=== PATIENT | female | born 1940 | race Caucasian/White ===

== ENCOUNTER 2019-03-01 17:51 | Emergency (ER) | payer OTHER ==
--- OUTSIDE RECORDS SUMMARY | 2019-03-01 17:53 | XMS REPORT ---
:1940 [facility] Address [address] [place] [address] Dr. Rubin [address] [place] [id number] Care Team Providers Name Role Phone Unavailable Unavailable Unavailable Problems This patient has no known problems. Allergies, Adverse Reactions, Alerts This patient has no known allergies or adverse reactions. Medications This patient has no known medications.
[2019-03-01] MEDS ORDERED: HYDROCODONE/APAP 5/325 MG TAB ONE ×2 (18:44→18:48)
--- NOTE | 2019-03-01 18:51 | RAD REPORT ---
EXAM DESCRIPTION: CT - Head Brain Wo Cont - 03/01/2019 6:32 pm CLINICAL HISTORY: Head injury status post fall COMPARISON: 2018 TECHNIQUE: Computed axial tomography of the head was obtained. IV contrast was not requested. All CT scans are performed using dose optimization technique as appropriate and may include automated exposure control or mA/KV adjustment according to patient size. FINDINGS: An intracranial bleed is not seen . The ventricles are normal in caliber. No extra-axial fluid collection is noted. 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 No surrounding edema Fluid is present within the right maxillary sinus may indicate acute sinusitis IMPRESSION: No acute intracranial abnormality is seen. If patient's symptoms persist MRI of the bra in would be recommended.
--- NOTE | 2019-03-01 18:58 | RAD REPORT ---
EXAM DESCRIPTION: CT - Thorax Wo Con - 03/01/2019 6:30 pm CLINICAL HISTORY: Chest pain status post fall COMPARISON: 2008 TECHNIQUE: Computed axial tomography of the chest was obtained. Contrast was not requested. All CT scans are performed using dose optimization technique as appropriate and may include automated exposure control or mA/KV adjustment according to patient size. FINDINGS: The evaluation of mediastinum, karen and vessels is limited secondary to lack of IV contras t administration. A mediastinal hematoma is not seen. A pulmonary contusion is not noted A pleural effusion is not present. A pericardial effusion is not seen Moderate hiatal hernia IMPRESSION: No acute traumatic injury involving the chest seen
--- NOTE | 2019-03-01 19:00 | RAD REPORT ---
EXAM DESCRIPTION: RAD - Forearm Right - 03/01/2019 6:27 pm CLINICAL HISTORY: Right arm pain status post fall FINDINGS: No fracture is seen.
--- NOTE | 2019-03-01 19:41 | ER ---
Nurse's Notes [facility] Name: Nallely Mendez Age: 79 yrs Sex: Female : 1940 Arrival Date: 03/01/2019 Time: 17:54 Bed 18 Private MD: Vinod Combs Diagnosis: Rib contusion;Right forearm skin tear Presentation: 03/01 18:03 Presenting complaint: Patient states: tripped and fell yesterday onto her right breast sv and since then has been having pain and SOB. Care prior to arrival: None. Mechanism of Injury: Fall from standing position. Trauma event details: Injury occurred in the [facility], Injury occurred: at home. Injury occurred: February 28, 2019. 18:03 Method Of Arrival: Wheelchair sv 18:03 Acuity: GUNNER 2 sv 19:15 Transition of care: patient was not received from another setting of care. Onset of wh symptoms was February 28, 2019. Risk Assessment: Do you want to hurt yourself or someone else? Patient reports no desire to harm self or others. 19:15 Initial Sepsis Screen: Does the patient meet any 2 criteria? No. Patient's initial wh sepsis screen is negative. Does the patient have a suspected source of infection? No. Patient's initial sepsis screen is negative. Historical: - Allergies: 18:05 Phenergan; sv - PMHx: 18:05 Depression; Hypertension; sv - PSHx: 18:05 Appendectomy; Cholecystectomy; Tonsillectomy; Knee surgery; sv - Immunization history:: Adult Immunizations up to date. - Social history:: Smoking status: Patient/guardian denies using tobacco. - Ebola Screening: : Patient negative for fever greater than or equal to 101.5 degrees Fahrenheit, and additional compatible Ebola Virus Disease symptoms Patient denies exposure to infectious person. Screenin:10 Abuse screen: Denies threats or abuse. Denies injuries from another. Nutritional wh screening: No deficits noted. Tuberculosis screening: No symptoms or risk factors identified. Fall Risk Fall in past 12 months (25 points). Assessment: 19:13 General: Appears in no apparent distress. Behavior is calm, cooperative, appropriate wh for age. Pain: Complains of pain in RIght RIb cage Pain radiates to back Pain currently is 7 out of 10 on a pain scale. Neuro: Level of Consciousness is awake, alert, obeys commands, Oriented to person, place, time, situation, Appropriate for age. Cardiovascular: Heart tones S1 S2. Respiratory: Airway is patent Respiratory effort is even, unlabored, Respiratory pattern is regular, symmetrical, Breath sounds are clear bilaterally. GI: Abdomen is flat, non-distended. : No signs and/or symptoms were reported regarding the genitourinary system. EENT: No signs and/or symptoms were reported regarding the EENT system. Derm: Skin is intact, is healthy with good turgor, Skin is pink, warm \T\ dry. normal. Musculoskeletal: Circulation, motion, and sensation intact. Vital Signs: 18:05 BP 140 / 111; Pulse 76; Resp 20; Pulse Ox 100% ; Weight 78.02 kg; Height 5 ft. 0 in. sv (152.40 cm); Pain 10/10; 19:09 BP 100 / 44; Pulse 65; Resp 18; Pulse Ox 96% on R/A; wh 18:05 Body Mass Index 33.59 (78.02 kg, 152.40 cm) sv ED Course: 17:54 Patient arrived in ED. mr 17:54 Vinod Combs MD is Private Physician. mr 17:54 Lewis Quijano MD is Attending Physician. ps1 18:04 Triage completed. sv 18:05 ED physician to see patient. sv 18:05 Arm band placed on. sv 18:09 Fausto Mcclellan, RN is Primary Nurse. tr5 18:27 Forearm Right XRAY In Process Unspecified. EDMS 18:30 CT Chest Wo Con In Process Unspecified. EDMS 18:33 CT Head Brain wo Cont In Process Unspecified. EDMS 19:15 Patient has correct armband on for positive identification. Bed in low position. Call wh light in reach. Side rails up X 1. Pulse ox on. NIBP on. 19:39 Vinod Combs MD is Referral Physician. ps1 20:04 No provider procedures requiring assistance completed. Patient did not have IV access wh during this emergency room visit. Administered Medications: 18:45 Drug: [place] 5 mg-325 mg 2 tabs Route: PO; tr5 20:04 Follow up: Response: No adverse reaction; Pain is decreased; RASS: Alert and Calm (0) wh Outcome: 19:40 Discharge ordered by . ps1 20:04 Discharged to home via wheelchair, with family. wh 20:04 Condition: stable 20:04 Discharge instructions given to patient, family, Instructed on discharge instructions, follow up and referral plans. no drinking with medication, no driving heavy equipment, medication usage, POC Rib COntusion Demonstrated understanding of instructions, follow-up care, medications, POC Prescriptions given X 3. 20:05 Patient left the ED. Signatures: Dispatcher [employer] EDKiara Christie RN RN Kayla Summers, Domonique Lewis Quijano MD MD ps1 Fausto Mcclellan RN RN tr5 Corrections: (The following items were deleted from the chart) 18:05 18:03 Acuity: GUNNER 3 sv sv 19:14 19:09 Reassessment: Patient appears in no apparent distress at this time. Patient wh and/or family updated on plan of care and expected duration. Pain level reassessed. Patient is alert, oriented x 3, equal unlabored respirations, skin warm/dry/pink.
--- NOTE | 2019-03-01 19:41 | EDPHYS ---
Physician Documentation [facility] Name: Nallely Mendez Age: 79 yrs Sex: Female : 1940 Arrival Date: 03/01/2019 Time: 17:54 Bed 18 Private MD: Vinod Combs ED Physician Lewis Quijano HPI: 03/01 18:22 This 79 yrs old Female presents to ER via Wheelchair with complaints of Fall ps1 Injury, Breathing Difficulty. 18:22 patient fell a couple of days ago and has pain localized to right rib at 7-9 and right ps1 forearm pain. Did not hit head. No loss of consciousness. Pain is rated as severe and worse with deep inspiration. 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 . Historical: - Allergies: 18:05 Phenergan; sv - PMHx: 18:05 Depression; Hypertension; sv - PSHx: 18:05 Appendectomy; Cholecystectomy; Tonsillectomy; Knee surgery; sv - Immunization history:: Adult Immunizations up to date. - Social history:: Smoking status: Patient/guardian denies using tobacco. - Ebola Screening: : Patient negative for fever greater than or equal to 101.5 degrees Fahrenheit, and additional compatible Ebola Virus Disease symptoms Patient denies exposure to infectious person. ROS: 18:22 Constitutional: Negative for fever, chills, and weight loss, Eyes: Negative for injury, ps1 pain, redness, and discharge, Cardiovascular: Negative for chest pain, palpitations, and edema, Abdomen/GI: Negative for abdominal pain, nausea, vomiting, diarrhea, and constipation, Neuro: Negative for headache, weakness, numbness, tingling, and seizure. 18:22 Respiratory: Positive for pleurisy, of the right lateral posterior chest. 18:22 MS/extremity: Positive for pain, of the right arm. 18:22 Skin: Positive for abrasion(s), of the palmar aspect of right forearm. Exam: 18:25 Constitutional: This is a well developed, well nourished patient who is awake, alert, ps1 and in no acute distress. Head/Face: Normocephalic, atraumatic. Eyes: Pupils equal round and reactive to light, extra-ocular motions intact. Lids and lashes normal. Conjunctiva and sclera are non-icteric and not injected. Cardiovascular: Regular rate and rhythm. No gallops, murmurs, or rubs. Normal PMI, no JVD. No pulse deficits. Respiratory: Lungs have equal breath sounds bilaterally, clear to auscultation and percussion. No rales, rhonchi or wheezes noted. No increased work of breathing, no retractions or nasal flaring. Abdomen/GI: Soft, non-tender, with normal bowel sounds. No distension or tympany. No guarding or rebound. No evidence of tenderness throughout. 18:25 Chest/axilla: Inspection: normal, Palpation: tenderness, that is moderate, of the right lateral posterior chest, that totally reproduces the patient's complaints. 18:25 Skin: injury, abrasion(s), moderate sized abrasion noted, of the palmar aspect of right forearm. Vital Signs: 18:05 BP 140 / 111; Pulse 76; Resp 20; Pulse Ox 100% ; Weight 78.02 kg; Height 5 ft. 0 in. sv (152.40 cm); Pain 12/30; 19:09 BP 100 / 44; Pulse 65; Resp 18; Pulse Ox 96% on R/A; wh 18:05 Body Mass Index 33.59 (78.02 kg, 152.40 cm) sv MDM: 18:17 Patient medically screened. ps1 03/01 18:09 Order name: CT Chest Wo Con; Complete Time: 19:09 ps1 03/01 18:09 Order name: CT Head Brain wo Cont; Complete Time: 18:59 ps1 03/01 18:09 Order name: Forearm Right XRAY; Complete Time: 19:09 ps1 03/01 18:09 Order name: INCENTIVE SPIROMETRY ps1 Administered Medications: 18:45 Drug: [place] 5 mg-325 mg 2 tabs Route: PO; tr5 20:04 Follow up: Response: No adverse reaction; Pain is decreased; RASS: Alert and Calm (0) wh Disposition: 03/01/19 19:40 Discharged to Home. Impression: Rib contusion, Right forearm skin tear. - Condition is Stable. - Discharge Instructions: Rib Contusion, Skin Tear Care, [id number]. - Prescriptions for Robaxin 500 mg Oral Tablet - take 2 tablet by ORAL route every 6 hours As needed; 40 tablet. Tylenol- Codeine #3 300-30 mg Oral Tablet - take 2 tablet by ORAL route every 6 hours As needed; 30 tablet. Zofran 4 mg Oral Tablet - take 1 tablet by ORAL route every 12 hours As needed; 20 tablet. - Medication Reconciliation Form, Thank You Letter, Antibiotic Education, Prescription Opioid Use form. - Follow up: Vinod Combs MD; When: As needed; Reason: Recheck today's complaints, Continuance of care, Re-evaluation by your physician. Follow up: Emergency Department; When: As needed; Reason: Fever > 102 F, Trouble breathing. - Problem is new. - Symptoms are unchanged. Signatures: Dispatcher [employer] Kiara Navarrete, RN RN sv Domonique Lowry Phillip, MD MD ps1 Fausto Mcclellan RN RN tr5 Corrections: (The following items were deleted from the chart) 20:05 19:40 03/01/2019 19:40 Discharged to Home. Impression: Rib contusion; Right forearm wh skin tear. Condition is Stable. Forms are Medication Reconciliation Form, Thank You Letter, Antibiotic Education, Prescription Opioid Use. Follow up: Vinod Combs; When: As needed; Reason: Recheck today's complaints, Continuance of care, Re-evaluation by your physician. Follow up: Emergency Department; When: As needed; Reason: Fever > 102 F, Trouble breathing. Problem is new. Symptoms are unchanged. ps1
[2019-03-01 20:58] VITALS: BP 100/44; O2SAT 96
== END 2019-03-01 20:05 | disposition home or self-care (01) ==
LOC: ER 17:51
DX: S51.811A Laceration without foreign body of right forearm, initial encounter (principal); W19.XXXA Unspecified fall, initial encounter; Y93.9 Activity, unspecified; Y92.9 Unspecified place or not applicable; I10 Essential (primary) hypertension; Z88.8 Allergy status to other drugs, medicaments and biological substances
CPT/HCPCS: 70450; 71250; 99284

== ENCOUNTER 2019-05-30 04:24 | Inpatient (IN) | payer OTHER ==
--- OUTSIDE RECORDS SUMMARY | 2019-05-30 04:26 | XMS REPORT ---
:1940 [facility] Address [address] [place] [address] Dr. Rubin [address] [place] [id number] Care Team Providers Name Role Phone Unavailable Unavailable Unavailable Problems This patient has no known problems. Allergies, Adverse Reactions, Alerts This patient has no known allergies or adverse reactions. Medications This patient has no known medications.
--- OUTSIDE RECORDS SUMMARY | 2019-05-30 04:27 | XMS REPORT | Summary of Care ---
:1940 Author Organization [facility] Address [address] [place] [address] Care Team Providers Name Role Phone Vinod Combs Unavailable Vinod Combs Primary Care Provider Reason for Referral Radiology Services (STAT) Status Reason Specialty Diagnoses / Referred By Referred To Procedures Contact Contact New Request Diagnostic Diagnoses Fall, initial encounter China, Devin B, Radiology Procedures XR FOOT <3 VW RIGHT [employer] [address] [place] [phone] Radiology Services (STAT) Status Reason Specialty Diagnoses / Referred By Referred To Procedures Contact Contact New Request Diagnostic Diagnoses Fall, initial encounter Udall, Devin B, Radiology Procedures XR ANKLE <3 VW RIGHT [employer] AR[employer] [address] [place] [phone] Radiology Services (STAT) Status Reason Specialty Diagnoses / Referred By Referred To Procedures Contact Contact New Request Diagnostic Diagnoses Fall, initial encounter China, Devin B, Radiology Procedures XR TIBIA FIBULA 2 VW RIGHT [employer] [address] [place] [address] Radiology Services (STAT) Status Reason Specialty Diagnoses / Referred By Referred To Procedures Contact Contact New Request Diagnostic Diagnoses Fall, initial encounter Udall, Devin B, Radiology Procedures XR KNEE 3 VW RIGHT [employer]AL ARCH[employer]ECT [address] [place] [address] Radiology Services (STAT) Status Reason Specialty Diagnoses / Referred By Referred To Procedures Contact Contact New Request Diagnostic Diagnoses Fall, initial encounter Udall, Devin B, Radiology Procedures XR FEMUR 2 VW RIGHT [employer] AR[employer]ECT [address] [place] [address] Radiology Services (STAT) Status Reason Specialty Diagnoses / Referred By Referred To Procedures Contact Contact New Request Diagnostic Diagnoses Fall, initial encounter China, Devin B, Radiology Procedures XR PELVIS <3 VW NAVAL ARCHITECT [address] [place] [address] Reason for Visit Reason Comments Fall Knee Pain right Auth/Cert Status Reason Specialty Diagnoses / Referred By Referred To Procedures Contact Contact Emergency Medicine Diagnoses FALL,RT LEG PAIN [facility] [address] [place] [address] [place] [address] Encounter Details Date Type Department Care Team Description 04/23/2019 Emergency ADC-Emergency Udall, Devin B, NAVAL ARCHITECT Fall, initial encounter (Primary Dx); Department [address] [place] [address] Contusion of multiple sites of right lower extremity, initial encounter [address] [place] [address] [place] [phone] Allergies Active Allergy Reactions Severity Noted Date Comments Promethazine Hcl Hallucinations Medium 04/26/2018 documented as of this encounter (statuses as of 04/23/2019) Medications Medication Sig Dispensed Refills Start Date End Date Status aspirin 81 mg chewable Take 81 mg by 0 Active tablet mouth. gabapentin 300 mg Take 300 mg by 0 Active capsuleIndications: at mouth daily. bedtime lisinopril 10 mg tablet Take 10 mg by 0 Active mouth daily. omeprazole 40 mg Take 40 mg by 0 Active capsule mouth daily. albuterol sulfate 90 Inhale. 0 Active mcg/actuation AePBIndications: albuterol inhaler prn per pt statement lisinopril 10 mg tablet Take 10 mg by 0 Active mouth daily. OMEPRAZOLE MAGNESIUM Take by mouth. 0 Active ORAL FLUoxetine 20 mg Take 20 mg by 0 Active capsule mouth daily. alendronate sodium Take by mouth. 0 Active (ALENDRONATE ORAL) ASPIRIN ORAL Take by mouth. 0 Active baclofen 10 mg tablet Take 10 mg by 0 Active mouth 3 (three) times daily. gabapentin 400 mg Take 400 mg by 0 Active capsule mouth 3 (three) times daily. ALBUTEROL SULFATE ORAL Take by mouth. 0 Active documented as of this encounter (statuses as of 04/23/2019) Active Problems No known active problemsdocumented as of this encounter (statuses as of 2019) Social History Tobacco Use Types Packs/Day Years Used Date Never Smoker Smokeless Tobacco: Never Used Alcohol Use Drinks/Week oz/Week Comments No Sex Assigned at Date Recorded Not on file Job Start Date Occupation Industry Not on file Not on file Not on file Travel History Travel Start Travel End No recent travel history available. documented as of this encounter Last Filed Vital Signs Vital Sign Reading Time Taken Comments Blood Pressure 143/80 04/23/2019 7:30 PM INTERNATIONAL SOURCING MANAGER Pulse 72 04/23/2019 7:30 PM INTERNATIONAL SOURCING MANAGER Temperature 36.8 C (98.2 F) 04/23/2019 4:45 PM INTERNATIONAL SOURCING MANAGER Respiratory Rate 18 04/23/2019 7:30 PM INTERNATIONAL SOURCING MANAGER Oxygen Saturation 98% 04/23/2019 7:30 PM INTERNATIONAL SOURCING MANAGER Inhaled Oxygen Concentration - - Weight 77.1 kg (170 lb) 04/23/2019 4:45 PM INTERNATIONAL SOURCING MANAGER Height - - Body Mass Index 33.2 04/22/2019 8:21 AM INTERNATIONAL SOURCING MANAGER documented in this encounter Discharge Instructions Devin Weinberg FNP - 04/23/2019DIAGNOSIS 1. Fall 2. Leg contusions NO LIFE-THREATENING FINDINGS ON TODAY'S EXAM. RECOMMEND FOLLOW-UP WITH A PRIMARY CARE PROVIDER OR SPECIALIST IN 2-5 DAYS, ESPECIALLY IF NO IMPROVEMENT IN SYMPTOMS. MAY FOLLOW-UP WITH A PROVIDER OF YOUR CHOICE, SUCH : 1. A PHYSICIAN OF YOUR CHOICE 2. [address] [place] [address]; 3. [facility], [address], [place]; [phone] OR, IF YOU WISH TO FOLLOW-UP WITHIN THE [facility], MAY TRY THESE OPTIONS (CLINIC APPOINTMENTS AVAILABLE ON SEJP-LE-MEPO BASIS): 1. SCHEDULE AN APPOINTMENT ONLINE AT WWW.[email or web address] 2. OR CALL THE [facility] AT OR 3. OR CALL YOUR [facility] PHYSICIAN'S OFFICE DIRECTLY IF YOU ARE ALREADY AN ESTABLISHED [facility] PATIENT. RETURN TO ER FOR WORSENING OF SYMPTOMS. AttachmentsThe following attachments cannot be sent through Care Everywhere.Bone Bruise (Bone Contusion), Understanding (Malian)Contusion, Lower Extremity (Malian)Falls, Preventing, Are You At Risk of Falling? (Malian )documented in this encounter Plan of Treatment Date Type Specialty Care Team Description 05/09/2019 Office Visit Cardiology Merrill Monreal MD [address] [place] [address] [place] [address] Name Type Priority Associated Diagnoses Order Schedule XR KNEE 3 VW RIGHT IMAGING STAT Fall, initial encounter ONCE for 1 Occurrences starting 04/23/2019 until 04/23/2019 XR ANKLE <3 VW IMAGING STAT Fall, initial encounter ONCE for 1 Occurrences RIGHT starting 04/23/2019 until 04/23/2019 Health Maintenance Due Date Last Done Comments DTaP,Tdap,and Td Vaccines (1 - Tdap) 02/07/1951 Zoster Recombinant Vaccine (SHINGRIX) (1 of 2) 1991 Medicare Wellness Visit 2006 Osteoporosis Screening 2006 PNEUMOCOCCAL VACCINES 65+ (1 of 2 - PCV13) 2006 INFLUENZA VACCINE (#1) 2018 documented as of this encounter Implants Implanted Type Area Wardrobe Attendant Device Shelf Model / Serial Identifier Expiration / Lot Date Lens, Matti #[id number] - [id number] LENS Right: Matti 11/20/2021 [id number] / Implanted: Qty: 1 on 04/28/2018 by Rei Davis MD at [facility] Eye [id number] / [id number] Lens, Matti #[id number] - [id number] LENS Left: Eye Matti 10/20/2022 [id number] / Implanted: Qty: 1 on 05/12/2018 by Rei Davis MD at [facility] [id number] / [id number] documented as of this encounter Procedures Procedure Name Priority Date/Time Associated Diagnosis Comments XR FOOT <3 VW RIGHT STAT 04/23/2019 5:50 PM Fall, initial Results for this INTERNATIONAL SOURCING MANAGER encounter procedure are in the results section. XR TIBIA FIBULA 2 STAT 04/23/2019 5:44 PM Fall, initial Results for this VW RIGHT INTERNATIONAL SOURCING MANAGER encounter procedure are in the results section. XR FEMUR 2 VW RIGHT STAT 04/23/2019 5:44 PM Fall, initial Results for this INTERNATIONAL SOURCING MANAGER encounter procedure are in the results section. XR PELVIS <3 VW STAT 04/23/2019 5:25 PM Fall, initial Results for this INTERNATIONAL SOURCING MANAGER encounter procedure are in the results section. NOTICE OF PRIVACY Routine 04/23/2019 4:40 PM PRACTICES INTERNATIONAL SOURCING MANAGER documented in this encounter Results XR FOOT <3 VW RIGHT (04/23/2019 5:50 PM INTERNATIONAL SOURCING MANAGER) Specimen Impressions Performed At PACS/VR/DOSE No acute bony abnormality. Soft tissue swelling about the knee and leg. Osteoarthrosis. Preliminary Report Dictated by Resident: Kahlil Zhao I, Eulalio Bryant MD., have reviewed this study and agree with the above report. Narrative Performed At EXAM: XR TIBIA FIBULA 2 VW RIGHT PACS/VR/DOSE EXAM: XR FEMUR 2 VW RIGHT EXAM: XR FOOT <3 VIEW RIGHT HISTORY: fall COMPARISON: None FINDINGS: Radiographs of the right femur, tibia fibula and foot demonstrate no acute fracture or dislocation. Hardware fixation of the second toe PIP joint is noted without complication. Subchondral sclerosis, osteophytosis at the hip joint is seen. Knee tricompartmental subchondral sclerosis, marginal osteophytes and joint space narrowing is also noted. A small size knee joint effusion is present. Degenerative tibial spine hypertrophy is present. An os peroneum is seen. Prominent plantar calcaneal enthesophyte is noted. Diffuse osteopenia is seen. Dystrophic calcification along the soft tissues of the anterior tibia is noted. Vascular calcifications are present. Osteopenia is present. Soft tissue swelling is seen about the medial aspect of the knee and throughout the leg. Procedure Note [facility], Radiant Results Inft User - 04/23/2019 6:37 PM INTERNATIONAL SOURCING MANAGER EXAM: XR TIBIA FIBULA 2 VW RIGHT EXAM: XR FEMUR 2 VW RIGHT EXAM: XR FOOT <3 VIEW RIGHT HISTORY: fall COMPARISON: None FINDINGS: Radiographs of the right femur, tibia fibula and foot demonstrate no acute fracture or dislocation. Hardware fixation of the second toe PIP joint is noted without complication. Subchondral sclerosis, osteophytosis at the hip joint is seen. Knee tricompartmental subchondral sclerosis, marginal osteophytes and joint space narrowing is also noted. A small size knee joint effusion is present. Degenerative tibial spine hypertrophy is present. An os peroneum is seen. Prominent plantar calcaneal enthesophyte is noted. Diffuse osteopenia is seen. Dystrophic calcification along the soft tissues of the anterior tibia is noted. Vascular calcifications are present. Osteopenia is present. Soft tissue swelling is seen about the medial aspect of the knee and throughout the leg. IMPRESSION No acute bony abnormality. Soft tissue swelling about the knee and leg. Osteoarthrosis. Preliminary Report Dictated by Resident: Eulalio Middleton MD., have reviewed this study and agree with the above report. Performing Organization Address City[place]State[place] Phone Number PACS/VR/DOSE XR TIBIA FIBULA 2 VW RIGHT (04/23/2019 5:44 PM INTERNATIONAL SOURCING MANAGER) Specimen Impressions Performed At PACS/VR/DOSE No acute bony abnormality. Soft tissue swelling about the knee and leg. Osteoarthrosis. Preliminary Report Dictated by Resident: Eulalio Middleton MD., have reviewed this study and agree with the above report. Narrative Performed At EXAM: XR TIBIA FIBULA 2 VW RIGHT PACS/VR/DOSE EXAM: XR FEMUR 2 VW RIGHT EXAM: XR FOOT <3 VIEW RIGHT HISTORY: fall COMPARISON: None FINDINGS: Radiographs of the right femur, tibia fibula and foot demonstrate no acute fracture or dislocation. Hardware fixation of the second toe PIP joint is noted without complication. Subchondral sclerosis, osteophytosis at the hip joint is seen. Knee tricompartmental subchondral sclerosis, marginal osteophytes and joint space narrowing is also noted. A small size knee joint effusion is present. Degenerative tibial spine hypertrophy is present. An os peroneum is seen. Prominent plantar calcaneal enthesophyte is noted. Diffuse osteopenia is seen. Dystrophic calcification along the soft tissues of the anterior tibia is noted. Vascular calcifications are present. Osteopenia is present. Soft tissue swelling is seen about the medial aspect of the knee and throughout the leg. Procedure Note [facility], Radiant Results Inft User - 04/23/2019 6:37 PM INTERNATIONAL SOURCING MANAGER EXAM: XR TIBIA FIBULA 2 VW RIGHT EXAM: XR FEMUR 2 VW RIGHT EXAM: XR FOOT <3 VIEW RIGHT HISTORY: fall COMPARISON: None FINDINGS: Radiographs of the right femur, tibia fibula and foot demonstrate no acute fracture or dislocation. Hardware fixation of the second toe PIP joint is noted without complication. Subchondral sclerosis, osteophytosis at the hip joint is seen. Knee tricompartmental subchondral sclerosis, marginal osteophytes and joint space narrowing is also noted. A small size knee joint effusion is present. Degenerative tibial spine hypertrophy is present. An os peroneum is seen. Prominent plantar calcaneal enthesophyte is noted. Diffuse osteopenia is seen. Dystrophic calcification along the soft tissues of the anterior tibia is noted. Vascular calcifications are present. Osteopenia is present. Soft tissue swelling is seen about the medial aspect of the knee and throughout the leg. IMPRESSION No acute bony abnormality. Soft tissue swelling about the knee and leg. Osteoarthrosis. Preliminary Report Dictated by Resident: Eulalio Middleton MD., have reviewed this study and agree with the above report. Performing Organization Address City/State/Zipcode Phone Number PACS/VR/DOSE XR FEMUR 2 VW RIGHT (04/23/2019 5:44 PM INTERNATIONAL SOURCING MANAGER) Specimen Impressions Performed At [facility]/VR/DOSE No acute bony abnormality. Soft tissue swelling about the knee and leg. Osteoarthrosis. Preliminary Report Dictated by Resident: Eulalio Middleton MD., have reviewed this study and agree with the above report. Narrative Performed At EXAM: XR TIBIA FIBULA 2 VW RIGHT PACS/VR/DOSE EXAM: XR FEMUR 2 VW RIGHT EXAM: XR FOOT <3 VIEW RIGHT HISTORY: fall COMPARISON: None FINDINGS: Radiographs of the right femur, tibia fibula and foot demonstrate no acute fracture or dislocation. Hardware fixation of the second toe PIP joint is noted without complication. Subchondral sclerosis, osteophytosis at the hip joint is seen. Knee tricompartmental subchondral sclerosis, marginal osteophytes and joint space narrowing is also noted. A small size knee joint effusion is present. Degenerative tibial spine hypertrophy is present. An os peroneum is seen. Prominent plantar calcaneal enthesophyte is noted. Diffuse osteopenia is seen. Dystrophic calcification along the soft tissues of the anterior tibia is noted. Vascular calcifications are present. Osteopenia is present. Soft tissue swelling is seen about the medial aspect of the knee and throughout the leg. Procedure Note [facility], Radiant Results Inft User - 04/23/2019 6:37 PM INTERNATIONAL SOURCING MANAGER EXAM: XR TIBIA FIBULA 2 VW RIGHT EXAM: XR FEMUR 2 VW RIGHT EXAM: XR FOOT <3 VIEW RIGHT HISTORY: fall COMPARISON: None FINDINGS: Radiographs of the right femur, tibia fibula and foot demonstrate no acute fracture or dislocation. Hardware fixation of the second toe PIP joint is noted without complication. Subchondral sclerosis, osteophytosis at the hip joint is seen. Knee tricompartmental subchondral sclerosis, marginal osteophytes and joint space narrowing is also noted. A small size knee joint effusion is present. Degenerative tibial spine hypertrophy is present. An os peroneum is seen. Prominent plantar calcaneal enthesophyte is noted. Diffuse osteopenia is seen. Dystrophic calcification along the soft tissues of the anterior tibia is noted. Vascular calcifications are present. Osteopenia is present. Soft tissue swelling is seen about the medial aspect of the knee and throughout the leg. IMPRESSION No acute bony abnormality. Soft tissue swelling about the knee and leg. Osteoarthrosis. Preliminary Report Dictated by Resident: Kahlil Zhao I, Eulalio Bryant MD., have reviewed this study and agree with the above report. Performing Organization Address [facility] Phone Number PACS/VR/DOSE XR PELVIS <3 VW (04/23/2019 5:25 PM INTERNATIONAL SOURCING MANAGER) Specimen Impressions Performed At PACS/VR/DOSE No acute bony abnormality. Preliminary Report Dictated by Resident: Jodie Doyle I, Eulalio Bryant MD., have reviewed this study and agree with the above report. Narrative Performed At PACS/VR/DOSE EXAM: XR PELVIS <3 VW HISTORY: fall COMPARISON: None available. FINDINGS: Images of the pelvis demonstrate no fracture or dislocation. Moderate lower lumbar spondylosis is noted. Osteopenia is present. The soft tissues are unremarkable. An dense, oval structure projecting over the right iliac crest is likely intraluminal. Procedure Note [facility], Radiant Results Inft User - 04/23/2019 6:32 PM INTERNATIONAL SOURCING MANAGER EXAM: XR PELVIS <3 VW HISTORY: fall COMPARISON: None available. FINDINGS: Images of the pelvis demonstrate no fracture or dislocation. Moderate lower lumbar spondylosis is noted. Osteopenia is present. The soft tissues are unremarkable. An dense, oval structure projecting over the right iliac crest is likely intraluminal. IMPRESSION No acute bony abnormality. Preliminary Report Dictated by Resident: Jodie Doyle I, Eulalio Bryant MD., have reviewed this study and agree with the above report. Performing Organization Address City/State/Zipcode Phone Number PACS/VR/DOSE documented in this encounter Visit Diagnoses Diagnosis Fall, initial encounter - Primary Contusion of multiple sites of right lower extremity, initial encounter documented in this encounter Administered Medications Medication Order MAR Action Action Date Dose Rate Site HYDROcodone-acetaminophen Given 04/23/2019 7:24 PM INTERNATIONAL SOURCING MANAGER 1 tablet (NORCO 5) 5-325 mg tablet 1 tablet 1 tablet, Oral, ONCE, 1 dose, 04/23/19 at 1815, PAULINE documented in this encounter Insurance Payer Benefit Plan / Subscriber ID Effective Phone Address Type Group Dates [employer] MEDICARE [id number] 2019-Prese Medicare Adv HEALTHCARE COMPLETE nt PPO MEDICARE CHOICE ADVANTAGE (Work) documented as of this encounter
--- OUTSIDE RECORDS SUMMARY | 2019-05-30 04:27 | XMS REPORT | Summary of Care ---
:1940 Author Organization [facility] Address [address] [place] [address] Care Team Providers Name Role Phone Vinod Combs Unavailable Vinod Combs Primary Care Provider Reason for Visit (Routine) Status Reason Specialty Diagnoses / Procedures Referred By Referred To Contact Contact New Request Cardiology Diagnoses Preop cardiovascular exam Merrill Monreal, Procedures ECHO ROUTINE W/DOPPLER COLOR Preferred Location: Stephanie Gray MD [address] [place] [address] [address] [place] [address] Encounter Details Date Type Department Care Team Description 05/10/2019 Laboratory Only [facility] Merrill Monreal MD [address] [place] [address] [address] [place] [address] Preop cardiovascular Cardiology- Pc, Adc Echo Room 1 - exam [address], [address] [place] [address] Allergies Active Allergy Reactions Severity Noted Date Comments Promethazine Hcl Hallucinations Medium 04/26/2018 documented as of this encounter (statuses as of 05/10/2019) Medications Medication Sig Dispensed Refills Start Date [...] as of this encounter (statuses as of 05/10/2019) Active Problems No known active problemsdocumented as of this encounter (statuses as of 2019) Immunizations Name Administration Dates Next Due Influenza High Dose 01/21/2019, 01/11/2018 Pneumococcal 13 Conjugate, PCV13 (Prevnar 13) 11/28/2018 documented as of this encounter Social History Tobacco Use Types Packs/Day Years [...] Sign Reading Time Taken Comments Blood Pressure 131/84 05/10/2019 1:30 PM FUNDRAISING DIRECTOR Pulse 73 05/10/2019 1:30 PM FUNDRAISING DIRECTOR Temperature - - Respiratory Rate - - Oxygen Saturation - - Inhaled Oxygen Concentration - - Weight 81.2 kg (179 lb) 05/10/2019 1:30 PM FUNDRAISING DIRECTOR Height 152.4 cm (5') 05/10/2019 1:30 PM FUNDRAISING DIRECTOR Body Mass Index 34.96 05/10/2019 1:30 PM FUNDRAISING DIRECTOR documented in this encounter Plan of Treatment Health Maintenance Due Date Last Done Comments DTaP,Tdap,and Td Vaccines (1 - Tdap) 02/07/1951 Zoster Recombinant Vaccine (SHINGRIX) (1 1991 of 2) Medicare Wellness Visit 2006 Osteoporosis Screening 2006 PNEUMOCOCCAL VACCINES 65+ (2 of 2 - 11/29/2019 11/28/2018 PPSV23) INFLUENZA VACCINE Completed 01/21/2019, 01/11/2018 documented as of this encounter Implants Implanted Type Area Java Sybase Developer Device Shelf Model / Serial Identifier Expiration / Lot Date Lens, Matti #Sn60wf - [id number] LENS Right: Matti 11/20/2021 SN60WF / Implanted: Qty: 1 on 04/28/2018 by Rei Davis MD at [facility] [id number] / [id number] Lens, Matti #[id number] - [id number] LENS Left: Eye Matti 10/20/2022 SN60WF / Implanted: Qty: 1 on 05/12/2018 by Rei Davis MD at [facility] [id number] / [id number] documented as of this encounter Results Not on filedocumented in this encounter Visit Diagnoses Diagnosis Preop cardiovascular exam Pre-operative cardiovascular examination documented in this encounter Insurance Payer Benefit Plan / Subscriber ID Effective Phone Address Type Group Dates [employer]HC MEDICARE [id number] 2019-Prese Medicare Adv HEALTHCARE COMPLETE nt PPO MEDICARE CHOICE ADVANTAGE [phone] (Home) [place] [phone] [id number] (Work) documented as of this encounter
--- OUTSIDE RECORDS SUMMARY | 2019-05-30 04:27 | XMS REPORT | Summary of Care ---
:1940 Author Organization [facility] - [facility] Address [address] [place] [address] Care Team Providers Name Role Phone Vinod Combs Unavailable Vinod Combs Primary Care Provider Reason for Referral (Routine) Status Reason Specialty Diagnoses / Procedures Referred By Referred To Contact Contact New Request Cardiology Diagnoses Preop cardiovascular exam Merrill Monreal, Rian ECHO ROUTINE W/DOPPLER COLOR Preferred Location: [facility] [address] [address] [address] [place] [address] Reason for Visit Reason Comments New Patient Establish Care/Cardiac Clearance Ekg Done today in Office Encounter Details Date Type Department Care Team Description 05/09/2019 Office Visit [facility] Merrill Monreal MD Chronic pain of right knee (Primary Dx); Cardiology- [address] Preop cardiovascular exam; [address] [place] [address], [address] [place] [phone] Allergies Active Allergy Reactions Severity Noted Date Comments Promethazine Hcl Hallucinations Medium 04/26/2018 documented as of this encounter (statuses as of 05/09/2019) Medications Medication Sig Dispensed Refills Start Date [...] as of this encounter (statuses as of 05/09/2019) Active Problems No known active problemsdocumented as [...] Sign Reading Time Taken Comments Blood Pressure 142/83 05/09/2019 11:19 AM HEATING ENGINEER Pulse 67 05/09/2019 11:19 AM HEATING ENGINEER Temperature - - Respiratory Rate 05/09/2019 11:19 AM HEATING ENGINEER Oxygen Saturation 97% 05/09/2019 11:19 AM HEATING ENGINEER Inhaled Oxygen Concentration - - Weight 81.4 kg (179 lb 8 oz) 05/09/2019 11:19 AM HEATING ENGINEER Height 152.4 cm (5') 05/09/2019 11:19 AM HEATING ENGINEER Body Mass Index 35.06 05/09/2019 11:19 AM HEATING ENGINEER documented in this encounter Progress Notes Merrill Monreal MD - 05/09/2019 11:00 AM CST CARDIOLOGY CLINIC NOTE 05/09/2019 Reason for Referral/Presenting Complaint: preop cardiac evaluation PCP: Vinod Combs History of Present Illness: Nallely Mendez is a 79 years old female with history of HTN. Planning to have right knee surgery.This has been chronic. Able to walk a few blocks with a walker despite the pain. No chest pain or significant SOB. Cardiovascular testing: EKG: Sinus rhythm with PAC. Review of Systems: General: (-) fever, (-) chills, (-) weight change, (-) dizziness, (-) fatigue Skin: (-) rash HEENT: (-) headache, (-) change in vision Neck: (-) difficulty swallowing Heme: negative Resp: (-) cough, (-) dyspnea on exertion Cardio: (-) chest pain, (-) palpitations, (-) syncope GI: (-) vomiting, (-) diarrhea : negative Endo: (-) diabetes, (-) thyroid disease Neuro: (-) numbness, (-) tingling, (-) weakness Back: (-) pain DIONICIO: (-) muscle pain, (-) claudication Psych: (-) anxiety, (-) depression Past Medical History: Past Medical History: Diagnosis Date Arthritis Asthma GERD (gastroesophageal reflux disease) HTN (hypertension) Meningioma BOTH EYES MRSA (methicillin resistant Staphylococcus aureus) Current Medications: Current Outpatient Medications Medication Sig Dispense Refill ALBUTEROL SULFATE ORAL Take by mouth. alendronate sodium (ALENDRONATE ORAL) Take by mouth. ASPIRIN ORAL Take by mouth. baclofen 10 mg tablet Take 10 mg by mouth 3 (three) times daily. FLUoxetine 20 mg capsule Take 20 mg by mouth daily. gabapentin 400 mg capsule Take 400 mg by mouth 3 (three) times daily. lisinopril 10 mg tablet Take 10 mg by mouth daily. OMEPRAZOLE MAGNESIUM ORAL Take by mouth. albuterol sulfate 90 mcg/actuation AePB Inhale. aspirin 81 mg chewable tablet Take 81 mg by mouth. gabapentin 300 mg capsule Take 300 mg by mouth daily. lisinopril 10 mg tablet Take 10 mg by mouth daily. omeprazole 40 mg capsule Take 40 mg by mouth daily. No current facility-administered medications for this visit. Social History: Social History Socioeconomic History Marital status: Spouse name: Not on file Number of children: Not on file Years of education: Not on file Highest education level: Not on file Occupational History Not on file Social Needs Financial resource strain: Not on file Food insecurity: Worry: Not on file Inability: Not on file Transportation needs: Medical: Not on file Non-medical: Not on file Tobacco Use Smoking status: Never Smoker Smokeless tobacco: Never Used Substance and Sexual Activity Alcohol use: No Drug use: No Sexual activity: Not on file Lifestyle Physical activity: Days per week: Not on file Minutes per session: Not on file Stress: Not on file Relationships Social connections: Talks on phone: Not on file Gets together: Not on file Attends restorationist service: Not on file Active member of club or organization: Not on file Attends meetings of clubs or organizations: Not on file Relationship status: Not on file Intimate partner violence: Fear of current or ex partner: Not on file Emotionally abused: Not on file Physically abused: Not on file Forced sexual activity: Not on file Other Topics Concern Not on file Social History Narrative Not on file Family History Family History Problem Relation Age of Onset [place] (myocardial infarction) Mother 50s Physical Examination: BP (!) 142/83 (BP Location: Left arm, Patient Position: Sitting, BP CUFF SIZE: Adult Large) | Pulse67 | Resp 19 | Ht 5' (1.524 m) | Wt 179 lb 8 oz (81.4 kg ) | SpO2 97% | BMI 35.06 kg/m Constitutional: alert and oriented x 3 (person, place and date/time); no apparent distress ENT: normocephalic atraumatic, supple, no lymphadenopathy, no bruits, no JVD Lungs: clear to auscultation bilaterally Cardiovascular: S1, S2 normal, regular; no murmurs, rubs or gallops GI: soft; non-tender; non-distended; normoactive bowel sounds : not examined Musculoskeletal: Extremities: no clubbing, cyanosis, or edema Skin: no rashes Neuro: no focal deficits Assessment/Plan: ICD-10-CM ICD-9-CM 1. Chronic pain of right knee M25.561 719.46 G89.29 338.29 2. Preop cardiovascular exam Z01.810 V72.81 3. Essential hypertension I10 401.9 Functional capacity is near normal despite knee pain. No cardiac symptoms. Will get ECHO to rule outstructural heart disease. Patient was counseled for lifestyle modifications including: diet, exercise and weight loss Thank you for allowing us to participate in the care of your patient. Please feel free to contact usfor any questions or if we can be of further assistance. Merrill Monreal MD, [facility], [place] Home Sales Consultant, Division of Cardiology [facility] documented in this encounter Plan of Treatment Date Type Specialty Care Team Description 05/10/2019 Laboratory Only Cardiology Pc, Adc Echo Room 1 - Name Type Priority Associated Diagnoses Order Schedule EKG-12 LEAD HEART STATION Routine Preop cardiovascular exam Ordered: 05/09/2019 ROUTINE Essential hypertension Health Maintenance Due Date Last Done Comments DTaP,Tdap,and Td Vaccines (1 - Tdap) 02/07/1951 Zoster Recombinant Vaccine (SHINGRIX) (1 1991 of 2) Medicare Wellness Visit 2006 Osteoporosis Screening 2006 PNEUMOCOCCAL VACCINES 65+ (2 of 2 - 11/29/2019 11/28/2018 PPSV23) INFLUENZA VACCINE Completed 01/21/2019, 01/11/2018 documented as of this encounter Implants Implanted Type Area Sterile Tech Device Shelf Model / Serial Identifier Expiration / Lot Date Lens, Matti #Sn60wf - [id number] LENS Right: Matti 11/20/2021 SN60WF / Implanted: Qty: 1 on 04/28/2018 by Rei Davis MD at [facility] Eye [id number] / [id number] Lens, Matti #Sn60wf - [id number] LENS Left: Eye Matti 10/20/2022 SN60WF / Implanted: Qty: 1 on 05/12/2018 by Rei Davis MD at [facility] [id number] / [id number] documented as of this encounter Results Not on filedocumented in this encounter Visit Diagnoses Diagnosis Chronic pain of right knee - Primary Preop cardiovascular exam Pre-operative cardiovascular examination Essential hypertension Unspecified essential hypertension documented in this encounter Insurance Payer Benefit Plan / Subscriber ID Effective Phone Address Type Group Dates [place] UHC MEDICARE [id number] 2019-Prese Medicare Adv HEALTHCARE COMPLETE nt PPO MEDICARE CHOICE ADVANTAGE 3 [phone] (Home) [place] [phone] [id number] (Work) documented as of this encounter
--- OUTSIDE RECORDS SUMMARY | 2019-05-30 04:27 | XMS REPORT | Summary of Care ---
:1940 Author Organization [facility] - [facility] Address [address] [place] [address] Care Team Providers Name Role Phone Vinod Combs Unavailable Vinod Combs Primary Care Provider Reason for Referral (Routine) Status Reason Specialty Diagnoses / Procedures Referred By Referred To Contact Contact New Request Cardiology Diagnoses Preop cardiovascular exam Merrill Monreal, Rian ECHO ROUTINE W/DOPPLER COLOR Preferred Location: [facility] [address] [place] [address] [address] [place] [address] Reason for Visit Reason Comments New Patient Establish Care/Cardiac Clearance Ekg Done today in Office Encounter Details Date Type Department Care Team Description 05/09/2019 Office Visit [facility] Merrill Monreal MD Chronic pain of right knee (Primary Dx); Cardiology- [address] Preop cardiovascular exam; [address] [place] [address], [address] [place] [address] [phone] Allergies Active Allergy Reactions Severity Noted Date [...] Comments Blood Pressure 142/83 05/09/2019 11:19 AM WORKFORCE ANALYST Pulse 67 05/09/2019 11:19 AM WORKFORCE ANALYST Temperature - - Respiratory Rate 05/09/2019 11:19 AM WORKFORCE ANALYST Oxygen Saturation 97% 05/09/2019 11:19 AM WORKFORCE ANALYST Inhaled Oxygen Concentration - - Weight 81.4 kg (179 lb 8 oz) 05/09/2019 11:19 AM WORKFORCE ANALYST Height 152.4 cm (5') 05/09/2019 11:19 AM WORKFORCE ANALYST Body Mass Index 35.06 05/09/2019 11:19 AM WORKFORCE ANALYST documented in this encounter Progress Notes Merrill [...] file Gets together: Not on file Attends rastafarian service: Not on file Active member of [...] Family History Problem Relation Age of Onset [place] (myocardial infarction) Mother 50s Physical Examination: BP [...] be of further assistance. Merrill Monreal MD, [facility], [place] Railroad Repairer, Division of Cardiology [facility] documented in this encounter Plan of Treatment [...] of this encounter Implants Implanted Type Area Acid Conditioner Device Shelf Model / Serial Identifier Expiration / Lot Date Lens, Matti #Sn60wf - [id number] LENS Right: Matti 11/20/2021 SN60WF / Implanted: Qty: 1 on 04/28/2018 by Rei Davis MD at [facility] Eye [id number] / [id number] Lens, Matti #Sn60wf - [id number] LENS Left: Eye Matti 10/20/2022 SN60WF / Implanted: Qty: 1 on 05/12/2018 by Rei Davis MD at [facility] [id number] / [id number] documented as of this encounter Results Not on filedocumented in this encounter Visit Diagnoses Diagnosis Chronic pain of right knee - Primary Preop cardiovascular exam Pre-operative cardiovascular examination Essential hypertension Unspecified essential hypertension documented in this encounter Insurance Payer Benefit Plan / Subscriber ID Effective Phone Address Type Group Dates [place] UHC MEDICARE [id number] 2019-Prese Medicare Adv HEALTHCARE COMPLETE nt PPO MEDICARE CHOICE ADVANTAGE 3 [phone] (Home) [place] [phone] (Work) documented as of this encounter
--- OUTSIDE RECORDS SUMMARY | 2019-05-30 04:27 | XMS REPORT | Summary of Care ---
:1940 Author Organization [facility] Address [address] [place] [address] Care Team Providers Name Role Phone Pcp, Patient Does Not Have A Primary Care Provider Vinod Combs Unavailable Encounter Details Date Type Department Care Team Description 04/23/2019 Orders Only [facility] Doctor Unassigned, No [address] [facility] [place] [address] [address] [place] [address] Allergies Active Allergy Reactions Severity Noted Date [...] of this encounter Last Filed Vital Signs Not on filedocumented in this encounter Plan of Treatment Date Type Specialty Care Team Description 05/09/2019 Office Visit Cardiology Merrill Monreal MD [address] [place] [address] [address] [place], [place] [address] Health Maintenance Due Date Last Done Comments DTaP,Tdap,and Td Vaccines (1 - Tdap) 02/07/1951 Zoster Recombinant Vaccine (SHINGRIX) (1 of 2) 1991 Medicare Wellness Visit 2006 Osteoporosis Screening 2006 PNEUMOCOCCAL VACCINES 65+ (1 of 2 - PCV13) 2006 INFLUENZA VACCINE (#1) 2018 documented as of this encounter Implants Implanted Type Area Pattern And Chain Maker Device Shelf Model / Serial Identifier Expiration / Lot Date Lens, Matti #Sn60wf - [id number] LENS Right: Matti 11/20/2021 SN60WF / Implanted: Qty: 1 on 04/28/2018 by Rei Davis MD at [facility] Eye [id number] / [id number] Lens, Matti #Sn60wf - [id number] LENS Left: Eye Matti 10/20/2022 SN60WF / Implanted: Qty: 1 on 05/12/2018 by Rei Davis MD at [facility] [id number] / [id number] documented as of this encounter Procedures Procedure Name Priority Date/Time Associated Diagnosis Comments CONSENT/REFUSAL FOR Routine 04/23/2019 4:36 PM TORCH SOLDERER DIAGNOSIS AND TREATMENT documented in this encounter Results Not on filedocumented in this encounter Insurance Payer Benefit Plan / Subscriber ID Effective Phone Address Type Group Dates [place] UHC MEDICARE [id number] 2018-Prese Medicare Adv HEALTHCARE COMPLETE nt PPO MEDICARE CHOICE ADVANTAGE documented as of this encounter
--- OUTSIDE RECORDS SUMMARY | 2019-05-30 04:28 | XMS REPORT | Summary of Care ---
:1940 Author Organization [facility] - [facility] Address [address] [place] [address] Care Team Providers Name Role Phone Vinod Combs Unavailable Vinod Combs Primary Care Provider Reason for Referral (Routine) Status Reason Specialty Diagnoses / Procedures Referred By Referred To Contact Contact New Request Cardiology Diagnoses Preop cardiovascular exam Merrill Monreal, Rian ECHO ROUTINE W/DOPPLER COLOR Preferred Location: [facility] [address] [place] [address] [address] [place] [address] Reason for Visit Reason Comments New Patient Establish Care/Cardiac Clearance Ekg Done today in Office Encounter Details Date Type Department Care Team Description 05/09/2019 Office Visit [facility] Merrill Monreal MD Chronic pain of right knee (Primary Dx); Cardiology- [address] Preop cardiovascular exam; [address] [place] [address], [address] [place] [address] [phone] Allergies Active Allergy Reactions Severity Noted Date Comments Promethazine Hcl Hallucinations Medium 04/26/2018 documented as of this encounter (statuses as of 05/11/2019) Medications Medication Sig Dispensed Refills Start Date [...] as of this encounter (statuses as of 05/11/2019) Active Problems No known active problemsdocumented as [...] Comments Blood Pressure 142/83 05/09/2019 11:19 AM SUPERVISOR HOME ENERGY CONSULTANT Pulse 67 05/09/2019 11:19 AM SUPERVISOR HOME ENERGY CONSULTANT Temperature - - Respiratory Rate 05/09/2019 11:19 AM SUPERVISOR HOME ENERGY CONSULTANT Oxygen Saturation 97% 05/09/2019 11:19 AM SUPERVISOR HOME ENERGY CONSULTANT Inhaled Oxygen Concentration - - Weight 81.4 kg (179 lb 8 oz) 05/09/2019 11:19 AM SUPERVISOR HOME ENERGY CONSULTANT Height 152.4 cm (5') 05/09/2019 11:19 AM SUPERVISOR HOME ENERGY CONSULTANT Body Mass Index 35.06 05/09/2019 11:19 AM SUPERVISOR HOME ENERGY CONSULTANT documented in this encounter Progress Notes Merrill [...] file Gets together: Not on file Attends caodaism service: Not on file Active member of [...] Family History Problem Relation Age of Onset [place] (myocardial infarction) Mother 50s Physical Examination: BP [...] if we can be of further assistance. Addendum--05/11/2019--ECHO showed normal LVEF. No major concerns. Low to intermediate cardiac risk. Merrill Monreal MD, [facility], [place] Efficiency Clerk, Division of Cardiology [facility] documented in this encounter Plan of Treatment Name Type Priority Associated Diagnoses Order Schedule [...] of this encounter Implants Implanted Type Area History Department Chair Device Shelf Model / Serial Identifier Expiration / Lot Date Lens, Matti #Sn60wf - [id number] LENS Right: Matti 11/20/2021 SN60WF / Implanted: Qty: 1 on 04/28/2018 by Rei Davis MD at [facility] Eye [id number] / [id number] Lens, Matti #Sn60wf - [id number] LENS Left: Eye Matti 10/20/2022 SN60WF / Implanted: Qty: 1 on 05/12/2018 by Rei Davis MD at [facility] [id number] / [id number] documented as of this encounter Results Not on filedocumented in this encounter Visit Diagnoses Diagnosis Chronic pain of right knee - Primary Preop cardiovascular exam Pre-operative cardiovascular examination Essential hypertension Unspecified essential hypertension documented in this encounter Insurance Payer Benefit Plan / Subscriber ID Effective Phone Address Type Group Dates [place] UHC MEDICARE [id number] 2019-Prese Medicare Adv HEALTHCARE COMPLETE nt PPO MEDICARE CHOICE ADVANTAGE (Work) documented as of this encounter
--- OUTSIDE RECORDS SUMMARY | 2019-05-30 04:28 | XMS REPORT | Summary of Care ---
:1940 Author Organization [facility] Address [address] [place] [address] Care Team Providers Name Role Phone Pcp, Patient Does Not Have A Primary Care Provider Vinod Combs Unavailable Reason for Visit Reason Comments Follow-up Bilateral knee osteoarthritis Encounter Details Date Type Department Care Team Description 04/22/2019 Office Visit [facility] Oc Donohue PAC [address] [place] [address] Primary osteoarthritis Orthopaedic Surgery- Hernan Aguirre MD [address] [place] [address] of right knee (Primary [place] Dx) [address] [place] [address] Allergies Active Allergy Reactions Severity Noted Date [...] Sign Reading Time Taken Comments Blood Pressure 115/77 04/22/2019 8:21 AM RISK AND INSURANCE MANAGER Pulse 92 04/22/2019 8:21 AM RISK AND INSURANCE MANAGER Temperature - - Respiratory Rate - - Oxygen Saturation - - Inhaled Oxygen Concentration - - Weight 78 kg (172 lb) 04/22/2019 8:21 AM RISK AND INSURANCE MANAGER Height 152.4 cm (5') 04/22/2019 8:21 AM RISK AND INSURANCE MANAGER Body Mass Index 33.59 04/22/2019 8:21 AM RISK AND INSURANCE MANAGER documented in this encounter Progress Notes Hernan Aguirre MD - 04/22/2019 8:15 AM CST Cc: Chief Complaint Patient presents with Follow-up Bilateral knee osteoarthritis Patient reports both knees are worse now. Received Orthovisc injections in January to her right knee. She arrived with a walker today. Helen Mike 2019 8:27 DAVID Mendez is a 79 year old female. Knee Pain Incident onset: chronic pain. The incident occurred at home. There was no injury mechanism. The painis present in the right knee. The quality of the pain is described as aching. The pain is at a severity of 6/10. The pain is severe. The pain has been worsening since onset. Associated symptoms includean inability to bear weight and a loss of motion. The symptoms are aggravated by movement and weightbearing. She has tried NSAIDs (cortisone and orthovisc injections) for the symptoms. The treatment provided no relief. Allergies Nallely is allergic to phenergan [promethazine hcl]. Medications Outpatient Medications Prior to Visit Medication Sig Dispense Refill ALBUTEROL SULFATE ORAL [...] Take 40 mg by mouth daily. No facility-administered medications prior to visit. Histories Past Medical History: Diagnosis Date Arthritis Asthma GERD (gastroesophageal reflux disease) HTN (hypertension) Meningioma BOTH EYES MRSA (methicillin resistant Staphylococcus aureus) Past Surgical History: Procedure Laterality Date APPENDECTOMY CHOLECYSTECTOMY CYSTECTOMY PT STATES cysts removed from underarm - MRSA FEMUR ORIF Left 2007 LAP,ABLATION OF RENAL CYSTS PHACOEMULSIFICATION OF CATARACT WITH INTRAOCULAR LENS IMPLANT Right 04/28/2018 Surgeon: Rei Davis MD; Location: [facility] OR [facility] PHACOEMULSIFICATION OF CATARACT WITH INTRAOCULAR LENS IMPLANT Left 05/12/2018 Surgeon: Rei Davis MD; Location: [facility] OR [facility] TUBAL LIGATION Social History Socioeconomic History Marital status: Spouse [...] file Gets together: Not on file Attends gnosticism service: Not on file Active member of [...] file Social History Narrative Not on file History reviewed. No pertinent family history. Review of Systems Constitutional: Negative. HENT: Negative. Eyes: Negative. Respiratory: Negative. Breasts: Negative. Cardiovascular: Negative. Gastrointestinal: Negative. Genitourinary: Negative. Musculoskeletal: Positive for gait problem and joint swelling. Skin: Negative. Psychiatric/Behavioral: Negative. Endocrine: Endocrine negative Vital Signs BP 115/77 | Pulse 92 | Ht 60" (152.4 cm) | Wt 78 kg (172 lb) | BMI 33.59 kg/ m Physical Exam Musculoskeletal: General: Well-developed well-nourished oriented to person place and time HEENT normocephalic atraumatic atraumatic pupils equal round reactive to light extraocular muscles intact Cervical thoracic and lumbar spine without focal deficit normal kyphosis and lordosis Chest clear to auscultation and percussion Cardiovascular regular rate and rhythm without gallop rub or murmur soft without organomegaly Normal bowel sounds Neurologic: Focal myotome or dermatomal deficits Vascular: Intact symmetrical bilateral upper and lower extremities Skin without stasis varicosities or breakdown Extremities without cyanosis clubbing or edema Lymphatics no peripheral lymphedema Psych normal mood and affect. Neurovascular function is intact. To include brisk capillary refill warm pink skin active motor function and sensory function intact. Nursing note and vitals reviewed. Assessment/Plan Right knee osteoarthritis Patient's knee(s) is/are wearing out and will eventually need a total knee replacement but will takepreventative measures prior to discussing surgery. Will take this in a stepwise fashion first beginning with NSAIDs. Next would be a cortisone injection. A cortisone injection will only help with the inflammatory response. Cortisone injections will be given no less than 3 months in a 3 year time frame. Hymalecular weight hylaronic acid injection series would follow cortisone injections. If the response is well to the cortisone this is usually an indication of how one will respond to Hymalecular weight hylaronic injections. These injections are given once weekly to the affected knee for 3 weeks. This can give at least 6 months of relief in 3 out of 4 people. If these steps do not help the last option would be to have a total knee replacement. Will proceed with a total knee replacement after patient has received cardiac clearance. I have discussed the patient's physical exam and reviewed their x- rays/imaging/results with them in detail. Discussed surgery at great lengths regarding risks and benefits. Explained as with any procedure there may be pain, damage to nerve and vascular structures, fat embolism, need for additional surgery, failure of procedure to relieve pain. We spoke of recovery time, expected outcome, possible restrictions and anticipation return to work date as well as possible rehabilitation if needed or required after the surgery. All questions have been answered. Condition and plans were discussed with patient, who expressed understanding and is agreeable to theplan. documented in this encounter Plan of Treatment Health Maintenance Due Date Last Done Comments DTaP,Tdap,and Td Vaccines (1 - Tdap) 02/07/1952 Zoster Recombinant Vaccine (SHINGRIX) (1 1991 of 2) Medicare Wellness Visit 2006 Osteoporosis Screening 2006 PNEUMOCOCCAL VACCINES 65+ (2 of 2 - 11/29/2019 11/28/2018 PPSV23) INFLUENZA VACCINE Completed 01/21/2019, 01/11/2018 documented as of this encounter Implants Implanted Type Area Refrigeration Manager Device Shelf Model / Serial Identifier Expiration / Lot Date Lens, Matti #Sn60wf - [id number] LENS Right: Matti 11/20/2021 SN60WF / Implanted: Qty: 1 on 04/28/2018 by Rei Davis MD at [facility] Eye [id number] / [id number] Lens, Matti #Sn60wf - [id number] LENS Left: Eye Matti 10/20/2022 SN60WF / Implanted: Qty: 1 on 05/12/2018 by Rei Davis MD at [facility] [id number] / [id number] documented as of this encounter Results Not on filedocumented in this encounter Visit Diagnoses Diagnosis Primary osteoarthritis of right knee - Primary Primary localized osteoarthrosis, lower leg documented in this encounter Insurance Payer Benefit Plan / Subscriber ID Effective Phone Address Type Group Dates UNITED UHC MEDICARE [id number] 2019-Prese Medicare Adv HEALTHCARE COMPLETE nt PPO MEDICARE CHOICE ADVANTAGE [phone] (Home) [place] [phone] (Work) documented as of this encounter
--- OUTSIDE RECORDS SUMMARY | 2019-05-30 04:28 | XMS REPORT | Summary of Care ---
:1940 Author Organization [facility] Address [address] [place] [address] Care Team Providers Name Role Phone Pcp, Patient Does Not Have A Primary Care Provider Vinod Combs Unavailable Reason for Visit Reason Comments Follow-up Bilateral knee osteoarthritis Encounter Details Date Type Department Care Team Description 04/22/[address] [facility] Oc Donohue PAC [address] [place] [address] Primary osteoarthritis Orthopaedic Surgery- Hernan Aguirre MD [address] [place] [address] of right knee (Primary [place] Dx) [address] [place] [address] Allergies Active Allergy Reactions Severity Noted Date [...] Comments Blood Pressure 115/77 04/22/2019 8:21 AM SERVICE DELIVERY MANAGEMENT CONSULTANT Pulse 92 04/22/2019 8:21 AM SERVICE DELIVERY MANAGEMENT CONSULTANT Temperature - - Respiratory Rate - - Oxygen Saturation - - Inhaled Oxygen Concentration - - Weight 78 kg (172 lb) 04/22/2019 8:21 AM SERVICE DELIVERY MANAGEMENT CONSULTANT Height 152.4 cm (5') 04/22/2019 8:21 AM SERVICE DELIVERY MANAGEMENT CONSULTANT Body Mass Index 33.59 04/22/2019 8:21 AM SERVICE DELIVERY MANAGEMENT CONSULTANT documented in this encounter Progress Notes Hernan [...] Right 04/28/2018 Surgeon: Rei Davis MD; Location: [facility] OR [facility] PHACOEMULSIFICATION OF CATARACT WITH INTRAOCULAR LENS IMPLANT Left 05/12/2018 Surgeon: Rei Davis MD; Location: [facility] OR [facility] TUBAL LIGATION Social History Socioeconomic History Marital [...] file Gets together: Not on file Attends holiness service: Not on file Active member of [...] of this encounter Implants Implanted Type Area Director Safety Council Device Shelf Model / Serial Identifier Expiration / Lot Date Lens, Matti #Sn60wf - [id number] LENS Right: Matti 11/20/2021 SN60WF / Implanted: Qty: 1 on 04/28/2018 by Rei Davis MD at [facility] Eye [id number] / [id number] Lens, Matti #Sn60wf - [id number] LENS Left: Eye Matti 10/20/2022 SN60WF / Implanted: Qty: 1 on 05/12/2018 by Rei Davis MD at [facility] [id number] / [id number] documented as of this encounter Results Not on filedocumented in this encounter Visit Diagnoses Diagnosis Primary osteoarthritis of right knee - Primary Primary localized osteoarthrosis, lower leg documented in this encounter Insurance Payer Benefit Plan / Subscriber ID Effective Phone Address Type Group Dates UNITED UHC MEDICARE [id number] 2019-Prese Medicare Adv HEALTHCARE COMPLETE nt PPO MEDICARE CHOICE ADVANTAGE [phone] (Home) [place] [phone] (Work) documented as of this encounter
--- OUTSIDE RECORDS SUMMARY | 2019-05-30 04:28 | XMS REPORT | Summary of Care ---
:1940 Author Organization [facility] Address [address] [place] [address] Care Team Providers Name Role Phone Vinod Combs Unavailable Vinod Combs Primary Care Provider Reason for Visit Reason Comments Results Encounter Details Date Type Department Care Team Description 05/12/2019 Telephone [facility] ADC Pulmonary Jennifer Tyson DO Results Clinic [address] , [address] [place] [phone] Allergies Active Allergy Reactions Severity Noted Date Comments Promethazine Hcl Hallucinations Medium 04/26/2018 documented as of this encounter (statuses as of 05/12/2019) Medications Medication Sig Dispensed Refills Start Date [...] SULFATE ORAL Take by mouth. 0 Active Hospital, Clinic, or Other Ordered Dose Route Frequency Start Date End Date Status Facility Administered Medication ceFAZolin in dextrose 2 g IVPB ONCE NOW 05/23/2019 05/23/2019 Active (iso-os) (ANCEF) 2 gram/100 mL Piggyback 2 g celecoxib (CELEBREX) 400 mg Oral ONCE 05/23/2019 05/23/2019 Active capsule 400 mg gabapentin (NEURONTIN) 300 mg Oral ONCE 05/23/2019 05/23/2019 Active capsule 300 mg oxyCODONE-acetaminophen 2 tablet Oral ONCE 05/23/2019 05/23/2019 Active (PERCOCET) 5-325 mg per tablet 2 tablet tranexamic acid 1000 mg IVPB ONCE 05/23/2019 05/23/2019 Active (CYKLOKAPRON) 1,000 mg in NaCl 0.9% (NS) 250 mL piggyback documented as of this encounter (statuses as of 05/12/2019) Active Problems Problem Noted Date Primary osteoarthritis of right knee 05/12/2019 Overview: Added automatically from request for surgery [id number] documented as of this encounter (statuses as of 05/12/2019) Immunizations Name Administration Dates Next Due Influenza [...] Treatment Date Type Specialty Care Team Description 05/17/2019 Office Visit Orthopedic Surgery Oc Donohue, PAC [address] [place] [phone] 05/23/2019 Hospital Encounter Surgery Carla, Primary osteoarthritis Hernan Hahn MD of right knee [address] [place] [phone] 05/23/2019 Surgery Surgery Carla, TOTAL KNEE ARTHROPLASTY Hernan Hahn MD [address] [place] [phone] Health Maintenance Due Date Last Done Comments DTaP,Tdap,and Td Vaccines (1 - Tdap) 02/07/1952 Zoster Recombinant Vaccine (SHINGRIX) (1 1991 of 2) Medicare Wellness Visit 2006 Osteoporosis Screening 2006 PNEUMOCOCCAL VACCINES 65+ (2 of 2 - 11/29/2019 11/28/2018 PPSV23) INFLUENZA VACCINE Completed 01/21/2019, 01/11/2018 documented as of this encounter Implants Implanted Type Area Validation Consultant Device Shelf Model / Serial Identifier Expiration / Lot Date Lens, Matti #Sn60wf - [id number] LENS Right: Matti 11/20/2021 SN60WF / Implanted: Qty: 1 on 04/28/2018 by Rei Davis MD at [facility] Eye [id number] / [id number] Lens, Matti #Sn60wf - [id number] LENS Left: Eye Matti 10/20/2022 SN60WF / Implanted: Qty: 1 on 05/12/2018 by Rei Davis MD at [facility] [id number] / [id number] documented as of this encounter Results Not on filedocumented in this encounter Insurance Payer Benefit Plan / Subscriber ID Effective Phone Address Type Group Dates [facility] MEDICARE [id number] 2019-Prese Medicare Adv HEALTHCARE COMPLETE nt PPO MEDICARE CHOICE ADVANTAGE documented as of this encounter
--- OUTSIDE RECORDS SUMMARY | 2019-05-30 04:28 | XMS REPORT | Summary of Care ---
:1940 Author Organization [facility] Address [address] [place] [address] Care Team Providers Name Role Phone Vinod Combs Unavailable Vinod Combs Primary Care Provider Encounter Details Date Type Department Care Team Description 05/12/2019 Prep For Surgery [facility] Carla, Primary osteoarthritis Orthopaedic Surgery- Hernan Hahn MD of right knee (Primary [place] [address]) [address] [facility] [address] [place] [phone] [phone] Allergies Active Allergy Reactions Severity Noted Date [...] encounter (statuses as of 05/12/2019) Active Problems No known active problemsdocumented as [...] Oc Donohue, PAC [address] [place] [address] Name Type Priority Associated Diagnoses Order Schedule Type and Screen - LAB Routine Primary osteoarthritis of 1 Occurrences starting right knee 05/12/2019 until 07/11/2019 PT / INR LAB Routine Primary osteoarthritis of 1 Occurrences starting right knee 05/12/2019 until 06/10/2019 COMP. METABOLIC PANEL LAB Routine Primary osteoarthritis of 1 Occurrences starting (08231) right knee 05/12/2019 until 06/10/2019 BASIC METABOLIC PANEL LAB Routine Primary osteoarthritis of 1 Occurrences starting (NA, K, CL, CO2, right knee 05/12/2019 until GLUCOSE, BUN, 06/10/2019 CREATININE, CA) URINALYSIS LAB Routine Primary osteoarthritis of 1 Occurrences starting right knee 05/12/2019 until 06/10/2019 Health Maintenance Due Date Last Done Comments DTaP,Tdap,and Td Vaccines (1 - Tdap) 02/07/1952 Zoster Recombinant Vaccine (SHINGRIX) (1 1991 of 2) Medicare Wellness Visit 2006 Osteoporosis Screening 2006 PNEUMOCOCCAL VACCINES 65+ (2 of 2 - 11/29/2019 11/28/2018 PPSV23) INFLUENZA VACCINE Completed 01/21/2019, 01/11/2018 documented as of this encounter Implants Implanted Type Area Product Development Coordinator Device Shelf Model / Serial Identifier Expiration / Lot Date Lens, Matti #Sn60wf - [id number] LENS Right: Matti 11/20/2021 SN60WF / Implanted: Qty: 1 on 04/28/2018 by Rei Davis MD at [facility] Eye [id number] / [id number] Lens, Matti #Sn60wf - [id number] LENS Left: Eye Matti 10/20/2022 SN60WF / Implanted: Qty: 1 on 05/12/2018 by Rei Davis MD at [facility] [id number] / [id number] documented as of this encounter Results Not on filedocumented in this encounter Visit Diagnoses Diagnosis Primary osteoarthritis of right knee - Primary Primary localized osteoarthrosis, lower leg documented in this encounter Insurance Payer Benefit Plan / Subscriber ID Effective Phone Address Type Group Dates UNITED UHC MEDICARE [id number] 2019-Prese Medicare Adv HEALTHCARE COMPLETE nt PPO MEDICARE CHOICE ADVANTAGE documented as of this encounter
--- OUTSIDE RECORDS SUMMARY | 2019-05-30 04:29 | XMS REPORT | Summary of Care ---
:1940 Author Organization [facility] Address [address] [place] [address] Care Team Providers Name Role Phone Vinod Combs Unavailable Vinod Combs Primary Care Provider Reason for Visit Reason Comments Follow-up pre surgery Encounter Details Date Type Department Care Team Description 05/17/2019 Office Visit [facility] Oc Donohue, Primary osteoarthritis Orthopaedic Surgery- PAC of right knee (Primary [place] [address]) [address] [place] [address] [place] [address] [phone] Allergies Active Allergy Reactions Severity Noted Date Comments Promethazine Hcl Hallucinations Medium 04/26/2018 documented as of this encounter (statuses as of 05/17/2019) Medications Medication Sig Dispensed Refills Start Date [...] as of this encounter (statuses as of 05/17/2019) Active Problems Problem Noted Date Primary osteoarthritis of right knee 05/12/2019 Overview: Added automatically from request for surgery [id number] documented as of this encounter (statuses as of 05/17/2019) Immunizations Name Administration Dates Next Due Influenza [...] Sign Reading Time Taken Comments Blood Pressure - - Pulse - - Temperature - - Respiratory Rate - - Oxygen Saturation - - Inhaled Oxygen Concentration - - Weight 81.2 kg (179 lb) 05/17/2019 2:17 PM SIMULATION EDUCATOR Height 152.4 cm (5') 05/17/2019 2:17 PM SIMULATION EDUCATOR Body Mass Index 34.96 05/17/2019 2:17 PM SIMULATION EDUCATOR documented in this encounter Progress Notes Oc Donohue, PAC - 05/17/2019 2:30 PM CST Cc: Chief Complaint Patient presents with Follow-up pre surgery Pre Op TKR Nallely Mendez is a 79 year old female. She has primary osteoarthritis in her right knee and would like to have a total knee replacement shedid have a fall that bruised her knee recently. She has tried Orthovisc injections, last injection was February 15 that we'll be more than 3 months at the time of surgery oral medications and enduringfor years without relief of pain in her knee, she is using a walker as an assistive device. Knee Pain Incident onset: chronic pain. The [...] capsule Take 40 mg by mouth daily. Facility-Administered Medications Prior to Visit Medication Dose Route Frequency Provider Last Rate Last Dose [START ON 05/23/2019] ceFAZolin in dextrose (iso-os) (ANCEF) 2 gram/100 mL Piggyback 2 g 2,000 mgIV Piggyback ONCE NOW Hernan Aguirre MD [START ON 05/23/2019] celecoxib (CELEBREX) capsule 400 mg 400 mg Oral ONCE Hernan Aguirre MD [START ON 05/23/2019] gabapentin (NEURONTIN) capsule 300 mg 300 mg Oral ONCE Hernan Aguirre MD [START ON 05/23/2019] oxyCODONE-acetaminophen (PERCOCET) 5-325 mg per tablet 2 tablet 2 tablet Oral ONCE Hernan Aguirre MD [START ON 05/23/2019] tranexamic acid (CYKLOKAPRON) 1,000 mg in NaCl 0.9% (NS ) 250 mL piggyback 1,000 mg IV Piggyback ONCE Hernan Aguirre MD Histories Past Medical History: Diagnosis Date Arthritis Asthma GERD (gastroesophageal reflux disease) HTN (hypertension) Meningioma BOTH EYES MRSA (methicillin resistant Staphylococcus aureus) Past Surgical History: Procedure Laterality Date APPENDECTOMY CHOLECYSTECTOMY CYSTECTOMY PT STATES cysts removed from underarm - MRSA FEMUR ORIF Left 2007 LAP,ABLATION OF RENAL CYSTS PHACOEMULSIFICATION OF CATARACT WITH INTRAOCULAR LENS IMPLANT Right 04/28/2018 Surgeon: Rei Davis MD; Location: [facility] PHACOEMULSIFICATION OF CATARACT WITH INTRAOCULAR LENS IMPLANT Left 05/12/2018 Surgeon: Rei Davis MD; Location: [facility] TUBAL LIGATION Social History Socioeconomic History [...] file Gets together: Not on file Attends buddhist service: Not on file Active member of [...] History Narrative Not on file Family History Problem Relation Age of Onset [place] (myocardial infarction) Mother 50s Review of Systems Constitutional: Negative. HENT: Negative. Eyes: Negative. Respiratory: Negative. Cardiovascular: Negative. Gastrointestinal: Negative. Genitourinary: Negative. Musculoskeletal: Positive for joint swelling. Skin: Negative. Neurological: Negative. Psychiatric/Behavioral: Negative. Endocrine: Endocrine negative Vital Signs Ht 60" (152.4 cm) | Wt 81.2 kg (179 lb) | BMI 34.96 kg/m Physical Exam Musculoskeletal: General: Well-developed well-nourished oriented [...] function intact. Nursing note and vitals reviewed. There are current x-rays in epic [id number] osteoarthritis in the lateral compartment 13 valgus in the left knee right knee has degenerative changes with narrowing in the lateral compartment but still has 2 mm of joint space remaining on the PA view there is [id number] on the lateral view of the joint line at 30 flexion with patellofemoral arthritic changes Assessment/Plan 1. Primary osteoarthritis of right knee We will schedule her for a right total knee replacement at [facility] for 05/23/2019. I have discussed the patient's physical exam and reviewed their x-rays/imaging/ results with them in detail. Discussed surgery at [...] Treatment Date Type Specialty Care Team Description 05/23/2019 Hospital Encounter Surgery Hernan Aguirre, Primary osteoarthritis of right knee [address] [place] [phone] 05/23/2019 Surgery Surgery Hernan Aguirre, TOTAL KNEE ARTHROPLASTY [address] [place] [phone] Health Maintenance Due Date Last Done Comments DTaP,Tdap,and Td Vaccines (1 - Tdap) 02/07/1952 Zoster Recombinant Vaccine (SHINGRIX) (1 1991 of 2) Medicare Wellness Visit 2006 Osteoporosis Screening 2006 PNEUMOCOCCAL VACCINES 65+ (2 of 2 - 11/29/2019 11/28/2018 PPSV23) INFLUENZA VACCINE Completed 01/21/2019, 01/11/2018 documented as of this encounter Implants Implanted Type Area Auto Roller Device Shelf Model / Serial Identifier Expiration / Lot Date Lens, Matti #Sn60wf - [id number] LENS Right: Matti 11/20/2021 SN60WF / Implanted: Qty: 1 on 04/28/2018 by Rei Davis MD at [facility] Eye [id number] / [id number] Lens, Matti #Sn60wf - [id number] LENS Left: Eye Matti 10/20/2022 SN60WF / Implanted: Qty: 1 on 05/12/2018 by Rei Davis MD at [facility] [id number] / [id number] documented as of this encounter Results Not on filedocumented in this encounter Visit Diagnoses Diagnosis Primary osteoarthritis of right knee - Primary Primary localized osteoarthrosis, lower leg documented in this encounter Insurance Payer Benefit Plan / Subscriber ID Effective Phone Address Type Group Dates UNITED UHC MEDICARE [id number] 2019-Prese Medicare Adv HEALTHCARE COMPLETE nt PPO MEDICARE CHOICE ADVANTAGE (Work) [id number] documented as of this encounter
--- OUTSIDE RECORDS SUMMARY | 2019-05-30 04:29 | XMS REPORT | Summary of Care ---
:1940 Author Organization [facility] Address [address] [place] [address] Care Team Providers Name Role Phone Vinod Combs Unavailable Vinod Combs Primary Care Provider Reason for Visit Reason Comments Follow-up pre surgery Encounter Details Date Type Department Care Team Description 05/17/2019 Office Visit [facility] Oc Donohue, Primary osteoarthritis Orthopaedic Surgery- PAC of right knee (Primary [place] [address]) [address] [place] [address] [place] [phone] Allergies Active Allergy Reactions Severity Noted Date [...] Overview: Added automatically from request for surgery [id number] documented as of this encounter (statuses as [...] 81.2 kg (179 lb) 05/17/2019 2:17 PM DOT COMPLIANCE COORDINATOR Height 152.4 cm (5') 05/17/2019 2:17 PM DOT COMPLIANCE COORDINATOR Body Mass Index 34.96 05/17/2019 2:17 PM DOT COMPLIANCE COORDINATOR documented in this encounter Progress Notes Oc [...] Right 04/28/2018 Surgeon: Rei Davis MD; Location: [facility] PHACOEMULSIFICATION OF CATARACT WITH INTRAOCULAR LENS IMPLANT Left 05/12/2018 Surgeon: Rei Davis MD; Location: [facility] TUBAL LIGATION Social History Socioeconomic History Marital [...] file Gets together: Not on file Attends episcopalian service: Not on file Active member of [...] Family History Problem Relation Age of Onset [place] (myocardial infarction) Mother 50s Review of Systems [...] reviewed. There are current x-rays in epic Ixaa-qo-mxao osteoarthritis in the lateral compartment 13 valgus in the left knee right knee has degenerative changes with narrowing in the lateral compartment but still has 2 mm of joint space remaining on the PA view there is opvb-zh-awez on the lateral view of the joint line at 30 flexion with patellofemoral arthritic changes Assessment/Plan 1. Primary osteoarthritis of right knee We will schedule her for a right total knee replacement at [facility] for 05/23/2019. I have discussed the patient's [...] Primary osteoarthritis of right knee [address] [place] [phone] 05/23/2019 Surgery Surgery Hernan Aguirre, TOTAL KNEE ARTHROPLASTY [address] [place] [phone] Health Maintenance Due Date Last Done Comments DTaP,Tdap,and Td Vaccines (1 - Tdap) 02/07/1951 Zoster Recombinant Vaccine (SHINGRIX) (1 1991 of 2) Medicare Wellness Visit 2006 Osteoporosis Screening 2006 PNEUMOCOCCAL VACCINES 65+ (2 of 2 - 11/29/2019 11/28/2018 PPSV23) INFLUENZA VACCINE Completed 01/21/2019, 01/11/2018 documented as of this encounter Implants Implanted Type Area Direct Marketing Coordinator Device Shelf Model / Serial Identifier Expiration / Lot Date Lens, Matti #Sn60wf - [id number] LENS Right: Matti 11/20/2021 SN60WF / Implanted: Qty: 1 on 04/28/2018 by Rei Davis MD at [facility] Eye [id number] / [id number] Lens, Matti #Sn60wf - [id number] LENS Left: Eye Matti 10/20/2022 [id number] / Implanted: Qty: 1 on 05/12/2018 by Rei Davis MD at [facility] [id number] / [id number] documented as of this encounter Results Not on filedocumented in this encounter Visit Diagnoses Diagnosis Primary osteoarthritis of right knee - Primary Primary localized osteoarthrosis, lower leg documented in this encounter Insurance Payer Benefit Plan / Subscriber ID Effective Phone Address Type Group Dates UNITED UHC MEDICARE [id number] 2019-Prese Medicare Adv HEALTHCARE COMPLETE nt PPO MEDICARE CHOICE ADVANTAGE (Work) [id number] documented as of this encounter
--- OUTSIDE RECORDS SUMMARY | 2019-05-30 04:29 | XMS REPORT | Summary of Care ---
:1940 Author Organization [facility] Address [address] [place] [address] Care Team Providers Name Role Phone Vinod Combs Unavailable Vinod Combs Primary Care Provider Reason for Visit Reason Comments LAB WORK Auth/Cert Status Reason Specialty Diagnoses / Procedures Referred By Contact Referred To Contact Phlebotomy Diagnoses Unilateral primary osteoarthritis, right knee Adc Pob Lab Draw Procedures URINALYSIS BASIC METABOLIC PANEL (NA, K, CL, CO2, GLUCOSE, BUN, CREATININE, CA) COMP. METABOLIC PANEL (88828) PROTHROMBIN TIME / INR TYPE AND SCREEN UA BMP CMP PT/INR TYPE AND SCREEN Professional [facility] Building [address] , [address] [place] [address] Encounter Details Date Type Department Care Team Description 05/19/2019 Title Clerk Automobile Visit [facility] Hernan Aguirre MD [address] [place] [address] Primary osteoarthritis [facility] Pob, Adc Lab Main of right knee Building Phlebotomy Lab [facility] Building [address] , [address] [place] [address] Allergies Active Allergy Reactions Severity Noted Date Comments Promethazine Hcl Hallucinations Medium 04/26/2018 documented as of this encounter (statuses as of 05/19/2019) Medications Medication Sig Dispensed Refills Start Date [...] as of this encounter (statuses as of 05/19/2019) Active Problems Problem Noted Date Primary osteoarthritis of right knee 05/12/2019 Overview: Added automatically from request for surgery [id number] documented as of this encounter (statuses as of 05/19/2019) Immunizations Name Administration Dates Next Due Influenza [...] Team Description 05/23/2019 Hospital Encounter Surgery Hernan Aguirre MD Primary osteoarthritis [address] [place] [address] [phone] 05/23/2019 Anesthesia Event Surgery Robson Davis, [address] [phone] 05/23/2019 Surgery Surgery Hernan Aguirre MD TOTAL KNEE ARTHROPLASTY [address] [place] [address] [phone] Name Type Priority Associated Diagnoses Date/Time URINALYSIS LAB Routine Primary osteoarthritis of 05/19/2019 3:12 PM right knee [facility] COMP. METABOLIC PANEL LAB Routine Primary osteoarthritis of 05/19/2019 3: 12 PM (46628) right knee [facility] PT / INR LAB Routine Primary osteoarthritis of 05/19/2019 3:12 PM right knee [facility] Health Maintenance Due Date Last Done Comments DTaP,Tdap,and Td Vaccines (1 - Tdap) 02/07/1951 Zoster Recombinant Vaccine (SHINGRIX) (1 1991 of 2) Medicare Wellness Visit 2006 Osteoporosis Screening 2006 PNEUMOCOCCAL VACCINES 65+ (2 of 2 - 11/29/2019 11/28/2018 PPSV23) INFLUENZA VACCINE Completed 01/21/2019, 01/11/2018 documented as of this encounter Implants Implanted Type Area Early Childhood Special Educator Device Shelf Model / Serial Identifier Expiration / Lot Date Lens, Matti #Sn60wf - [id number] LENS Right: Matti 11/20/2021 SN60WF / Implanted: Qty: 1 on 04/28/2018 by Rei Davis MD at [facility] Eye [id number] / [id number] Lens, Matti #Sn60wf - [id number] LENS Left: Eye Matti 10/20/2022 SN60WF / Implanted: Qty: 1 on 05/12/2018 by Rei Davis MD at [facility] [id number] / [id number] documented as of this encounter Results Not on filedocumented in this encounter Visit Diagnoses Diagnosis Primary osteoarthritis of right knee Primary localized osteoarthrosis, lower leg documented in this encounter Insurance Payer Benefit Plan / Subscriber ID Effective Phone Address Type Group Dates [facility] MEDICARE [id number] 2019-Prese Medicare Adv HEALTHCARE COMPLETE nt PPO MEDICARE CHOICE ADVANTAGE (Work) documented as of this encounter
--- OUTSIDE RECORDS SUMMARY | 2019-05-30 04:30 | XMS REPORT | Summary of Care ---
:1940 Author Organization [facility] Address [address] [place] [address] Care Team Providers Name Role Phone Vinod Combs Unavailable Vinod Combs Primary Care Provider Reason for Visit Auth/Cert Status Reason Specialty Diagnoses / Procedures Referred By Referred To Contact Contact Surgery Diagnoses Unilateral primary osteoarthritis, right knee Primary osteoarthritis of right knee [M17.11] Adc Pre/Pacu/Post Procedures OK TOTAL KNEE ARTHROPLASTY TOTAL KNEE ARTHROPLASTY 48567 - [place] TOTAL KNEE ARTHROPLASTY [address] [place] [address] Encounter Details Date Type Department Care Team Description 05/23/2019 Anesthesia [facility] Ilya Casillas MD [address] [facility] [address] [place], [place] [phone] [facility] Robson Davis CRNA [address] [place] [phone] [address] [place] [address] [place], [place] [address] Allergies Active Allergy Reactions Severity Noted Date Comments Promethazine Hcl Hallucinations Medium 04/26/2018 documented as of this encounter (statuses as of 05/24/2019) Medications Medication Sig Dispensed Refills Start Date End Date Status aspirin 81 mg chewable Take 81 mg by 0 Suspended tablet mouth. gabapentin 300 mg Take 300 mg by 0 Suspended capsuleIndications: at mouth daily. bedtime lisinopril 10 mg Take 10 mg by 0 Suspended tablet mouth daily. omeprazole 40 mg Take 40 mg by 0 Suspended capsule mouth daily. albuterol sulfate 90 Inhale. 0 Suspended mcg/actuation AePBIndications: albuterol inhaler prn per pt statement lisinopril 10 mg Take 10 mg by 0 Suspended tablet mouth daily. OMEPRAZOLE MAGNESIUM Take by mouth. 0 Suspended ORAL FLUoxetine 20 mg Take 20 mg by 0 Suspended capsule mouth daily. alendronate sodium Take by mouth. 0 Suspended (ALENDRONATE ORAL) ASPIRIN ORAL Take by mouth. 0 Suspended baclofen 10 mg tablet Take 10 mg by 0 Suspended mouth 3 (three) times daily. gabapentin 400 mg Take 400 mg by 0 Suspended capsule mouth 3 (three) times daily. ALBUTEROL SULFATE ORAL Take by mouth. 0 Suspended documented as of this encounter (statuses as of 05/24/2019) Active Problems Problem Noted Date Total knee replacement status 05/23/2019 Primary osteoarthritis of right knee 05/12/2019 Overview: Added automatically from request for surgery [id number] documented as of this encounter (statuses as of 05/24/2019) Immunizations Name Administration Dates Next Due Influenza [...] - - Temperature - - Respiratory Rate 16 05/23/2019 9:20 AM SENIOR DIRECTOR CREATIVE SERVICES Oxygen Saturation - - Inhaled Oxygen Concentration - - Weight - - Height - - Body Mass Index - - documented in this encounter Plan of Treatment Health Maintenance Due Date Last Done Comments DTaP,Tdap,and Td Vaccines (1 - Tdap) 02/07/1951 Zoster Recombinant Vaccine (SHINGRIX) (1 1991 of 2) Medicare Wellness Visit 2006 Osteoporosis Screening 2006 PNEUMOCOCCAL VACCINES 65+ (2 of 2 - 11/29/2019 11/28/2018 PPSV23) INFLUENZA VACCINE Completed 01/21/2019, 01/11/2018 documented as of this encounter Implants Implanted Type Area Mechanical Product Design Engineer Device Shelf Model / Serial Identifier Expiration / Lot Date Cement Simplex Hv #6194-1-001 - [id number] CEMENT Right: Meta 2020 6194-1-001 / Implanted: Qty: 2 on 05/23/2019 by Hernan Aguirre MD at [facility] Knee 6194-1-001 / [id number] Femoral Component Van Ps Open Box Right 65mm Biomet Ref#[id number] - [id number] Femoral Right: Jerry 04/07/2029 [id number] / Implanted: Qty: 1 on 05/23/2019 by Hernan Aguirre MD at [facility] Component Knee [id number] / [id number] Insert Tibial 12mm X 75mm Insert Right: Biomet 02/03/2024 [id number] / Implanted: Qty: 1 on 05/23/2019 by Hernan Aguirre MD at [facility] Knee [id number] / [id number] Lens, Matti #Sn60wf - [id number] LENS Right: Matti 11/20/2021 SN60WF / Implanted: Qty: 1 on 04/28/2018 by Rei Davis MD at [facility] Eye [id number] / [id number] Lens, Matti #Sn60wf - [id number] LENS Left: Matti 10/20/2022 SN60WF / Implanted: Qty: 1 on 05/12/2018 by Rei Davis MD at [facility] Eye [id number] / [id number] Component Patella 32mm Danita 8mm Biomet #[id number] - [id number] Other Right: Biomet 03/09/2024 [id number] / Implanted: Qty: 1 on 05/23/2019 by Hernan Aguirre MD at [facility] Implant Knee [id number] / [id number] Tibial Tray Cemented 71mm Biomet #[id number] - [id number] PLATE Right: Biomet [id number] / Implanted: Qty: 1 on 05/23/2019 by Hernan Aguirre MD at [facility] Knee [id number] / [id number] documented as of this encounter Procedures Procedure Name Priority Date/Time Associated Diagnosis Comments NERVE BLOCK Routine 05/23/2019 9:34 AM Results for this SENIOR DIRECTOR CREATIVE SERVICES procedure are in the results section. INTUBATION Routine 05/23/2019 8:00 AM Results for this SENIOR DIRECTOR CREATIVE SERVICES procedure are in the results section. documented in this encounter Results Nerve Block (05/23/2019 9:34 AM SENIOR DIRECTOR CREATIVE SERVICES) Narrative Performed At Ilya Austin MD 05/23/2019 9:40 AM Nerve Block Procedure: Femoral Nerve Block and Other Peripheral Nerve Laterality: Right Surgical Anesthesia: no Start Time: 05/23/2019 7:00 AM End Time: 05/23/2019 7:20 AM Post Op Pain Management requested by surgeon per surgical: Other Anesthesiologist: Ilya Austin MD Performed by: anesthesiologist Preanesthetic timeout completed prior to procedure: patient identified,IV checked, risks and benefits discussed, surgical consent, monitors and equipment checked, pre-op evaluation, timeout performed Informed consent obtained patient wishes to proceed: yes Patient position: supine, right leg abducted. Sterile Prep/Drape: Yes Monitoring: continuous pulse ox Injection Technique: single-shot Needle Gauge: 22 G Needle Length: 4.0 Number of Attempts: 1 Technique: Ultrasound guided, Negative aspiration and Intermittent aspiration during injection Sensory Effect: Adequate Events: Patient tolerated procedure well, Negative Aspiration and No paresthesia on incremental injection Additional Notes:SP&D to right thigh, anterior and posterior surfaces. Lido to adductor and IPACK injection skin sites. Saphenous nerve identified in canal, injected with 10 ml 0.25% bupiv. IPACK injection site identified under U/S guidance. 15 ml 0.25% bupiv injected above periosteal surface from lateral across to medial condyles. ___ __ Intubation (05/23/2019 8:00 AM SENIOR DIRECTOR CREATIVE SERVICES) Narrative Performed At Robson Davis CRNA 05/23/2019 8:01 AM Intubation Urgency: elective Airway not difficult General Information and Staff Patient location during procedure: OR Resident/ELECTRICAL TESTS SUPERVISOR: Robson Davis CRNA Performed: resident/ELECTRICAL TESTS SUPERVISOR Indications and Patient Condition Indications for airway management: anesthesia Spontaneous Ventilation: absent Sedation level: deep Preoxygenated: yes Patient position: sniffing MILS maintained throughout Mask difficulty assessment: 1 - vent by mask Final Airway Details Final airway type: supraglottic airway Successful airway: classic Size 4 Number of attempts at approach: 1 Additional Comments Airway dry intact. Dentures left in place documented in this encounter Administered Medications Medication Order MAR Action Action Date Dose Rate Site ceFAZolin (ANCEF) injection Given 05/23/2019 7:51 AM SENIOR DIRECTOR CREATIVE SERVICES 2 g ONCE INTRA PROCEDURE, Starting Thu05/23/19 at 0751, Until Thu05/23/19 at 0926, PAULINE, Intra-op dexamethasone (DECADRON PHOSPHATE) injection Given 05/23/2019 7:50 AM SENIOR DIRECTOR CREATIVE SERVICES 4 mg Intravenous, ONCE INTRA PROCEDURE, Starting Thu05/23/19 at 0750, Until Thu05/23/19 at 09, Routine, Intra-op ePHEDrine 25 mg/5 mL (5 mg/mL) syringe Given 05/23/2019 7:53 AM SENIOR DIRECTOR CREATIVE SERVICES 5 mg ONCE INTRA PROCEDURE, Starting Thu05/23/19 at 0753, Until Thu05/23/19 at 09, Routine, Intra-op FENTanyl PF (SUBLIMAZE (PF)) injection Given 05/23/2019 9:05 AM SENIOR DIRECTOR CREATIVE SERVICES 25 mcg Intravenous, ONCE INTRA PROCEDURE, Starting 05/23/19 at 0745, Until Thu05/23/19 at 09, Routine, Intra-op Given 05/23/2019 8:19 AM SENIOR DIRECTOR CREATIVE SERVICES 25 mcg Given 05/23/2019 7:45 AM SENIOR DIRECTOR CREATIVE SERVICES 50 mcg lactated ringers IV infusion New Bag 05/23/2019 7:36 AM SENIOR DIRECTOR CREATIVE SERVICES IV Infusion, CONTINUOUS PRN, Starting 05/23/19 at 0736, Until Thu05/23/19 at 09, Routine, Intra-op lidocaine 1% (XYLOCAINE) 100 mg/10 mL (1 %) Given 05/23/2019 7:45 AM SENIOR DIRECTOR CREATIVE SERVICES 100 mL injection ONCE INTRA PROCEDURE, Starting 05/23/19 at 0745, Until Thu05/23/19 at 0926, Routine, Intra-op midazolam (VERSED) injection Given 05/23/2019 7:37 AM SENIOR DIRECTOR CREATIVE SERVICES 0.5 mg IV Push, ONCE INTRA PROCEDURE, Starting 05/23/19 at 0737, Until Thu05/23/19 at 0926, Routine, Intra-op ondansetron (ZOFRAN (PF)) injection Given 05/23/2019 9:00 AM SENIOR DIRECTOR CREATIVE SERVICES 4 mg Slow IV Push, ONCE INTRA PROCEDURE, Starting Thu05/23/19 at 0900, Until Thu05/23/19 at 09, Routine, Intra-op propofol IV infusion Given 05/23/2019 7:45 AM SENIOR DIRECTOR CREATIVE SERVICES 150 mg Intravenous, ONCE INTRA PROCEDURE, Starting Thu05/23/19 at 0745, Until Thu05/23/19 at 09, Routine, Intra-op tranexamic acid (CYKLOKAPRON) 810 mg in New Bag 05/23/2019 9:16 AM SENIOR DIRECTOR CREATIVE SERVICES 810 mg NaCl 0.9% (NS) 250 mL piggyback 810 mg (10 mg/kg 81 kg), IV Piggyback, ONCE, 1 dose, Thu05/23/19 at 0730, 250 mL, Intra-op documented in this encounter Insurance Payer Benefit Plan / Subscriber ID Effective Phone Address Type Group Dates UNITED UHC MEDICARE [id number] 2019-Prese Medicare Adv HEALTHCARE COMPLETE nt PPO MEDICARE CHOICE ADVANTAGE [facility] [address] (Home) [place] [phone] [id number] (Work) documented as of this encounter
[2019-05-30] MEDS ORDERED: NA CHLORIDE 0.9% 1,000 ML ONE ×2 (04:31→06:12)
--- OUTSIDE RECORDS SUMMARY | 2019-05-30 04:31 | XMS REPORT | Summary of Care ---
:1940 Author Organization [facility] Address [address] [place] [address] Care Team Providers Name Role Phone Colton Combs Unavailable Colton Combs Primary Care Provider Reason for Referral (Routine) Status Reason Specialty Diagnoses / Referred By Referred To Procedures Contact Contact New Request IM-HEMATOLOGY Diagnoses Pulmonary embolism with acute cor pulmonale, unspecified chronicity, unspecified pulmonary embolism type Jaylen Harrington MD Procedures Discharge Follow-Up: Specialty Service IM-HEMATOLOGY; 2 Weeks [address] [place] [address] (Routine) Status Reason Specialty Diagnoses / Referred By Referred To Procedures Contact Contact New Request IM-GASTROENTEROLO Diagnoses C. difficile colitis Jaylen Harrington MD GY Procedures Discharge Follow-Up: Specialty Service IM-GASTROENTEROLOGY; 1 Week [address] [place] [address] Other (Routine) Status Reason Specialty Diagnoses / Procedures Referred By Referred To Contact Contact New Request Diagnoses Hypervolemia, unspecified hypervolemia type Jaylen Harrington MD Prasad, Sendil Procedures Discharge Follow-up: Specialty Provider TOYA MAKI; 4-6 Weeks 301 [facility] MD Yoselin [place], [place] [address] [address] [address] Phone: [place], [place] [phone] [address] Other (Routine) Status Reason Specialty Diagnoses / Referred By Referred To Procedures Contact Contact New Request Diagnoses Status post total right knee replacement Jaylen Harrington MD McDonald, Craig Procedures Discharge Follow-up: Specialty Provider ALEJANDRO PITTS; 1 Week 301 [facility] MD [place], [place] [address] [address] [address] Phone: [place], [place] [phone] (Routine) Status Reason Specialty Diagnoses / Referred By Referred To Procedures Contact Contact New Request Diagnoses Status post total right knee replacement Jaylen Harrington MD Resnick, Harvey Procedures Discharge Follow-up: PCP COLTON COMBS; [address] [place] [address] [address] [place], [place] [address] [address] [place], [place] Phone: [phone] Phone: MRI/CAT Scan (STAT) Status Reason Specialty Diagnoses / Referred By Referred To Procedures Contact Contact New Request Diagnostic Diagnoses Status post total right knee replacement Sruthi Elizabeth, Radiology Procedures CT CHEST PULMONARY ANGIOGRAM CT ANGIOGRAM CHEST [address] [place] [address]. RT [address] [place] [address] (PAULINE) Status Reason Specialty Diagnoses / Referred By Referred To Procedures Contact Contact New Request Vascular Surgery Procedures Sruthi Elizabeth, BILATERAL VENOUS DUPLEX LOWER [address] [place] [address] EXTREMITY [facility]. VASCULAR LAB [place] [address] [place] [address] Radiology Services (PAULINE) Status Reason Specialty Diagnoses / Referred By Referred To Procedures Contact Contact New Request Diagnostic Diagnoses Elevated LFTs Sruthi Elizabeth, Radiology Procedures US ABDOMEN LIMITED US LIVER 301 [facility]. [address] [place] [address] Radiology Services (Routine) Status Reason Specialty Diagnoses / Referred By Referred To Procedures Contact Contact New Request Diagnostic Diagnoses Status post total right knee replacement Sruthi Elizabeth, Radiology Procedures XR CHEST 1 VW MD Mascorro [facility]. [address] [place] [address] (Routine) Status Reason Specialty Diagnoses / Referred By Referred To Procedures Contact Contact New Request ORT-ORTHOPAEDIC Diagnoses Status post total right knee replacement Oc Donohue, SURGERY Procedures Discharge Follow-Up: Specialty Service ORT-ORTHOPAEDIC SURGERY (aka SOR); 2 Weeks PAC [address] [place] [address] Radiology Services (PAULINE) Status Reason Specialty Diagnoses / Referred By Referred To Procedures Contact Contact New Request Diagnostic Diagnoses Status post total right knee replacement Alejandro Pitts Radiology Procedures XR KNEE <3 VW RIGHT [place] MD [address] [place] [address] Reason for Visit Reason Comments LEG SWELLING Auth/Cert Status Reason Specialty Diagnoses / Procedures Referred By Referred To Contact Contact Surgery Diagnoses Unilateral primary osteoarthritis, right knee Primary osteoarthritis of right knee [M17.11] Adc Pre/Pacu/Post Procedures DE TOTAL KNEE ARTHROPLASTY TOTAL KNEE ARTHROPLASTY [id number] - DE TOTAL KNEE ARTHROPLASTY [address] [place] [address] [place] [address] Encounter Details Date Type Department Care Team Description 05/23/2019 - Hospital Encounter ADC Medicine Carla, Primary osteoarthritis 05/27/2019 Surgery Unit Alejandro Hahn MD of right knee [address] [facility] [address] [place] [address] [address] [phone] [place] [address] Allergies Active Allergy Reactions Severity Noted Date Comments Promethazine Hcl Hallucinations Medium 04/26/2018 documented as of this encounter (statuses as of 05/27/2019) Medications Medication Sig Dispensed Refills Start End Date Status Date aspirin 81 mg Take 81 mg by 0 Active chewable tablet mouth. omeprazole 40 mg Take 40 mg by 0 Active capsule mouth daily. albuterol sulfate Inhale. 0 Active 90 mcg/actuation AePBIndications: albuterol inhaler prn per pt statement OMEPRAZOLE Take by mouth. 0 Active MAGNESIUM ORAL FLUoxetine 20 mg Take 20 mg by 0 Active capsule mouth daily. alendronate sodium Take by mouth. 0 Active (ALENDRONATE ORAL) baclofen 10 mg Take 10 mg by 0 Active tablet mouth 3 (three) times daily. ALBUTEROL SULFATE Take by mouth. 0 Active ORAL vancomycin 50 mg/mL Take 2.5 mL by 100 mL 0 06/06/19 Active oral mouth 4 (four) 0 20 solutionIndications times daily for : C. difficile 10 days. colitis apixaban 5 mg Take 2 tablets 28 tablet 0 06/03/19 Active tabletIndications: by mouth 2 0 20 pulmonary (two) times thromboembolism daily for 7 days. Indications: a clot in the lung apixaban 5 mg Take 1 tablet 60 tablet 0 07/03/19 Active tabletIndications: by mouth 2 0 20 pulmonary (two) times thromboembolism daily for 30 days. Indications: a clot in the lung gabapentin 400 mg Take 1 capsule 30 capsule 0 06/26/19 Active capsuleIndications: by mouth every 0 20 Status post total evening for 30 right knee days. replacement acetaminophen-codei Take 1 tablet 40 tablet 0 Active ne (TYLENOL-CODEINE by mouth every 0 #3) 300-30 mg 4 (four) hours tabletIndications: as needed for Status post total Pain (scale right knee 4-6) or Pain replacement (scale 7-10). gabapentin 300 mg Take 300 mg by 0 05/27/19 Discontinued capsuleIndications: mouth daily. 20 at bedtime lisinopril 10 mg Take 10 mg by 0 05/27/19 Discontinued tablet mouth daily. 20 lisinopril 10 mg Take 10 mg by 0 05/27/19 Discontinued tablet mouth daily. 20 ASPIRIN ORAL Take by mouth. 0 05/27/19 Discontinued 20 gabapentin 400 mg Take 400 mg by 0 05/27/19 Discontinued capsule mouth 3 (three) 20 times daily. rivaroxaban Take 1 tablet 10 tablet 0 05/27/19 Discontinued (XARELTO) by mouth daily 0 20 tabletIndications: for 10 days. knee replacement Indications: deep vein deep vein thrombosis thrombosis prevention prevention in knee replacement acetaminophen-codei Take 1 tablet 40 tablet 0 05/27/19 Discontinued ne (TYLENOL-CODEINE by mouth every 0 20 (Reorder) #3) 300-30 mg 4 (four) hours tabletIndications: as needed for Status post total Pain (scale right knee 4-6) or Pain replacement (scale 7-10). documented as of this encounter (statuses as of 05/27/2019) Active Problems Problem Noted Date Elevated LFTs 05/26/2019 Hypoxia 05/25/2019 Volume overload 05/25/2019 Abnormal liver enzymes 05/25/2019 Anemia 05/25/2019 Essential hypertension 05/25/2019 Total knee replacement status 05/23/2019 Primary osteoarthritis of right knee 05/12/2019 Overview: Added automatically from request for surgery [id number] documented as of this encounter (statuses as of 05/27/2019) Immunizations Name Administration Dates Next Due Influenza [...] Sign Reading Time Taken Comments Blood Pressure 102/55 05/27/2019 11:00 AM GAS SHOVEL OPERATOR Pulse 87 05/27/2019 11:00 AM GAS SHOVEL OPERATOR Temperature 36.7 C (98 F) 05/27/2019 11:00 AM GAS SHOVEL OPERATOR Respiratory Rate 18 05/27/2019 11:00 AM GAS SHOVEL OPERATOR Oxygen Saturation 93% 05/27/2019 11:00 AM GAS SHOVEL OPERATOR Inhaled Oxygen Concentration - - Weight 81 kg (178 lb 9.2 oz) 05/18/2019 1:55 PM GAS SHOVEL OPERATOR Height 152.4 cm (5') 05/18/2019 1:55 PM GAS SHOVEL OPERATOR Body Mass Index 34.88 05/18/2019 1:55 PM GAS SHOVEL OPERATOR documented in this encounter Discharge Instructions AppointmentsGuWendy finn - 05/25/2019 9:01 AM CSTYour follow up appointment with Dr Cobms ThursdayJune 06 @ 10:[address] [place] [address] [address] [facility] [address] [phone] If you need to make changes to this appointment please call the office. SHOVEL OPERATOR Additional InstructionsCorl, Melissa Bloom RN - 05/27/2019 Patient Discharge Instructions Discharge date: 05/27/2019 Procedure(s): Procedure(s): TOTAL KNEE ARTHROPLASTY Discharge Orders Nursing Other - Order Comments: Dressing changed to aqua cell dressing prior to discharge leave intact until follow-up appointment 2 weeks postop And discontinue Hemovac drain Discharge Follow-up: PCP COLTON COMBS; 2 Weeks To PCP: COLTON COMBS [[id number]] Patient's Preferred Location: Other - Specify Comments Discharge Disposition: Rehab, (ATX) When (Patients with risk for unplanned readmission score over 16 or those noted as Hospital Dependent should follow up within 7 days with PCP or primary DX specialist): 2 Weeks Risk of Unplanned Readmission:( Score greater than 16 indicates high risk) 17 Regular Diet; Texture: Regular. Texture Regular. Diabetic: No Regular Diet; Texture: Regular. Texture Regular. Diabetic: No Discharge Condition - Discharge Condition: FAIR Discharge Activity Discharge Activity: Amb with Walker/Crutches-Wt Bearing as Tolerated Discharge Follow-Up: Specialty Service ORT-ORTHOPAEDIC SURGERY (aka SOR); 2 Weeks Specialty: ORT-ORTHOPAEDIC SURGERY [26] Patient's Preferred Location: [facility] Discharge Disposition: HOME, (AHR) When (Patients with risk for unplanned readmission score over 16 or those noted as Hospital Dependent should follow up within 7 days with PCP or primary DX specialist): 2 Weeks Risk of Unplanned Readmission:( Score greater than 16 indicates high risk) 13 VTE Propylaxis- Was ordered during hospitalization Discharge Condition - Discharge Condition: GOOD Discharge Activity Discharge Activity: As Tolerated Discharge Follow-up: Specialty Provider ALEJANDRO PITTS; 1 Week To Provider: ALEJANDRO PITTS [[id number]] Patient's Preferred Location: Other - Specify Comments Discharge Disposition: Rehab, (ATX) When (Patients with risk for unplanned readmission score over 16 or those noted as Hospital Dependent should follow up within 7 days with PCP or primary DX specialist): 1 Week Risk of Unplanned Readmission:( Score greater than 16 indicates high risk) 17 Discharge Follow-up: Specialty Provider TOYA MAKI; 4-6 Weeks To Provider: TOYA MAKI [[id number]] Patient's Preferred Location: [facility] Discharge Disposition: Rehab, (ATX) When (Patients with risk for unplanned readmission score over 16 or those noted as Hospital Dependent should follow up within 7 days with PCP or primary DX specialist): 4-6 Weeks Risk of Unplanned Readmission:( Score greater than 16 indicates high risk) 17 VTE Propylaxis- Was ordered during hospitalization Discharge Instructions Order Comments: Patient's stool occult blood was positive, possibly related to c -diff in setting of anticoagulation. CBC in 3 days. GI evaluation. Discharge Follow-Up: Specialty Service IM-GASTROENTEROLOGY; 1 Week Specialty: IM-GASTROENTEROLOGY [10] Patient's Preferred Location: Other - Specify Comments Discharge Disposition: Rehab, (ATX) When (Patients with risk for unplanned readmission score over 16 or those noted as Hospital Dependent should follow up within 7 days with PCP or primary DX specialist): 1 Week Risk of Unplanned Readmission:( Score greater than 16 indicates high risk) 17 Discharge Follow-Up: Specialty Service IM-HEMATOLOGY; 2 Weeks Specialty: IM-HEMATOLOGY [14] Patient's Preferred Location: Other - Specify Comments Discharge Disposition: Rehab, (ATX) When (Patients with risk for unplanned readmission score over 16 or those noted as Hospital Dependent should follow up within 7 days with PCP or primary DX specialist): 2 Weeks Risk of Unplanned Readmission:( Score greater than 16 indicates high risk) 17 DMEPOS Order Order Comments: Nallely Mendez [id number] Estimated ELODIA: 99 Date of Vfqw-ob-Jziu Needs Assessment: 05/23/19 I certify that this patient is under my care and that I, or a nurse practitioner , a certified nurse specialist, or a physician's personnel assistant working with me, had a lxiy-xr-sozf encounter that meets the physician qghh-ne-xwox encounter requirement with this patient on the above given date. Diagnosis and Medical Necessity of Requested Service: Right total knee arthoplasty Ambulatory Aids: Walker (Folder w/Wheels) Please Attach the Following (as applicable): Patient Demographics Sheet I understand and acknowledge that this is not a valid order until it is authenticated by a medical provider who has authority within their Scope of Practice to do so. I am inputting this information in my capacity as a scribe. Leodan Rodríguez RN Follow instructions as indicated below: 1. The medication that was used will be acting in your system for the next 24 hours, so you might feel a little drowsy, with impaired judgment and or motor function. This feeling should go wear off. Because the medication is still in your system for the next 24 hours you SHOULD NOT: Drive a car, operate machinery or power tool. Drink any alcohol beverages (including beer or wine). Make any important decisions or sign any legal documents. 2. You should rest the remainder of the day and not engage in any physical activity. Move slowly today. After lying down, sit on the edge of the bed for a moment before standing. YOU ARE RESPONSIBLEFOR HAVING SOMEONE AT HOME WITH YOU DURING THE AFTERNOON AND NIGHT IMMEDIATELY FOLLOWING YOUR SURGERY. Patient should cough and deep breathe every 2-4 hours while awake to avoid respiratory complications. 4. Lifting: {IP DISCHARGE INSTRUCTIONS LIFTIN::"No medical restrictions"} 5. Weight: In general, sudden weight gains or losses should be reported to your provider. Cardiac patients should weigh daily and notify their provider for a weight gain of 3 pounds per day or 5 pounds per week. 6. Tobacco Avoidance: Follow recommendations below 7. Because the medications used could procedure some residual nausea and vomiting after you go home,you should eat lightly today, starting with clear liquids (broth, soft drinks, apple juice, jello) and toast or crackers, progressing to bland solid foods and then to your normal diet as tolerated, unless otherwise stated by your surgeon. If you get sick, wait a couple of hours and then begin to eat. After 24 hours the nausea should be gone. 8. You may experience some pain and your physician will advise you on what to take for discomfort. This should be taken as directed. If the pain is not relieved, contact your physician. You may alsohave a sore throat from the airway that was in place. You may uses lozenges, throat spray (such as Chloraseptic), or warm salt water gargles for symptomatic relief. 9. If you feel warm, take your temperature. If it is 101 degrees or above call your physician. 10. If you are unable to urinate within five hours after your procedure, call your physician. 11. The type of surgery performed will determine how much bleeding (if any) to expect. Normally, some spotting might occur. If your dressing pad becomes saturated, notify your physician. Elevate surgical site, if applicable, to reduced swelling and pain. 12. Wound/dressing care: Tips on preventing a surgical site infection.. Dont smoke. It is best to quit at least 30 days before surgery, but quitting after surgery is also helpful. If you are diabetic, keep your blood sugar well controlled. WASH YOUR HANDS. Keep your wound clean and remember to wash your hands before and after contact with the area. All health care workers should also wash their hands or use an alcohol based hand rub prior to examining you. If antibiotics are prescribed, take them as directed. Finish the entire course of antibiotics. Call your doctor if you have signs of infection: ? Increased tenderness at the surgical site ? Red streaks or increased redness of the area ? Bad-smelling discharge from the incision ? Fever of 101F or higher ? General tired feeling that doesnt improve 13. Other discharge instructions: {DC IP DISCHARGE INSTRUCTIONS OTHER:43981} 14. Special Instructions: Take Home Medications These are medications ordered for you by your healthcare provider. Do not take any other medications or supplements unless advised by your healthcare provider. Current Discharge Medication List START taking these medications Details acetaminophen-codeine (TYLENOL-CODEINE #3) 300-30 mg tablet Take 1 tablet by mouth every 4 (four) hours as needed for Pain (scale 4-6) or Pain (scale 7-10). Qty: 40 tablet, Refills: 0 Associated Diagnoses: Status post total right knee replacement !! apixaban 5 mg tablet Take 2 tablets by mouth 2 (two) times daily for 7 days. Indications: a clot in the lung Qty: 28 tablet, Refills: 0 Associated Diagnoses: Pulmonary embolism with acute cor pulmonale, unspecified chronicity, unspecified pulmonary embolism type !! apixaban 5 mg tablet Take 1 tablet by mouth 2 (two) times daily for 30 days. Indications: a clot in the lung Qty: 60 tablet, Refills: 0 Associated Diagnoses: Pulmonary embolism with acute cor pulmonale, unspecified chronicity, unspecified pulmonary embolism type vancomycin 50 mg/mL oral solution Take 2.5 mL by mouth 4 (four) times daily for 10 days. Qty: 100 mL, Refills: 0 Associated Diagnoses: C. difficile colitis !! - Potential duplicate medications found. Please discuss with provider. CONTINUE these medications which have CHANGED Details gabapentin 400 mg capsule Take 1 capsule by mouth every evening for 30 days. Qty: 30 capsule, Refills: 0 Associated Diagnoses: Status post total right knee replacement CONTINUE these medications which have NOT CHANGED Details ALBUTEROL SULFATE ORAL Take by mouth. FLUoxetine 20 mg capsule Take 20 mg by mouth daily. albuterol sulfate 90 mcg/actuation AePB Inhale. aspirin 81 mg chewable tablet Take 81 mg by mouth. omeprazole 40 mg capsule Take 40 mg by mouth daily. alendronate sodium (ALENDRONATE ORAL) Take by mouth. baclofen 10 mg tablet Take 10 mg by mouth 3 (three) times daily. OMEPRAZOLE MAGNESIUM ORAL Take by mouth. STOP taking these medications lisinopril 10 mg tablet Comments: Reason for Stopping: lisinopril 10 mg tablet Comments: Reason for Stopping: Follow-up appointments: Your follow up appointment with your surgeon has been made. Appointment Date: , Appointment Time . For questions regarding follow-up instructions call the [facility] Hotline at or If you experience any of the following symptoms , please follow up with . For worsening symptoms/changing condition/problems or questions: Non-emergency/urgent: Call the [facility] Hotline at or or Emergency: Go to the closest emergency room or call 449 Translated by Date Time If you receive the patient satisfaction survey by mail please complete and return and let us know how we are doing. TOBACCO AVOIDANCE Exposure to tobacco either from smoking or from second hand (environmental) smoke or smokeless tobacco (snuff) is damaging to your health. This information is to encourage everyone to avoid tobacco exposure. It is recommended that you: ? If you smoke or use smokeless tobacco, we encourage you to quit. ? If you have already quit smoking, continue your good work! ? If you do not smoke or use smokeless tobacco, do not start. ? Avoid secondhand smoke. Additional Resources You may want to contact these organizations for further information on smoking and how to quit. [place] [employer], http://www.lungusa.org/stop-smoking/ [place] [employer], http://www.cancer.org/Healthy/StayAwayfromTobacco/index [place] [employer], http://www.heart.org/HEARTORG/GettingHealthy/ QuitSmoking/Quit-Smoking_[facility]_001085_SubHomePage.jsp AttachmentsThe following attachments cannot be sent through Care Everywhere.Anemia (Mauritian)C. Diff, What Is (Mauritian)Knee Replacement, After: Right After Surgery (Mauritian)Knee Replacement, After: The First Month (Mauritian) Knee Replacement, Total (Mauritian)Stroke and Heart Disease (Mauritian)Embolism, Pulmonary (Mauritian)Fecal Occult Blood Test (Mauritian)Lower GI Bleeding (Stable) ( Mauritian)Rectal Bleeding, Understanding (Mauritian)Blood Transfusion (Adult), When You Need a (Mauritian)Apixaban oral tablets (Mauritian)Vancomycin oral solution ( Mauritian)documented in this encounter Progress Notes Leodan Rodríguez RN - 05/27/2019 2:46 PM GAS SHOVEL OPERATOR Care Management Discharge Disposition Note (DCDN) 5-2-1 Interventions: Clear discharge plan 5-2-1 Providers: Yarn Dumper/Director Of Content Marketing 5-2-1 Patient Capacity Improvements: Transportation arrangements Discharge Plan for ongoing care and services: Long-Term Facility (SNF) Is this a new referral: Yes Patient Choice completed for referred services: Yes DME location: Other DME location: Durable Medical Equipment: Home Health location: Discharge location(s): SNF location: [address] [address] () [phone] ([phone] Patient choice completed for referred services: Yes Discussed with patient/patients family involved in decision making: Yes Patient or family caregiver understands, and agrees with discharge plan. Community resources/referrals made or provided to patient: No Resources/Referrals: Transportation: Wheelchair Van Mental Status: Alert & Oriented to Person,Place & Time Living Arrangement: Home Other living arrangement: Address of living arrangement: [address] [place] [address] Funding Resources: Medicare Replacement Nursing informed of discharge plan: Yes Name of RN informed: Melissa Tay discharge date: 05/27/19 Time: 1441 Additional Information: no CM/SW Name & Contact number: Leodan Rodríguez RN Ph. Leodan Rodríguez RN, BSN [facility] Yarn Dumper O [phone] The following information has been provided to the facility noted above: reason for the patient discharge or transfer; patients physical and psychosocial status; summary of care, treatment, servicesprovided to patient; and the patient progress toward goals. eodan Rodríguez RN - 05/27/2019 2:42 PM GAS SHOVEL OPERATOR Care Management Social Functional Assessment Patient Name: Nallely Mendez Age: [age] year old Sex: female Previous admit date: N/A Current diagnosis and co-morbidities: Primary osteoarthritis of right knee [M17.11] Readmission Questions: Was patient discharged from any acute care hospital within the last 30 days: No Social Functional Assessment: Primary language spoken/preferred: Mauritian Mental Status: Alert & Oriented to Person,Place & Time Information given by: Self Patient's support system: Child Name and number of support system: Luzmaria Butts Primary Boarding House Manager: Self MPOA: Same as support system Living Arrangement: Home Address of living arrangement : [address] [place] [address] Persons living in home: Self Barriers to returning home: Declining function Baseline functional status- ambulation: Independent Functional status-baseline personal care: Independent Baseline functional status- driving: Independent Baseline functional status- grocery shopping: Independent Functional status-baseline housekeeping: Independent Functional status-baseline meal prep: Independent Current functional status same as prior: No Current functional status- ambulation: Requires minimal to moderate assistance Current functional status- personal care: Requires minimal to moderate assistance Current functional status- driving: Dependent Current functional status- grocery shopping: Dependent Current functional status-house keeping: Dependent Current functional status- meal preparation: Dependent Do you have a PCP?: Yes Name of PCP: [facility] Agency: No Provider Services: No DME Company: No Equipment: Rollator;Walker Hemodialysis: No Community resources utilized: None Funding Resources: Medicare Replacement Medicare Replacement name and information: [facility] Prescription coverage plan: Medicare Part D Pharmacy where meds are filled: Other Other pharmacy: [facility] Anticipated services prior to disharge: Continue Medical Eval Expected mode of discharge transportation: Same as support system Additional Recommendations for DC: no Additional info required for discharge planning: Pending medical evaluation Recommended discharge plan: New placement SFA Complete: Social Functional Assessment complete: Yes Alcohol Use Screening (AUDIT-C) How often do you have a drink containing alcohol?: Never SCORE: 0 Role of Care Management explained. Yes Any issues or concerns with obtaining/affording your medications at home: no. Are you or your support system able to meat pickler medications at discharge: yes. Describe: Leodan Rodríguez RN, BSN [facility] Yarn Dumper O [phone] Jeri Landon PT - 05/27/2019 2:41 PM CSTPT went in to adjust CPM this afternoon however, patient was sitting comfortably up in chair with in the room. Jeri Aponte PT, DPT [place] License Number: [id number] [email or web address] signed by Jeri Aponte PT at 05/27/2019 2: 43 PM Kristel Figueroa PT - 05/27/2019 10:47 AM CST05/27/2019 Physical Therapy Progress Note: Recommendations: Primary discharge plan: Pt requires CGA/SBA with mobility. Pt scheduled to be transferred to SNF Equipment recommendations: Rolling Walker PAIN: -Pain Description: aching and sharp -Pain Location: right leg -Pain rating before treatment: 3, After treatment: 2 -Pain Management: Nursing Notified and Pain Meds given PRECAUTIONS: Weight Bearing Precaution: WBAT, Right, LE General Precautions: Fall Bracing/Cast present or required:N/A S: Patient agreeable to working with PT. Patient ready to get up with therapy. O: Patient met Semi reclined in bed. Patient seen for the following: Bed mobility: - Rolling: Modified independent - Scooting in supine: CGA, Minimal assist - supine-sit: CGA - cued patient to perform transfers appropriately Transfers: Sit to stand: CGA using Rolling Walker Stand to sit: CGA using Rolling Walker Static/dynamic standing balance: Good Verbal cueing provided for correct hand placement and correct use of AD Gait: Assisted patient with ambulation as follows: 35 feet using Rolling Walker and SBA/Setup Patient presenting with 3 point gait pattern. No antalgic pattern present Therapeutic exercise: instructed patient in the following: ankle pumps, quad sets, heel slides, hip abduction/adduction, straight leg raises, long arc quads, seated marching - PT issued program for patient to have at home After session, patient Up in chair and call woods provided. RN made aware of status. A: Patient tolerated session well. Patient's BP maintained fairly well, 102/49= Supine, 105/62- sitting in chair. P: PT will - advance as able to tolerate. Total Timed Tx Codes in Minutes: 25 Min Total Treatment Time in Minutes: 25 Min Kristel Deras, PT [place] PT License [id number] [facility] Rehabilitation Services Department (phone) (fax) Sruthi Luna MD - 05/27/2019 5:00 AM CSTC diff diarrhea Start oral vanc high dose. Can taper down to 125 QID. Total duration at least 10 days Sruthi Luna MD - 05/26/2019 6:24 PM CST Hospitalist Progress Note SUBJECTIVE: Still on O2 but decreasing requirements No sob, chest pain Some diarrhea CURRENT MEDICATIONS - reviewed. Current Facility-Administered Medications Medication Dose Route Frequency Last Rate Last Dose enoxaparin (LOVENOX) injection 80 mg 1 mg/kg Subcutaneous Q12HA3 80 mg at 05/26/19 1718 HYDROcodone-acetaminophen (NORCO) 10-325 mg tablet 1 tablet 1 tablet Oral Q6HPRN 1 tablet at 05/26/19 0948 aspirin chewable tablet 81 mg 81 mg Oral DAILY 81 mg at 05/26/19 0830 docusate (COLACE) capsule 100 mg 100 mg Oral DAILY 100 mg at 05/26/19 0831 FLUoxetine (PROZAC) capsule 20 mg 20 mg Oral DAILY 20 mg at 05/26/19 0828 gabapentin (NEURONTIN) capsule 400 mg 400 mg Oral QPM 400 mg at 05/26/19 1717 naloxone (NARCAN) injection 0.1 mg 0.1 mg Slow IV Push SEE-INSTRUCTIONS omeprazole (PRILOSEC) capsule 40 mg 40 mg Oral DAILY 40 mg at 05/26/19 0829 ondansetron (ZOFRAN (PF)) injection 4 mg 4 mg Slow IV Push Q6HPRN 4 mg at 05/26/19 1050 sennosides (SENOKOT) tablet 8.6 mg 8.6 mg Oral DAILY 8.6 mg at 05/26/19 0830 sodium chloride 0.9 % irrigation solution PRN 3,000 mL at 05/23/19 0736 PHYSICAL EXAM: BP 102/57 | Pulse 80 | Temp 36.8 C (98.2 F) (Tympanic) | Resp 18 | Ht 1.524 m (5') | Wt 81 kg (178 lb 9.2 oz) | SpO2 95% | BMI 34.88 kg/m Temp: [36.5 C (97.7 F)-37.4 C (99.3 F)] Heart Rate (monitor): [89] Pulse: [73-89] Resp: [18-20] BP: (99-136)/(50-79) Intake/Output Summary (Last 24 hours) at 05/26/2019 1824 Last data filed at 05/26/2019 1000 Gross per 24 hour Intake Output 1950 ml Net -1950 ml NAD Anicteric sclera, oral mucosa clear Good air entry b/l RRR, nl s1s2 Abd soft NT S/p ortho surgery, dressing c/d/i AAO, no gross deficits Skin warm and dry LABS/IMAGING - reviewed, pertinent results as below: CBC BMP PT/INR WBC x10^3 (/CMM) Date Value 06/14/2004 3.3 (L) WBC (10*3/L) Date Value 05/26/2019 9.30 NA Date Value 05/26/2019 138 mmol/L 06/14/2004 140 MMOL/L No results found for: PT RBC x10^6 (/CMM) Date Value 06/14/2004 4.50 RBC (10*6/L) Date Value 05/26/2019 3.78 (L) K Date Value 05/26/2019 4.0 mmol/L 06/14/2004 3.9 MMOL/L PT INR (no units) Date Value 06/14/2004 1.0 INR (no units) Date Value 05/19/2019 1.0 PLT x10^3 (/CMM) Date Value 06/14/2004 288 PLT (10*3/L) Date Value 05/26/2019 365 (H) CALCIUM Date Value 05/26/2019 8.6 mg/dL 06/14/2004 8.6 MG/DL HGB Date Value 05/26/2019 9.0 g/dL (L) 06/14/2004 14.2 G/DL CL Date Value 05/26/2019 99 mmol/L 06/14/2004 102 MMOL/L aPTT HCT (%) Date Value 05/26/2019 30.1 (L) 06/14/2004 41.1 BUN Date Value 05/26/2019 13 mg/dL 06/14/2004 8 MG/DL APTT (SEC) Date Value 06/14/2004 28 CREATININE Date Value 05/26/2019 0.71 mg/dL 06/14/2004 0.63 MG/DL (L) IMAGING- Hospital Encounter on 05/23/19 XR KNEE <3 VW RIGHT Narrative Exam:XR KNEE <3 VW RIGHT HISTORY: surgery COMPARISON: Radiograph 01/07/2019 FINDINGS: Radiographs of the right knee demonstrate postsurgical changes of total knee arthroplasty with hardware without complications. Postsurgical drains, soft tissue swelling, gas and superficial skin rigoberto are noted. No acute osseous fracture is detected. Impression Postsurgical changes of total knee arthroplasty without complications. Preliminary Report Dictated by Resident: Jayshree Guerrier I, Pastor Sosa MD., have reviewed this study and agree with the above report. CT CHEST PULMONARY ANGIOGRAM Narrative HISTORY: High pretest probability for P.E. recent orthopedic surgery. TECHNIQUE: Contrast-enhanced 64-mutidetector CT scan of the chest was completed with intravenous injection of Omnipaque-350 non ionic contrast medium. Subsequently numerous sagittal, coronal and MIP reformations were generated. FINDINGS: Low-density lesions are seen in the lower portion of the thyroid gland, largest is 10 mm size in the right side. Trachea and central bronchial airways appear normal. No pneumothorax or pleural effusion or pericardial effusion. Cardiomegaly, large hiatal hernia, congestion and/or fibrosis in the lower lungs noted. Main pulmonary artery is 28 mm in diameter. Minimal LAD coronary atherosclerosis noted. Note made of accessory right upper lobe azygous fissure. Subcentimeter lymph nodes are seen in the right and left karen, in the AP window region, anterior to the trachea and subcarinal space. Left upper lobe pulmonary artery branches showed intraluminal partially occluding thrombi. No additional pulmonary thromboemboli visualized. Visualized upper abdominal organs showed evidence of cholecystectomy, atrophy in the lateral upper left kidney and 6 mm calcification in the left kidney adjacent to the atrophied cortex. Pectus recovery time deformity of the sternum noted. Thoracic dextroscoliosis and degenerative spondylosis is noted. No aggressive bone lesions are seen. CONCLUSIONS: Acute pulmonary thromboemboli in the left upper lobe pulmonary artery branches. US ABDOMEN LIMITED Narrative HISTORY: Abnormal LFTs. COMPARISON: None TECHNIQUE: Liver was evaluated in multiple planes without and with color imaging. FINDINGS: Liver is approximately 14 cm and showed moderate increase in heterogeneous echotexture. Hepatic/portal venous systems appear patent with hepatopedal portal venous flow confirmed. No fluid is seen in the right upper abdomen. No dilatation of the intrahepatic biliary ducts. Common hepatic duct is 6.1 mm. Gallbladder is probably absent. Moderate atherosclerosis of the abdominal aorta noted. CONCLUSIONS: Normal sized liver with moderately coarse increased echotexture of the parenchyma, consistent with chronic primary liver disease, including hepatic steatosis. XR CHEST 1 VW Narrative XR CHEST 1 VW HISTORY: hypoxia COMPARISON: None Impression FINDINGS/IMPRESSION: Mild pulmonary vascular congestion. Retrocardiac atelectasis is noted. An azygous fissure is seen on the right. The costophrenic angles are clear. The heart is mildly enlarged. No pneumothorax is found. Preliminary Report Dictated by Resident: Maribeth Dubose I, Richardson Townsend MD., have reviewed this study and agree with the above report. ASSESSMENT/PLAN Nallely Mendez is a 79 year old female with: S/p total right knee arthroplasty done by Dr. Pitts Discharge planning, activity and pain management will be done by Dr. Pitts ortho surgeon Acute hypoxic respiratory failure Requiring nasal cannula Wean off O2 Recommended outpatient sleep study Acute left PE Full dose lovenox Will discharge on eliquis, will need at least 6 months AC and f/u with PCP and/ or hematology to determine duration of AC F/u dvt scan Acute pulmonary edema Echo - normal EF, diastolic dysfunction Acute diastolic CHF exacerbation Consult cardiology Dr. Monreal IV lasix given as tolerated, hold IV lasix now and reassess tomorrow Elevated LFTs, concern for post anesthesia effect or hepatic congestion Hepatitis panel negative Consult GI Dr. Calderon U/S abd - no acute findings, chronic primary liver disease, including hepatic steatosis Diarrhea F/u stool studies, rule out c diff Hypertension stable Lisinopril 10 mg daily hold due to concern for low normal bp Depression Prozac 20 mg daily GERD Continue omeprazole daily Prophylaxis: DVT- enoxaparin Full Code Abhijit Pugh PTA - 05/26/2019 2:23 PM GAS SHOVEL OPERATOR Physical Therapy Note Attempted to see patient for Physical Therapy treatment. Patient about to go for Chest CT and BLE Doppler. Will hold treatment for now. Will continue to follow and review with supv PT. Abhijit Osorio PTA [place]ito Lic [id number] [facility] Rehab Services [facility] [phone] CHARLES Rubiov c Donohue PAC - 05/26/2019 10:43 AM CST Orthopedic Surgery Post Operative Note Date of Service: 05/26/2019 Procedure: Patient Active Problem List Diagnosis Primary osteoarthritis of right knee Total knee replacement status Hypoxia Volume overload Abnormal liver enzymes Anemia Essential hypertension Elevated LFTs Post-operative Day: 3 Patient is pain is well controlled. Patient ambulates with Rolling Walker . Range of motion is improving. Vitals: BP 136/79 | Pulse 82 | Temp 36.7 C (98.1 F) (Tympanic) | Resp 18 | Ht 1.524 m (5') | Wt 81 kg (178 lb 9.2 oz) | SpO2 90% | BMI 34.88 kg/m Wound status: clean, dry and intact Neovascular status: neurovascularly intact Labs: CBC BMP PT/INR WBC x10^3 (/CMM) Date Value 06/14/2004 3.3 (L) WBC (10*3/L) Date Value 05/26/2019 9.30 NA Date Value 05/26/2019 138 mmol/L 06/14/2004 140 MMOL/L No results found for: PT RBC x10^6 (/CMM) Date Value 06/14/2004 4.50 RBC (10*6/L) Date Value 05/26/2019 3.78 (L) K Date Value 05/26/2019 4.0 mmol/L 06/14/2004 3.9 MMOL/L PT INR (no units) Date Value 06/14/2004 1.0 INR (no units) Date Value 05/19/2019 1.0 PLT x10^3 (/CMM) Date Value 06/14/2004 288 PLT (10*3/L) Date Value 05/26/2019 365 (H) CALCIUM Date Value 05/26/2019 8.6 mg/dL 06/14/2004 8.6 MG/DL HGB Date Value 05/26/2019 9.0 g/dL (L) 06/14/2004 14.2 G/DL CL Date Value 05/26/2019 99 mmol/L 06/14/2004 102 MMOL/L aPTT HCT (%) Date Value 05/26/2019 30.1 (L) 06/14/2004 41.1 BUN Date Value 05/26/2019 13 mg/dL 06/14/2004 8 MG/DL APTT (SEC) Date Value 06/14/2004 28 CREATININE Date Value 05/26/2019 0.71 mg/dL 06/14/2004 0.63 MG/DL (L) Assessment and Plan: Nallely Mendez is a 79 year old female with PMH as listed above, admitted to the hospital on 05/23/2019 with: Principal Problem: Primary osteoarthritis of right knee (05/12/2019) POA: Unknown Total knee replacement status (05/23/2019) POA: Yes Assessment: Having difficulty with mobility she has had health problems that have Her in with fluid retention and oxygenation that were managed by the hospitalist Plan: When she is safe and stable she can transferto a rehabilitation facility Hypoxia (05/25/2019) POA: Unknown Plan: Managed by hospitalist Volume overload (05/25/2019) POA: Unknown Plan: Managed by hospitalist Abnormal liver enzymes (05/25/2019) POA: Abhijit Pugh PTA - 05/26/2019 10:25 AM GAS SHOVEL OPERATOR Physical Therapy Progress Note: Recommendations: Primary discharge plan: rehabilitation hospital Secondary discharge plan: home with 13/10 family supervision and home health PT Equipment recommendations: Rolling Walker PAIN: Reports right knee pain about 2/10 at rest. Increased pain with movement PRECAUTIONS: Weight Bearing Precaution: WBAT General Precautions: Fall Bracing/Cast present or required:N/A S: Patient agreeable to working with PT. Patient met in bed with family present. Patient eating. O: Patient seen for the following: Bed Mobility: Supine to sit: Min a with extra time. Sit to supine: Max a Transfers: Sit to stand: Min a Stand to sit: Min a Gait: Ambulated 6ft with RW, Min a Therapeutic exercise: Performed B ankle pumps and LAQ x 15 ea After session, patient semi reclined in bed with RN present and call woods provided. A: Patient tolerated session fair. Patient awake, alert and oriented on arrival. Per RN premedicated for pain a short time ago. After standing and walking a short distance, patient became dizzy and lethargic. Once sitting on bed patient became more lethargic but still responsive to voice. Notified RN and in room. Returned to supine. BP 109/57, HR 89, SP02 90% on 2 lpm 02. Patient left with RN. P: PT will continue POC with emphasis on gait, transfers and functional mobiility. Total Timed Tx Codes in Minutes: 43 Min Total Treatment Time in Minutes: 43 Min Abhijit Osorio PTA [place]ito Lic [id number] [facility] Rehab Services [facility] [phone] Kristel Deras PT supv rasaToya ro MD - 05/26/2019 7:58 AM CST [facility] Cardiology progress note Date of Service: 05/26/2019 Nallely Mendez is a 79 year old female hospitalized for right knee surgery. No new cardiac complaints noted. PHYSICAL EXAM Vitals: 05/25/19 2023 05/26/19 0017 05/26/19 0357 05/26/19 0751 BP: 127/70 126/70 105/59 Pulse: 86 77 73 73 Resp: Temp: 37.4 C (99.3 F) 36.5 C (97.7 F) 37.1 C (98.7 F) TempSrc: Temporal Artery Temporal Artery Temporal Artery SpO2: 93% 92% 91% 93% Weight: Height: General: no apparent distress HEENT: normocephalic atraumatic Neck: supple, no lymphadenopathy, no bruits, no JVD Lungs: clear to auscultation bilaterally Cardio: S1, S2, regular; no murmurs, rubs or gallops Abdomen: non-distended : not examined Rectal: not examined Extremities: no clubbing, cyanosis, or edema Skin: no rashes Neuro: no focal deficits Medications: I have reviewed the patient's medications; see Medication Reconciliation. Labs: I have reviewed the patient's labs. CBC BMP PT/INR WBC x10^3 (/CMM) Date Value 06/14/2004 3.3 (L) WBC (10*3/L) Date Value 05/26/2019 9.30 NA Date Value 05/26/2019 138 mmol/L 06/14/2004 140 MMOL/L No results found for: PT PLT x10^3 (/CMM) Date Value 06/14/2004 288 PLT (10*3/L) Date Value 05/26/2019 365 (H) K Date Value 05/26/2019 4.0 mmol/L 06/14/2004 3.9 MMOL/L PT INR (no units) Date Value 06/14/2004 1.0 INR (no units) Date Value 05/19/2019 1.0 HGB Date Value 05/26/2019 9.0 g/dL (L) 06/14/2004 14.2 G/DL BUN Date Value 05/26/2019 13 mg/dL 06/14/2004 8 MG/DL HCT (%) Date Value 05/26/2019 30.1 (L) 06/14/2004 41.1 CREATININE Date Value 05/26/2019 0.71 mg/dL 06/14/2004 0.63 MG/DL (L) LIPID PROFILE GLUCOSE Date Value 05/26/2019 97 mg/dL 06/14/2004 89 MG/DL No results found for: CHOL TSH No results found for: LDL TSH Date Value 05/25/2019 3.86 mIU/L 06/14/2004 1.54 uIU/mL CARDIAC ENZYMES No results found for: HDL CK (U/L) Date Value 06/14/2004 38 No results found for: TRIG LFTs CK-MB (ng/mL) Date Value 06/14/2004 .8 AST(SGOT) (U/L) Date Value 05/26/2019 167 (H) 06/14/2004 31 TROPONIN I (ng/mL) Date Value 06/14/2004 0.00 ALT(SGPT) (U/L) Date Value 04/21/2018 14 06/14/2004 26 ALTv (U/L) Date Value 05/26/2019 174 (H) No results found for: BNP No results found for: LDL There are no current results on file for these tests and/or test for 1 year. There are no current results on file for these tests and/or test for 1 year. No results found for: LDL NT-proBNP (pg/mL) Date Value 05/26/2019 532 (H) ASSESSMENT AND PLAN Principal Problem: Primary osteoarthritis of right knee Active Problems: Total knee replacement status Hypoxia Volume overload Abnormal liver enzymes Anemia Essential hypertension Mild volume Overload: Improving. Continue IV lasix. Still hypoxia: Recommend Echo, ECG and serial trop HTN well controlled with lisinopril. Elevated liver enzymes: Not likely secondary to cardiac etiology. Toan Maki MD 05/26/2019 7:58 AM Laser Cutter, Division of Cardiology [facility] rutih Elizabeth MD - 05/25/2019 6:14 PM CST Hospitalist Progress Note SUBJECTIVE: Still on O2 No sob, chest pain CURRENT MEDICATIONS - reviewed. Current Facility-Administered Medications Medication Dose Route Frequency Last Rate Last Dose furosemide (LASIX) injection 20 mg 20 mg Slow IV Push QAM+PM 20 mg at 07/10 1654 HYDROcodone-acetaminophen (NORCO) 10-325 mg tablet 1 tablet 1 tablet Oral Q6HPRN 1 tablet at 05/25/19 0741 aspirin chewable tablet 81 mg 81 mg Oral DAILY 81 mg at 05/25/19 0812 docusate (COLACE) capsule 100 mg 100 mg Oral DAILY 100 mg at 05/25/19 0812 enoxaparin (LOVENOX) injection 30 mg 30 mg Subcutaneous Q12H 30 mg at 07/10 0813 FLUoxetine (PROZAC) capsule 20 mg 20 mg Oral DAILY 20 mg at 05/25/19 0812 gabapentin (NEURONTIN) capsule 400 mg 400 mg Oral QPM 400 mg at 05/25/19 1654 lisinopril (PRINIVIL,ZESTRIL) tablet 10 mg 10 mg Oral DAILY 10 mg at 07/10 0812 naloxone (NARCAN) injection 0.1 mg 0.1 mg Slow IV Push SEE-INSTRUCTIONS omeprazole (PRILOSEC) capsule 40 mg 40 mg Oral DAILY 40 mg at 05/25/19 0813 ondansetron (ZOFRAN (PF)) injection 4 mg 4 mg Slow IV Push Q6HPRN sennosides (SENOKOT) tablet 8.6 mg 8.6 mg Oral DAILY 8.6 mg at 05/25/19 0812 sodium chloride 0.9 % irrigation solution PRN 3,000 mL at 05/23/19 0736 PHYSICAL EXAM: BP (!) 156/77 | Pulse 93 | Temp 36 C (96.8 F) (Tympanic) | Resp 18 | Ht 1.524 m (5') | Wt 81 kg (178 lb 9.2 oz) | SpO2 95% | BMI 34.88 kg/m Temp: [36 C (96.8 F)-36.7 C (98 F)] Pulse: [73-93] Resp: [18] BP: (116-156)/(54-97) Intake/Output Summary (Last 24 hours) at 05/25/20191818 Last data filed at 05/25/2019 1000 Gross per 24 hour Intake 23 ml Output 0 ml Net 23 ml NAD Anicteric sclera, oral mucosa clear Good air entry b/l RRR, nl s1s2 Abd soft NT S/p ortho surgery, dressing c/d/i AAO, no gross deficits Skin warm and dry LABS/IMAGING - reviewed, pertinent results as below: CBC BMP PT/INR WBC x10^3 (/CMM) Date Value 06/14/2004 3.3 (L) WBC (10*3/L) Date Value 05/25/2019 7.42 NA Date Value 05/25/2019 140 mmol/L 06/14/2004 140 MMOL/L No results found for: PT RBC x10^6 (/CMM) Date Value 06/14/2004 4.50 RBC (10*6/L) Date Value 05/25/2019 3.92 (L) K Date Value 05/25/2019 4.7 mmol/L 06/14/2004 3.9 MMOL/L PT INR (no units) Date Value 06/14/2004 1.0 INR (no units) Date Value 05/19/2019 1.0 PLT x10^3 (/CMM) Date Value 06/14/2004 288 PLT (10*3/L) Date Value 05/25/2019 353 CALCIUM Date Value 05/25/2019 8.6 mg/dL 06/14/2004 8.6 MG/DL HGB Date Value 05/25/2019 9.2 g/dL (L) 06/14/2004 14.2 G/DL CL Date Value 05/25/2019 102 mmol/L 06/14/2004 102 MMOL/L aPTT HCT (%) Date Value 05/25/2019 33.0 (L) 06/14/2004 41.1 BUN Date Value 05/25/2019 16 mg/dL 06/14/2004 8 MG/DL APTT (SEC) Date Value 06/14/2004 28 CREATININE Date Value 05/25/2019 0.80 mg/dL 06/14/2004 0.63 MG/DL (L) IMAGING- Hospital Encounter on 05/23/19 XR KNEE <3 VW RIGHT Narrative Exam:XR KNEE <3 VW RIGHT HISTORY: surgery COMPARISON: Radiograph 01/07/2019 FINDINGS: Radiographs of the right knee demonstrate postsurgical changes of total knee arthroplasty with hardware without complications. Postsurgical drains, soft tissue swelling, gas and superficial skin rigoberto are noted. No acute osseous fracture is detected. Impression Postsurgical changes of total knee arthroplasty without complications. Preliminary Report Dictated by Resident: Jayshree A Kohlnhofer I, Pastor [place], MD., have reviewed this study and agree with the above report. XR CHEST 1 VW Narrative XR CHEST 1 VW HISTORY: hypoxia COMPARISON: None Impression FINDINGS/IMPRESSION: Mild pulmonary vascular congestion. Retrocardiac atelectasis is noted. An azygous fissure is seen on the right. The costophrenic angles are clear. The heart is mildly enlarged. No pneumothorax is found. Preliminary Report Dictated by Resident: Maribeth Dubose I, Richardson Townsend MD., have reviewed this study and agree with the above report. ASSESSMENT/PLAN Nallely Mendez is a 79 year old female with: S/p total right knee arthroplasty done by Dr. Pitts Discharge planning, prophylaxis and pain management will be done by Dr. Pitts and his team Acute hypoxic respiratory failure Requiring nasal cannula Wean off O2 Acute pulmonary edema Elevated LFTs, hepatic congestion Echo - normal EF, diastolic dysfunction Acute diastolic CHF exacerbation IV lasix 20 mg BID Hepatitis panel negative Consult cardiology Dr. Monreal Consult GI Dr. Calderon Recommended outpatient sleep study Hypertension stable Lisinopril 10 mg daily Depression Prozac 20 mg daily GERD Continue omeprazole daily Prophylaxis: DVT- enoxaparin Full Code Discussed with daughter at bedside whose of Dr. Butts c Donohue, PAC - 06/2019 4:49 PM CST Orthopedic Surgery Post Operative Note Date of Service: 05/25/2019 Procedure: Patient Active Problem List Diagnosis Primary osteoarthritis of right knee Total knee replacement status Post-operative Day: 1 Patient is resting comfortably. Patient is up and in chair. Range of motion is improving. Vitals: BP (!) 156/97 | Pulse 85 | Temp 36.5 C (97.7 F) (Temporal Artery) | Resp 18 | Ht 1.524 m (5') | Wt 81 kg (178 lb 9.2 oz) | SpO2 92% | BMI 34.88 kg/m Wound status: clean, dry and intact Neovascular status: neurovascularly intact Labs: CBC BMP PT/INR WBC x10^3 (/CMM) Date Value 06/14/2004 3.3 (L) WBC (10*3/L) Date Value 05/25/2019 7.42 NA Date Value 05/25/2019 140 mmol/L 06/14/2004 140 MMOL/L No results found for: PT RBC x10^6 (/CMM) Date Value 06/14/2004 4.50 RBC (10*6/L) Date Value 05/25/2019 3.92 (L) K Date Value 05/25/2019 4.7 mmol/L 06/14/2004 3.9 MMOL/L PT INR (no units) Date Value 06/14/2004 1.0 INR (no units) Date Value 05/19/2019 1.0 PLT x10^3 (/CMM) Date Value 06/14/2004 288 PLT (10*3/L) Date Value 05/25/2019 353 CALCIUM Date Value 05/25/2019 8.6 mg/dL 06/14/2004 8.6 MG/DL HGB Date Value 05/25/2019 9.2 g/dL (L) 06/14/2004 14.2 G/DL CL Date Value 05/25/2019 102 mmol/L 06/14/2004 102 MMOL/L aPTT HCT (%) Date Value 05/25/2019 33.0 (L) 06/14/2004 41.1 BUN Date Value 05/25/2019 16 mg/dL 06/14/2004 8 MG/DL APTT (SEC) Date Value 06/14/2004 28 CREATININE Date Value 05/25/2019 0.80 mg/dL 06/14/2004 0.63 MG/DL (L) Assessment and Plan: Nallely Mendez is a 79 year old female with PMH as listed above, admitted to the hospital on 05/23/2019 with: Principal Problem: Active Problems: Total knee replacement status (05/23/2019) POA: Yes Assessment: difficulty with mobility Plan: discharge when safe and stable Abhjiit Pugh NEON INSTALLER - 05/25/2019 4:16 PM GAS SHOVEL OPERATOR Physical Therapy Progress Note: Recommendations: Primary discharge plan: rehabilitation hospital Secondary discharge plan: home with 24/7 family supervision and home health PT Equipment recommendations: Rolling Walker PAIN: Reports right knee pain about 3/10 at rest. Increased pain with movement PRECAUTIONS: Weight Bearing Precaution: WBAT General Precautions: Fall Bracing/Cast present or required:N/A S: Patient agreeable to working with PT. Patient met in bed and reports she is sleepy. O: Patient seen for the following: Therapeutic exercise: instructed patient in the following: TKA protocol x 10 reps After session, patient semi reclined in bed with CPM on 0-50 and call woods provided. A: Patient tolerated session fair. Patient very somnolent this session and falls asleep unless spoken to. Able to scoot in bed with Mod I. Increased CPM to 0-50 with good tolerance. P: PT will continue POC with emphasis on gait, transfers and functional mobiility. Total Timed Tx Codes in Minutes: 25 Min Total Treatment Time in Minutes: 25 Min Abhijit Osorio PTA Carlito Lic [id number] [facility] Re[facility] [phone] Kristel Deras PT supv Abhijit Pugh PTA - 05/25/2019 11:11 AM GAS SHOVEL OPERATOR Physical Therapy Progress Note: Recommendations: Primary discharge plan: rehabilitation hospital Secondary discharge plan: home with 13/10 family supervision and home health PT Equipment recommendations: Rolling Walker PAIN: Reports right knee pain about 3/10 at rest. Increased pain with movement PRECAUTIONS: Weight Bearing Precaution: WBAT General Precautions: Fall Bracing/Cast present or required:N/A S: Patient agreeable to working with PT. Patient met in bed and eager to get up to BR. O: Patient seen for the following: Transfers: Sit to stand: Min a Stand to sit: Min a Toilet transfer: Min a Gait: Ambulated 20ft x 2 with RW, Min a Therapeutic exercise: instructed patient in the following: TKA protocol x 10 reps After session, patient Up in chair and call woods provided. A: Patient tolerated session fair. Gait is fairly steady with slow wilder and short stride length. Decreased LLE clearance initially but improved as she walked more. Patient reports fatigue and B shoulder pain near end of ambulation. Continues to require verbal cues for RW sequence, RW managementand safety P: PT will continue POC with emphasis on gait, transfers and functional mobiility. Total Timed Tx Codes in Minutes: 40 Min Total Treatment Time in Minutes: 40 Min Abhijit Osorio PTA [place]ito Lic [id number] [facility] Re[facility] [phone] Kristel Deras, PT supv Nash Garcia RT - 05/25/2019 7:43 AM CSTO2 Saturation at REST on Room Air=88% O2 Saturation at REST on 2 LPM of Iamfqb=471% Leodan Valiente RN - 05/24/2019 3:18 PM CSTCare Management Social Functional Assessment Patient Name: Nallely Mendez Age: [age] year old Sex: female Previous admit date: N/A Current diagnosis and co-morbidities: Primary osteoarthritis of right knee [M17.11] Readmission Questions: Was patient discharged from any acute care hospital within the last 30 days: No Social Functional Assessment: Primary language spoken/preferred: Mauritian Mental Status: Alert & Oriented to Person,Place & Time Information given by: Self Patient's support system: Child Name and number of support system: Luzmaria Butts Primary Boarding House Manager: Self MPOA: Same as support system Living Arrangement: Home Address of living arrangement : [address] [place] [address] Persons living in home: Self Barriers to returning home: Declining function Baseline functional status- ambulation: Independent Functional status-baseline personal care: Independent Baseline functional status- driving: Independent Baseline functional status- grocery shopping: Independent Functional status-baseline housekeeping: Independent Functional status-baseline meal prep: Independent Current functional status same as prior: No Current functional status- ambulation: Requires minimal to moderate assistance Current functional status- personal care: Requires minimal to moderate assistance Current functional status- driving: Dependent Current functional status- grocery shopping: Dependent Current functional status-house keeping: Dependent Current functional status- meal preparation: Dependent Do you have a PCP?: Yes Name of PCP: [facility] Agency: No Provider Services: No DME Company: No Equipment: Rollator;Walker Hemodialysis: No Community resources utilized: None Funding Resources: Medicare Replacement Medicare Replacement name and information: [facility] Prescription coverage plan: Medicare Part D Pharmacy where meds are filled: Other Other pharmacy: [facility] Anticipated services prior to disharge: Continue Medical Eval Expected mode of discharge transportation: Same as support system Additional Recommendations for DC: no Additional info required for discharge planning: Pending medical evaluation Recommended discharge plan: New placement SFA Complete: Social Functional Assessment complete: Yes Alcohol Use Screening (AUDIT-C) How often do you have a drink containing alcohol?: Never SCORE: 0 Role of Care Management explained. Yes Any issues or concerns with obtaining/affording your medications at home: no. Are you or your support system able to meat pickler medications at discharge: yes. Describe: Leodan Rodríguez RN, BSN [facility] Yarn Dumper O [phone] F [phone] bhijit Osorio PTA - 05/24/2019 2:50 PM GAS SHOVEL OPERATOR Physical Therapy Progress Note: Recommendations: Primary discharge plan: rehabilitation hospital Secondary discharge plan: home with 24/7 family supervision and home health PT Equipment recommendations: Rolling Walker PAIN: Reports right knee pain about 2/10 at rest. Increased pain with movement PRECAUTIONS: Weight Bearing Precaution: WBAT General Precautions: Fall Bracing/Cast present or required:N/A S: Patient agreeable to working with PT. Reports doing better but eager to get out of chair O: Patient met up in chair. Patient seen for the following: Transfers: Sit to stand: Moderate assist using Rolling Walker Stand to sit: Minimal assist using Rolling Walker Static/dynamic standing balance: Fair+ Gait: Ambulated 20ft with RW, Min a Therapeutic exercise: instructed patient in the following: TKA protocol x 10 reps After session, patient Up in chair and call woods provided. Answered questions for patient and familyconcerning progress and options for rehab after DC from Hospital. A: Patient tolerated session fair. .Continues to ambulate with slow wilder and short stride length. Improved LLE clearance during swing phase. Improved distance but still fatigues quickly. Able to increase weight bearing on RLE. SP02 90% on RA after gait. P: PT will continue POC with emphasis on gait, transfers and functional mobiility. Total Timed Tx Codes in Minutes: 36 Min Total Treatment Time in Minutes: 36 Min Abhijit Osorio PTA [place]ito Lic [id number] [facility] [phone] Kristel Deras PT supv Leodan Valiente RN - 05/24/2019 11:29 AM CSTSNF referral faxed [facility] to [facility]. Awaiting auth and acceptance. Leodan Rodríguez RN, BSN [facility] [employer] O [phone] F [phone] Abhijit Pugh PTA - 05/24/2019 11:13 AM GAS SHOVEL OPERATOR Physical Therapy Progress Note: Recommendations: Primary discharge plan: rehabilitation hospital Secondary discharge plan: home with 13/10 family supervision and home health PT Equipment recommendations: Rolling Walker PAIN: reports 11/01 pain to right knee at rest. PRECAUTIONS: Weight Bearing Precaution: WBAT General Precautions: Fall Bracing/Cast present or required:N/A S: Patient agreeable to working with PT. Patient c/o feeling "drunk" due to taking morphine for pain earlier. Eager to work with therapy and walk. O: Patient met Semi reclined in bed. Patient seen for the following: Transfers: Sit to stand: Moderate assist using Rolling Walker Stand to sit: Minimal assist using Rolling Walker Static/dynamic standing balance: Fair+ Gait: Assisted patient with ambulation as follows: 10 feet using Rolling Walker and Minimal assist Patient presenting with Step-to gait pattern. . Therapeutic exercise: instructed patient in the following: TKA protocol x 10 reps After session, patient Up in chair and call woods provided. Answered questions for patient and familyconcerning progress and options for rehab after DC from Hospital. A: Patient tolerated session fair. . Gait is mildly unsteady with slowed wilder and short stride length. Patient has difficulty advancing LLE and has decreased heel strike. Pattern is step to and antalgic. Patient fatigues quickly with gait. SP02 90% on RA after gait. P: PT will continue POC with emphasis on gait, transfers and functional mobiility. Total Timed Tx Codes in Minutes: 41 Min Total Treatment Time in Minutes: 41 Min Abhijit Osorio PTA [place]ito Lic [id number] [facility] [phone] Kristel Deras PT supv Kortney Mayfieldita, AUTOMATIC FOLDER SEAMER - 05/24/2019 10:35 AM CST [facility] Hospitalist Progress Note SUBJECTIVE: Patient seen sitting up to chair tolerating well denies pain at this time. CURRENT MEDICATIONS - reviewed. Current Facility-Administered Medications Medication Dose Route Frequency Last Rate Last Dose HYDROcodone-acetaminophen (NORCO) 10-325 mg tablet 1 tablet 1 tablet Oral Q6HPRN morpHINE 30 mg/30 mL (fixed dose) DOG BARBER injection Intravenous CONTINUOUS naloxone (NARCAN) injection 0.4 mg 0.4 mg Slow IV Push ONCE aspirin chewable tablet 81 mg 81 mg Oral DAILY 81 mg at 05/24/19 0948 docusate (COLACE) capsule 100 mg 100 mg Oral DAILY 100 mg at 05/24/19 0948 enoxaparin (LOVENOX) injection 30 mg 30 mg Subcutaneous Q12H 30 mg at 06/09 0948 FLUoxetine (PROZAC) capsule 20 mg 20 mg Oral DAILY 20 mg at 05/24/1948 gabapentin (NEURONTIN) capsule 400 mg 400 mg Oral QPM 400 mg at 05/23/192027 lactated ringers IV infusion 1,000 mL 1,000 mL IV Infusion CONTINUOUS 75 mL /hr at 05/24/19 57607,000 mL at 05/24/19 0324 lisinopril (PRINIVIL,ZESTRIL) tablet 10 mg 10 mg Oral DAILY 10 mg at 06/09 0948 naloxone (NARCAN) injection 0.1 mg 0.1 mg Slow IV Push SEE-INSTRUCTIONS omeprazole (PRILOSEC) capsule 40 mg 40 mg Oral DAILY 40 mg at 05/24/19 0948 ondansetron (ZOFRAN (PF)) injection 4 mg 4 mg Slow IV Push Q6HPRN sennosides (SENOKOT) tablet 8.6 mg 8.6 mg Oral DAILY 8.6 mg at 05/24/19 0948 sodium chloride 0.9 % irrigation solution PRN 3,000 mL at 05/23/19 0736 PHYSICAL EXAM: BP 135/68 | Pulse 70 | Temp 36.3 C (97.4 F) (Temporal Artery) | Resp 16 | Ht 1.524 m (5') |Wt 81 kg (178 lb 9.2 oz) | SpO2 95% | BMI 34.88 kg/m General: NAD HEENT: Anicteric sclerae, NCAT Lungs: CTAB, O2 2 Liter nc Cardio: RRR, strong symmetric pulses Abdomen: Soft, NTND Genitourinary: No lesions Musculoskeletal: Normal muscle mass, except right knee dressing clean dry and intact and Hemovac in place Skin: No rash or lesions, normal turgot Neuro: AAOx3, no focal deficits Psych: Normal affect LABS/IMAGING - reviewed, pertinent results as below: CBC BMP PT/INR WBC x10^3 (/CMM) Date Value 06/14/2004 3.3 (L) WBC (10*3/L) Date Value 05/24/2019 10.51 NA Date Value 05/23/2019 139 mmol/L 06/14/2004 140 MMOL/L No results found for: PT RBC x10^6 (/CMM) Date Value 06/14/2004 4.50 RBC (10*6/L) Date Value 05/24/2019 3.72 (L) K Date Value 05/23/2019 5.1 mmol/L (H) 06/14/2004 3.9 MMOL/L PT INR (no units) Date Value 06/14/2004 1.0 INR (no units) Date Value 05/19/2019 1.0 PLT x10^3 (/CMM) Date Value 06/14/2004 288 PLT (10*3/L) Date Value 05/24/2019 354 CALCIUM Date Value 05/23/2019 8.6 mg/dL 06/14/2004 8.6 MG/DL HGB Date Value 05/24/2019 8.7 g/dL (L) 06/14/2004 14.2 G/DL CL Date Value 05/23/2019 106 mmol/L 06/14/2004 102 MMOL/L aPTT HCT (%) Date Value 05/24/2019 30.7 (L) 06/14/2004 41.1 BUN Date Value 05/23/2019 21 mg/dL 06/14/2004 8 MG/DL APTT (SEC) Date Value 06/14/2004 28 CREATININE Date Value 05/23/2019 1.12 mg/dL (H) 06/14/2004 0.63 MG/DL (L) IMAGING- Hospital Encounter on 05/23/19 XR KNEE <3 VW RIGHT Narrative Exam:XR KNEE <3 VW RIGHT HISTORY: surgery COMPARISON: Radiograph 01/07/2019 FINDINGS: Radiographs of the right knee demonstrate postsurgical changes of total knee arthroplasty with hardware without complications. Postsurgical drains, soft tissue swelling, gas and superficial skin rigoberto are noted. No acute osseous fracture is detected. Impression Postsurgical changes of total knee arthroplasty without complications. Preliminary Report Dictated by Resident: Jayshree Guerrier I, Pastor Sosa MD., have reviewed this study and agree with the above report. ASSESSMENT/PLAN Nallely Mendez is a 79 year old female with PMH as listed above, admitted to the hospital with: S/p total right knee arthroplasty done by Dr. Pitts on POD 1 Discharge planning, prophylaxis and pain management will be done by Dr. Pitts and his team Acute respiratory failure due to hypoxia likely sleep apnea O2 sats 81% Patient on O2 at 2 L Encourage incentive spirometry Respiratory to eval for home O2 Hypertension stable Lisinopril 10 mg daily Depression Prozac 20 mg daily GERD Continue omeprazole daily Prophylaxis: DVT- enoxaparin Stress Ulcer: no indication for prophylaxis Code Status: addressed: full code Disposition: awaiting authorization and acceptance from [facility] TAKE OUT WAITER/WAITRESS was viewed during this stay JASMEET Harris SHOVEL OPERATOR Associated attestation - Sruthi Elizabeth MD - 05/24/2019 6:58 PM CSTPatient seen and examined with QUARRY MANAGER. See QUARRY MANAGER note for HPI, PMHx, home medications, social history, physical exam, labs/testing. S/p total knee, doing well, check labs in AM, dvt proph per ortho, hypoxia, get CXR in AM, home O2 eval, likely due to sleep apnea Awaiting placement to [facility] No medical reason to hold discharge Defer discharge planning to ortho Full code Advance care planning disucssed on admisison, surrogate decision maker in [facility] TAKE OUT WAITER/WAITRESS was viewed during the day MD Devon Bello Robert F, PTA - 05/23/2019 2:54 PM CST05/23/2019 2:54 PM Physical Therapy Note: Assisted supervising Physical Therapist with initial Evaluation. Supervising Therapist was present for entire Evaluation. Abhijit Osorio PTA Carlito Lic [id number] [facility] Rehab Services [facility] [phone] Jazzmine Fisher ,CHARLES supv Jazzmine Drew PT - 05/23/2019 10:35 AM CST05/23/2019 10:35 AM CPM Initial Set-up S: Orders received. 05/23/2019 O: CPM adjusted for proper fit and padded for comfort. Set-up for R knee with ROM at 0-30 degrees. A: Patient tolerated ROM well P: Therapy will monitor CPM and will increase ROM of CPM while patient is in the hospital per MD orders as patient tolerates. PT will return for functional evaluation tomorrow. Thank you. Jazzmine Fisher,CHARLES [place] License: [id number] documented in this encounter Plan of Treatment Date Type Specialty Care Team Description 06/06/2019 Office Visit Orthopedic Surgery Oc Donohue S, PAC [address] [place] [phone] Name Type Priority Associated Diagnoses Date/Time FECAL LEUKOCYTES LAB Routine 05/26/2019 6:42 PM GAS SHOVEL OPERATOR FECES CULTURE LAB Routine 05/26/2019 6:42 PM GAS SHOVEL OPERATOR FECAL PATHOGENS BY PCR LAB Routine 05/26/2019 6:42 PM GAS SHOVEL OPERATOR Name Type Priority Associated Diagnoses Order Schedule EKG-12 LEAD ROUTINE HEART STATION Routine ONCE for 1 Occurrences starting 05/26/2019 until 05/26/2019 CBC WITH DIFF LAB Routine EVERY MORNING AT 0500 for 3 Days starting 05/27/2019 until 05/29/2019, 1 completed COMP. METABOLIC PANEL LAB Routine EVERY MORNING AT 0500 (20910) for 3 Days starting 05/27/2019 until 05/29/2019, 1 completed FECAL LEUKOCYTES LAB Routine ONCE for 1 Occurrences starting 05/26/2019 until 05/26/2019 FECES CULTURE LAB Routine ONCE for 1 Occurrences starting 05/26/2019 until 05/26/2019 FECAL PATHOGENS BY LAB Routine ONCE for 1 PCR Occurrences starting 05/26/2019 until 05/26/2019 Health Maintenance Due Date Last Done Comments DTaP,Tdap,and Td Vaccines (1 - Tdap) 02/07/1951 Zoster Recombinant Vaccine (SHINGRIX) (1 1991 of 2) Medicare Wellness Visit 2006 Osteoporosis Screening 2006 PNEUMOCOCCAL VACCINES 65+ (2 of 2 - 11/29/2019 11/28/2018 PPSV23) INFLUENZA VACCINE Completed 01/21/2019, 01/11/2018 documented as of this encounter Implants Implanted Type Area Stitching Department Supervisor Device Shelf Model / Serial Identifier Expiration / Lot Date Cement Simplex Hv #6194-1-001 - [id number] CEMENT Right: Uyen 2020 6194-1-001 / Implanted: Qty: 2 on 05/23/2019 by Alejandro Pitts MD at [facility] Knee 6194-1-001 / [id number] Femoral Component Van Ps Open Box Right 65mm Biomet Ref#[id number] - [id number] Femoral Right: Jerry 04/07/2029 [id number] / Implanted: Qty: 1 on 05/23/2019 by Alejandro Pitts MD at [facility] Component Knee [id number] / [id number] Insert Tibial 12mm X 75mm Insert Right: Biomet 02/03/2024 [id number] / Implanted: Qty: 1 on 05/23/2019 by Alejandro Pitts MD at [facility] Knee [id number] / [id number] Lens, Matti #[id number] - [id number] LENS Right: Matti 11/20/2021 [id number] / Implanted: Qty: 1 on 04/28/2018 by Rei Davis MD at [facility] Eye [id number] / [id number] Lens, Matti #[id number] - [id number] LENS Left: Matti 10/20/2022 [id number] / Implanted: Qty: 1 on 05/12/2018 by Rei Davis MD at [facility] Eye [id number] / [id number] Component Patella 32mm Danita 8mm Biomet #[id number] - [id number] Other Right: Biomet 03/09/2024 [id number] / Implanted: Qty: 1 on 05/23/2019 by Alejandro Pitts MD at [facility] Implant Knee [id number] / [id number] Tibial Tray Cemented 71mm Biomet #[id number] - [id number] PLATE Right: Biomet [id number] / Implanted: Qty: 1 on 05/23/2019 by Alejandro Pitts MD at [facility] Knee [id number] / [id number] documented as of this encounter Procedures Procedure Name Priority Date/Time Associated Diagnosis Comments CBC WITH Routine 05/27/2019 5:05 Results for DIFFERENTIAL AM GAS SHOVEL OPERATOR this procedure are in the results section. CBC WITH Routine 05/27/2019 5:05 Results for DIFFERENTIAL AM GAS SHOVEL OPERATOR this procedure are in the results section. COMP. METABOLIC Routine 05/27/2019 5:05 Results for PANEL (64052) AM GAS SHOVEL OPERATOR this procedure are in the results section. CLOSTRIDIUM Routine 05/26/2019 6:42 Results for DIFFICILE TOXIN PM GAS SHOVEL OPERATOR this procedure are in the results section. OCCULT (GUAIAC) Routine 05/26/2019 6:42 Results for BLOOD PM GAS SHOVEL OPERATOR this procedure are in the results section. ECHO ROUTINE Routine 05/26/2019 3:55 Hypoxia W/DOPPLER COLOR PM GAS SHOVEL OPERATOR Essential hypertension CT CHEST PULMONARY STAT 05/26/2019 2:47 Status post total Results for ANGIOGRAM PM GAS SHOVEL OPERATOR right knee this procedure replacement are in the results section. BILATERAL VENOUS PAULINE 05/26/2019 11:34 DUPLEX LOWER AM GAS SHOVEL OPERATOR EXTREMITY BY VASCULAR LAB US ABDOMEN LIMITED PAULINE 05/26/2019 10:27 Elevated LFTs Results for AM GAS SHOVEL OPERATOR this procedure are in the results section. CBC WITH Routine 05/26/2019 4:35 Results for DIFFERENTIAL AM GAS SHOVEL OPERATOR this procedure are in the results section. N-TERMINAL PRO-BNP Routine 05/26/2019 4:35 Results for AM GAS SHOVEL OPERATOR this procedure are in the results section. CBC WITH Routine 05/26/2019 4:35 Results for DIFFERENTIAL AM GAS SHOVEL OPERATOR this procedure are in the results section. COMP. METABOLIC Routine 05/26/2019 4:35 Results for PANEL (30341) AM GAS SHOVEL OPERATOR this procedure are in the results section. TROPONIN I Add-on 05/26/2019 4:35 Results for AM GAS SHOVEL OPERATOR this procedure are in the results section. HAV ANTIBODY (IGG Routine 05/25/2019 10:01 Results for AND IGM) AM GAS SHOVEL OPERATOR this procedure are in the results section. HEPATITIS B CORE Routine 05/25/2019 10:01 Results for ANTIBODY IGM AM GAS SHOVEL OPERATOR this procedure are in the results section. HCV ANTIBODY Routine 05/25/2019 10:01 Results for AM GAS SHOVEL OPERATOR this procedure are in the results section. HEPATITIS B SURFACE Routine 05/25/2019 10:01 Results for ANTIGEN AM GAS SHOVEL OPERATOR this procedure are in the results section. HEPATITIS B SURFACE Routine 05/25/2019 10:01 Results for ANTIBODY AM GAS SHOVEL OPERATOR this procedure are in the results section. XR CHEST 1 VW Routine 05/25/2019 5:09 Status post total Results for AM GAS SHOVEL OPERATOR right knee this procedure replacement are in the results section. CBC WITH Routine 05/25/2019 4:20 Results for DIFFERENTIAL AM GAS SHOVEL OPERATOR this procedure are in the results section. N-TERMINAL PRO-BNP Routine 05/25/2019 4:20 Results for AM GAS SHOVEL OPERATOR this procedure are in the results section. GLYCOSYLATED Add-on 05/25/2019 4:20 Results for HEMOGLOBIN (A1C) AM GAS SHOVEL OPERATOR this procedure are in the results section. CBC WITH Routine 05/25/2019 4:20 Results for DIFFERENTIAL AM GAS SHOVEL OPERATOR this procedure are in the results section. COMP. METABOLIC Routine 05/25/2019 4:20 Results for PANEL (25011) AM GAS SHOVEL OPERATOR this procedure are in the results section. THYROID STIMULATING Add-on 05/25/2019 4:20 Results for HORMONE AM GAS SHOVEL OPERATOR this procedure are in the results section. MAGNESIUM Routine 05/25/2019 4:20 Results for AM GAS SHOVEL OPERATOR this procedure are in the results section. PHOSPHORUS Routine 05/25/2019 4:20 Results for AM GAS SHOVEL OPERATOR this procedure are in the results section. BASIC METABOLIC Routine 05/24/2019 10:56 Results for PANEL (NA, K, CL, AM GAS SHOVEL OPERATOR this procedure CO2, GLUCOSE, BUN, are in the CREATININE, CA) results section. CBC WITH Routine 05/24/2019 4:59 Results for DIFFERENTIAL AM GAS SHOVEL OPERATOR this procedure are in the results section. CBC WITH Routine 05/24/2019 4:59 Results for DIFFERENTIAL AM GAS SHOVEL OPERATOR this procedure are in the results section. MAGNESIUM Routine 05/24/2019 4:59 Results for AM GAS SHOVEL OPERATOR this procedure are in the results section. PHOSPHORUS Routine 05/24/2019 4:59 Results for AM GAS SHOVEL OPERATOR this procedure are in the results section. CBC WITH Routine 05/23/2019 8:36 Results for DIFFERENTIAL PM GAS SHOVEL OPERATOR this procedure are in the results section. CBC WITH Routine 05/23/2019 8:36 Results for DIFFERENTIAL PM GAS SHOVEL OPERATOR this procedure are in the results section. BASIC METABOLIC Routine 05/23/2019 8:36 Results for PANEL (NA, K, CL, PM GAS SHOVEL OPERATOR this procedure CO2, GLUCOSE, BUN, are in the CREATININE, CA) results section. XR KNEE <3 VW RIGHT PAULINE 05/23/2019 10:09 Status post total Results for AM GAS SHOVEL OPERATOR right knee this procedure replacement are in the results section. TOTAL KNEE Level 5 05/23/2019 7:21 Primary ARTHROPLASTY (greater than 5 AM GAS SHOVEL OPERATOR osteoarthritis of days) right knee Special Needs Biomet notified 05/13/2019 (sm) ABORH CONFIRMATION PAULINE 05/23/2019 6:39 AM GAS SHOVEL OPERATOR HB ABO GROUPING STAT 05/23/2019 6:25 AM GAS SHOVEL OPERATOR HOSPITAL ADM - MISC Routine 05/23/2019 12:01 AM GAS SHOVEL OPERATOR CONSENT/REFUSAL FOR Routine 05/19/2019 3:06 PM GAS SHOVEL OPERATOR DIAGNOSIS AND TREATMENT ASSIGNMENT OF BENEFITS Routine 05/19/2019 2:59 PM GAS SHOVEL OPERATOR DISCLOSURE AND CONSENT, Routine 05/17/2019 12:01 AM GAS SHOVEL OPERATOR MEDICAL AND SURGICAL PROCEDURES documented in this encounter Results CBC WITH DIFFERENTIAL (05/27/2019 5:05 AM GAS SHOVEL OPERATOR) WBC 12.15 (H) 4.30 - 11.10 [facility] 10*3/L [facility] RBC 3.95 3.93 - 5.25 [facility] 10*6/L [facility] HGB 9.1 (L) 11.6 - 15.0 [facility] g/dL [facility] HCT 32.1 (L) 35.7 - 45.2 % [facility] MCV 81.3 80.6 - 95.5 fL [facility] MCH 23.0 (L) 25.9 - 32.8 pg [facility] MCHC 28.3 (L) 31.6 - 35.1 [facility] g/dL [facility] RDW-SD 49.3 39.0 - 49.9 fL [facility] RDW-CV 16.6 (H) 12.0 - 15.5 % [facility] PLT 478 (H) 166 - 358 [facility] 10*3/L H[facility] MPV 11.3 9.5 - 12.9 fL [facility] NRBC/100 WBC 0.0 0.0 - 10.0 /100 [facility] WBCs [facility] NRBC x10^3 <0.01 10*3/L [facility] GRAN MAT (NEUT) % 76.9 % [facility] IMM GRAN % 0.50 % [facility] LYMPH % 11.9 % [facility] MONO % 8.9 % [facility] EOS % 1.3 % [facility] BASO % 0.5 % [facility] GRAN MAT x10^3(ANC) 9.35 (H) 1.88 - 7.09 [facility] 10*3/uL HOSPITAL [facility] IMM GRAN x10^3 0.06 0.00 - 0.06 [facility] 10*3/uL [facility] LYMPH x10^3 1.44 1.32 - 3.29 [facility] 10*3/uL [facility] MONO x10^3 1.08 (H) 0.33 - 0.92 [facility] 10*3/uL [facility]ITAL [facility] EOS x10^3 0.16 0.03 - 0.39 [facility] 10*3/uL [facility] BASO x10^3 0.06 0.01 - 0.07 [facility] 10*3/uL [facility] Specimen Blood - ARM, RIGHT Performing Organization Address City/State/Zipcode Phone Number [facility] CLIA: [id number], [address] [place] [address] [phone] COMP. METABOLIC PANEL (40287) (05/27/2019 5:05 AM GAS SHOVEL OPERATOR) NA 139 135 - 145 [facility] mmol/L [facility] K 4.1 3.5 - 5.0 [facility] mmol/L [facility] CL 99 98 - 108 mmol/L [facility] CO2 TOTAL 35 (H) 23 - 31 mmol/L [facility] AGAP 5 2 - 16 [facility] BUN 25 (H) 7 - 23 mg/dL [facility] GLUCOSE 140 (H) 70 - 110 mg/dL [facility] CREATININE 1.13 (H) 0.50 - 1.04 [facility] mg/dL [facility] TOTAL BILI 0.5 0.1 - 1.1 mg/dL [facility] CALCIUM 8.6 8.6 - 10.6 [facility] mg/dL [facility] T PROTEIN 5.8 (L) 6.3 - 8.2 g/dL [facility] ALBUMIN 3.2 (L) 3.5 - 5.0 g/dL [facility] ALK PHOS 206 (H) 34 - 122 U/L [facility] ALTv 109 (H) 5 - 35 U/L [facility] AST(SGOT) 51 (H) 13 - 40 U/L [facility] eGFR Calculation 46.6 mL/min/1.73m2 [facility] [place] eGFR Calculation 56.4 mL/min/1.73m2 [facility] () [facility] Specimen Blood - ARM, RIGHT Narrative Performed At Association of Glomerular Filtration Rate (GFR) [facility] and Staging of Kidney Disease* + + +- + | GFR (mL/min/1.73 m2) | With Kidney Damage | Without Kidney Damage + + +- + | >90 | Stage one | Normal + + +- + | 60-89 | Stage two | Decreased GFR + + +- + | 30-59 | Stage three | Stage three + + +- + | 15-29 | Stage four | Stage four + + +- + | <15 (or dialysis) | Stage five | Stage five + + +- + *Each stage assumes the associated GFR level has been in effect for at least three months. Stages 1 to 5, with or without kidney disease, indicate chronic kidney disease. Notes: Determination of stages one and two (with eGFR >59mL/min/1.73 m2) requires estimation of kidney damage for at least three months as defined by structural or functional abnormalities of the kidney, manifested by either: Pathological abnormalities or Markers of kidney damage (including abnormalities in the composition of the blood or urine or abnormalities in imaging tests). Performing Organization Address City/State/Zipcode Phone Number [facility] CLIA: [id number], [address] [place], [place] [address] [phone] CLOSTRIDIUM DIFFICILE TOXIN (05/26/2019 6:42 PM GAS SHOVEL OPERATOR) Clostridioides Positive (A) Negative [facility] (Clostridium) [facility] LAB[facility]ORY Specimen Stool - ANAL Performing Organization Address City/State/Zipcode Phone Number [facility] CLIA: [id number], [address] [place], [place] [address] LABORAT[address] OCCULT (GUAIAC) BLOOD (05/26/2019 6:42 PM GAS SHOVEL OPERATOR) Occult (guaiac) Positive (A) Negative [facility] Blood SERVICES Specimen Stool - ANAL Performing Organization Address City/State/Zipcode Phone Number [facility] CLIA: [id number], [address] [place], [place] [address] [facility] CT CHEST PULMONARY ANGIOGRAM (05/26/2019 2:47 PM GAS SHOVEL OPERATOR) Specimen Narrative Performed At HISTORY: High pretest probability for P.E. recent orthopedic surgery. PACS/VR/DOSE TECHNIQUE: Contrast-enhanced 64-mutidetector CT scan of the chest was completed with intravenous injection of Omnipaque-350 non ionic contrast medium. Subsequently numerous sagittal, coronal and MIP reformations were generated. FINDINGS: Low-density lesions are seen in the lower portion of the thyroid gland, largest is 10 mm size in the right side. Trachea and central bronchial airways appear normal. No pneumothorax or pleural effusion or pericardial effusion. Cardiomegaly, large hiatal hernia, congestion and/or fibrosis in the lower lungs noted. Main pulmonary artery is 28 mm in diameter. Minimal LAD coronary atherosclerosis noted. Note made of accessory right upper lobe azygous fissure. Subcentimeter lymph nodes are seen in the right and left karen, in the AP window region, anterior to the trachea and subcarinal space. Left upper lobe pulmonary artery branches showed intraluminal partially occluding thrombi. No additional pulmonary thromboemboli visualized. Visualized upper abdominal organs showed evidence of cholecystectomy, atrophy in the lateral upper left kidney and 6 mm calcification in the left kidney adjacent to the atrophied cortex. Pectus recovery time deformity of the sternum noted. Thoracic dextroscoliosis and degenerative spondylosis is noted. No aggressive bone lesions are seen. CONCLUSIONS: Acute pulmonary thromboemboli in the left upper lobe pulmonary artery branches. Procedure Note [place], Radiant Results Inft User - 05/26/2019 2:58 PM GAS SHOVEL OPERATOR HISTORY: High pretest probability for P.E. recent orthopedic surgery. TECHNIQUE: Contrast-enhanced 64-mutidetector CT scan of the chest was completed with intravenous injection of Omnipaque-350 non ionic contrast medium. Subsequently numerous sagittal, coronal and MIP reformations were generated. FINDINGS: Low-density lesions are seen in the lower portion of the thyroid gland, largest is 10 mm size in the right side. Trachea and central bronchial airways appear normal. No pneumothorax or pleural effusion or pericardial effusion. Cardiomegaly, large hiatal hernia, congestion and/or fibrosis in the lower lungs noted. Main pulmonary artery is 28 mm in diameter. Minimal LAD coronary atherosclerosis noted. Note made of accessory right upper lobe azygous fissure. Subcentimeter lymph nodes are seen in the right and left karen, in the AP window region, anterior to the trachea and subcarinal space. Left upper lobe pulmonary artery branches showed intraluminal partially occluding thrombi. No additional pulmonary thromboemboli visualized. Visualized upper abdominal organs showed evidence of cholecystectomy, atrophy in the lateral upper left kidney and 6 mm calcification in the left kidney adjacent to the atrophied cortex. Pectus recovery time deformity of the sternum noted. Thoracic dextroscoliosis and degenerative spondylosis is noted. No aggressive bone lesions are seen. CONCLUSIONS: Acute pulmonary thromboemboli in the left upper lobe pulmonary artery branches. Performing Organization Address City/State/[facility] Phone Number PACS/VR/DOSE US ABDOMEN LIMITED (05/26/2019 10:27 AM GAS SHOVEL OPERATOR) Specimen Narrative Performed At HISTORY: Abnormal LFTs. PACS/VR/DOSE COMPARISON: None TECHNIQUE: Liver was evaluated in multiple planes without and with color imaging. FINDINGS: Liver is approximately 14 cm and showed moderate increase in heterogeneous echotexture. Hepatic/portal venous systems appear patent with hepatopedal portal venous flow confirmed. No fluid is seen in the right upper abdomen. No dilatation of the intrahepatic biliary ducts. Common hepatic duct is 6.1 mm. Gallbladder is probably absent. Moderate atherosclerosis of the abdominal aorta noted. CONCLUSIONS: Normal sized liver with moderately coarse increased echotexture of the parenchyma, consistent with chronic primary liver disease, including hepatic steatosis. Procedure Note [place], Radiant Results Inft User - 05/26/2019 10:34 AM GAS SHOVEL OPERATOR HISTORY: Abnormal LFTs. COMPARISON: None TECHNIQUE: Liver was evaluated in multiple planes without and with color imaging. FINDINGS: Liver is approximately 14 cm and showed moderate increase in heterogeneous echotexture. Hepatic/portal venous systems appear patent with hepatopedal portal venous flow confirmed. No fluid is seen in the right upper abdomen. No dilatation of the intrahepatic biliary ducts. Common hepatic duct is 6.1 mm. Gallbladder is probably absent. Moderate atherosclerosis of the abdominal aorta noted. CONCLUSIONS: Normal sized liver with moderately coarse increased echotexture of the parenchyma, consistent with chronic primary liver disease, including hepatic steatosis. Performing Organization Address [facility]/Zipcode Phone Number PACS/VR/DOSE TROPONIN I (05/26/2019 4:35 AM GAS SHOVEL OPERATOR) TROPONIN I 0.004 <=0.034 ng/mL [facility] Specimen Blood - ARM, RIGHT Narrative Performed At Equal or Less than 0.034 ng/ml---Normal [facility] Note: Cardiac troponin begins to rise 3-4 hours after the onset of ischemia. Repeat in 4-6 hours if the sample was drawn within 3-4 hours of the onset of the symptom and found normal. Between 0.035 and 0.120 ng/mL--- Borderline. Questionable myocardial injury or necrosis Note: Serial measurement may be necessary to confirm or exclude the diagnosis of myocardial injury or necrosis; Clinical correlation (symptoms, EKGs, imaging studies, and others) required; Repeat in 4-6 hours if clinically indicated. Equal or Higher than 0.121 ng/mL---Abnormal. Myocardial Injury or Necrosis Likely Biotin has been reported to cause a negative bias, interpret results relative to patient's use of biotin. Performing Organization Address [facility]/Zipcode Phone Number [facility] CLIA: [id number], [address] [place], [place] [address] [phone] CBC WITH DIFFERENTIAL (05/26/2019 4:35 AM GAS SHOVEL OPERATOR) WBC 9.30 4.30 - 11.10 [facility] 10*3/L HOSPITAL [facility]ORY RBC 3.78 (L) 3.93 - 5.25 [facility] 10*6/L [facility] HGB 9.0 (L) 11.6 - 15.0 [facility] g/dL [facility] HCT 30.1 (L) 35.7 - 45.2 % [facility] MCV 79.6 (L) 80.6 - 95.5 fL [facility] MCH 23.8 (L) 25.9 - 32.8 pg [facility] MCHC 29.9 (L) 31.6 - 35.1 [facility] g/dL [facility] RDW-SD 47.2 39.0 - 49.9 fL [facility] RDW-CV 16.4 (H) 12.0 - 15.5 % [facility] PLT 365 (H) 166 - 358 [facility] 10*3/L [facility] MPV 10.9 9.5 - 12.9 fL [facility] NRBC/100 WBC 0.0 0.0 - 10.0 /100 [facility] WBCs [facility] NRBC x10^3 <0.01 10*3/L [facility] GRAN MAT (NEUT) % 67.4 % [facility] IMM GRAN % 0.50 % [facility] LYMPH % 17.6 % [facility] MONO % 10.5 % [facility] EOS % 3.4 % [facility] BASO % 0.6 % [facility] GRAN MAT x10^3(ANC) 6.25 1.88 - 7.09 [facility] 10*3/uL [facility] IMM GRAN x10^3 0.05 0.00 - 0.06 [facility] 10*3/uL [facility] LYMPH x10^3 1.64 1.32 - 3.29 [facility] 10*3/uL [facility] MONO x10^3 0.98 (H) 0.33 - 0.92 [facility] 10*3/uL [facility] EOS x10^3 0.32 0.03 - 0.39 [facility] 10*3/uL [facility] BASO x10^3 0.06 0.01 - 0.07 [facility] 10*3/uL [facility] Specimen Blood - ARM, RIGHT Performing Organization Address City/State/Zipcode Phone Number [facility] CLIA: [id number], [address] [place] [address] [phone] N-TERMINAL PRO-BNP (05/26/2019 4:35 AM GAS SHOVEL OPERATOR) NT-proBNP 532 (H) <=450 pg/mL [facility] Specimen Blood - ARM, RIGHT Narrative Performed At Biotin has been reported to cause a negative [facility] bias, interpret results relative to patient's use of biotin. Performing Organization Address City/State/Zipcode Phone Number [facility] CLIA: [id number], [address] [place] [address] COMP. METABOLIC PANEL ([id number]) (05/26/2019 4:35 AM GAS SHOVEL OPERATOR) NA 138 135 - 145 [facility] mmol/L [facility] K 4.0 3.5 - 5.0 [facility] mmol/L [facility] CL 99 98 - 108 mmol/L [facility] CO2 TOTAL 38 (H) 23 - 31 mmol/L [facility] AGAP 1 (L) 2 - 16 [facility] BUN 13 7 - 23 mg/dL [facility] GLUCOSE 97 70 - 110 mg/dL [facility] CREATININE 0.71 0.50 - 1.04 [facility] mg/dL [facility] TOTAL BILI 0.8 0.1 - 1.1 mg/dL [facility] CALCIUM 8.6 8.6 - 10.6 [facility] mg/dL [facility] T PROTEIN 6.1 (L) 6.3 - 8.2 g/dL [facility] ALBUMIN 3.2 (L) 3.5 - 5.0 g/dL [facility] ALK PHOS 239 (H) 34 - 122 U/L [facility] ALTv 174 (H) 5 - 35 U/L [facility] AST(SGOT) 167 (H) 13 - 40 U/L [facility] eGFR Calculation 79.6 mL/min/1.73m2 [facility] ([facility] [place]) eGFR Calculation 96.5 mL/min/1.73m2 [facility] () [facility] Specimen Blood - ARM, RIGHT Narrative Performed At [facility] of Glomerular Filtration Rate (GFR) [facility] and Staging of Kidney Disease* + + +- + | GFR (mL/min/1.73 m2) | With Kidney Damage | Without Kidney Damage + + +- + | >90 | Stage one | Normal + + +- + | 60-89 | Stage two | Decreased GFR + + +- + | 30-59 | Stage three | Stage three + + +- + | 15-29 | Stage four | Stage four + + +- + | <15 (or dialysis) | Stage five | Stage five + + +- + *Each stage assumes the associated GFR level has been in effect for at least three months. Stages 1 to 5, with or without kidney disease, indicate chronic kidney disease. Notes: Determination of stages one and two (with eGFR >59mL/min/1.73 m2) requires estimation of kidney damage for at least three months as defined by structural or functional abnormalities of the kidney, manifested by either: Pathological abnormalities or Markers of kidney damage (including abnormalities in the composition of the blood or urine or abnormalities in imaging tests). Performing Organization Address City/[facility]/Zipcode Phone Number [facility] CLIA: [id number], [address] [place] [phone] [facility] [address] HEPATITIS B SURFACE ANTIGEN (05/25/2019 10:01 AM GAS SHOVEL OPERATOR) HBsAg Negative Negative [facility] SERVICES HBsAg 0.04 [facility] Semi-Quantitative SERVICES Specimen Blood - WRIST, LEFT Performing Organization Address City/[facility] Phone Number [facility] CLIA: [id number], [address] [place] [address] [phone] [facility] HEPATITIS B SURFACE ANTIBODY (05/25/2019 10:01 AM GAS SHOVEL OPERATOR) HBsAB Negative [facility] HBsAb 0.00 mIU/mL [facility] Semi-Quantitative SERVICES Specimen Blood - WRIST, LEFT Narrative Performed At Interpretation: Hepatitis B Surface Antibody [facility] Negative - Patient is considered to be not immune to infection with HBV. Positive - Anti-HBs detected at greater than or equal to 12 mIU/mL. Patient is considered to be immune to infection with HBV. Performing Organization Address [facility] Phone Number [facility] CLIA: [id number], [address] [place] [address] [phone] [facility] HEPATITIS B CORE ANTIBODY IGM (05/25/2019 10:01 AM GAS SHOVEL OPERATOR) HBCM Negative [facility] HBCM Semi-Quantitative 0.03 [facility] Specimen Blood - WRIST, LEFT Narrative Performed At Biotin has been reported to cause a negative bias, interpret [facility] results relative to patient's use of biotin. Performing Organization Address City/State/Zipcode Phone Number [facility] CLIA: [id number], [address] [place] [phone] [facility] HCV ANTIBODY (05/25/2019 10:01 AM GAS SHOVEL OPERATOR) HCV Ab Negative [facility] HCV Semi-Quantitative 0.01 [facility] Specimen Blood - WRIST, LEFT Performing Organization Address [facility] Phone Number [facility] CLIA: [id number], [address] [place] [phone] [facility] HAV ANTIBODY (IGG AND IGM) (05/25/2019 10:01 AM GAS SHOVEL OPERATOR) HAV Total Negative [facility] HAVT Semi-Quantitative 1.83 [facility] Specimen Blood - WRIST, LEFT Performing Organization Address [facility] Phone Number [facility] CLIA: [id number], [address] [place] [address] [phone] [facility] XR CHEST 1 VW (05/25/2019 5:09 AM GAS SHOVEL OPERATOR) Specimen Impressions Performed At FINDINGS/IMPRESSION: PACS/VR/DOSE Mild pulmonary vascular congestion. Retrocardiac atelectasis is noted. An azygous fissure is seen on the right. The costophrenic angles are clear. The heart is mildly enlarged. No pneumothorax is found. Preliminary Report Dictated by Resident: Richardson Stout MD., have reviewed this study and agree with the above report. Narrative Performed At XR CHEST 1 VW PACS/VR/DOSE HISTORY: hypoxia COMPARISON: None Procedure Note [facility], Radiant Results Inft User - 05/25/2019 7:56 AM GAS SHOVEL OPERATOR XR CHEST 1 VW HISTORY: hypoxia COMPARISON: None IMPRESSION FINDINGS/IMPRESSION: Mild pulmonary vascular congestion. Retrocardiac atelectasis is noted. An azygous fissure is seen on the right. The costophrenic angles are clear. The heart is mildly enlarged. No pneumothorax is found. Preliminary Report Dictated by Resident: Richardson Stout MD., have reviewed this study and agree with the above report. Performing Organization Address City/State/Zipcode Phone Number PACS/VR/DOSE THYROID STIMULATING HORMONE (05/25/2019 4:20 AM GAS SHOVEL OPERATOR) TSH 3.86Comment: Biotin 0.45 - 4.70 [facility] has been reported [facility] to cause a negative bias, interpret results relative to patient's use of biotin. Specimen Blood - ARM, LEFT Performing Organization Address [facility]/Zipcode Phone Number [facility] CLIA: [id number], [address] [place], [place] [address] LABORATORY [address] GLYCOSYLATED HEMOGLOBIN (A1C) (05/25/2019 4:20 AM GAS SHOVEL OPERATOR) HGB A1C 5.5 4.0 - 6.0 % NGSP [facility]ORY Specimen Blood - ARM, LEFT Narrative Performed At %A1C (NGSP) Interpretation (ADA) [facility] 4.8-5.6 Normal or (Non-Diabetic Range) 5.7-6.4 Increased Risk (Pre-Diabetic) >6.5 Diabetes Indicated Performing Organization Address [facility] Phone Number [facility] CLIA: [id number], [address], [place] [phone] CBC WITH DIFFERENTIAL (05/25/2019 4:20 AM GAS SHOVEL OPERATOR) WBC 7.42 4.30 - 11.10 [facility] 10*3/L [facility] RBC 3.92 (L) 3.93 - 5.25 [facility] 10*6/L [facility] HGB 9.2 (L) 11.6 - 15.0 [facility] g/dL [facility] HCT 33.0 (L) 35.7 - 45.2 % [facility] MCV 84.2 80.6 - 95.5 fL [facility] MCH 23.5 (L) 25.9 - 32.8 pg [facility] MCHC 27.9 (L) 31.6 - 35.1 [facility] g/dL [facility] RDW-SD 50.5 (H) 39.0 - 49.9 fL [facility] RDW-CV 16.4 (H) 12.0 - 15.5 % [facility] PLT 353 166 - 358 [facility] 10*3/L HOSPITAL LABORATORY MPV 11.1 9.5 - 12.9 fL [facility] NRBC/100 WBC 0.0 0.0 - 10.0 /100 [facility] WBCs [facility] NRBC x10^3 <0.01 10*3/L [facility] GRAN MAT (NEUT) % 64.8 % [facility] IMM GRAN % 0.50 % [facility] LYMPH % 20.2 % [facility] MONO % 10.8 % [facility] EOS % 3.0 % [facility] BASO % 0.7 % [facility] GRAN MAT x10^3(ANC) 4.81 1.88 - 7.09 [facility] 10*3/uL HOSPITAL LABORATORY IMM GRAN x10^3 0.04 0.00 - 0.06 [facility] 10*3/uL HOSPITAL LABORATORY LYMPH x10^3 1.50 1.32 - 3.29 [facility] 10*3/uL HOSPITAL LABORATORY MONO x10^3 0.80 0.33 - 0.92 [facility] 10*3/uL HOSPITAL LABORATORY EOS x10^3 0.22 0.03 - 0.39 [facility] [facility] 10*3/uL HOSPITAL LABORATORY BASO x10^3 0.05 0.01 - 0.07 [facility] 10*3/uL HOSPITAL LABORATORY ELLIPTO/OVAL 2+ (A) (none) [facility] LABORATORY GIANT PLATELETS Present (A) (none) [facility] LABORATORY Specimen Blood - ARM, LEFT Performing Organization Address City/State/Zipcode Phone Number [facility] CLIA: [id number], [address] [place] [address] N-TERMINAL PRO-BNP (05/25/2019 4:20 AM GAS SHOVEL OPERATOR) NT-proBNP 611 (H) <=450 pg/mL [facility] LABORATORY Specimen Blood - ARM, LEFT Narrative Performed At Biotin has been reported to cause a negative [facility] LABORATORY bias, interpret results relative to patient's use of biotin. Performing Organization Address City/[facility] Hospital/Zipcode Phone Number [facility] CLIA: [id number], [address] [place] [address] MAGNESIUM (05/25/2019 4:20 AM GAS SHOVEL OPERATOR) MAGNESIUM 1.9 1.7 - 2.4 mg/dL [facility] LABORATORY Specimen Blood - ARM, LEFT Performing Organization Address City/[facility] Hospital/Zipcode Phone Number [facility] CLIA: [id number], [address] [place] [address] COMP. METABOLIC PANEL (59230) (05/25/2019 4:20 AM GAS SHOVEL OPERATOR) NA 140 135 - 145 [facility] mmol/L [facility] LABORATORY K 4.7 3.5 - 5.0 [facility] mmol/L [facility] LABORATORY CL 102 98 - 108 mmol/L [facility] LABORATORY CO2 TOTAL 34 (H) 23 - 31 mmol/L [facility] LABORATORY AGAP 4 2 - 16 [facility] LABORATORY BUN 16 7 - 23 mg/dL [facility] LABORATORY GLUCOSE 101 70 - 110 mg/dL [facility] LABORATORY CREATININE 0.80 0.50 - 1.04 [facility] mg/dL [facility] LABORATORY TOTAL BILI 0.7 0.1 - 1.1 mg/dL [facility] LABORATORY CALCIUM 8.6 8.6 - 10.6 [facility] mg/dL [facility] LABORATORY T PROTEIN 6.0 (L) 6.3 - 8.2 g/dL [facility] LABORATORY ALBUMIN 3.6 3.5 - 5.0 g/dL [facility] LABORATORY ALK PHOS 226 (H) 34 - 122 U/L [facility] LABORATORY ALTv 227 (H) 5 - 35 U/L [facility] LABORATORY AST(SGOT) 616 (H) 13 - 40 U/L [facility] LABORATORY eGFR Calculation 69.4 mL/min/1.73m2 [facility] ([facility] LABORATORY [place]) eGFR Calculation 84.1 mL/min/1.73m2 [facility] () [facility] LABORATORY Specimen Blood - ARM, LEFT Narrative Performed At Association of Glomerular Filtration Rate (GFR) [facility] LABORATORY and Staging of Kidney Disease* + + +- + | GFR (mL/min/1.73 m2) | With Kidney Damage | Without Kidney Damage + + +- + | >90 | Stage one | Normal + + +- + | 60-89 | Stage two | Decreased GFR + + +- + | 30-59 | Stage three | Stage three + + +- + | 15-29 | Stage four | Stage four + + +- + | <15 (or dialysis) | Stage five | Stage five + + +- + *Each stage assumes the associated GFR level has been in effect for at least three months. Stages 1 to 5, with or without kidney disease, indicate chronic kidney disease. Notes: Determination of stages one and two (with eGFR >59mL/min/1.73 m2) requires estimation of kidney damage for at least three months as defined by structural or functional abnormalities of the kidney, manifested by either: Pathological abnormalities or Markers of kidney damage (including abnormalities in the composition of the blood or urine or abnormalities in imaging tests). Performing Organization Address City/[facility] Hospital/[facility] Phone Number [facility] CLIA: [id number], [address] [place], [place] [id number] [phone] Phosphorus Serum (05/25/2019 4:20 AM GAS SHOVEL OPERATOR) PHOSPHORUS 2.7 2.5 - 5.0 mg/dL [facility] LABORATORY Specimen Blood - ARM, LEFT Performing Organization Address [facility] Phone Number [facility] CLIA: [id number], [address] [place], [place] [id number] [phone] BASIC METABOLIC PANEL (NA, K, CL, CO2, GLUCOSE, BUN, CREATININE, CA) (2019 10:56 AM GAS SHOVEL OPERATOR) NA 141 135 - 145 [facility] mmol/L [facility] LABORATORY K 4.4 3.5 - 5.0 [facility] mmol/L [facility] LABORATORY CL 105 98 - 108 mmol/L [facility] LABORATORY CO2 TOTAL 32 (H) 23 - 31 mmol/L [facility] LABORATORY AGAP 4 2 - 16 [facility] LABORATORY BUN 18 7 - 23 mg/dL [facility] LABORATORY GLUCOSE 67 (L) 70 - 110 mg/dL [facility] LABORATORY CREATININE 0.90 0.50 - 1.04 [facility] mg/dL [facility] LABORATORY CALCIUM 8.5 (L) 8.6 - 10.6 [facility] mg/dL [facility] LABORATORY eGFR Calculation 60.6 mL/min/1.73m2 [facility] LABORATORY [place]) eGFR Calculation 73.4 mL/min/1.73m2 [facility] () [facility] LABORATORY Specimen Blood - ARM, LEFT Narrative Performed At [facility] Glomerular Filtration Rate (GFR) [facility] LABORATORY and Staging of Kidney Disease* + + +- + | GFR (mL/min/1.73 m2) | With Kidney Damage | Without Kidney Damage + + +- + | >90 | Stage one | Normal + + +- + | 60-89 | Stage two | Decreased GFR + + +- + | 30-59 | Stage three | Stage three + + +- + | 15-29 | Stage four | Stage four + + +- + | <15 (or dialysis) | Stage five | Stage five + + +- + *Each stage assumes the associated GFR level has been in effect for at least three months. Stages 1 to 5, with or without kidney disease, indicate chronic kidney disease. Notes: Determination of stages one and two (with eGFR >59mL/min/1.73 m2) requires estimation of kidney damage for at least three months as defined by structural or functional abnormalities of the kidney, manifested by either: Pathological abnormalities or Markers of kidney damage (including abnormalities in the composition of the blood or urine or abnormalities in imaging tests). Performing Organization Address City/State/Zipcode Phone Number [facility] CLIA: [id number], [address] [place] [address] CBC WITH DIFFERENTIAL (05/24/2019 4:59 AM GAS SHOVEL OPERATOR) WBC 10.51 4.30 - 11.10 [facility] 10*3/L [facility] LABORATORY RBC 3.72 (L) 3.93 - 5.25 [facility] 10*6/L [facility] LABORATORY HGB 8.7 (L) 11.6 - 15.0 [facility] g/dL [facility] LABORATORY HCT 30.7 (L) 35.7 - 45.2 % [facility] LABORATORY MCV 82.5 80.6 - 95.5 fL [facility] LABORATORY MCH 23.4 (L) 25.9 - 32.8 pg [facility] LABORATORY MCHC 28.3 (L) 31.6 - 35.1 [facility] g/dL [facility] LABORATORY RDW-SD 48.9 39.0 - 49.9 fL [facility] LABORATORY RDW-CV 16.4 (H) 12.0 - 15.5 % [facility] LABORATORY PLT 354 166 - 358 [facility] 10*3/L [facility] LABORATORY MPV 10.8 9.5 - 12.9 fL [facility] LABORATORY NRBC/100 WBC 0.0 0.0 - 10.0 /100 [facility] WBCs [facility] LABORATORY NRBC x10^3 <0.01 10*3/L [facility] LABORATORY GRAN MAT (NEUT) % 75.9 % [facility] LABORATORY IMM GRAN % 0.20 % [facility] LABORATORY LYMPH % 13.6 % [facility] LABORATORY MONO % 9.5 % [facility] LABORATORY EOS % 0.5 % [facility] LABORATORY BASO % 0.3 % [facility] LABORATORY GRAN MAT x10^3(ANC) 7.98 (H) 1.88 - 7.09 [facility] 10*3/uL [facility] LABORATORY IMM GRAN x10^3 <0.03 0.00 - 0.06 [facility] 10*3/uL [facility] LABORATORY LYMPH x10^3 1.43 1.32 - 3.29 [facility] 10*3/uL [facility] LABORATORY MONO x10^3 1.00 (H) 0.33 - 0.92 [facility] 10*3/uL [facility] LABORATORY EOS x10^3 0.05 0.03 - 0.39 [facility] 10*3/uL [facility] LABORATORY BASO x10^3 0.03 0.01 - 0.07 [facility] 10*3/uL [facility] LABORATORY Specimen Blood - ARM, RIGHT Performing Organization Address [facility] Hospital/Zipcode Phone Number [facility] CLIA: [id number], [address] [place] [address] Phosphorus Serum (05/24/2019 4:59 AM GAS SHOVEL OPERATOR) PHOSPHORUS 3.1 2.5 - 5.0 mg/dL [facility] LABORATORY Specimen Blood - ARM, RIGHT Performing Organization Address City/[facility] Hospital/Zipcode Phone Number [facility] CLIA: [id number], [address] [place] [address] [phone] Magnesium Serum (05/24/2019 4:59 AM GAS SHOVEL OPERATOR) MAGNESIUM 1.9 1.7 - 2.4 mg/dL [facility] LABORATORY Specimen Blood - ARM, RIGHT Performing Organization Address City/State/Zipcode Phone Number [facility] CLIA: [id number], [address] [place] [address] CBC WITH DIFFERENTIAL (05/23/2019 8:36 PM GAS SHOVEL OPERATOR) WBC 10.10 4.30 - 11.10 [facility] 10*3/L [facility] LABORATORY RBC 3.91 (L) 3.93 - 5.25 [facility] 10*6/L [facility] LABORATORY HGB 9.0 (L) 11.6 - 15.0 [facility] g/dL [facility] LABORATORY HCT 32.0 (L) 35.7 - 45.2 % [facility] LABORATORY MCV 81.8 80.6 - 95.5 fL [facility] LABORATORY MCH 23.0 (L) 25.9 - 32.8 pg [facility] LABORATORY MCHC 28.1 (L) 31.6 - 35.1 [facility] g/dL [facility] LABORATORY RDW-SD 49.1 39.0 - 49.9 fL [facility] LABORATORY RDW-CV 16.4 (H) 12.0 - 15.5 % [facility] LABORATORY PLT 342 166 - 358 [facility] 10*3/L [facility] LABORATORY MPV 11.2 9.5 - 12.9 fL [facility] LABORATORY NRBC/100 WBC 0.0 0.0 - 10.0 /100 [facility] WBCs [facility] LABORATORY NRBC x10^3 <0.01 10*3/L [facility] LABORATORY GRAN MAT (NEUT) % 85.8 % [facility] LABORATORY IMM GRAN % 0.30 % [facility] LABORATORY LYMPH % 7.9 % [facility] LABORATORY MONO % 5.7 % [facility] LABORATORY EOS % 0.1 % [facility] LABORATORY BASO % 0.2 % [facility] LABORATORY GRAN MAT x10^3(ANC) 8.66 (H) 1.88 - 7.09 [facility] 10*3/uL [facility] LABORATORY IMM GRAN x10^3 0.03 0.00 - 0.06 [facility] 10*3/uL HOSPITAL LABORATORY LYMPH x10^3 0.80 (L) 1.32 - 3.29 [facility] 10*3/uL [facility] LABORATORY MONO x10^3 0.58 0.33 - 0.92 [facility] 10*3/uL [facility] LABORATORY EOS x10^3 <0.03 (L) 0.03 - 0.39 [facility] 10*3/uL [facility] LABORATORY BASO x10^3 <0.03 0.01 - 0.07 [place] [address]/[facility] LABORATORY Specimen Blood - ARM, RIGHT Performing Organization Address City/State/Zipcode Phone Number [facility] CLIA: [id number], [address] [place] [address] Basic Metabolic Panel (NA, K, CL, CO2, GLUCOSE, BUN, CREATININE, CA) (2019 8:36 PM GAS SHOVEL OPERATOR) NA 139 135 - 145 [facility] mmol/L [facility] LABORATORY K 5.1 (H) 3.5 - 5.0 [facility] mmol/L [facility] LABORATORY CL 106 98 - 108 mmol/L [facility] LABORATORY CO2 TOTAL 29 23 - 31 mmol/L [facility] LABORATORY AGAP 4 2 - 16 [facility] LABORATORY BUN 21 7 - 23 mg/dL [facility] LABORATORY GLUCOSE 192 (H) 70 - 110 mg/dL [facility] LABORATORY CREATININE 1.12 (H) 0.50 - 1.04 [facility] mg/dL [facility] LABORATORY CALCIUM 8.6 8.6 - 10.6 [facility] mg/dL [facility] LABORATORY eGFR Calculation 47.0 mL/min/1.73m2 [facility] ([facility] LABORATORY [place]) eGFR Calculation 57.0 mL/min/1.73m2 [facility] () [facility] LABORATORY Specimen Blood - ARM, RIGHT Narrative Performed At [facility] Glomerular Filtration Rate (GFR) [facility] LABORATORY and Staging of Kidney Disease* + + +- + | GFR (mL/min/1.73 m2) | With Kidney Damage | Without Kidney Damage + + +- + | >90 | Stage one | Normal + + +- + | 60-89 | Stage two | Decreased GFR + + +- + | 30-59 | Stage three | Stage three + + +- + | 15-29 | Stage four | Stage four + + +- + | <15 (or dialysis) | Stage five | Stage five + + +- + *Each stage assumes the associated GFR level has been in effect for at least three months. Stages 1 to 5, with or without kidney disease, indicate chronic kidney disease. Notes: Determination of stages one and two (with eGFR >59mL/min/1.73 m2) requires estimation of kidney damage for at least three months as defined by structural or functional abnormalities of the kidney, manifested by either: Pathological abnormalities or Markers of kidney damage (including abnormalities in the composition of the blood or urine or abnormalities in imaging tests). Performing Organization Address City/State/Zipcode Phone Number [facility] CLIA: [id number], [address] [place], [place] [id number] [phone] [facility] [address] XR KNEE <3 VW RIGHT (05/23/2019 10:09 AM GAS SHOVEL OPERATOR) Specimen Impressions Performed At PACS/VR/DOSE Postsurgical changes of total knee arthroplasty without complications. Preliminary Report Dictated by Resident: Pastor Ramsay MD., have reviewed this study and agree with the above report. Narrative Performed At Exam:XR KNEE <3 VW RIGHT PACS/VR/DOSE HISTORY: surgery COMPARISON: Radiograph 01/07/2019 FINDINGS: Radiographs of the right knee demonstrate postsurgical changes of total knee arthroplasty with hardware without complications. Postsurgical drains, soft tissue swelling, gas and superficial skin rigoberto are noted. No acute osseous fracture is detected. Procedure Note [facility], Radiant Results Inft User - 05/23/2019 4:24 PM GAS SHOVEL OPERATOR Exam:XR KNEE <3 VW RIGHT HISTORY: surgery COMPARISON: Radiograph 01/07/2019 FINDINGS: Radiographs of the right knee demonstrate postsurgical changes of total knee arthroplasty with hardware without complications. Postsurgical drains, soft tissue swelling, gas and superficial skin rigoberto are noted. No acute osseous fracture is detected. IMPRESSION Postsurgical changes of total knee arthroplasty without complications. Preliminary Report Dictated by Resident: Pastor Ramsay MD., have reviewed this study and agree with the above report. Performing Organization Address City/State/Zipcode Phone Number PACS/VR/DOSE ABORH CONFIRMATION (05/23/2019 6:39 AM GAS SHOVEL OPERATOR) ABO & RH AB Negative LAB Comment: Performed at [facility] Laboratory Services - [facility] Blood Bank [address] [place] [address] Toll Free: [phone] CLIA No. [id number] Specimen Performing Organization Address City/State/[facility] Phone Number [facility] LAB Type and Screen - ONCE STAT (05/23/2019 6:25 AM GAS SHOVEL OPERATOR) ABO & RH AB Negative LAB Comment: Performed at [facility] Laboratory [facility] Blood Bank [address] [place] [address] Toll Free: [phone] CLIA No. [id number] IAT Negative LAB Comment: Performed at [facility] Laboratory [facility] Blood Bank [address] [place], [place] [address] Toll Free: [phone] CLIA No. [id number] Specimen Blood - VENOUS Performing Organization Address [facility] Phone Number [facility] LAB documented in this encounter Visit Diagnoses Diagnosis Primary osteoarthritis of right knee - Primary Primary localized osteoarthrosis, lower leg Status post total right knee replacement Hypoxia Hypoxemia Essential hypertension Unspecified essential hypertension Elevated LFTs Other abnormal blood chemistry Status post total bilateral knee replacement C. difficile colitis Intestinal infection due to clostridium difficile Pulmonary embolism with acute cor pulmonale, unspecified chronicity, unspecified pulmonary embolism type Hypervolemia, unspecified hypervolemia type Abnormal liver enzymes Nonspecific elevation of levels of transaminase or lactic acid dehydrogenase ( LDH) Anemia Anemia, unspecified documented in this encounter Administered Medications Medication Order MAR Action Action Date Dose Rate Site aspirin chewable tablet 81 mg Given 05/27/2019 8:47 AM GAS SHOVEL OPERATOR 81 mg 81 mg, Oral, DAILY, First dose on Thu05/24/19 at 0900, Until Discontinued, Routine Given 05/26/2019 8:30 AM GAS SHOVEL OPERATOR 81 mg Given 05/25/2019 8:12 AM GAS SHOVEL OPERATOR 81 mg docusate (COLACE) capsule 100 mg Given 05/27/2019 8:47 AM GAS SHOVEL OPERATOR 100 mg 100 mg, Oral, DAILY, First dose on Thu05/24/19 at 0900, Until Discontinued, Routine Given 05/26/2019 8:31 AM GAS SHOVEL OPERATOR 100 mg Given 05/25/2019 8:12 AM GAS SHOVEL OPERATOR 100 mg enoxaparin (LOVENOX) injection 80 mg Given 05/27/2019 4:57 AM GAS SHOVEL OPERATOR 80 mg Abdomen-SC 80 mg (rounded from 81 mg=1 mg/kg 81 kg), Subcutaneous, Q12HA3, First dose on Thu05/26/19 at 1600, Until Discontinued, PAULINE Given 05/26/2019 5:18 PM GAS SHOVEL OPERATOR 80 mg Abdomen-SC FLUoxetine (PROZAC) capsule 20 mg Given 05/27/2019 8:47 AM GAS SHOVEL OPERATOR 20 mg 20 mg, Oral, DAILY, First dose on Thu05/24/19 at 0900, Until Discontinued, Routine Given 05/26/2019 8:28 AM GAS SHOVEL OPERATOR 20 mg Given 05/25/2019 8:12 AM GAS SHOVEL OPERATOR 20 mg gabapentin (NEURONTIN) capsule 400 mg Given 05/26/2019 5:17 PM GAS SHOVEL OPERATOR 400 mg 400 mg, Oral, QPM, First dose on Thu05/23/19 at 1700, Until Discontinued, Routine Given 05/25/2019 4:54 PM GAS SHOVEL OPERATOR 400 mg Given 05/24/2019 7:13 PM GAS SHOVEL OPERATOR 400 mg HYDROcodone-acetaminophen (NORCO) 10-325 Given 05/27/2019 10:55 AM GAS SHOVEL OPERATOR 1 tablet mg tablet 1 tablet 1 tablet, Oral, Q6HPRN, Starting Thu05/24/19 at 0958, Until Discontinued, Routine, Pain (scale 4-6) Given 05/27/2019 2:31 AM GAS SHOVEL OPERATOR 1 tablet Given 05/26/2019 9:48 AM GAS SHOVEL OPERATOR 1 tablet naloxone (NARCAN) injection 0.1 mg 0.1 mg, Slow IV Push, SEE-INSTRUCTIONS, Starting Thu05/23/19 at 1533, Until Discontinued, Routine omeprazole (PRILOSEC) capsule 40 mg Given 05/27/2019 8:46 AM GAS SHOVEL OPERATOR 40 mg 40 mg, Oral, DAILY, First dose on Thu05/24/19 at 0900, Until Discontinued Given 05/26/2019 8:29 AM GAS SHOVEL OPERATOR 40 mg Given 05/25/2019 8:13 AM GAS SHOVEL OPERATOR 40 mg ondansetron (ZOFRAN (PF)) injection 4 mg Given 05/26/2019 10:50 AM GAS SHOVEL OPERATOR 4 mg 4 mg, Slow IV Push, Q6HPRN, Starting Thu05/23/19 at 0926, Until Discontinued, Routine, Nausea and Vomiting (N/V) sennosides (SENOKOT) tablet 8.6 mg Given 05/27/2019 8:47 AM GAS SHOVEL OPERATOR 8.6 mg 8.6 mg, Oral, DAILY, First dose on Thu05/24/19 at 0900, Until Discontinued, Routine Given 05/26/2019 8:30 AM GAS SHOVEL OPERATOR 8.6 mg Given 05/25/2019 8:12 AM GAS SHOVEL OPERATOR 8.6 mg sodium chloride 0.9 % irrigation Given 05/23/2019 7:36 AM GAS SHOVEL OPERATOR 3,000 mL Right Knee solution PRN, Starting Thu05/23/19 at 0736, Until Discontinued, Intra-op vancomycin (FIRVANQ) 50 mg/mL oral solution Given 05/27/2019 1:57 PM GAS SHOVEL OPERATOR 500 mg 500 mg 500 mg, Oral, QID, First dose on Thu05/27/19 at 0330, Until Discontinued, Routine, Reason for Anti-Infective: Documented Infection, Documented Infection Site: Abdominal, Duration of Therapy: 14 days Given 05/27/2019 8:46 AM GAS SHOVEL OPERATOR 500 mg Given 05/27/2019 4:56 AM GAS SHOVEL OPERATOR 500 mg Medication Order MAR Action Action Date Dose Rate Site ceFAZolin (ANCEF) 1 g in NaCl 0.9% Given 05/24/2019 12:26 AM GAS SHOVEL OPERATOR 1 g (NS) 50 mL MINI-BAG 1 g, IV Piggyback, Q8H ABX, 2 doses, First dose on Thu05/23/19 at 1600, Last dose on Thu05/24/19 at 0000, 50 mL, Reason for Anti-Infective: Surgical Prophylaxis, Surgical Prophylaxis: Orthopaedic, Duration of therapy: within 24 hours of surgery Given 05/23/2019 4:33 PM GAS SHOVEL OPERATOR 1 g celecoxib (CELEBREX) capsule 400 mg Given 05/23/2019 6:37 AM GAS SHOVEL OPERATOR 400 mg 400 mg, Oral, ONCE, 1 dose, Thu05/23/19 at 0630, Routine, DSU Pre-op enoxaparin (LOVENOX) injection 30 mg Given 05/26/2019 8:33 AM GAS SHOVEL OPERATOR 30 mg Abdomen-SC 30 mg, Subcutaneous, Q12H, First dose on Thu05/24/19 at 0600, Until Discontinued, Routine Given 05/25/2019 9:11 PM GAS SHOVEL OPERATOR 30 mg Abdomen-SC Given 05/25/2019 8:13 AM GAS SHOVEL OPERATOR 30 mg Abdomen-SC FENTanyl PF (SUBLIMAZE (PF)) injection 25 Given 05/23/2019 9:55 AM GAS SHOVEL OPERATOR 25 mcg mcg 25 mcg, Slow IV Push, Q5MIN PRN, 4 doses, Starting Thu05/23/19 at 0936, Until Thu05/23/19 at 1731, Routine, Pain (scale 4-6), PACU Given 05/23/2019 9:50 AM GAS SHOVEL OPERATOR 25 mcg furosemide (LASIX) injection 20 mg Given 05/26/2019 8:31 AM GAS SHOVEL OPERATOR 20 mg 20 mg, Slow IV Push, QAM+PM, First dose on Thu05/25/19 at 0930, Until Discontinued, Routine Given 05/25/2019 4:54 PM GAS SHOVEL OPERATOR 20 mg Given 05/25/2019 9:41 AM GAS SHOVEL OPERATOR 20 mg gabapentin (NEURONTIN) capsule 300 mg Given 05/23/2019 6:37 AM GAS SHOVEL OPERATOR 300 mg 300 mg, Oral, ONCE, 1 dose, Thu05/23/19 at 0630, Routine, DSU Pre-op iohexol (OMNIPAQUE 350 BULK-150 mL) Given 05/26/2019 2:40 PM GAS SHOVEL OPERATOR 120 mL injection 120 mL 120 mL, Intravenous, ONCE, 1 dose, Effie 05/26/19 at 1500, Routine lactated ringers IV infusion New Bag 05/23/2019 6:18 AM GAS SHOVEL OPERATOR 1,000 mL 20 mL /hr 1,000 mL at 20 mL/hr, 1,000 mL, IV Infusion, ONCE, 1 dose, Thu05/23/19 at 0600, Routine, DSU Pre-op lactated ringers IV infusion New Bag 05/24/2019 3:24 AM GAS SHOVEL OPERATOR 1,000 mL 75 mL /hr 1,000 mL at 75 mL/hr, 1,000 mL, IV Infusion, CONTINUOUS, Starting Thu05/23/19 at 0945, Until Thu05/24/19 at 1854, Routine, PACU New Bag 05/23/2019 10:41 AM GAS SHOVEL OPERATOR 1,000 mL 75 mL/hr lisinopril (PRINIVIL,ZESTRIL) tablet 10 mg Given 05/26/2019 8:31 AM GAS SHOVEL OPERATOR 10 mg 10 mg, Oral, DAILY, First dose on Thu05/24/19 at 0900, Until Discontinued, Routine Given 05/25/2019 8:12 AM GAS SHOVEL OPERATOR 10 mg Given 05/24/2019 9:48 AM GAS SHOVEL OPERATOR 10 mg morpHINE 30 mg/30 mL (fixed dose) DOG BARBER Dose/Rate Verify 05/23/2019 8:00 PM GAS SHOVEL OPERATOR injection New Bag 05/23/2019 3:56 PM [employer]EL OPERATOR 30 mg morpHINE 30 mg/30 mL (fixed dose) DOG BARBER Rate Change 05/24/2019 10:14 AM G[employer] SHOVEL OPERATOR injection oxyCODONE-acetaminophen (PERCOCET) 5-325 Given 05/23/2019 6:37 AM GAS SHOVEL OPERATOR 2 tablets mg per tablet 2 tablet 2 tablet, Oral, ONCE, 1 dose, 05/23/19 at 0630, Routine, DSU Pre-op documented in this encounter Insurance Payer Benefit Plan / Subscriber ID Effective Phone Address Type Group Dates [employer] MEDICARE [id number] 2019-Prese Medicare Adv HEALTHCARE COMPLETE nt PPO MEDICARE CHOICE ADVANTAGE [facility] [id number] ([address]) [place] [phone] [id number] (Work) documented as of this encounter
[2019-05-30] MEDS ORDERED: ALTEPLASE 0 ML IV ONE (04:32)
[2019-05-30] MEDS ORDERED: NALOXONE HCL 2 MG/2 ML VIAL ONE (04:48)
[2019-05-30] MEDS ORDERED: NALOXONE 0.4 MG/ML VIAL ONE (04:49)
[2019-05-30 04:53] LABS: Absolute Lymphocytes (CBC) 1.3 K/uL (0.7-4.9); Basophils % 0.8 % (0-1.3); Hematocrit 29.4 % (36.0-45.0); Lymphocytes % 13.1 % (15.3-44.8); MPV 8.4 fL (7.6-11.3); RBC Red Blood Cell Count 3.88 M/uL (3.86-4.86)
[2019-05-30 04:57] LABS: Protime INR 1.25
[2019-05-30 05:04] LABS: Potassium 4.3 mmol/L (3.5-5.1)
[2019-05-30 05:05] LABS: Arterial Blood Carboxyhemoglob 1.8 % (0-1.5); Blood Gas Oxyhemoglobin 93.1 % (94-97); Blood O2 Saturation 95.6 % (92-98.5)
[2019-05-30 05:58] LABS: Barbiturates NEGATIVE (NEGATIVE); Benzodiazepines NEGATIVE (NEGATIVE); Cocaine NEGATIVE (NEGATIVE); METHAMPHETAM NEGATIVE (NEGATIVE); Methadone NEGATIVE (NEGATIVE); Opiates POSITIVE (NEGATIVE); Phencyclidine NEGATIVE (NEGATIVE); THC Cannibis NEGATIVE (NEGATIVE)
--- NOTE | 2019-05-30 06:06 | EDPHYS ---
Physician Documentation [facility] Name: Nallely Mendez Age: 79 yrs Sex: Female : 1940 Arrival Date: 05/30/2019 Time: 04:25 Bed 2 Private MD: ED Physician Kareen Zelaya HPI: 05/29 05:28 This 79 yrs old Female presents to ER via EMS with complaints of Altered ma2 Mental Status. 05:28 The patient presents with decreased mental status. Onset: The symptoms/episode ma2 began/occurred gradually, 2 hour(s) ago. Possible causes: drug use, head injury, seizure, sepsis. Associated signs and symptoms: Pertinent negatives: agitation, blurred vision, confusion. Patient's baseline: Neuro: alert and fully oriented. The patient has not experienced similar symptoms in the past. Historical: - Allergies: 04:20 Phenergan; rr5 - Home Meds: 04:20 apaxiban [Active]; sennosides oral oral [Active]; Ondansetron Oral [Active]; firvanq rr5 solution [Active]; Fluoxetine Oral [Active]; baclofen Oral [Active]; Aspirin Oral [Active]; omeprazole 40 mg Oral cpDR 1 cap once daily [Active]; gabapentin oral oral [Active]; Acetaminophen-Codeine Oral [Active]; - PMHx: 04:20 Depression; Hypertension; pulmonary embolism; CHF; acute respiratory failure; Asthma; rr5 pulmonary edema; GERD; osteoarthritis; Anemia; - PSHx: 04:20 Knee surgery; rr5 - Immunization history:: Adult Immunizations unknown. - Social history:: Smoking status: unknown Patient/guardian denies using alcohol, street drugs, The patient lives with family. - Family history:: not pertinent. ROS: 05:28 Constitutional: Negative for fever, chills, and weight loss. ma2 05:28 All other systems are negative. 05:28 All other systems are negative. 05:28 Unable to obtain ROS due to ams. Exam: 05:28 Head/Face: Normocephalic, atraumatic. Eyes: Pupils 2 mm equal round and reactive to ma2 light, extra-ocular motions intact. Lids and lashes normal. Conjunctiva and sclera are non-icteric and not injected. Cornea within normal limits. Periorbital areas with no swelling, redness, or edema. ENT: Nares patent. No nasal discharge, no septal abnormalities noted. Tympanic membranes are normal and external auditory canals are clear. Oropharynx with no redness, swelling, or masses, exudates, or evidence of obstruction, uvula midline. Mucous membranes moist. Neck: Trachea midline, no thyromegaly or masses palpated, and no cervical lymphadenopathy. Supple, full range of motion without nuchal rigidity, or vertebral point tenderness. No Meningismus. Chest/axilla: Normal chest wall appearance and motion. Nontender with no deformity. No lesions are appreciated. Cardiovascular: Regular rate and rhythm with a normal S1 and S2. No gallops, murmurs, or rubs. Normal PMI, no JVD. No pulse deficits. Respiratory: Lungs have equal breath sounds bilaterally, clear to auscultation and percussion. No rales, rhonchi or wheezes noted. No increased work of breathing, no retractions or nasal flaring. Abdomen/GI: Soft, non-tender, with normal bowel sounds. No distension or tympany. No guarding or rebound. No evidence of tenderness throughout. Back: No spinal tenderness. No costovertebral tenderness. Full range of motion. Skin: Warm, dry with normal turgor. Normal color with no rashes, no lesions, and no evidence of cellulitis. MS/ Extremity: Pulses equal, no cyanosis. Neurovascular intact. Full, normal range of motion. Neuro: samnolent yet arousable to verbal stimulus,moving all extremities Vital Signs: 04:20 BP 143 / 61; Pulse 79; Resp 15; Temp 97.8; Pulse Ox 98% on 3 lpm NC; rr5 05:30 BP 147 / 72; Pulse 82; Resp 16; Pulse Ox 100% on 2 lpm NC; rr5 06:30 BP 144 / 70; Pulse 80; Resp 17; Temp 98.9; Pulse Ox 99% on 2 lpm NC; rr5 07:00 BP 103 / 54; Pulse 76; Resp 14; Pulse Ox 97% ; sv 07:37 Temp 98.2(TE); sv 08:11 BP 102 / 54; Pulse 77; Resp 16; Pulse Ox 99% ; sv NIH Stroke Scale Scores: 04:20 NIHSS Score: 25 rr5 [place] Coma Score: 04:20 Eye Response: to voice(3). Verbal Response: incomprehensible(2). Motor Response: obeys rr5 commands(6). Total: 11. 05:30 Eye Response: spontaneous(4). Verbal Response: oriented(5). Motor Response: obeys rr5 commands(6). Total: 15. 06:30 Eye Response: spontaneous(4). Verbal Response: oriented(5). Motor Response: obeys rr5 commands(6). Total: 15. MDM: 04:33 Patient medically screened. [facility] 05:28 Differential Diagnosis: electrolyte abnormality, alcohol intoxication, hypoglycemia, ma2 intracranial bleed, pneumonia, sepsis, TIA, UTI, volume depletion. 06:04 Data reviewed: vital signs, nurses notes. Counseling: I had a detailed discussion with [facility] the patient and/or guardian regarding: the historical points, exam findings, and any diagnostic results supporting the discharge/admit diagnosis, the presence of at least one elevated blood pressure reading (>120/80) during this emergency department visit, the need for further work-up and treatment in the hospital. Response to treatment: the patient's symptoms have markedly improved after treatment. 06:47 ED course: discussed with cody . [facility] 06:53 ED course: ams improved now she is talking and awake alert, yet not back to normal, sc2 rapidly improving symptoms . 05/29 04:34 Order name: Basic Metabolic Panel; Complete Time: 05:21 sc2 05/29 04:34 Order name: CBC with Diff; Complete Time: 05:21 [facility] 05/29 04:34 Order name: Protime (+inr); Complete Time: 05:21 sc2 05/29 04:34 Order name: Ptt, Activated; Complete Time: 05:21 sc2 05/29 04:52 Order name: ABG; Complete Time: 05:21 sc2 05/29 04:52 Order name: UDS; Complete Time: 06:03 sc2 05/29 04:54 Order name: Glucose, Ancillary Testing; Complete Time: 05:21 EDMI 05/29 05:45 Order name: Urine Dipstick--Ancillary (enter results) ar5 05/29 06:53 Order name: CKMB Creatine Kinase MB EDMI 05/29 06:53 Order name: CKMB Creatine Kinase MB [facility] 05/29 06:53 Order name: Creatine Phosphokinase [facility] 05/29 06:53 Order name: Creatine Phosphokinase [facility] 05/29 06:53 Order name: Lipid Profile [facility] 05/29 06:53 Order name: Lipid Profile [facility] 05/29 04:28 Order name: CT Stroke Brain w/o Contrast aa1 05/29 04:34 Order name: Stroke CXR 1 View [facility] 05/29 04:34 Order name: EKG; Complete Time: 04:35 05/29 04:34 Order name: Accucheck; Complete Time: 05:10 05/29 04:34 Order name: Cardiac monitoring; Complete Time: 05:10 05/29 04:34 Order name: EKG - Nurse/Tech; Complete Time: 05:10 05/29 04:34 Order name: IV Saline Lock; Complete Time: 05:10 05/29 04:34 Order name: Labs collected and sent; Complete Time: 05:10 05/29 06:53 Order name: NPO [facility] 05/29 06:53 Order name: NPO [facility] 05/29 06:53 Order name: NPO [facility] 05/29 06:53 Order name: Troponin I [facility] 05/29 06:53 Order name: Troponin I [facility] 05/29 04:34 Order name: NPO; Complete Time: 05:11 05/29 04:34 Order name: O2 Per Protocol; Complete Time: 05:11 05/29 04:34 Order name: O2 Sat Monitoring; Complete Time: 05:11 05/29 04:34 Order name: Stroke Swallow Screen; Complete Time: 06:21 05/29 04:52 Order name: Urine Dipstick-Ancillary (obtain specimen); Complete Time: 06:10 Administered Medications: 04:35 Drug: NS 0.9% 1000 ml Route: IV; Rate: 1 bolus; Site: right forearm; rr5 05:20 Follow up: Response: No adverse reaction; IV Status: Completed infusion; IV Intake: rr5 1000ml 04:45 Drug: NARcan 0.4 mg Route: IVP; Site: right forearm; rv 05:33 Follow up: Response: No adverse reaction rr5 06:30 Drug: NS 0.9% 1000 ml Route: IV; Rate: 125 ml/hr; Site: right forearm; rr5 08:25 Follow up: Response: No adverse reaction; IV Status: Infusion continued upon admission sv Disposition: 05/30/19 06:05 Hospitalization ordered by Vinod Combs for Observation. Preliminary diagnosis is Altered mental status, unspecified. - Bed requested for Telemetry/MedSurg (observation). - Status is Observation. sv - Condition is Stable. - Problem is new. - Symptoms are unchanged. NIH Stroke Scale - NIH Stroke Score Date: 05/30/2019 Time: 04:20 Total Score = 25 1a. Level of Consciousness (LOC) - 0(Alert) 1b. Level of Consciousness (LOC) (Year \T\ Age) - 2(Neither) 1c. LOC Commands (Open \T\ Closes Eyes/Candy Spreader) - 1(One) 2. Best Gaze (Lateral Gaze Paresis) - 2(Forced deviation) 3. Visual Field Loss - 1(Partial hemianopia) 4. Facial Palsy - 2(Partial paralysis) 5a. Left Arm: Motor (10-second hold) - 3(No effort against gravity) 5b. Right Arm: Motor (10-second hold) - 3(No effort against gravity) 6a. Left Leg: Motor (5-second hold - always test supine) - 3(No effort against gravity) 6b. Right Leg: Motor (5-second hold - always test supine) - 9(Amputation, joint fusion) - Notes: right knee surgery 7. Limb Ataxia (finger/nose \T\ heel/[place] - test with eyes open) - 9(Amputation, joint fusion) - Notes: right knee surgery 8. Sensory Loss (pinprick arms/legs/face) - 1(Mild to moderate loss) 9. Best Language: Aphasia (description/naming/reading) - 3(Mute, global aphasia) 10. Dysarthria (speech clarity - read or repeat words) - 2(Severe) 11. Extinction and Inattention (visual/tactile/auditory/spatial/personal) - 2(Profound) Initials: rr5 Signatures: Dispatcher [employer] Ruma Mccormick Stephanie, RN RN sv Alzahri, Mohammad, MD MD ma2 Vincent Cleveland RN RN rv Roque, Raymond, RN RN rr5 Corrections: (The following items were deleted from the chart) 07:53 06:05 Hospitalization Ordered by Vinod Combs MD for Observation. Preliminary bd diagnosis is Altered mental status, unspecified. Bed requested for Telemetry/MedSurg (observation). Status is Observation. Condition is Stable. Problem is new. Symptoms are unchanged. ma2 08:36 07:53 05/30/2019 06:05 Hospitalization Ordered by Vinod Combs MD for sv Observation. Preliminary diagnosis is Altered mental status, unspecified. Bed requested for Telemetry/MedSurg (observation). Status is Observation. Condition is Stable. Problem is new. Symptoms are unchanged. bd
--- NOTE | 2019-05-30 06:06 | ER ---
Nurse's Notes [facility] Name: Nallely Mendez Age: 79 yrs Sex: Female : 1940 Arrival Date: 05/30/2019 Time: 04:25 Bed 2 Private MD: Diagnosis: Altered mental status, unspecified Presentation: 05/29 04:20 Chief complaint: EMS states: patient slow to respond last seen normal an hour ago rr5 (0330H). she has a recent right knee surgery less than a week ago and was diagnosed recently with pulmonary embolism. 04:20 Coronavirus screen: The patient has NOT traveled to a country currently being monitored rr5 by the [facility] within the last 14 days. Proceed with normal triage procedures. Ebola Screen: Patient negative for fever greater than or equal to 101.5 degrees Fahrenheit, and additional compatible Ebola Virus Disease symptoms Patient denies exposure to infectious person. Patient denies travel to an Ebola-affected area in the 21 days before illness onset. 04:20 Method Of Arrival: EMS: [facility] rr5 04:20 Initial Sepsis Screen: Does the patient meet any 2 criteria? Altered Mental Status. rr5 Does the patient have a suspected source of infection? Yes: Skin breakdown/wound. Risk Assessment: Do you want to hurt yourself or someone else? Unable to obtain. Onset of symptoms was May 30, 2019 at 03:30. Transition of care: patient was received from another setting of care (long-term care facility), [facility]. 04:20 Acuity: GUNNER 2 rr5 Historical: - Allergies: 04:20 Phenergan; rr5 - Home Meds: 04:20 apaxiban [Active]; sennosides oral oral [Active]; Ondansetron Oral [Active]; firvanq rr5 solution [Active]; Fluoxetine Oral [Active]; baclofen Oral [Active]; Aspirin Oral [Active]; omeprazole 40 mg Oral cpDR 1 cap once daily [Active]; gabapentin oral oral [Active]; Acetaminophen-Codeine Oral [Active]; - PMHx: 04:20 Depression; Hypertension; pulmonary embolism; CHF; acute respiratory failure; Asthma; rr5 pulmonary edema; GERD; osteoarthritis; Anemia; - PSHx: 04:20 Knee surgery; rr5 - Immunization history:: Adult Immunizations unknown. - Social history:: Smoking status: unknown Patient/guardian denies using alcohol, street drugs, The patient lives with family. - Family history:: not pertinent. Screenin:20 Abuse screen: Denies threats or abuse. Denies injuries from another. Nutritional rr5 screening: No deficits noted. Tuberculosis screening: No symptoms or risk factors identified. Fall Risk Secondary diagnosis (15 points) altered mental status. IV access (20 points). Mental Status- Overestimates/Forgets Limitations (15 pts.). Total Mercer Fall Scale indicates High Risk Score (45 or more points). Fall prevention measures have been instituted. Side Rails Up X 2 Placed Close to Nursing Station Frequent Obs/Assessments Occuring. 04:20 VAN Screening: Arm Drift: Flaccid or no effort against gravity. Aphasia: Expressive rr5 aphasia noted. Provider notified of +VAN scoring. 06:20 Patient has been NPO before screening. The patient is alert, able to follow commands. rr5 The patient does not exhibit slurred or garbled speech The patient is not exhibiting difficulty speaking. The patient does not exhibit difficulty understanding words. The patient is able to swallow own secretions with no drooling or need for suction. Patient tolerated one teaspoon of water. No drooling, immediate coughing, gurgling, or clearing of the throat was noted. The patient tolerated 90mL of water. No drooling, immediate coughing, gurgling, or clearing of the throat was noted. The patient passed the bedside swallow screening. Oral medications may be given as ordered. Contact Physician for further diet orders. Provider notified of bedside swallow screening results: Kareen Zelaya MD. Assessment: 04:20 General: Appears in no apparent distress. Behavior is drowsy, came via EMS altered rr5 mental status, ED provider at bedside assessing the patient. code stroke announced, send directly to CT scan.. 04:20 Pain: Unable to use pain scale. Patient appears quiet. Neuro: Level of Consciousness is rr5 lethargic, Oriented to none Sap Manager are weak bilaterally Weakness Speech none. Facial symmetry appears normal, Pupils are sluggish. Cardiovascular: Capillary refill < 3 seconds Patient's skin is warm and dry. Respiratory: Airway is patent Respiratory effort is even, unlabored, Respiratory pattern is regular, symmetrical. GI: Abdomen is round. : No deficits noted. EENT: No signs and/or symptoms were reported regarding the EENT system. Derm: Skin is fragile, is thin, Skin temperature is warm Wound noted right leg Wound is post op dressing right knee. Musculoskeletal: Capillary refill < 3 seconds, Swelling present in right leg. 04:30 Reassessment: Patient appears in no apparent distress at this time. back from CT scan. rr5 05:30 Reassessment: Patient appears in no apparent distress at this time. awake, mild rr5 drowsiness noted, talks coherently, respond to her wrapper counter at bedside. follows command. 05:30 General: Appears in no apparent distress. comfortable, Behavior is calm, cooperative. rr5 Neuro: Level of Consciousness is awake, alert, obeys commands, Oriented to person, situation, Sap Manager are equal bilaterally Facial symmetry appears normal. Musculoskeletal: Capillary refill < 3 seconds. 06:38 Reassessment: Patient appears in no apparent distress at this time. Patient is alert, rr5 oriented x 3, equal unlabored respirations, skin warm/dry/pink. no complaints made, awaiting for admission orders. Patient states symptoms have improved. 07:32 General: Appears in no apparent distress. comfortable, well developed, Behavior is sv drowsy, Pt asleep and snoring at this time. Family remains at the bedside.. Family reports that pt has had decreased appetite and oral fluid intake since having her surgery last Thursday to her right knee. Reports that they have noticed that she has been "going down the last few days." Pt was dx with a PE on and has been on blood thinners. Family also reports that the first time they got her up for PT since surgery, pt had passed out. Family still notices that her speech is slurred and slow.. Pain: Unable to use pain scale. Patient appears asleep FLACC scale score is 0 out of 10. Cardiovascular: Heart tones S1 S2 present Capillary refill < 3 seconds in bilateral fingers Patient's skin is warm and dry. Pulses are palpable in right radial artery, right dorsalis pedis artery, left radial artery and left dorsalis pedis artery Rhythm is sinus rhythm. Respiratory: Airway is patent Respiratory effort is even, unlabored, Respiratory pattern is regular, symmetrical, Breath sounds are clear bilaterally. Derm: Skin is intact, is fragile, is thin, Skin is normal, Pt has a vertical dressing to the right knee, dressing appears dry and intact at this time. Surgery was done by Dr Aguirre. Vital Signs: 04:20 BP 143 / 61; Pulse 79; Resp 15; Temp 97.8; Pulse Ox 98% on 3 lpm NC; rr5 05:30 BP 147 / 72; Pulse 82; Resp 16; Pulse Ox 100% on 2 lpm NC; rr5 06:30 BP 144 / 70; Pulse 80; Resp 17; Temp 98.9; Pulse Ox 99% on 2 lpm NC; rr5 07:00 BP 103 / 54; Pulse 76; Resp 14; Pulse Ox 97% ; sv 07:37 Temp 98.2(TE); sv 08:11 BP 102 / 54; Pulse 77; Resp 16; Pulse Ox 99% ; sv [place]ha[place] Coma Score: 04:20 Eye Response: to voice(3). Verbal Response: incomprehensible(2). Motor Response: obeys rr5 commands(6). Total: 11. 05:30 Eye Response: spontaneous(4). Verbal Response: oriented(5). Motor Response: obeys rr5 commands(6). Total: 15. 06:30 Eye Response: spontaneous(4). Verbal Response: oriented(5). Motor Response: obeys rr5 commands(6). Total: 15. NIH Stroke Scale Scores: 04:20 NIHSS Score: 25 rr5 ED Course: 04:20 Oxygen administration via nasal cannula \\T\\ 2L/min Response to oxygen therapy: symptoms rr5 improved. 04:25 Patient arrived in ED. ds1 04:33 Kareen Zelaya MD is Attending Physician. ma2 04:35 Patient has correct armband on for positive identification. Placed in gown. Bed in low rr5 position. Side rails up X2. Adult w/ patient. monitor car operator on. Pulse ox on. NIBP on. 04:35 Warm blanket given. rr5 04:40 EKG done, by ED staff, reviewed by Kareen Zelaya MD. rr5 04:41 CT Stroke Brain w/o Contrast In Process Unspecified. EDMS 04:45 Initial lab(s) drawn, by airport maintenance laborer, sent to lab. rr5 04:47 Justin Bailey, RN is Primary Nurse. rr5 05:02 Triage completed. rr5 05:02 Stroke CXR 1 View In Process Unspecified. EDMS 05:11 Maintain EMS IV. Dressing intact. Good blood return noted. Site clean \\T\\ dry. Gauge \\T\\ rv site: 18 G RIGHT FORE ARM. 05:22 Arm band placed on left wrist. rr5 05:40 Urine collected: clean catch specimen, clear, Amount Voided: 250mL. rr5 06:05 Vinod Combs MD is Hospitalizing Provider. ma2 07:37 Primary Nurse role handed off by Justin Bailey RN sv 07:37 Kiara Sanchez RN is Primary Nurse. sv 08:25 No provider procedures requiring assistance completed. Patient admitted, IV remains in sv place. intact. Administered Medications: 04:35 Drug: NS 0.9% 1000 ml Route: IV; Rate: 1 bolus; Site: right forearm; rr5 05:20 Follow up: Response: No adverse reaction; IV Status: Completed infusion; IV Intake: rr5 1000ml 04:45 Drug: NARcan 0.4 mg Route: IVP; Site: right forearm; rv 05:33 Follow up: Response: No adverse reaction rr5 06:30 Drug: NS 0.9% 1000 ml Route: IV; Rate: 125 ml/hr; Site: right forearm; rr5 08:25 Follow up: Response: No adverse reaction; IV Status: Infusion continued upon admission sv Intake: 05:20 IV: 1000ml; Total: 1000ml. rr5 Output: 05:40 Urine: 250ml (Straight Cath); Total: 250ml. rr5 Outcome: 06:05 Decision to Hospitalize by Provider. ma2 08:25 Admitted to Tele accompanied by tech, family with patient, via stretcher, room 423, with chart, Report called to Juliet HARDIN 08:25 Condition: stable 08:25 Instructed on the need for admit. 08:36 Patient left the ED. NIH Stroke Scale - NIH Stroke Score Date: 05/30/2019 Time: 04:20 Total Score = 25 1a. Level of Consciousness (LOC) - 0(Alert) 1b. Level of Consciousness (LOC) (Year \\T\\ Age) - 2(Neither) 1c. LOC Commands (Open \\T\\ Closes Eyes/Rec Therapist) - 1(One) 2. Best Gaze (Lateral Gaze Paresis) - 2(Forced deviation) 3. Visual Field Loss - 1(Partial hemianopia) 4. Facial Palsy - 2(Partial paralysis) 5a. Left Arm: Motor (10-second hold) - 3(No effort against gravity) 5b. Right Arm: Motor (10-second hold) - 3(No effort against gravity) 6a. Left Leg: Motor (5-second hold - always test supine) - 3(No effort against gravity) 6b. Right Leg: Motor (5-second hold - always test supine) - 9(Amputation, joint fusion) - Notes: right knee surgery 7. Limb Ataxia (finger/nose \\T\\ heel/[place] - test with eyes open) - 9(Amputation, joint fusion) - Notes: right knee surgery 8. Sensory Loss (pinprick arms/legs/face) - 1(Mild to moderate loss) 9. Best Language: Aphasia (description/naming/reading) - 3(Mute, global aphasia) 10. Dysarthria (speech clarity - read or repeat words) - 2(Severe) 11. Extinction and Inattention (visual/tactile/auditory/spatial/personal) - 2(Profound) Initials: rr5 Signatures: Dispatcher [employer] Kiara Navarrete RN RN Kailee Draper ds1 Kareen Zelaya MD MD ma2 Vincent Cleveland RN RN rv Roque, Raymond, RN RN rr5 Corrections: (The following items were deleted from the chart) 07:01 06:30 BP 144 / 70; Pulse 80bpm; Resp 17bpm; Pulse Ox 99% RA; Temp 97.6F; rr5 rr5 07:04 06:30 BP 144 / 70; Pulse 80bpm; Resp 17bpm; Pulse Ox 99% RA; Temp 98.9F; rr5 rr5 07:05 04:20 Oxygen administration via nasal cannula \\T\\ 3L/min Response to oxygen rr5 therapy: symptoms improved. rr5 07:15 06:40 NIHSS Score: 0 rr5 rr5
[2019-05-30 07:22] LABS: Urine Blood NEGATIVE (NEG); Urine Glucose NEGATIVE (NEG); Urine Protein NEGATIVE (NEG); Urine pH 7.5 (5.0-7.0)
[2019-05-30] MEDS: INSULIN -REGULAR HUMAN 50 UNIT/0.5 ML ML SQ SCH ×2 (07:30→11:28)
--- NOTE | 2019-05-30 08:34 | RAD REPORT ---
EXAM DESCRIPTION: RAD - Chest Single View - 05/30/2019 5:02 am CLINICAL HISTORY: CONGESTION Chest pain. COMPARISON: Chest Single View dated 05/18/2017; CHEST PA AND LAT 2 VIEW dated 07/23/2010; CHEST SINGLE VIEW dated 07/18/2010; CHEST PA AND LAT 2 VIEW dated 03/27/2009 FINDINGS: Portable technique limits examination quality. Mild interstitial pulmonary edema. The heart is moderately enlarged in size. Aortic atherosclerosis. IMPRESSION: Mild CHF.
[2019-05-30] MEDS ORDERED: ASPIRIN EC 81 MG TAB PO SCH (09:00)
[2019-05-30] MEDS: NA CHLORIDE 0.9% 1,000 ML IV SCH ×2 (09:38→17:40)
--- NOTE | 2019-05-30 10:32 | RAD REPORT ---
EXAM DESCRIPTION: CT of the head without contrast CLINICAL HISTORY: Aphasia; mental status change COMPARISON: 03/01/2019 TECHNIQUE: Axial CT of the head obtained from the skull apex to the skull base without contrast. FINDINGS: No acute intracranial hemorrhage identified. No shift of the midline, abnormal extra-axial fluid collection or CT evidence of acute ischemic change identified. The ventricular system and sulc al spaces are mildly enlarged compatible with mild cerebral atrophy. Scattered areas of hypodensity throughout the supratentorial white matter are nonspecific and may be related to chronic small vesse l ischemic change. Stable 1.6 cm calcified structure at the left cerebellopontine angle compatible wi th a meningioma. Mild local mass effect. The visualized paranasal sinuses and the mastoids are clear. No skull fracture identified. Visua lized orbits and globes are unremarkable. Atherosclerotic calcification of the intracranial internal carotid arteries. IMPRESSION: 1. No acute intracranial abnormality by CT criteria. 2. Stable 1.6 cm left cerebellopontine angle calcified meningioma. Urgent finding reported to Dr. Kareen Zelaya at 05/30/2019 4:54 AM CDT This exam was performed according to our departmental dose-optimization program, which includes autom ated exposure control, adjustment of the mA and/or kV according to patient size and/or use of iterati ve reconstruction technique. Electronically signed by: Tyrese Cavazos 05/30/2019 4:56 AM CDT Due to temporary technical issues with the PACS/Fluency reporting system, reports are being signed by the in house radiologist as a courtesy to ensure prompt reporting. The interpreting radiologist is f ully responsible for the content of the report.
[2019-05-30] MEDS: CODEINE 30MG/APAP 300MG TAB PO PRN ×2 (13:35→21:39)
[2019-05-30] MEDS: BACLOFEN 10 MG TAB PO SCH ×2 (13:35→21:39)
[2019-05-30] MEDS: VANCOMYCIN ORAL SOLN 250 MG/5 ML OSYR PO SCH ×2 (17:47→23:32)
[2019-05-30] MEDS ORDERED: APIXABAN 5 MG TABLET PO SCH (21:00)
[2019-05-30] MEDS: APIXABAN 5 MG TABLET PO SCH (21:38)
[2019-05-30] MEDS: SENOSIDES 8.6 MG TAB PO SCH (21:39)
[2019-05-30] MEDS: GABAPENTIN 400 MG CAP PO SCH (21:39)
[2019-05-31] MEDS: NA CHLORIDE 0.9% 1,000 ML IV SCH ×3 (04:12→23:00)
[2019-05-31 04:20] LABS: Absolute Lymphocytes (CBC) 1.3 K/uL (0.7-4.9); Hematocrit 26.9 % (36.0-45.0); Lymphocytes % 14.8 % (15.3-44.8); RBC Red Blood Cell Count 3.49 M/uL (3.86-4.86)
[2019-05-31 04:36] LABS: BUN Blood Urea Nitrogen 10 mg/dL (7-18); Bicarbonate 29 mmol/L (21-32); CKMB Creatine Kinase MB < 1.0 ng/mL (0.3-3.6); Creatine Phosphokinase 25 U/L (26-192); Glucose Level 97 mg/dL (74-106); HDL Cholesterol 41 mg/dL (40-60); LDL Cholesterol, Calculated 78 (<130); Potassium 4.2 mmol/L (3.5-5.1); Sodium Level 144 mmol/L (136-145); Troponin I < 0.02 ng/mL (0.0-0.045)
[2019-05-31] MEDS: VANCOMYCIN ORAL SOLN 250 MG/5 ML OSYR PO SCH ×4 (05:05→23:41)
[2019-05-31] MEDS: BACLOFEN 10 MG TAB PO SCH ×3 (08:30→20:53)
[2019-05-31] MEDS: FLUOXETINE 20 MG CAP PO SCH (08:30)
[2019-05-31] MEDS: ASPIRIN 81 MG CHEWABLE TABLET PO SCH (08:30)
[2019-05-31] MEDS: APIXABAN 5 MG TABLET PO SCH ×2 (08:30→20:53)
[2019-05-31] MEDS: PANTOPRAZOLE 40MG TABLET PO SCH (08:30)
[2019-05-31] MEDS: CODEINE 30MG/APAP 300MG TAB PO PRN ×2 (08:35→13:30)
--- NOTE | 2019-05-31 08:55 | EKG ---
Test Date: 2019-05-30 Test Time: 03:42:11 Freight Elevator Operator: RR MEASUREMENT RESULTS: Intervals: Rate: 79 ID: [id number] QRSD: 74 QT: 384 QTc: 440 [place]: P: 47 ID: [id number] QRS: -6 T: 20 INTERPRETIVE STATEMENTS: Normal sinus rhythm Nonspecific ST abnormality Abnormal ECG Compared to ECG 05/18/2017 12:50:30 ST (T wave) deviation now present Electronically Signed On 05-31-19 08:53:09 CDT by Saji Hubbard
[2019-05-31] MEDS ORDERED: cloNIDine HCL 0.1 MG TAB PO PRN (09:35)
--- NOTE | 2019-05-31 12:02 | RAD REPORT ---
EXAM DESCRIPTION: Jovani Pa And Lat (2 Views)05/31/2019 11:54 am CLINICAL HISTORY: Cough COMPARISON: May 30, 2019 FINDINGS: A moderate hiatal hernia Mild bilateral pulmonary opacities have resolved. . The heart is mildly enlarged IMPRESSION: No acute abnormalities displayed
[2019-05-31] MEDS ORDERED: ALBUTEROL INHALER 60 PUFF/8 GM IH SCH (13:00)
[2019-05-31] MEDS ORDERED: IPRATROPIUM 200 PUFF/12.9 GM INH IH SCH (13:00)
[2019-05-31] MEDS: IPRATROPIUM BROM 0.5MG/2.5ML IH SCH ×3 (13:09→20:45)
[2019-05-31] MEDS: ALBUTEROL 2.5 MG/3 ML NEB SOL NEB SCH ×3 (13:09→20:45)
[2019-05-31] MEDS: SENOSIDES 8.6 MG TAB PO SCH (20:53)
[2019-05-31] MEDS: GABAPENTIN 400 MG CAP PO SCH (20:53)
[2019-05-31] MEDS: CEFTRIAXONE/SWI 1gm 1 GM/10 ML SYR IVP SCH (20:54)
--- NOTE | 2019-05-31 21:10 | HP ---
Date of Admission: 05/30/2019 Chief Complaint: Altered mental status. History Of Present Illness: Patient's problem began approximately 8 days prior to being seen in the emergency room, when she underwent a knee replacement. Postoperatively, apparently she developed karen e respiratory problems. Workup revealed a PE and she was placed on appropriate anticoagulation. Thi s was 4 days postop. However, her postop period was also slightly complicated by problems with her r ehab status, has felt she would be better off in a SNF unit and this was accomplished after the diagn osis of PE was made. She was transferred to the SNF unit. Her pulmonary status was more stable. Wh en I have seen her in the emergency room, she apparently during rounds, was found to be incoherent, a nd she was transferred to the ER with possible TIA and CVA. Also, during her workup, she was found t o have positive stool for C diff and was started on oral vancomycin. She also had a positive stool g uaiac. However, at that time, she had been on her anticoagulation. Past Medical History: The patient has had numerous problems in the past with pulmonary issues, cardi ac, hypertension, and multiple joint problems. She also underwent epidurals for back pain a couple m onths ago. Social History: Present nonsmoker, no alcohol intake. Family History: Noncontributory. Physical Examination: General: At the time that I was seeing her, she was orientated. Vital Signs: Stable. Head and Neck: Normocephalic. Pupils equally reactive to light and accommodation. Fundi negative. Trachea midline. Thyroid not palpable. ENT: Negative. Chest: Clear to P and A. Cardiovascular: PMI midclavicular line. Heart: Sounds normal. Peripheral pulses present and equal bilaterally. Abdomen: No organomegaly. Bowel sounds present. Extremities: Immobilized right knee, otherwise extremities have normal tone, movement. Reflexes phy siologic. Rectal/Pelvic: Deferred. Impression: Altered mental status, probable transient ischemic attack, cerebrovascular accident post op, right knee replacement, C diff. Plan: Patient will be admitted. She will be treated accordingly for TIA, CVA, though she had a nega tive CT scan in the ER and appropriate attention will be placed to her knee problem as well. The pat ient was diagnosed with meningioma on CT a number of months ago and was seen by her neurologist, Dr. Olguin. He too will be consulted during her hospital stay. HR/MODL Voice ID: [id number]
--- NOTE | 2019-06-01 00:07 | CON ---
Reason For Consultation: Altered mental status. History: A 79-year-old lady with a history of meningioma and facial pain and that is why I know her. The facial pain is actually fairly stable on gabapentin. She is on some baclofen as well. She cam e in with altered mental status on the . She has a history of pulmonary embolism and she is on El iquis, had a recent knee replacement. She had been on some pain medication. She did get some Narcan and mental status improved fairly dramatically. She was apparently quite confused initially, but as noted it did improve. CT scan of the brain was remarkable only for the meningioma that is known. Danial KG is sinus rhythm with ST-T wave changes. She has remained stable since being here in the hospital. Her Eliquis has been continued. She cannot have an MRI because of the recent knee surgery, so she is scheduled for a repeat CT scan of the brain tomorrow. Consultation was requested. Past Medical History: Hypertension, recent pulmonary embolism, osteoarthritis, meningioma. Allergies: PROMETHAZINE. Social History: Does not drink. Does require assistance with activities of daily living. Family History: Noncontributory. Review of Systems: General: Good health. Eyes: Negative. Ears, Nose, Throat: Negative. Cardiovascular: Hypertension. Pulmonary: Pulmonary embolism. GI: Negative. : Negative. Musculoskeletal: Arthralgias, arthritis. Neurologic: As noted. Psychiatric: Negative. Endocrine: Negative. Hematologic: Negative. Physical Examination: Vital Signs: Temperature is 100.2, 84, 18, 101/63. General: She is a pleasant lady, lying in bed, in no distress on contact precautions for possible C diff. HEENT: Pupils reactive. Ocular motion full. Visual [place] full. Facial strength and sensation are normal. Tongue protrudes evenly. Soft palate elevates symmetrically bilaterally. Extremities: Strength is full with caveat that she has had knee replacement. Sensation intact. Ref lexes symmetric with again the same caveat regarding the right knee jerk. Toes are downgoing. Cereb ellar exam demonstrates no ataxia. Pertinent Laboratory Data: White count 8.5, hemoglobin 8.3, down from 9.1. Creatinine is normal at 0.6. Drug screen was positive for opiates. She has a repeat CT scan of the brain ordered tomorrow. Impression: Altered mental status, improved at present. Plan: Currently patient is on 10 mg Eliquis twice daily looking at her home medications it was suppo sed to be decreased to 5 b.i.d. on the . Aspirin has been added to her regimen as well. The hem oglobin continues to fall. The Eliquis will need to be decreased quite a bit. I think it is prudent to go ahead and decrease that to 5 mg b.i.d. today and we will decrease the baclofen to twice daily as well. Continue the gabapentin and check a carotid Doppler in addition to the CT scan as well as a n EEG as meningiomas can occasionally cause seizures. Patient stated that it felt as if she was in a long hallway where people were talking, but she could not speak back to them. Thank you for the consult. We will continue to follow with you. AMARJIT Voice ID: [id number] Report ID: [id number]
--- NOTE | 2019-06-01 00:16 | PN ---
Subjective: Patient has had a low-grade temperature today, however, this afternoon, she states she f eels considerably better this morning when she felt cold and patient was started on Rocephin empirica lly. Awaiting neurology consult and there does not appear to be any deficit at this time. A repeat CT scan will be done in the morning. The MRI is not indicated until 4 weeks post knee replacement. White count has improved. Chest x-ray is improved. general worker discussed options for discharge. She can be processed to return to where she was originally transferred after her knee surg nora. Depending on her progress and the CT scan, she may benefit discharge in the next 24 to 48 hours . HR/MODL Voice ID: [id number] Report ID: [id number]
[2019-06-01 04:10] LABS: Absolute Lymphocytes (CBC) 0.8 K/uL (0.7-4.9); Basophils % 0.8 % (0-1.3); Hematocrit 25.9 % (36.0-45.0); Lymphocytes % 6.1 % (15.3-44.8); MPV 8.1 fL (7.6-11.3); RBC Red Blood Cell Count 3.39 M/uL (3.86-4.86)
[2019-06-01 04:37] LABS: Blood Morphology Comment NOTED (NOT SEEN); Hypochromasia 1+; Platelet Estimate ADEQ
[2019-06-01] MEDS: NA CHLORIDE 0.9% 1,000 ML IV SCH ×2 (04:51→21:08)
[2019-06-01] MEDS: VANCOMYCIN ORAL SOLN 250 MG/5 ML OSYR PO SCH ×4 (04:51→23:35)
[2019-06-01] MEDS: PANTOPRAZOLE 40MG TABLET PO SCH (07:53)
[2019-06-01] MEDS: BACLOFEN 10 MG TAB PO SCH ×2 (07:53→21:09)
[2019-06-01] MEDS: ASPIRIN 81 MG CHEWABLE TABLET PO SCH (07:53)
[2019-06-01] MEDS: CODEINE 30MG/APAP 300MG TAB PO PRN ×3 (07:53→23:33)
[2019-06-01] MEDS: APIXABAN 5 MG TABLET PO SCH ×2 (07:53→21:09)
[2019-06-01] MEDS: CEFTRIAXONE/SWI 1gm 1 GM/10 ML SYR IVP SCH ×2 (07:54→21:09)
[2019-06-01] MEDS: FLUOXETINE 20 MG CAP PO SCH (07:54)
[2019-06-01] MEDS: ALBUTEROL 2.5 MG/3 ML NEB SOL NEB SCH ×4 (07:55→21:14)
[2019-06-01] MEDS: IPRATROPIUM BROM 0.5MG/2.5ML IH SCH ×4 (07:55→21:14)
--- NOTE | 2019-06-01 09:31 | RAD REPORT ---
EXAM DESCRIPTION: CT - Head Brain Wo Cont - 06/01/2019 8:59 am CLINICAL HISTORY: AMS, elevated BP Headache, drowsiness, hypertension, CVA symptomology COMPARISON: Ct Stroke Brain Wo Cont dated 05/30/2019; Head Brain Wo Cont dated 03/01/2019 TECHNIQUE: All CT scans are performed using dose optimization technique as appropriate and may inclu de automated exposure control or mA/KV adjustment according to patient size. FINDINGS: No intracranial hemorrhage, hydrocephalus or extra-axial fluid collection.Mild generalized brain atrophy is present with moderate periventricular and deep white matter chronic microvascular i schemic changes.No areas of brain edema or evidence of midline shift. 16 mm calcified left CP angle m ass is identified, stable. Trace fluid is seen left maxillary antrum. The paranasal sinuses and mastoids are otherwise clear. Th e calvarium is intact. IMPRESSION: No acute intracranial abnormality.
--- NOTE | 2019-06-01 10:26 | RAD REPORT ---
EXAM DESCRIPTION: US - CP - 06/01/2019 9:28 am CLINICAL HISTORY: TIA Headache, drowsiness, CVA symptomology. COMPARISON: MRA Neck W/Wo Cont dated 05/27/2017 TECHNIQUE: Real-time sonographic evaluation of both carotid systems was performed. Doppler interroga tion was performed with waveform tracing bilaterally. FINDINGS: Normal high resistance waveforms are noted in both external carotid arteries. The common c arotid arteries and internal carotid arteries show normal low resistance waveforms. Mild hard plaque is seen proximal left internal carotid artery. Peak systolic and end diastolic veloc ity values and the ICA/CCA ratios are in the non-hemodynamically significant range. Antegrade flow seen in both vertebral arteries. IMPRESSION: Mild hard plaque is present proximal left internal carotid artery. No evidence of a hemodynamically significant stenosis.
[2019-06-01 17:44] LABS: Urine Appearance CLEAR; Urine Bilirubin NEGATIVE (NEG); Urine Blood NEGATIVE (NEG); Urine Color YELLOW; Urine Glucose NEGATIVE (NEG); Urine Protein NEGATIVE (NEG); Urine Specific Gravity 1.015 (1.005-1.030); Urine Urobilinogen 0.2 mg/dL (0.2-1.0); Urine pH 5.5 (5.0-7.0)
[2019-06-01 17:58] LABS: Urine Microscopic Reflex ORDER UMIC
[2019-06-01 18:40] LABS: Urine Bacteria 20-50 /HPF (<20); Urine Culture Reflex Order REFLEXED; Urine RBC <5 /HPF (NONE SEEN); Urine Yeast FEW (NONE SEEN)
--- NOTE | 2019-06-01 20:32 | PN ---
Date of Progress Note: 06/01/2019 Patient states she does feel somewhat better today and there has been no spiking of a temperature, al though with still low-grade temp with an elevated white count. With drop in hemoglobin, her Eliquis has been decreased. We will repeat this to walk and may need to be decreased further depending on th e results of that and H and H. Her repeat CAT scan showed no acute injury, some question as opposed above whether there was a medication reaction, although she states she was taking pain pills. She di d not think it is more than what was prescribed for her. The TIA CVA still has to be considered in t he differential. She is being followed by Dr. Macdonald as well. Her pulmonary status is stable. Her r ehab is improved somewhat. Depending on the stability of her status within next day or so, she domo [place] will be able to be transferred back to [facility] status by the weekend. HR/MODL Voice ID: [id number] Report ID: [id number]
--- NOTE | 2019-06-01 21:05 | PN ---
Addendum: The evaluation of increased white count and low-grade temperature include removal of the b andage of the knee replacement area and there was no evidence of any infection. HR/MODL Voice ID: [id number] Report ID: [id number]
[2019-06-01] MEDS: GABAPENTIN 400 MG CAP PO SCH (21:09)
[2019-06-01] MEDS: SENOSIDES 8.6 MG TAB PO SCH (21:09)
--- NOTE | 2019-06-01 23:50 | PN ---
Date of Progress Note: 06/01/2019 Reason: Confusion. Interval History: The patient is stable. Repeat CT scan demonstrated no new abnormality meningioma. EEG was normal. No epileptiform discharges. Hemoglobin is a little more stable at 8. White count is up, but the patient looks well. She does have C difficile. On p.o. vancomycin. Objective: General: She is awake, alert, oriented. HEENT: Pupils reactive. Ocular motion full. Levy full. Strength full. Neurologic: Some decreased motion in right knee, where she had the knee replacement surgery. Sensat ion intact. Reflexes symmetric. Cerebellar exam demonstrates no ataxia. Impression: Altered mental status, resolved. Carotid Doppler demonstrated no hemodynamically signif icant stenosis. It is a little unclear exactly what happened but may be related to some of her medic ation she is taking postoperatively or alternatively, possibly transient ischemic attack. Plan: I would continue aspirin and Eliquis at 5 mg b.i.d. and we will downgrade the aspirin to just Eliquis in about 4 weeks. She should stay in the hospital to work confident that her hemoglobin is s table at 8 today and was 9.1 on admission. She can follow up with me in the office in 3-4 weeks post discharge. Thank you for the consult. TIFFANIE/CHARLENE Voice ID: [id number] Report ID: [id number]
[2019-06-02] MEDS: NA CHLORIDE 0.9% 1,000 ML IV SCH ×3 (01:40→13:29)
[2019-06-02] MEDS: ONDANSETRON 4 MG (ODT) TAB PO PRN ×2 (05:54→22:21)
[2019-06-02 06:26] LABS: Absolute Lymphocytes (CBC) 0.9 K/uL (0.7-4.9); Basophils % 0.9 % (0-1.3); Hematocrit 28.7 % (36.0-45.0); Lymphocytes % 9.3 % (15.3-44.8); MPV 8.2 fL (7.6-11.3); RBC Red Blood Cell Count 3.74 M/uL (3.86-4.86)
[2019-06-02 06:31] LABS: Potassium 3.9 mmol/L (3.5-5.1)
[2019-06-02] MEDS: VANCOMYCIN ORAL SOLN 250 MG/5 ML OSYR PO SCH ×4 (06:50→23:52)
[2019-06-02] MEDS: BACLOFEN 10 MG TAB PO SCH ×2 (07:57→21:33)
[2019-06-02] MEDS: FLUOXETINE 20 MG CAP PO SCH (07:57)
[2019-06-02] MEDS: ASPIRIN 81 MG CHEWABLE TABLET PO SCH (07:57)
[2019-06-02] MEDS: APIXABAN 5 MG TABLET PO SCH ×2 (07:58→21:33)
[2019-06-02] MEDS: PANTOPRAZOLE 40MG TABLET PO SCH (07:58)
[2019-06-02] MEDS: CEFTRIAXONE/SWI 1gm 1 GM/10 ML SYR IVP SCH ×2 (07:58→21:33)
[2019-06-02] MEDS: CODEINE 30MG/APAP 300MG TAB PO PRN ×2 (08:20→22:17)
[2019-06-02] MEDS: ALBUTEROL 2.5 MG/3 ML NEB SOL NEB SCH ×4 (08:55→20:00)
[2019-06-02] MEDS: IPRATROPIUM BROM 0.5MG/2.5ML IH SCH ×4 (08:55→20:00)
--- NOTE | 2019-06-02 11:16 | EEG ---
CHART: [id number] TEST ID#: [id number] DATE OF STUDY: 06/01/2019 THE EEG WAS RECORDED PORTABLE IN THE PATIENTS ROOM ON A 17 CHANNEL MACHINE. ELECTRODES WERE APPLIED IN THE USUAL MANNER USING THE INTERNATIONAL 10-20 SYSTEM. THE WAKING BACKGROUND RHYTHM IN THIS RECORD CONSISTS OF FAIRLY WELL DEVELOPED AND FAIRLY WELL ORGANIZED WAVES OF UP TO 10 HZ., MAXIMAL IN THE POSTERIOR HEAD REGIONS WHICH ATTENUATE NORMALLY WITH EYE OPENING. IN DROWSINESS THE BACKGROUND DROPS TO 9 HZ. THERE ARE NO FOCAL OR LATERALIZING FEATURES. NO EPILEPTIFORM ACTIVITY APPEARS. SLEEP DID NOT OCCUR. HYPERVENTILATION WAS NOT PERFORMED. PHOTIC STIMULATION PRODUCED FAIR DRIVING BILATERALLY. IMPRESSION: NORMAL EEG FOR THE AGE OF THE PATIENT IN WAKE AND DROWSINESS.
--- NOTE | 2019-06-02 15:14 | P.PN ---
Subjective Date of Service: 06/02/19 Patient denies any shortness of breath. Confusion has resolved. She states the diarrhea has stopped. Patient developed AFib with RVR this afternoon. She denies any limb weakness. Physical Examination - Vital Signs Temperature: 98.5 F Blood Pressure: 94/60 Pulse: 86 Respirations: 18 Pulse Ox (%): 94 - Physical Exam General: Alert, In no apparent distress, Oriented x3 HEENT: Mucous membr. moist/pink, Sclerae nonicteric Neck: Supple, JVD not distended Respiratory: Clear to auscultation bilaterally, Normal air movement Cardiovascular: No edema, Normal S1 S2, Irregular heart rate/rhythm Gastrointestinal: Normal bowel sounds, Soft and benign, Non-distended, No tenderness Musculoskeletal: No erythema Integumentary: No erythema Neurological: Normal speech, Normal strength at 5/5 x4 extr Assessment And Plan - Current Problems (Diagnosis) (1) TIA (transient ischemic attack) Current Visit: Yes Status: Acute (2) Atrial fibrillation with RVR Current Visit: Yes Status: Acute (3) C. difficile colitis Current Visit: Yes Status: Acute (4) History of pulmonary embolism Current Visit: Yes Status: Chronic (5) Anemia Current Visit: Yes Status: Acute - Plan Continue Eliquis at the current dose. Start low dose oral metoprolol. Obtain echocardiogram Cardiology consult Monitor for active bleeding Continue oral vancomycin for C. diff. PT and OT.
[2019-06-02] MEDS: METOPROLOL TAR 25 MG TAB PO SCH (17:09)
[2019-06-02] MEDS: GUAIFENESIN/CODEINE 5ML UCUP PO PRN (17:45)
[2019-06-02] MEDS: GABAPENTIN 400 MG CAP PO SCH (21:33)
[2019-06-02] MEDS: SENOSIDES 8.6 MG TAB PO SCH (21:33)
[2019-06-03] MEDS: GUAIFENESIN/CODEINE 5ML UCUP PO PRN ×2 (04:24→12:47)
[2019-06-03] MEDS: NA CHLORIDE 0.9% 1,000 ML IV SCH ×2 (04:25→16:38)
--- NOTE | 2019-06-03 05:40 | CON ---
Date of Consultation: 06/02/2019 Reason For Consultation: Atrial fibrillation. The patient was admitted to Dr. Combs's service. History Of Present Illness: Ms. Mendez is a 79-year-old woman, who has had a history of hypertension , depression, pulmonary embolus that she had after a recent knee surgery and has had a history of gas troesophageal reflux disease, asthma, anemia, and arthritis. Her medical records list history of con gestive heart failure, but she denies it. She had come into the hospital with altered mental status. Has been followed by Dr. Olguin from a neurological standpoint. Has had a negative carotid Doppler and negative CT of her head. She was basically here recuperating and had a new onset atrial fibrilla tion, rate of about 140 and she went back to sinus rhythm spontaneously. Ms. Mendez is on Eliquis be cause of her history of pulmonary embolism recently. She denied any symptoms of atrial fibrillation. No shortness of breath. No chest pain. No PND, orthopnea, pedal edema, or palpitation or syncope. Allergies: SHE IS ALLERGIC TO COMPAZINE. Review of Systems: Negative. Social History: Negative. Family History: Noncontributory. Past Medical History: As listed above. Medications: Albuterol, aspirin, Neurontin, Eliquis, and she is also on Rocephin and vancomycin. Physical Examination: General: She is pleasant, alert, oriented x3, blood pressure was 94/60. She was in sinus rhythm whe n I saw her. HEENT: Negative. Neck: Supple with no bruit. Chest: Clear. Cardiac: Revealed a regular rhythm and rate without any murmurs, gallops, or rubs. Abdomen: Benign. Extremities: Revealed no clubbing or cyanosis. She had trace edema. Neurological: She was nonfocal. Skin: Dry and intact. Impression And Plan: 1.Atrial fibrillation, new onset. It has resolved already. She is on Eliquis for recent pulmonary embolism. I think that she has a very high CHADS score and hopefully this is just a onetime event, b ut nevertheless, I will continue the Eliquis. I would like to start a very low-dose beta-jose r bec ause of her blood pressure being labile. I would like to get a 2D echocardiogram. I think we should continue the Eliquis for now for at least 3 to 6 months because of her atrial fibrillation. Certain ly, this could have been secondary to the inhalers, but we will see how she does in the future. 2.Hypertension, well controlled. 3.Status post recent pulmonary embolus after the knee surgery on Eliquis. 4.Gastroesophageal reflux disease. 5.Asthma. 6.Depression. 7.Anemia. Hemoglobin of 8.9. 8.Degenerative joint disease. 9.Neuropathy. Again, as stated earlier, we will start low-dose beta-jose r. Continue Eliquis for 3 to 6 months [place] and we will see what her rhythm is down the road and see what her echocardiogram shows. We christofer l continue to follow. ANA/CHARLENE Voice ID: [id number] Report ID: [id number]
[2019-06-03 06:24] LABS: Absolute Lymphocytes (CBC) 0.7 K/uL (0.7-4.9); Basophils % 0.8 % (0-1.3); Hematocrit 28.8 % (36.0-45.0); MPV 7.9 fL (7.6-11.3); RBC Red Blood Cell Count 3.75 M/uL (3.86-4.86)
[2019-06-03] MEDS: METOPROLOL TAR 25 MG TAB PO SCH (06:42)
[2019-06-03] MEDS: VANCOMYCIN ORAL SOLN 250 MG/5 ML OSYR PO SCH ×3 (06:43→17:04)
[2019-06-03] MEDS: IPRATROPIUM BROM 0.5MG/2.5ML IH SCH ×4 (08:00→20:10)
[2019-06-03] MEDS: ALBUTEROL 2.5 MG/3 ML NEB SOL NEB SCH ×4 (08:00→20:10)
[2019-06-03] MEDS: SOTALOL HCL 80 MG TAB PO SCH ×2 (08:16→17:04)
[2019-06-03] MEDS: CODEINE 30MG/APAP 300MG TAB PO PRN ×2 (08:16→20:52)
[2019-06-03] MEDS: CEFTRIAXONE/SWI 1gm 1 GM/10 ML SYR IVP SCH ×2 (08:17→20:49)
[2019-06-03] MEDS: APIXABAN 5 MG TABLET PO SCH ×2 (08:17→20:49)
[2019-06-03] MEDS: PANTOPRAZOLE 40MG TABLET PO SCH (08:17)
[2019-06-03] MEDS: FLUOXETINE 20 MG CAP PO SCH (08:17)
[2019-06-03] MEDS: BACLOFEN 10 MG TAB PO SCH ×2 (08:17→20:49)
[2019-06-03] MEDS: ASPIRIN 81 MG CHEWABLE TABLET PO SCH (08:17)
[2019-06-03] MEDS: VANCOMYCIN 1.5 GM in NA CHLORIDE 0.9% 500 ML IVPB SCH (09:00)
[2019-06-03] MEDS: ONDANSETRON 4 MG (ODT) TAB PO PRN ×2 (09:05→16:38)
--- NOTE | 2019-06-03 12:16 | PN ---
Date of Progress Note: 06/03/2019 The patient was seen yesterday for atrial fibrillation that is new onset. She has had a pulmonary em bolus recently after knee surgery. She is on Eliquis. We tried her on low-dose metoprolol yesterday , but her heart rate is still in the 110 to 120s. Remains asymptomatic. I will discontinue her meto prolol today. Continue her Eliquis, switch her to sotalol 80 mg 1 p.o. b.i.d. and see how she does. She will preferably need at least 3 dosages of sotalol before she can be discharged. I will discuss the case further with Dr. Fair. ANA/CHARLENE Voice ID: [id number] Report ID: [id number]
--- NOTE | 2019-06-03 12:33 | EKG ---
Test Date: 2019-06-02 Test Time: 13:15:42 Appraiser Art: Roland MEASUREMENT RESULTS: Intervals: Rate: 113 [place]: QRSD: 76 QT: 350 QTc: 480 [place]: P: [place]: QRS: -2 T: 48 INTERPRETIVE STATEMENTS: Atrial fibrillation with rapid ventricular response Nonspecific ST and T wave abnormality, probably digitalis effect Abnormal ECG Compared to ECG 05/30/2019 03:42:11 Sinus rhythm no longer present ST (T wave) deviation still present Electronically Signed On 06-03-19 12:30:56 CDT by Saji Hubbard
--- NOTE | 2019-06-03 13:15 | P.PN ---
Subjective Date of Service: 06/03/19 Patient had a fever last night. She reports intermittent drowsiness. She states the diarrhea has stopped. Patient developed AFib with RVR yesterday. Her heart rate was in the 120s this morning. She denies any increased pain in the right knee. Physical Examination - Vital Signs Temperature: 98.5 F Blood Pressure: 100/51 Pulse: 70 Respirations: 20 Pulse Ox (%): 95 - Physical Exam General: Alert, In no apparent distress, Oriented x3 HEENT: Mucous membr. moist/pink, Sclerae nonicteric Neck: Supple, JVD not distended Respiratory: Clear to auscultation bilaterally, Normal air movement Cardiovascular: No edema, Regular rate/rhythm, Normal S1 S2 Gastrointestinal: Normal bowel sounds, Soft and benign, Non-distended, No tenderness Musculoskeletal: Other (Right knee surgical wound dressed, no surrounding erythema.) Integumentary: No rashes, No erythema Neurological: Normal speech, Other (Nonfocal.) - Studies Laboratory Data (last 24 hrs) 06/03/19 06:05: WBC 9.6, Hgb 8.8 L, Hct 28.8 L, Plt Count 514 H 06/02/19 15:32: Magnesium 2.1 Assessment And Plan - Current Problems (Diagnosis) (1) TIA (transient ischemic attack) Current Visit: Yes Status: Acute (2) Atrial fibrillation with RVR Current Visit: Yes Status: Acute (3) C. difficile colitis Current Visit: Yes Status: Acute (4) History of pulmonary embolism Current Visit: Yes Status: Chronic (5) Anemia Current Visit: Yes Status: Acute (6) Sepsis Current Visit: Yes Status: Acute - Plan Obtain blood culture, urine culture, chest x-ray. Added IV vancomycin to IV Rocephin. Continue oral vancomycin for C. diff Continue Eliquis at the current dose. Cardiology input appreciated. Patient started on sotalol, metoprolol discontinued. Echocardiogram is pending. Monitor for active bleeding PT and OT.
[2019-06-03 14:07] LABS: Albumin 2.4 g/dL (3.4-5.0); Bilirubin Direct 0.1 mg/dL (0-0.2); Bilirubin Total 0.4 mg/dL (0.2-1.0); Potassium 4.2 mmol/L (3.5-5.1)
--- NOTE | 2019-06-03 14:18 | RAD REPORT ---
EXAM DESCRIPTION: RAD - Chest Single View - 06/03/2019 2:01 pm CLINICAL HISTORY: Sepsis COMPARISON: Two view chest May 2019 TECHNIQUE: AP portable chest image was obtained 06/03/2019 2:01 pm . FINDINGS: Lung volumes are low. No peripheral consolidation or mass of the right lung field or upper left lung field. Retrocardiac left base is partially obscured. Left hemidiaphragm is partially obscu red. Significant failure or volume overload not suspected. Heart and vasculature are normal. No measu rable pleural effusion and no pneumothorax. No acute bony abnormality seen. No acute aortic findings suspected. IMPRESSION: Limited shallow inspiration portable chest examination suspicious for left lung base pne umonia.
--- NOTE | 2019-06-03 14:39 | ECHO ---
HEIGHT: 5 ft 0 in WEIGHT: 182 lb 9.6 oz DATE OF STUDY: 06/03/[address]: morris restrepo 2-DIMENSIONAL: YES M.MODE: YES DOPPLER: YES COLOR FLOW: YES TDS: NO PORTABLE: NO DEFINITY: NO BUBBLE STUDY: NO DIAGNOSIS: ATRIAL FIBRILLATION CARDIAC HISTORY: CATHERIZATION: NO SURGERY: NO PROSTHETIC VALVE: NO PACEMAKER: NO MEASUREMENTS (cm) DIASTOLIC (NORMALS) SYSTOLIC (NORMALS) IVSd 0.9 (0.6-1.2) LA Diam 4.0 (1.9-4.0) LVEF 57% LVIDd 5.2 (3.5-5.7) LVIDs 3.6 (2.0-3.5) %FS 30% LVPWd 0.9 (0.6-1.2) Ao Diam 2.4 (2.0-3.7) 2 DIMENSIONAL ASSESSMENT: RIGHT ATRIUM: NORMAL LEFT ATRIUM: NORMAL RIGHT VENTRICLE: NORMAL LEFT VENTRICLE: NORMAL TRICUSPID VALVE: NORMAL MITRAL VALVE: NORMAL PULMONIC VALVE: NORMAL AORTIC VALVE: SCLEROSIS PERICARDIAL EFFUSION: NONE AORTIC ROOT: NORMAL LEFT VENTRICULAR WALL MOTION: NORMAL DOPPLER/COLOR FLOW: NORMAL COMMENTS: AORTIC SCLEROSIS WITH NO STENOSIS. NORMAL LEFT VENTRICULAR SIZE AND FUNCTION. NO MITRAL VALVE PROLAPSE. NO WALL MOTION ABONORMALITY. TECHNOLOGIST: Bertha EARL
[2019-06-03 17:25] LABS: Urine Appearance CLOUDY; Urine Bilirubin NEGATIVE (NEG); Urine Blood NEGATIVE (NEG); Urine Color YELLOW; Urine Glucose NEGATIVE (NEG); Urine Protein TRACE (NEG); Urine Specific Gravity 1.025 (1.005-1.030); Urine Urobilinogen 0.2 mg/dL (0.2-1.0); Urine pH 5.5 (5.0-7.0)
[2019-06-03 17:31] LABS: Urine Microscopic Reflex ORDER UMIC
[2019-06-03 18:15] LABS: Urine Amorphous Sediment 2+ /HPF (NONE SEEN); Urine Bacteria <20 /HPF (<20); Urine Culture Reflex Order NOT NEEDED; Urine RBC <5 /HPF (NONE SEEN)
[2019-06-03] MEDS: SENOSIDES 8.6 MG TAB PO SCH (20:49)
[2019-06-03] MEDS: GABAPENTIN 400 MG CAP PO SCH (20:49)
[2019-06-04] MEDS: CEFEPIME/SWI 1gm 10 ML IVP SCH ×4 (01:00→21:00)
[2019-06-04] MEDS: VANCOMYCIN ORAL SOLN 250 MG/5 ML OSYR PO SCH ×4 (01:30→17:34)
[2019-06-04] MEDS ORDERED: METHYLPREDNISOLONE 125 MG INJ IV ONE (04:20)
[2019-06-04] MEDS: IPRATROPIUM BROM 0.5MG/2.5ML IH SCH ×3 (04:20→12:00)
[2019-06-04] MEDS: ALBUTEROL 2.5 MG/3 ML NEB SOL NEB SCH ×3 (04:20→12:00)
[2019-06-04] MEDS ORDERED: FUROSEMIDE 20 MG/ 2ML VIAL IV ONE (04:21)
[2019-06-04] MEDS ORDERED: ALBUMIN HUMAN 25% 50 ML IV ONE (04:21)
[2019-06-04] MEDS: SOTALOL HCL 80 MG TAB PO SCH ×2 (06:22→17:34)
[2019-06-04 07:28] LABS: Protime INR 1.53
[2019-06-04 07:37] LABS: Troponin I 0.02 ng/mL (0.0-0.045)
[2019-06-04 07:39] LABS: Albumin 2.8 g/dL (3.4-5.0); Bilirubin Direct 0.1 mg/dL (0-0.2); Bilirubin Total 0.4 mg/dL (0.2-1.0); Protein, Total 6.7 g/dL (6.4-8.2)
--- NOTE | 2019-06-04 08:04 | RAD REPORT ---
EXAM DESCRIPTION: RAD - Chest Single View - 06/04/2019 6:47 am CLINICAL HISTORY: pneumonia COMPARISON: Portable June 02 TECHNIQUE: AP portable chest image was obtained 06/04/2019 6:47 am . FINDINGS: Lung volumes remain low. Increased opacification obscuring the left hemidiaphragm remains. Perihilar markings are prominent. Right infrahilar markings are also prominent. Minimal left costoph renic angle blunting is seen. Heart and vasculature are normal. No pneumothorax. No acute bony abnorm ality seen. No acute aortic findings suspected. IMPRESSION: Findings of left lung base pneumonia remain. All lung markings are accentuated by shallow inspiration potentially masking additional edema or infi ltrate.
[2019-06-04] MEDS: BACLOFEN 10 MG TAB PO SCH ×2 (08:48→20:33)
[2019-06-04] MEDS: CEFTRIAXONE/SWI 1gm 1 GM/10 ML SYR IVP SCH (08:48)
[2019-06-04] MEDS: VANCOMYCIN 1.5 GM in NA CHLORIDE 0.9% 500 ML IVPB SCH (08:48)
[2019-06-04] MEDS: ASPIRIN 81 MG CHEWABLE TABLET PO SCH (08:48)
[2019-06-04] MEDS: APIXABAN 5 MG TABLET PO SCH ×2 (08:48→20:33)
[2019-06-04] MEDS: FLUOXETINE 20 MG CAP PO SCH (08:48)
[2019-06-04] MEDS: PANTOPRAZOLE 40MG TABLET PO SCH (08:48)
[2019-06-04 09:52] LABS: Arterial Blood Carboxyhemoglob 1.6 % (0-1.5); Blood Gas Oxyhemoglobin 93.5 % (94-97); Blood O2 Saturation 95.9 % (92-98.5)
--- NOTE | 2019-06-04 10:47 | RAD REPORT ---
EXAM DESCRIPTION: CT - Chest For Pe Angio - 06/04/2019 10:16 am CLINICAL HISTORY: rule out pulmonary embolism COMPARISON: Thorax Wo Con dated 03/01/2019; Chest Single View dated 06/04/2019 TECHNIQUE: Dynamically enhanced 3 mm thick images of the chest were obtained during administration o f approximately 150mL Isovue 370 IV contrast. Coronal and oblique MIP reconstruction images were gene rated and reviewed. Exam utilizes a protocol to evaluate the pulmonary arterial tree. All CT scans are performed using dose optimization technique as appropriate and may include automated exposure control or mA/KV adjustment according to patient size. FINDINGS: No pulmonary emboli are identified. The aorta as imaged shows no acute or suspicious finding. Cardiomegaly is present without pericardial thickening or effusion. Patchy airspace opacification is present in the left upper lobe at the aortic arch level. Incidental note made of right azygos vein. Motion degradation limits upper lobe assessment. Patchy airspace opac ification is present in the posterior lung base on the left and to a lesser degree on the right. Mini mal left pleural effusion is present. No mediastinal or hilar suspicious masses. No chest wall masses or abnormal axillary lymphadenopathy. Large hiatal hernia is present matching comparison. IMPRESSION: No pulmonary emboli identified. Patchy pneumonia changes are present in the left lung base matching the prior examination. Minimal le ft pleural effusion is present. Additional pneumonia changes are present in the posterior right lung base and minimally in theleft up per lobe at the aortic arch level. Mild cardiomegaly.
[2019-06-04 11:15] LABS: Absolute Lymphocytes (CBC) 0.8 K/uL (0.7-4.9); Basophils % 0.5 % (0-1.3); Hematocrit 28.5 % (36.0-45.0); Lymphocytes % 11.2 % (15.3-44.8); MPV 8.1 fL (7.6-11.3); RBC Red Blood Cell Count 3.69 M/uL (3.86-4.86)
[2019-06-04 11:51] LABS: ALT/SGPT 19 U/L (12-78); AST/SGOT 22 U/L (15-37); Albumin 2.5 g/dL (3.4-5.0); Alkaline Phosphatase 112 U/L (45-117); BUN Blood Urea Nitrogen 13 mg/dL (7-18); Bicarbonate 28 mmol/L (21-32); Bilirubin Direct < 0.1 mg/dL (0-0.2); Bilirubin Total 0.3 mg/dL (0.2-1.0); Glucose Level 136 mg/dL (74-106); Potassium 4.2 mmol/L (3.5-5.1); Protein, Total 6.3 g/dL (6.4-8.2); Sodium Level 138 mmol/L (136-145)
--- NOTE | 2019-06-04 12:08 | PN ---
Date of Progress Note: 06/04/2019 Ms. Mendez was started yesterday on Betapace 80 mg b.i.d. because of rapid atrial fibrillation. Afte r her second dose, she converted to sinus rhythm. She had some difficulty breathing yesterday requir ing a Ventimask, but that has resolved this morning. Today, she is in sinus rhythm. No specific com plaints. Her lungs sound clear. Ms. Mendez needs to continue the sotalol. She is on anticoagulants , I believe Eliquis, which she needs to continue. She needs to start physical therapy and hopefully get her discharged soon. ANA/CHARLENE Voice ID: [id number] Report ID: [id number]
[2019-06-04] MEDS ORDERED: CEFEPIME 1 GM/VIAL IV SCH (12:30)
[2019-06-04] MEDS ORDERED: ALBUTEROL 2.5 MG/3 ML NEB SOL NEB PRN (12:33)
[2019-06-04] MEDS: ARFORMOTEROL TARTRATE 15 MCG/2 ML VIAL.NEB NEB SCH (20:02)
[2019-06-04] MEDS: SENOSIDES 8.6 MG TAB PO SCH (20:33)
[2019-06-04] MEDS: GABAPENTIN 400 MG CAP PO SCH (20:33)
--- NOTE | 2019-06-04 21:44 | PN ---
Date of Progress Note: 06/04/2019 Patient's condition deteriorated somewhat overnight. She required a Ventimask to raise her O2 to a r easonable level. Chest x-ray repeated showed continuation of the basilar pneumonia. Therefore, a CT angio was done and showed resolution of the PE, however, did show the pneumonia bilaterally and a sm all amount of pneumonitis in the left upper middle lobe. She has low-grade fever, although yesterday she spiked to 103.4. In view of the fact that she was also had a [facility] prior to being admitt ed and the development of pneumonitis I feel it is prudent to do a Coronavirus test and this was orde red and approved by the [facility]. She was therefore placed on no visitors until this is r eturned and clinically her in knees continues to improve. She has been sitting in the chair with no evidence of cellulitis or infection and the knee cap supposed to be removed. She was therefore evalu ated by her orthopedic surgeon. Depending on the results and clinical situation, she may be transfer red back to the [facility] and follow up with her orthopod if the tests are negative and she contin ues to improve clinically depending somewhat as well on her O2 requirements. Case was discussed at [facility] with Pulmonology. HR/MODL Voice ID: [id number] Report ID: [id number]
[2019-06-05] MEDS: VANCOMYCIN ORAL SOLN 250 MG/5 ML OSYR PO SCH ×4 (00:01→17:18)
[2019-06-05] MEDS: CEFEPIME/SWI 1gm 10 ML IVP SCH ×2 (00:03→12:40)
[2019-06-05] MEDS: CODEINE 30MG/APAP 300MG TAB PO PRN (00:10)
[2019-06-05] MEDS: SOTALOL HCL 80 MG TAB PO SCH ×2 (05:28→17:16)
--- NOTE | 2019-06-05 08:17 | RAD REPORT ---
EXAM DESCRIPTION: RAD - Chest Single View - 06/05/2019 7:09 am CLINICAL HISTORY: pneumonia COMPARISON: Portable June 03 chest, June 03 CT chest TECHNIQUE: AP portable chest image was obtained 06/05/2019 7:09 am . FINDINGS: Lung volumes are low. Medial left lung base remains hazy. There is slight improvement in v isualization of the left hemidiaphragm. Right heart border is partially obscured. Slight increase in opacification in the medial right upper lung field is present. This is possibly artifact of motion an d presence of an azygos vein. This can be monitored on subsequent imaging. Cardiomegaly is present. No pericardial effusion was seen on the prior day CT chest. No pneumothorax or enlarging pleural effusion. No acute bony abnormality seen. No acute aortic findings suspected. IMPRESSION: Pneumonia changes are not substantially different from the prior day study. There may be some slight clearing at the left base. Medial right apex can be monitored. Current increase in opacification is probably artifact of azygos vein and slight rotation of the patient. Cardiomegaly.
[2019-06-05] MEDS: APIXABAN 5 MG TABLET PO SCH ×2 (09:03→20:40)
[2019-06-05] MEDS: PANTOPRAZOLE 40MG TABLET PO SCH (09:03)
[2019-06-05] MEDS: FLUOXETINE 20 MG CAP PO SCH (09:03)
[2019-06-05] MEDS: BACLOFEN 10 MG TAB PO SCH ×2 (09:03→20:40)
[2019-06-05] MEDS: ASPIRIN 81 MG CHEWABLE TABLET PO SCH (09:03)
--- NOTE | 2019-06-05 09:26 | P.PN ---
Subjective Date of Service: 06/05/19 Chief Complaint: Pneumoniae Subjective: Improving Patient is doing much better breathing on oxygen a [place] has improved Review of Systems General: Weakness Respiratory: Shortness of Breath Physical Examination - Vital Signs Temperature: 97 F Blood Pressure: 106/57 Pulse: 58 Respirations: 18 Pulse Ox (%): 93 - Physical Exam General: Alert, Oriented x3 Neck: Supple Respiratory: Clear to auscultation bilaterally, Crackles/rales - Studies Microbiology Data (last 24 hrs): 06/01/19 17:23 Clean Catch Urine [place] Count - Final <10,000 CFU/ML. 06/01/19 17:23 Clean Catch Urine - Final MIXED NESTOR. Assessment & Plan - Problems (Diagnosis) (1) Pneumonia Current Visit: Yes Status: Acute Plan: Patient is 79 years of age admitted with bilateral pneumonia sputum cultures positive for enterobacter continue with cefepime white count is now normal pro calcitonin level negative once the coal with 19 test is negative patient can ambulate possible discharge continue the check room air pulse ox incentive spirometry patient is afebrile white count is now normal change to p.o. levofloxacin ambulate tomorrow incentive spirometry Qualifiers: Pneumonia type: due to unspecified organism
--- NOTE | 2019-06-05 09:30 | P.CNS ---
Date of Consult: 06/04/19 Chief Complaint: Pneumoniae History of Present Illness: Patient is 77 years of age came to the hospital with respiratory distress apparently she did have right knee surgeryin [place] was discharged became worse more shortness of breath cough congestion patient was undergoing rehab in a long-term as found to have bilateral pneumonia/developed some respiratory distress time of my evaluation she was doing better was not in any distress gram -negative rods in the sputum patient is anti coagulated Allergies promethazine [From Phenergan] Allergy (Verified 05/30/19 09:23) Unknown Home Medications: Acetaminophen with Codeine [Tylenol with Codeine #3 Tablet] 1 tab PO Q4H PRN 12/10 Apixaban [Eliquis] 1 tab PO BID 05/30/19 Aspirin Chewable [Aspirin Chewable*] 1 tab PO DAILY 05/30/19 Baclofen [Lioresal*] 1 tab PO TID 05/30/19 Fluoxetine HCl [Prozac] 1 tab PO DAILY 05/30/19 Gabapentin [Neurontin*] 1 tab PO BEDTIME 05/30/19 Omeprazole [Prilosec] 1 tab PO DAILY 05/30/19 Ondansetron [Zofran (Odt)*] 1 tab PO Q6H PRN 05/30/19 Sennosides [Senna] 1 tab PO BEDTIME 05/30/19 Apixaban [Eliquis] 5 mg PO BID #60 tablet 06/04/19 Sotalol HCl [Betapace*] 80 mg PO BID #60 tab 06/04/19 - Past Medical/Surgical History Diabetic: No -: pulmonary embolism -: c. diff -: HTN -: CHF exacerbation -: right knee surgery -: mengioma -: appendectomy -: cholecystectomy -: tonsilectomy -: tubal ligation - Family History Father Medical History: Cancer Notes: colon cancer Mother Medical History: Heart disease - Social History Alcohol use: No CD- Drugs: No Caffeine use: Yes Place of Residence: [facility] Review of Systems 10-point ROS is otherwise unremarkable General: Weakness Respiratory: Cough, Shortness of Breath Physical Examination Temp Pulse Resp BP Pulse Ox 97 F 58 18 106/57 L 93 06/05/19 09:25 06/05/19 09:25 06/05/19 09:25 06/05/19 09:25 06/05/19 09:25 General: Alert, In no apparent distress, Oriented x3 Respiratory: Clear to auscultation bilaterally, Friction rub Cardiovascular: Regular rate/rhythm, Normal S1 S2 Gastrointestinal: Normal bowel sounds, Soft and benign Musculoskeletal: No clubbing, No swelling - Problems (1) Pneumonia Current Visit: Yes Status: Acute Plan: Patient is 79 years of age admitted with bilateral lower lobe pneumonia sputum has gram-negative rods chemistries reviewed normal white count pro calcitonin level is negative no recent contact with COVID 19 patient's no history of travel a change her over to cefepime patient also has C difficile labs unremarkable apart from mild microcytic anemia Qualifiers: Pneumonia type: due to unspecified organism
[2019-06-05] MEDS: ARFORMOTEROL TARTRATE 15 MCG/2 ML VIAL.NEB NEB SCH ×2 (12:38→20:52)
[2019-06-05] MEDS ORDERED: CODEINE 30MG/APAP 300MG TAB PO PRN (17:19)
--- NOTE | 2019-06-05 19:36 | PN ---
Date of Progress Note: 06/05/2019 Patient is feeling somewhat better today. She still has a rather wet cough with some minimal exertio n. However, her vital signs are stable and she remains afebrile. Appetite is good. No further diar jessica. Bacteria in the form of enterococcus was growing from the sputum, started on cefepime, which i s appropriate on her culture. Awaiting the coronavirus study either later this evening or in the [facility]. Suspect to be negative and in this case, she may be transferred back to the assisted withi n 24 to 48 hours. HR/MODL Voice ID: [id number] Report ID: [id number]
[2019-06-05] MEDS: GABAPENTIN 400 MG CAP PO SCH (20:40)
[2019-06-05] MEDS: SENOSIDES 8.6 MG TAB PO SCH (20:40)
[2019-06-05] MEDS: IPRATROPIUM BROM 0.5MG/2.5ML IH PRN (20:52)
[2019-06-06] MEDS: VANCOMYCIN ORAL SOLN 250 MG/5 ML OSYR PO SCH ×4 (00:27→17:13)
[2019-06-06] MEDS: CEFEPIME/SWI 1gm 10 ML IVP SCH ×2 (00:38→12:41)
[2019-06-06] MEDS: SOTALOL HCL 80 MG TAB PO SCH ×2 (05:35→17:13)
[2019-06-06] MEDS: IPRATROPIUM BROM 0.5MG/2.5ML IH PRN ×2 (07:26→20:20)
[2019-06-06] MEDS: ARFORMOTEROL TARTRATE 15 MCG/2 ML VIAL.NEB NEB SCH ×2 (08:00→20:20)
[2019-06-06] MEDS: ASPIRIN 81 MG CHEWABLE TABLET PO SCH (09:46)
[2019-06-06] MEDS: PANTOPRAZOLE 40MG TABLET PO SCH (09:46)
[2019-06-06] MEDS: FLUOXETINE 20 MG CAP PO SCH (09:46)
[2019-06-06] MEDS: APIXABAN 5 MG TABLET PO SCH ×2 (09:46→20:22)
[2019-06-06] MEDS: BACLOFEN 10 MG TAB PO SCH ×2 (09:46→20:22)
--- NOTE | 2019-06-06 19:52 | PN ---
Date of Progress Note: 06/06/2019 The patient states she feels somewhat better today. She remains afebrile. Vital signs are stable. Shin virus came back negative. I discussed the case further with Dr. Hernandez, who felt that marli elliott was a self reading of the PE, wanted to continue on her anticoagulation anyway since she was post k nee surgery and felt she could evaluate her at the time she was either transfer to the residential o r discharged. HR/MODL Voice ID: [id number] Report ID: [id number]
[2019-06-06] MEDS: GABAPENTIN 400 MG CAP PO SCH (20:22)
[2019-06-06] MEDS: SENOSIDES 8.6 MG TAB PO SCH (20:22)
[2019-06-07] MEDS: CEFEPIME/SWI 1gm 10 ML IVP SCH (01:32)
[2019-06-07 04:05] VITALS: BMI 35.5
[2019-06-07 04:47] LABS: Absolute Lymphocytes (CBC) 1.7 K/uL (0.7-4.9); Basophils % 1.2 % (0-1.3); Hematocrit 28.4 % (36.0-45.0); Lymphocytes % 28.3 % (15.3-44.8); MPV 8.1 fL (7.6-11.3); RBC Red Blood Cell Count 3.67 M/uL (3.86-4.86)
[2019-06-07 05:05] LABS: Potassium 4.4 mmol/L (3.5-5.1)
[2019-06-07] MEDS: VANCOMYCIN ORAL SOLN 250 MG/5 ML OSYR PO SCH ×4 (06:16→17:36)
[2019-06-07] MEDS: SOTALOL HCL 80 MG TAB PO SCH (06:17)
[2019-06-07] MEDS: ARFORMOTEROL TARTRATE 15 MCG/2 ML VIAL.NEB NEB SCH (08:00)
[2019-06-07] MEDS: ASPIRIN 81 MG CHEWABLE TABLET PO SCH (08:07)
[2019-06-07] MEDS: FLUOXETINE 20 MG CAP PO SCH (08:07)
[2019-06-07] MEDS: PANTOPRAZOLE 40MG TABLET PO SCH (08:07)
[2019-06-07] MEDS: BACLOFEN 10 MG TAB PO SCH (08:07)
[2019-06-07] MEDS: APIXABAN 5 MG TABLET PO SCH (08:07)
[2019-06-07 08:28] VITALS: O2SAT 97
--- NOTE | 2019-06-07 08:46 | RAD REPORT ---
EXAM DESCRIPTION: RAD - Chest Pa And Lat (2 Views) - 06/07/2019 8:26 am CLINICAL HISTORY: pn, pneumonia, shortness of breath portable chest June 05, 2019 COMPARISON: Portable June 05, 2019, portable June 04, 2019, two-view chest view May 31, 2019 ; C T chest June 03 TECHNIQUE: Frontal and lateral views of the chest were obtained. FINDINGS: The lungs are normal volume. Patient has a mild prominent baseline interstitial pattern. I nterstitial opacification is increased in the posterior left base. There is interstitial and delete s elect alveolar opacification. Right perihilar region is not substantially different. Patient does hav e bronchial wall thickening as a baseline. Posterior gutter on the right is limited in assessment. Heart size is normal and central vasculature is within normal limits. No pleural effusion or pneu mothorax seen. No acute bony finding noted. No aortic abnormality. IMPRESSION: Posterior left lung base pneumonia not substantially different from the June 03 CT ches t study. .
--- NOTE | 2019-06-07 08:52 | P.PN ---
Subjective Date of Service: 06/07/19 Chief Complaint: Pneumoniae Patient is improving Review of Systems Unremarkable General: Weakness Physical Examination - Vital Signs Temperature: 97.1 F Blood Pressure: 125/56 Pulse: 65 Respirations: 16 Pulse Ox (%): 94 - Physical Exam General: Alert, Oriented x3 Neck: Supple Respiratory: Clear to auscultation bilaterally Assessment & Plan - Problems (Diagnosis) (1) Pneumonia Current Visit: Yes Status: Acute Plan: Patient admitted with pneumonia clinically improving change to p.o. levofloxacin. Discuss with cardiology Dc sotalol change to metoprolol continue with anticoagulation Levaquin for 7 days patient to follow-up with in 7 days to re-evaluate labs shows hypernatremia high pro hyperchloremia will repeat white count is declining vital signs stable stable to be discharged back to the long term Qualifiers: Pneumonia type: due to unspecified organism Laterality: left
[2019-06-07] MEDS ORDERED: METOPROLOL XL 25 MG TAB PO SCH (09:00)
[2019-06-07] MEDS ORDERED: levoFLOXacin 500 MG TAB PO SCH (09:00)
[2019-06-07 17:24] VITALS: BP 114/76; TEMP 98.2
--- NOTE | 2019-06-07 20:26 | CON ---
History Of Present Illness: Patient is a 79-year-old female with recent right knee replacement. Als o having challenge with C difficile colitis and pneumonia. Patient is currently being treated with I V antibiotics. Denies any headache, nausea, vomiting, chest pain, abdominal pain, constipation, or d iarrhea. Currently being given Levaquin and vancomycin. Allergies: PROMETHAZINE. Review of Systems: A 10-point review was performed. Physical Examination: General: This is a 79-year-old female, lying in bed, not in any acute cardiopulmonary distress. Vital Signs: Temperature 97.9, pulse 68, respirations 16, blood pressure 136/69. HEENT: Unremarkable. Neck: Supple. Lungs: Clear to auscultation. Heart: S1, S2. Regular. Abdomen: Soft, nontender. Bowel sounds present. Extremities: No edema. Right knee with surgical dressing in place. Assessment And Plan: Left lower lobe pneumonia and C difficile colitis, right knee replacement, curr ently being treated with Levaquin and vancomycin oral, total course of 2 weeks. We will follow the p atient closely. Thank you Dr. Combs for consult. NF/CHARLENE Voice ID: [id number] Report ID: [id number]
[2019-06-07] MEDS ORDERED: ATORVASTATIN 80 MG TAB PO SCH (21:00)
--- NOTE | 2019-07-16 00:41 | DS ---
Date of Discharge: 06/07/2019 Hospital Course: The patient was admitted to the hospital on 06/02. She has recently undergone a kn ee replacement and was placed in the longterm and had been there for 24 hours. She had altered m ental status episode, possibly TIA, CVA was considered. The patient also had a PE diagnosed postoper atively and was on anticoagulation for this. In the event, she was transferred to our emergency room and at that time there was still some confusion and a tentative diagnosis of pneumonitis was made. She was admitted for further treatment. The latter was treated with antibiotics. After the first 48 hours, the patient's AMS improved somewhat; however, she became febrile and it was felt since she ruelas s been in the longterm and had pneumonia, it would be hbatia to do a coronavirus test. While await ing the results, she was in isolation. The results were negative. The remainder of her hospital sta y, she had some difficulty with maintaining her hemoglobin and there was some modification made in he r Eliquis doses after being seen by her neurologist. Pulmonology showed gradual improvement. She ruelas d 1 significant setback and BiPAP was used to control this. However, once it was felt that she had a hospital-acquired pneumonia and antibiotics were changed, she improved considerably both clinically and symptomatically. The other issue is she had diarrhea and C diff was diagnosed and she was placed on oral vancomycin. The patient also had an episode of atrial fibrillation, which was an acute onse t with RVR, she was placed on beta blockers and seen by Cardiology; however, this 1 episode was brief and improved and she did not have any further episodes. The other issue was her low hemoglobin, whi ch she felt was a combination of chronic disease and postoperatively she also developed a rather larg e hematoma over the area between her knee and her left upper leg, the right upper leg with knee repla cement, did not feel that this contributed significantly to the low blood count. She was seen by Sukhi izquierdo, who felt it was bhatia not to do an aspiration or I and D and just can treat it conservativel y. She had no further episodes of TIA, CVA while she was in the hospital. She underwent some rehab, which show gradual improvement. She was sitting and functioning both mentally and physically by , and she was transferred back to the longterm, continue on her usual medications with the exce ption of a decrease in the Eliquis. She is no longer on the beta blockers. Continued her on the van comycin for the C diff and was discharged in fair condition on 06/06. Final Diagnoses: Pneumonia, bilateral, basilar; acute colitis; C diff; acute pulmonary embolism; pos top hematoma, left mid leg; atrial fibrillation with rapid ventricular rate new onset; hypertension, controlled; altered mental status possibly secondary to transient ischemic attack; anemia postop and secondary to the hematoma; right knee replacement; recent meningioma, stable by history. HR/MODL Voice ID: [id number] Report ID: [id number]
== END 2019-06-07 18:33 | DRG 371 ==
LOC: ER 04:24 → ERHOLD 07:02 → 4TH 08:15 → OBSVTOIN 06-03 07:43 → 4TH 06-04 09:36
PROVIDERS: ADMIT Family Medicine; ATTEND Family Medicine
DX: A04.72 Enterocolitis due to Clostridium difficile, not specified as recurrent (principal); J18.9 Pneumonia, unspecified organism; J96.20 Acute and chronic respiratory failure, unspecified whether with hypoxia or hypercapnia; G93.41 Metabolic encephalopathy; G45.9 Transient cerebral ischemic attack, unspecified; N39.0 Urinary tract infection, site not specified; I50.42 Chronic combined systolic (congestive) and diastolic (congestive) heart failure; E87.0 Hyperosmolality and hypernatremia; Z86.711 Personal history of pulmonary embolism; I48.91 Unspecified atrial fibrillation; I11.0 Hypertensive heart disease with heart failure; Z96.651 Presence of right artificial knee joint; D32.0 Benign neoplasm of cerebral meninges; J45.909 Unspecified asthma, uncomplicated; F32.89 Other specified depressive episodes; K21.9 Gastro-esophageal reflux disease without esophagitis; Z20.828 Contact with and (suspected) exposure to other viral communicable diseases
CPT/HCPCS: 36415; 70450; 71045; 71046; 71275; 80048; 80061; 80076; 80202; 80307; 81003; 81015; 82274; 82550; 82553; 82565; 82805; 82947; 83605; 83735; 83880; 84145; 84484; 85025; 85610; 85730; 87040; 87070; 87077; 87086; 87088; 87186; 87205; 87804; 93005; 93306; 93880; 94640; 94760; 95819; 96361; 96374; 97110; 97116; 97161; 97530; 99291; G0378; J0692; J0696; J1940; J2310; J2930; J2997; J7030; J7040; J7605; P9047; Q9967; U0001

== ENCOUNTER 2020-01-04 06:35 | Emergency (ER) | payer OTHER ==
--- OUTSIDE RECORDS SUMMARY | 2020-01-04 06:37 | XMS REPORT | Continuity of Care Document ---
:[address] [facility] t Address [address] [place] [address] Care Team Providers Name Role Phone Asked, Pcp Primary Care Physician Unavailable Doctor Unassigned, Name Attending Clinician Unavailable Carla HEATH, L Attending Clinician Susan BAZZI Attending Clinician Norman HEATH S Attending Clinician Pob, Lab Main Attending Clinician Unavailable Charanjit EDWARDS, S Attending Clinician Carla HEATH L Admitting Clinician Problems Condition Condition Condition Status Onset Resolution Last Treating Co mments Source Name Details Category Date Date Treatment Clinician Date Heartburn Heartburn Disease Active [place] st[place] 10-03 Methodi 00:00: st 00 Family Family Disease Active [place] history of history of 10-03 Me thodi colon colon 00:00: st cancer cancer 00 Allergies, Adverse Reactions, Alerts Allergy Allergy Status Severity Reaction(s) Onset Inactive Treating Comm ents Source Name Type Date Date Clinician Vijay Dave Active Anxiety, Made her [place] zine ty to Other (See 09-21 feel Method i adverse Comments) 00:00: crazy st reaction 00 s to drug Family History Family Member Diagnosis Comments Start Date Stop Date Source Natural father Colon cancer [place] [facility] Natural son Crohn's disease [facility] Social History Social Habit Start Date Stop Date Quantity Comments Source Sex Assigned At [facility] ethodist Tobacco use and 2017-09-21 2017-09-21 Never used [facility] ethodist exposure 00:00:00 00:00:00 Alcohol intake 2017-09-21 2017-09-21 Current drinker [place] on [facility] 00:00:00 00:00:00 of alcohol (finding) Alcohol Comment 2017-08-11 2017-08-11 rarely [facility] ethodist 00:00:00 00:00:00 History of 1992-08-11 Current smoker [facility] thodist tobacco use 00:00:00 Smoking Status Start Date Stop Date Source Former smoker 2017-09-21 00:00:00 2017-09-21 00:00:00 [place] [facility] Medications Ordered Filled Start Stop Current Ordering Indication Dosage Frequency Signature Comments Components Source Medication Medication Date Date Medication? Clinician (SIG) Name Name FLUoxetine Yes 20mg QD Take 20 mg [place] (PROzac) 20 5-22 by mouth Meth lorenzo MG capsule 13:42: daily. st 59 lisinopril Yes 10mg QD Take 10 mg [place] (PRINIVIL,Z 5-22 by mouth Meth lorenzo ESTRIL) 10 13:42: daily. st mg tablet 59 pregabalin Yes 50mg [id number] Take 50 mg [place] (LYRICA) 50 5-22 [id number] by mouth 3 Methodi MG capsule 13:42: 3D (three) st 59 times a day. aspirin 2018 Yes 81mg QD Take 81 mg [place] (ECOTRIN) 5-22 by mouth Method i 81 MG 13:42: daily. st enteric 59 coated tablet alendronate Yes 70mg Q1W Take 70 mg [place] (FOSAMAX) 5-22 by mouth Method i 70 MG 13:42: every 7 st tablet 59 days. Take in the morning with a full glass of water on an empty stomach, do NOT take anything else by mouth or lie down for the next 30 min. albuterol Yes 2{puff} Q6H Inhale 2 [place] (PROAIR 5-22 puffs Methodi HFA) 90 13:42: every 6 st mcg/actuati 59 (six) on inhaler hours as needed for wheezing. IPRATROPIUM 2018-0 Yes into each [place] BROMIDE 5-22 nostril. Methodi NASL 13:42: st 59 albuterol 2018-0 Yes 2.5mg Q.[id number] Take 2.5 [place] sulfate 5-22 [id number] mg by Metho di (PROVENTIL) 13:42: 3D nebulizati st 2.5 mg/0.5 59 on 3 mL solution (three) for times a nebulizatio day. n omeprazole 2018-0 Yes Heartburn 40mg Q.5D Take 1 [place] (PriLOSEC) 5-22 capsule Method i 40 MG 00:00: ([address] capsule 00 total) by mouth 2 (two) times a day. Procedures This patient has no known procedures. Plan of Care Planned Activity Planned Date Details Comments Source Future Scheduled 2019-10-22 INFLUENZA VACCINE [place] [facility] 00:00:00 [code = INFLUENZA VACCINE] Future Scheduled 2006 65+ PNEUMOCOCCAL [place] [facility] Test 00:00:00 VACCINE (1 of 1 - PPSV23) [code = 65+ PNEUMOCOCCAL VACCINE (1 of 1 - PPSV23)] Future Scheduled 1991 [facility] 00:00:00 [code = SHINGLES VACCINES (#1)] Encounters Start End Encounter Admission Attending Care Care Encounter Source Date/Time Date/Time Type Type Clinicians Facility Department ID 2019-06-15 2019-06-15 Orders Doctor LEO [id number] 00:00:00 00:00:00 Only Unassigned, JUSTIN [id number] [place] [facility] [id number] 2019-05-23 2019-05-27 [facility] Carla [facility] [id number] 05:51:00 15:01:00 Encounter Hernan Brown [id number] [place] [id number] [place] [id number] 2019-05-23 2019-05-23 Anesthesia Robson Davis [facility] [id number] 07:36:00 09:26:00 Ilya [place] [id number]. 10 [place] [id number] Surgical [id number] [place] 020 2019-05-19 2019-05-19 [place] Supervisor Raza Romero [facility] [id number] 14:54:47 15:09:47 Visit Lab Main Stephanie [id number] [place] [id number] Professio [id number] [address] 2019-05-17 2019-05-17 Office Charanjit [facility] [id number] 14:10:00 14:25:00 Visit [facility] [id number] Surgical [id number] Specialti [id number] maria teresa Brown Results This patient has no known results.
--- OUTSIDE RECORDS SUMMARY | 2020-01-04 06:37 | XMS REPORT | Clinical Summary ---
:1940 Author Organization [facility] Address [address] [place] [address] Care Team Providers Name Role Phone Asked, Pcp Primary Care Provider Unavailable Allergies Active Allergy Reactions Severity Noted Date Comments Promethazine Anxiety, Other (See Comments) Low 09/21/2017 Made her feel crazy Medications Medication Sig Dispensed Refills Start Date End Date Status FLUoxetine (PROzac) Take 20 mg by mouth 0 Active 20 MG capsule daily. lisinopril Take 10 mg by mouth 0 Active (PRINIVIL,ZESTRIL) daily. 10 mg tablet pregabalin (LYRICA) Take 50 mg by mouth 0 Active 50 MG capsule 3 (three) times a day. aspirin (ECOTRIN) 81 Take 81 mg by mouth 0 Active MG enteric coated daily. tablet alendronate Take 70 mg by mouth 0 Active (FOSAMAX) 70 MG every 7 days. Take tablet in the morning with a full glass of water on an empty stomach, do NOT take anything else by mouth or lie down for the next 30 min. albuterol (PROAIR Inhale 2 puffs every 0 Active HFA) 90 6 (six) hours as mcg/actuation needed for wheezing. inhaler IPRATROPIUM BROMIDE into each nostril. 0 Active NASL albuterol sulfate Take 2.5 mg by 0 Active (PROVENTIL) 2.5 nebulization 3 mg/0.5 mL solution (three) times a day. for nebulization omeprazole Take 1 capsule (40 0 08/11/2017 Active (PriLOSEC) 40 MG mg total) by mouth 2 capsuleIndications: (two) times a day. Heartburn Active Problems Problem Noted Date Heartburn 10/03/2017 Family history of colon cancer 10/03/2017 Surgical History Surgery Date Site/Laterality Comments COLONOSCOPY 03/23/2012 - 03/22/2013 no polyps APPENDECTOMY 03/23/1947 - 03/22/1948 CHOLECYSTECTOMY 03/23/1990 - 03/22/1991 UPPER GASTROINTESTINAL ENDOSCOPY Medical History Medical History Date Comments Hypertension Family History Medical History Relation Name Comments Colon cancer Father Crohn's disease Son Relation Name Status Comments Father Son Social History Tobacco Use Types Packs/Day Years Used Date Former Smoker Cigarettes 20 Quit: 08/11/18 93 Smokeless Tobacco: Never Used Tobacco Cessation: Counseling Given: No Alcohol Use Drinks/Week oz/Week Comments Yes rarely Sex Assigned at Date Recorded Not on file Last Filed Vital Signs Not on file Plan of Treatment Health Maintenance Due Date Last Done Comments SHINGLES VACCINES (#1) 1991 65+ PNEUMOCOCCAL VACCINE (1 of 1 - PPSV23) 2006 INFLUENZA VACCINE 10/22/2019 Results Not on fileafter 01/03/2019 Advance Directives For more information, please contact: [phone] Type Date Recorded Patient Childcare Teacher Explanati on Advance Directives, Living Will and Medical Power of Title One Reading Teacher
[2020-01-04 07:21] LABS: Absolute Lymphocytes (CBC) 0.8 K/uL (0.7-4.9); Basophils % 0.4 % (0-1.3); Hematocrit 33.3 % (36.0-45.0); Lymphocytes % 7.6 % (15.3-44.8); MPV 8.5 fL (7.6-11.3); RBC Red Blood Cell Count 4.28 M/uL (3.86-4.86)
[2020-01-04 07:25] LABS: Protime INR 1.03
[2020-01-04] MEDS ORDERED: ACETAMINOPHEN 500 MG TAB ONE (07:36)
[2020-01-04 07:39] LABS: ALT/SGPT 28 U/L (12-78); AST/SGOT 30 U/L (15-37); Alkaline Phosphatase 117 U/L (45-117); Amylase 42 U/L (25-115); BUN Blood Urea Nitrogen 12 mg/dL (7-18); Bicarbonate 26 mmol/L (21-32); Bilirubin Direct 0.2 mg/dL (0-0.2); Bilirubin Total 0.6 mg/dL (0.2-1.0); CKMB Creatine Kinase MB < 1.0 ng/mL (0.3-3.6); Creatine Phosphokinase 55 U/L (26-192); Glucose Level 89 mg/dL (74-106); Lipase 347 U/L (73-393); Potassium 4.2 mmol/L (3.5-5.1); Protein, Total 6.8 g/dL (6.4-8.2); Sodium Level 141 mmol/L (136-145); Troponin (Emerg Dept Use Only) < 0.02 ng/mL (0.0-0.045)
--- NOTE | 2020-01-04 08:02 | RAD REPORT ---
EXAM DESCRIPTION: CT - Head Brain Wo Cont - 01/04/2020 7:56 am CLINICAL HISTORY: HEADACHE COMPARISON: Head Brain Wo Cont dated 06/01/2019 TECHNIQUE: Axial 5 mm thick images of the head were obtained without IV contrast. All CT scans are performed using dose optimization technique as appropriate and may include automated exposure control or mA/KV adjustment according to patient size. FINDINGS: No intracranial hemorrhage, mass, edema or shift of mid-line structures. No acute infarcti on changes seen. Atrophy changes are minimal for age. Ventricles are in proportion to any volume loss . Mild chronic ischemic change seen in the cerebral white matter. The calcified 15 millimeter left CP angle mass has not changed. Mastoid air cells are clear. Air-fluid level seen in the right maxillary sinus. Patchy mucosal thicke emelyn in the ethmoid air cells. No acute bony findings. IMPRESSION: No acute intracranial finding. Intracranial findings are stable from May 2019. Small air-fluid level in the right maxillary sinus as well as ethmoid mucosal thickening. Correlatio n can be made with any acute sinusitis clinical presentation.
[2020-01-04 08:20] LABS: Urine Blood NEGATIVE (NEG); Urine Glucose NEGATIVE (NEG); Urine Protein NEGATIVE (NEG); Urine pH 8.5 (5.0-7.0)
--- NOTE | 2020-01-04 08:37 | RAD REPORT ---
EXAM DESCRIPTION: RAD - Chest Single View - 01/04/2020 8:09 am CLINICAL HISTORY: FEVER, confusion COMPARISON: May 2019 TECHNIQUE: AP portable chest image was obtained 01/04/2020 8:09 am . FINDINGS: No focal pneumonia identifiable. Interstitial pattern is similar or less prominent than se en on comparison. No recurrence of the left base pneumonia seen in May. Heart and vasculature are normal. No measurable pleural effusion and no pneumothorax. No acute bony abnormality seen. No acute aortic findings suspected. IMPRESSION: No acute cardiopulmonary process.
--- NOTE | 2020-01-04 09:07 | ER ---
Nurse's Notes [facility] Name: Nallely Mendez Age: 79 yrs Sex: Female : 1940 Arrival Date: 01/04/2020 Time: 06:37 Bed 6 Private MD: Diagnosis: Confusion;Fever, unspecified;Viral infection, unspecified Presentation: 01/03 06:49 Chief complaint: family member states pt confused c/o headache, chills, diarrhea since bb yesterday pt received flu and pneumonia vaccine yesterday as well. Coronavirus screen: chills, diarrhea, fever, headache, Client presents with at least one sign or symptom that may indicate coronavirus-19. Standard/surgical mask placed on the client. Ebola Screen: No symptoms or risks identified at this time. Initial Sepsis Screen: Does the patient meet any 2 criteria? Temp <36.0*C (96.8*F)) or > 38.3*C (100.9*F). Altered Mental Status. Yes Does the patient have a suspected source of infection? Yes: Other: unknown Risk Assessment: Do you want to hurt yourself or someone else? Patient reports no desire to harm self or others. Onset of symptoms was January 03, 2020. 06:49 Method Of Arrival: Wheelchair bb 06:49 Acuity: GUNNER 2 bb Historical: - Allergies: 06:54 Phenergan; bb - Home Meds: 06:54 gabapentin Oral [Active]; Metoprolol Tartrate Oral [Active]; Protonix Oral [Active]; bb vitamins [Active]; - PMHx: 06:54 acute respiratory failure; Anemia; Asthma; CHF; Depression; GERD; Hypertension; bb osteoarthritis; Pulmonary Embolism; pulmonary edema; - PSHx: 06:54 Knee surgery; Appendectomy; Cholecystectomy; staph infection under arm; bb - Immunization history:: Adult Immunizations up to date. - Social history:: Smoking status: unknown. Screenin:48 Abuse screen: Denies threats or abuse. Nutritional screening: No deficits noted. ea Tuberculosis screening: No symptoms or risk factors identified. Fall Risk None identified. Assessment: 07:07 Reassessment: Dr Almaraz at the bedside. sv 07:30 General: Appears in no apparent distress. comfortable, Behavior is calm, cooperative. vg1 Pain: Denies pain. Neuro: Level of Consciousness is awake, alert, obeys commands, Oriented to person, place, time, situation. Cardiovascular: Patient's skin is warm and dry. Respiratory: Airway is patent Respiratory effort is even, unlabored, Respiratory pattern is regular, symmetrical. : Urine is clear, and yellow. Derm: Skin is pink, warm \\T\\ dry. Musculoskeletal: Range of motion: intact in all extremities. 08:35 Reassessment: Patient appears in no apparent distress at this time. Patient states head vg1 still hurts but denies any pain medication at this time. In bed resting, family at bedside. Bed low and call light at side. 09:20 Reassessment: Patient appears in no apparent distress at this time. Patient is alert, vg1 oriented x 3, equal unlabored respirations, skin warm/dry/pink. Patient states "feeling a little better". Vital Signs: 06:49 BP 155 / 63; Pulse 84; Resp 18 S; Temp 101.3(O); Pulse Ox 95% on R/A; Weight 77.11 kg bb (R); Height 5 ft. 0 in. (152.40 cm) (R); Pain 8/10; 07:30 BP 141 / 107; Pulse 73; Resp 14; Pulse Ox 100% on R/A; Pain 0/10; vg1 08:33 BP 124 / 84; Pulse 74; Resp 18; Temp 99.9; Pulse Ox 95% on R/A; vg1 08:59 Temp 99.9; vg1 09:00 BP 122 / 84; Pulse 70; Resp 18; Temp 99.8; Pulse Ox 96% on R/A; vg1 06:49 Body Mass Index 33.20 (77.11 kg, 152.40 cm) bb Vitals: 08:33 Cardiac Rhythm Assessment Regular. vg1 ED Course: 06:37 Patient arrived in ED. ag3 06:48 Patient has correct armband on for positive identification. Placed in gown. Bed in low ea position. Call light in reach. lead shop operator on. Pulse ox on. NIBP on. 06:49 Arm band placed on right wrist. Patient placed in an exam room, on a stretcher, on ea information scientist, on pulse oximetry. 06:52 Triage completed. bb 07:05 Inserted saline lock: 20 gauge in right wrist, using aseptic technique. Blood collected.ds4 07:17 Freedom Almaraz MD is Attending Physician. kdr 07:23 EKG done, by ED staff, reviewed by Freedom Almaraz MD. mt 07:24 Shama Bryant, RN is Primary Nurse. vg1 07:35 Straight cath inserted, using sterile technique, 16 Fr. Specimen obtained. vg1 08:10 Chest Single View XRAY In Process Unspecified. EDMS 08:42 CT Head Brain wo Cont Sent. sv 09:40 No provider procedures requiring assistance completed. IV discontinued, intact, vg1 bleeding controlled, No redness/swelling at site. Pressure dressing applied. Administered Medications: 07:06 CANCELLED (Physician Discretion): NS 0.9% (30 ml/kg) 30 ml/kg IV at bolus once; Sepsis sv Protocol 07:30 Drug: Tylenol 1000 mg Route: PO; vg1 08:59 Follow up: Temp 99.9; Response: No adverse reaction; Temperature is decreased vg1 Output: 07:30 Urine: 300ml (Straight Cath); Total: 300ml. vg1 Outcome: 09:07 Discharge ordered by . kdr 09:20 Discharged to home via ambulance, with family. vg1 09:20 Discharged to home via ambulance, with family. 09:20 Condition: good 09:20 Discharge instructions given to patient, family, Instructed on discharge instructions, follow up and referral plans. Demonstrated understanding of instructions, follow-up care. 09:23 Patient left the ED. vg1 Addendum: 01/08/2020 19:09 Addendum: COVID-19 Result: Negative result given to RN to notify pt. Attempted to d m5 contact pt regarding negative COVID-19 swab results. Left voice mail. Signatures: Dispatcher [employer] EDNY Lu Starkey, RN RN dmKiara Ramsey RN Freedom Cannon MD MD kdr Ballard, Brenda RN Garcia Small ds4 Megan Joseph mt, Elena RN Lisa López ea ag3 Shama Bryant, RN RN vg1
--- NOTE | 2020-01-04 09:07 | EDPHYS ---
Physician Documentation [facility] Name: Nallely Mendez Age: 79 yrs Sex: Female : 1940 Arrival Date: 01/04/2020 Time: 06:37 Bed 6 Private MD: ED Physician Freedom Almaraz HPI: 01/03 07:25 This 79 yrs old Female presents to ER via Wheelchair with complaints of kdr confused, Fever and diarreah. 07:25 The patient presents with confusion. Onset: The symptoms/episode began/occurred this kdr morning. Possible causes: CVA or TIA, sepsis, the patient has had a history of a fever. Associated signs and symptoms: Pertinent positives: back pain, confusion, diarrhea, headache, cough - nonproductive. Current symptoms: In the emergency department the patient's symptoms have improved, markedly, is less confused. Patient's baseline: Neuro: alert and fully oriented, Motor: no deficits, Ambulation: walks without assistance, Speech: normal, The patient has a previous history of CVA, The patient states that she has increasing difficulty walking recently - there has not been an acute change but gradually over time it has become more difficult. She relates it to her low back pain which is chronic and worsening over time. The patient has not experienced similar symptoms in the past. The patient has not recently seen a physician. Family states that the patient was very confused this morning when she awoke and thought that she was in a prison and that her son was an patient ambassador there. Historical: - Allergies: 06:54 Phenergan; bb - Home Meds: 06:54 gabapentin Oral [Active]; Metoprolol Tartrate Oral [Active]; Protonix Oral [Active]; bb vitamins [Active]; - PMHx: 06:54 acute respiratory failure; Anemia; Asthma; CHF; Depression; GERD; Hypertension; bb osteoarthritis; Pulmonary Embolism; pulmonary edema; - PSHx: 06:54 Knee surgery; Appendectomy; Cholecystectomy; staph infection under arm; bb - Immunization history:: Adult Immunizations up to date. - Social history:: Smoking status: unknown. ROS: 07:31 Constitutional: Negative for fever, chills, and weight loss, Eyes: Negative for injury, kdr pain, redness, and discharge, ENT: Negative for injury, pain, and discharge, Neck: Negative for injury, pain, and swelling, Cardiovascular: Negative for chest pain, palpitations, and edema, Abdomen/GI: Negative for abdominal pain, nausea, vomiting, diarrhea, and constipation, : Negative for injury, bleeding, discharge, and swelling, MS/Extremity: Negative for injury and deformity, Skin: Negative for injury, rash, and discoloration, Psych: Negative for depression, anxiety, suicide ideation, homicidal ideation, and hallucinations, Allergy/Immunology: Negative for hives, rash, and allergies, Endocrine: Negative for neck swelling, polydipsia, polyuria, polyphagia, and marked weight changes, Hematologic/Lymphatic: Negative for swollen nodes, abnormal bleeding, and unusual bruising. 07:31 Respiratory: Positive for cough, Negative for dyspnea on exertion, hemoptysis, orthopnea, pleurisy, shortness of breath, sputum production, wheezing. 07:31 Abdomen/GI: Positive for diarrhea. 07:31 Back: Positive for pain at rest, pain with movement, of the lumbar area, Negative for injury or acute deformity, decreased range of motion, radiated pain. 07:31 Neuro: Positive for altered mental status, headache. Exam: 07:21 ECG was reviewed by the Attending Physician. kdr 07:31 Constitutional: This is a well developed, well nourished patient who is awake, alert, kdr and in no acute distress. Head/Face: Normocephalic, atraumatic. Eyes: Pupils equal round and reactive to light, extra-ocular motions intact. Lids and lashes normal. Conjunctiva and sclera are non-icteric and not injected. Cornea within normal limits. Periorbital areas with no swelling, redness, or edema. Neck: Trachea midline, no thyromegaly or masses palpated, and no cervical lymphadenopathy. Supple, full range of motion without nuchal rigidity, or vertebral point tenderness. No Meningismus. Chest/axilla: Normal chest wall appearance and motion. Nontender with no deformity. No lesions are appreciated. Cardiovascular: Regular rate and rhythm with a normal S1 and S2. No gallops, murmurs, or rubs. Normal PMI, no JVD. No pulse deficits. Respiratory: Lungs have equal breath sounds bilaterally, clear to auscultation and percussion. No rales, rhonchi or wheezes noted. No increased work of breathing, no retractions or nasal flaring. Abdomen/GI: Soft, non-tender, with normal bowel sounds. No distension or tympany. No guarding or rebound. No evidence of tenderness throughout. Back: No spinal tenderness. No costovertebral tenderness. Full range of motion. Skin: Warm, dry with normal turgor. Normal color with no rashes, no lesions, and no evidence of cellulitis. MS/ Extremity: Pulses equal, no cyanosis. Neurovascular intact. Full, normal range of motion. Neuro: Awake and alert, GCS 15, oriented to person, place, time, and situation. Cranial nerves II-XII grossly intact. Motor strength 5/5 in all extremities. Sensory grossly intact. Cerebellar exam normal. Normal gait. Psych: Awake, alert, with orientation to person, place and time. Behavior, mood, and affect are within normal limits. Vital Signs: 06:49 BP 155 / 63; Pulse 84; Resp 18 S; Temp 101.3(O); Pulse Ox 95% on R/A; Weight 77.11 kg bb (R); Height 5 ft. 0 in. (152.40 cm) (R); Pain 8/10; 07:30 BP 141 / 107; Pulse 73; Resp 14; Pulse Ox 100% on R/A; Pain 0/10; vg1 08:33 BP 124 / 84; Pulse 74; Resp 18; Temp 99.9; Pulse Ox 95% on R/A; vg1 08:59 Temp 99.9; vg1 09:00 BP 122 / 84; Pulse 70; Resp 18; Temp 99.8; Pulse Ox 96% on R/A; vg1 06:49 Body Mass Index 33.20 (77.11 kg, 152.40 cm) bb MDM: 07:17 Data reviewed: vital signs, nurses notes, lab test result(s), EKG, radiologic studies. [facility] ED course: The patient was seen by me at 07:00 AM on my arrival to the ED. 07:31 Counseling: I had a detailed discussion with the patient and/or guardian regarding: the kdr historical points, exam findings, and any diagnostic results supporting the discharge/admit diagnosis, lab results, radiology results. 09:07 Patient medically screened. kdr 01/03 06:57 Order name: Amylase, Serum; Complete Time: 08:21 bb 01/03 06:57 Order name: Basic Metabolic Panel; Complete Time: 08:21 01/03 06:57 Order name: Blood Culture Adult (2) 01/03 06:57 Order name: CBC with Diff; Complete Time: 07:23 01/03 06:57 Order name: Ckmb; Complete Time: 08:21 01/03 06:57 Order name: CPK; Complete Time: 08:21 01/03 06:57 Order name: Lactate; Complete Time: 08:21 01/03 06:57 Order name: LFT's; Complete Time: 08:21 01/03 06:57 Order name: Lipase; Complete Time: 08:21 01/03 06:57 Order name: Procalcitonin; Complete Time: 08:21 01/03 06:57 Order name: Protime (+inr); Complete Time: 08:21 01/03 06:57 Order name: Ptt, Activated; Complete Time: 08:21 01/03 06:57 Order name: Troponin (emerg Dept Use Only); Complete Time: 08:21 01/03 06:57 Order name: Chest Single View XRAY; Complete Time: 08:57 01/03 06:57 Order name: Cardiac monitoring; Complete Time: 07:03 01/03 06:57 Order name: EKG - Nurse/Tech; Complete Time: 07:15 01/03 06:57 Order name: IV Saline Lock - Large Bore; Complete Time: 07:15 01/03 06:57 Order name: Labs collected and sent; Complete Time: 07:15 01/03 06:57 Order name: O2 Per Protocol; Complete Time: 07:03 01/03 06:57 Order name: O2 Sat Monitoring; Complete Time: 07:03 01/03 06:57 Order name: Urine Dipstick-Ancillary (obtain specimen); Complete Time: 08:04 01/03 07:21 Order name: COVID-19 kdr 01/03 07:21 Order name: Flu kdr 01/03 07:23 Order name: CT Head Brain wo Cont kdr 01/03 08:03 Order name: CT; Complete Time: 08:21 EDMS 01/03 08:09 Order name: Urine Dipstick--Ancillary (enter results); Complete Time: 08:21 bd EC:21 Rate is 78 beats/min. Rhythm is regular, Sinus Rhythm with No ectopy. QRS [place] is kdr Normal. OR interval is normal. QRS interval is normal. QT interval is normal. Clinical impression: NSR w/ Non-specific ST/T Changes. Administered Medications: 07:06 CANCELLED (Physician Discretion): NS 0.9% (30 ml/kg) 30 ml/kg IV at bolus once; Sepsis sv Protocol 07:30 Drug: Tylenol 1000 mg Route: PO; vg1 08:59 Follow up: Temp 99.9; Response: No adverse reaction; Temperature is decreased vg1 Disposition: 01/04/20 09:07 Discharged to Home. Impression: Confusion, Fever, unspecified, Viral infection, unspecified. - Condition is Stable. - Discharge Instructions: Viral Respiratory Infection, [id number], Fever, Adult, [id number], COVID-19. - Medication Reconciliation Form, Thank You Letter form. - Follow up: Private Physician; When: 2 - 3 days; Reason: If symptoms return, Further diagnostic work-up, Recheck today's complaints, Continuance of care, Re-evaluation by your physician. - Problem is new. - Symptoms have improved. Signatures: Dispatcher [employer] EDMS Freedom Almaraz MD MD kdr Jacy Askew RN RN Shama Ortiz RN RN vg1 Kiara Sanchez RN sv Corrections: (The following items were deleted from the chart) 07:03 06:57 Accucheck ordered. bb sv 07:06 06:57 NS 0.9% (30 ml/kg) 30 ml/kg IV at bolus once; Sepsis Protocol ordered. bb sv 09:23 09:07 01/04/2020 09:07 Discharged to Home. Impression: Confusion; Fever, unspecified; vg1 Viral infection, unspecified. Condition is Stable. Forms are Medication Reconciliation Form, Thank You Letter, Antibiotic Education, Prescription Opioid Use. Follow up: Private Physician; When: 2 - 3 days; Reason: If symptoms return, Further diagnostic work-up, Recheck today's complaints, Continuance of care, Re-evaluation by your physician. Problem is new. Symptoms have improved. kdr
[2020-01-04 09:34] VITALS: BP 124/84; TEMP 99.9; O2SAT 95
--- NOTE | 2020-01-05 07:07 | EKG ---
Test Date: 2020-01-04 Test Time: 07:20:44 Accounts Administrator: DARYA MEASUREMENT RESULTS: Intervals: Rate: 78 OR: 176 QRSD: 74 QT: 364 QTc: 414 [place]: P: 48 OR: 176 QRS: -18 T: -20 INTERPRETIVE STATEMENTS: Normal sinus rhythm Low voltage QRS Nonspecific ST and T wave abnormality Abnormal ECG Compared to ECG 06/02/2019 13:15:42 Low QRS voltage now present Atrial fibrillation no longer present ST (T wave) deviation still present Electronically Signed On 01-05-20 07:04:05 CDT by Saji Hubbard
== END 2020-01-04 09:23 | disposition home or self-care (01) ==
LOC: ER 06:35
DX: B34.9 Viral infection, unspecified (principal); Z20.828 Contact with and (suspected) exposure to other viral communicable diseases; R50.9 Fever, unspecified; I10 Essential (primary) hypertension; I50.9 Heart failure, unspecified; Z88.8 Allergy status to other drugs, medicaments and biological substances
CPT/HCPCS: 93005; 87040 ×2; 85025; 80048; 36415; 82150; 82550; 85610; 80076; 83605; 85730; 81003; 84484; 82553; 83690; 84145; 87804 ×2; 70450; 71045; 51702; 99284; U0002

== ENCOUNTER 2020-07-02 14:54 | Emergency (ER) | payer OTHER ==
--- OUTSIDE RECORDS SUMMARY | 2020-07-02 14:57 | XMS REPORT | Continuity of Care Document ---
:1940 Author Organization [facility] t Address [address] [place] [address] Care Team Providers Name Role Phone Asked, [...] Clinician Date Heartburn Heartburn Disease Active Austin acevedo 10-03 Methodi 00:00: st 00 Family Family Disease Active [place] history of history of - Me thodi colon colon 00:00: st cancer cancer 00 Allergies, Adverse Reactions, Alerts Allergy Allergy Status Severity Reaction(s) Onset Inactive Treating Comm ents Source Name Type Date Date Clinician Vijay Dave Active Anxiety, Made her Ho heriberto chet ty to Other (See 09-21 feel Method i adverse Comments) 00:00: crazy st reaction 00 s to drug Family History Family Member Diagnosis Comments Start Date Stop Date Source Natural father Colon cancer Clarence Chavez Natural son Crohn's disease [place] [facility] Social History Social Habit Start Date Stop Date Quantity Comments Source Tobacco use and 2017-09-21 2017-09-21 Never used Clarence Coffey ethodist exposure 00:00:00 00:00:00 Alcohol intake 2017-09-21 2017-09-21 Current drinker [place] on [facility] 00:00:00 00:00:00 of alcohol (finding) Alcohol Comment 2017-08-11 2017-08-11 rarely [place] Alexx ethodist 00:00:00 00:00:00 History of 1992-08-11 Current smoker [facility] thodist tobacco use 00:00:00 Sex Assigned At [birth year] [facility] ethodist 00:00:00 00:00:00 Smoking Status Start Date Stop Date Source Former smoker 2017-09-21 00:00:00 2017-09-21 00:00:00 Clarence Chavez Medications Ordered Filled Start Stop Current Ordering Indication Dosage Frequency Signature Comments Components Source Medication Medication Date Date Medication? Clinician (SIG) Name Name FLUoxetine Yes 20mg QD Take 20 mg [place] (PROzac) 20 5-22 by mouth Meth lorenzo MG capsule 13:42: daily. st 59 lisinopril Yes 10mg QD Take 10 mg [place] (PRINIVIL,Z 5-22 by mouth Meth lorenzo ESTRIL) 10 13:42: daily. st mg tablet 59 pregabalin Yes 50mg [id number] Take 50 mg [place] (LYRICA) 50 5-22 [id number] by mouth 3 Methodi MG capsule 13:42: 3D (three) st 59 times a day. aspirin Yes 81mg QD Take 81 mg [place]ous [...] down for the next 30 min. albuterol 2017- Yes 2{puff} Q6H Inhale 2 [place] (PROAIR 5-22 puffs Methodi HFA) 90 13:42: every 6 st mcg/actuati 59 (six) on inhaler hours as needed for wheezing. IPRATROPIUM 2017- Yes into each [place] BROMIDE 5-22 nostril. Methodi NASL 13:42: st 59 albuterol 2017-0 Yes 2.5mg [id number] Take 2.5 [place] sulfate 5-22 [id number] mg by Metho di (PROVENTIL) 13:42: 3D nebulizati st 2.5 mg/0.5 59 on 3 mL solution (three) for times a nebulizatio day. n omeprazole Yes Heartburn 40mg Q.5D Take 1 [place] (PriLOSEC) 5-22 capsule Method i 40 MG 00:00: ([address] capsule 00 total) by mouth 2 (two) times a day. Procedures This patient has no known procedures. Plan of Care Planned Activity Planned Date Details Comments Source Future Scheduled 2020-10-21 INFLUENZA VACCINE Albert tolliver [facility] Test 00:00:00 [code = INFLUENZA VACCINE] Future Scheduled 2006 65+ PNEUMOCOCCAL [place] [facility] Test 00:00:00 VACCINE (1 of 1 - PPSV23) [code = 65+ PNEUMOCOCCAL VACCINE (1 of 1 - PPSV23)] Future Scheduled 1991 SHINGLES VACCINES (#1) [facility] Test 00:00:00 [code = SHINGLES VACCINES (#1)] Future Scheduled 1959 Hepatitis C screening [facility] Test 00:00:00 (procedure) [code = 245718247] Future Scheduled 1957 COVID-19 VACCINE (1) Austin acevedo [facility] Test 00:00:00 [code = COVID-19 VACCINE (1)] Encounters Start End Encounter Admission Attending Care Care Encounter Source Date/Time Date/Time Type Type Clinicians Facility Department ID 2019-06-15 2019-06-15 Orders Doctor BAILEY [id number] 00:00:00 00:00:00 Only Unassigned, JUSTIN [id number] [facility] [id number] 2019-05-23 2019-05-27 Hospital Carla [facility] [id number] 05:51:00 15:01:00 Encounter Hernan Hahn Stephanie [id number] [place] [id number] [place] [id number] 2019-05-23 2019-05-23 Anesthesia Robson Davis [facility] [id number] 07:36:00 09:26:00 Ilya [place] [id number] [place] [id number] Surgical [id number] [place] 020 2019-05-19 2019-05-19 Circuit Board Drafter Raza Romero [facility] [id number] 14:54:47 15:09:47 Visit Lab Main Stephanie [id number] [place] [id number] Professio [id number] [address] 2019-05-17 2019-05-17 Office Charanjit [facility] [id number] 14:10:00 14:25:00 Visit [facility] [id number] Surgical [id number] Specialti [phone] maria teresa 198 Stephanie Results This patient has no known results.
[2020-07-02 17:38] LABS: Absolute Lymphocytes (CBC) 2.1 K/uL (0.7-4.9); Basophils % 1.1 % (0-1.3); Hematocrit 41.5 % (36.0-45.0); MPV 8.5 fL (7.6-11.3)
--- NOTE | 2020-07-02 17:52 | RAD REPORT ---
EXAM DESCRIPTION: RAD - Knee Right 3 View - 07/02/2020 5:23 pm CLINICAL HISTORY: PAIN COMPARISON: None FINDINGS: No fracture, dislocation or periosteal reaction.No joint effusion seen. Total knee prosthe sis in place without evidence for loosening. Bones are osteopenic. No suspicious soft tissue finding. IMPRESSION: Right total knee prosthesis with no radiographic evidence for loosening. Bones are osteopenic without acute venetie ira bone finding.
[2020-07-02 17:53] LABS: Albumin 3.6 g/dL (3.4-5.0); Bilirubin Total 0.5 mg/dL (0.2-1.0); Potassium 5.2 mmol/L (3.5-5.1); Protein, Total 7.1 g/dL (6.4-8.2)
--- NOTE | 2020-07-02 17:59 | ER ---
Nurse's Notes [facility] Name: Nallely Mendez Age: 80 yrs Sex: Female : 1940 Arrival Date: 07/02/2020 Time: 14:56 Bed 27 Private MD: Vinod Combs Diagnosis: Pain in right knee;Insect bite (nonvenomous) of right index finger Presentation: 07/02 15:29 Chief complaint: Patient states: R knee pain since today. Have had pain on teri knee, ca1 but today is worse on the R knee. States, "I think I can't walk without falling even with my walker". Also reports swelling on R knee. Coronavirus screen: Client denies travel out of the [place] in the last 14 days. At this time, the client does not indicate any symptoms associated with coronavirus-19. Ebola Screen: Patient negative for fever greater than or equal to 101.5 degrees Fahrenheit, and additional compatible Ebola Virus Disease symptoms Patient denies exposure to infectious person. Patient denies travel to an Ebola-affected area in the 21 days before illness onset. No symptoms or risks identified at this time. Initial Sepsis Screen: Does the patient meet any 2 criteria? No. Patient's initial sepsis screen is negative. Does the patient have a suspected source of infection? No. Patient's initial sepsis screen is negative. Risk Assessment: Do you want to hurt yourself or someone else? Patient reports no desire to harm self or others. Onset of symptoms was July 02, 2020. 15:29 Method Of Arrival: Wheelchair ca1 15:29 Acuity: GUNNER 4 ca1 Historical: - Allergies: 15:33 Phenergan; ca1 - Home Meds: 15:33 gabapentin Oral [Active]; Metoprolol Tartrate Oral [Active]; Protonix Oral [Active]; ca1 vitamins [Active]; - PMHx: 15:33 acute respiratory failure; Asthma; ca1 - Immunization history:: Adult Immunizations up to date, Client reports receiving the 2nd dose of the Covid vaccine, Client reports receiving the 1st dose of the Covid vaccine, Pneumococcal vaccine is up to date, Flu vaccine is not up to date. - Social history:: Smoking status: Patient denies any tobacco usage or history of. - Family history:: not pertinent. Screenin:29 Abuse screen: Denies threats or abuse. Denies injuries from another. Nutritional iw screening: No deficits noted. Tuberculosis screening: No symptoms or risk factors identified. Fall Risk IV access (20 points). Assessment: 17:29 General: Appears in no apparent distress. Behavior is calm, cooperative. Pain: iw Complains of pain in right knee. Pain: Complains of pain in left knee. Neuro: Level of Consciousness is awake, alert, obeys commands, Oriented to person, place, time, situation. Cardiovascular: Patient's skin is warm and dry. Respiratory: Respiratory effort is even, unlabored. Derm: Skin is intact, is healthy with good turgor. 18:39 Reassessment: Patient appears in no apparent distress at this time. Patient and/or iw family updated on plan of care and expected duration. Pain level reassessed. Patient is alert, oriented x 3, equal unlabored respirations, skin warm/dry/pink. Vital Signs: 15:29 BP 148 / 66; Pulse 61; Resp 18 S; Temp 98.1(TE); Pulse Ox 95% on R/A; Weight 79.38 kg ca1 (R); Height 5 ft. 11 in. (180.34 cm) (R); Pain 9/10; 15:29 Body Mass Index 24.41 (79.38 kg, 180.34 cm) ca1 ED Course: 14:56 Patient arrived in ED. am2 14:57 Vinod Combs MD is Private Physician. am2 15:32 Triage completed. ca1 15:33 Arm band placed on right wrist. ca1 15:35 Patient has correct armband on for positive identification. iw 17:00 Vincent Sierra MD is Attending Physician. karri 17:17 Aurora Oden, RN is Primary Nurse. iw 17:22 Knee Right 3 View XRAY In Process Unspecified. EDMS 17:30 Initial lab(s) drawn, by me, sent to lab. Inserted saline lock: 20 gauge in left iw antecubital area, using aseptic technique. Blood collected. 17:58 Vinod Combs MD is Referral Physician. karri 17:59 Hernan Louis MD is Referral Physician. karri 18:26 Knee immobilizer applied on right knee. mh5 19:49 No provider procedures requiring assistance completed. IV discontinued, intact, ea bleeding controlled, No redness/swelling at site. Pressure dressing applied. Administered Medications: 18:38 Not Given (Patient Refused): NS 0.9% 1000 ml IV at 125 ml/hr continuous iw 18:38 Drug: TORadol - (ketorolac) 15 mg Route: IVP; Site: left antecubital; iw 19:49 Follow up: Response: No adverse reaction ea 18:38 Not Given (Patient Refused): [place] (HYDROcodone-acetaminophen) 5 mg-325 mg 1 tabs PO iw once; RASS on ADMIN: Combtv4, Very Agttd3, Agttd2, Rstlss1, AlertClm0, Drwsy-1, Lt Sdtn-2, Mod Sdtn-3, Dp Sdtn-4, UnArsble-5 19:48 Drug: Bactroban Ointment 2 % 1 application Route: Topical; Site: affected area; ea 19:49 Drug: Bactrim (160 mg-800 mg (DS) 1 tablet Route: PO; ea 19:49 Follow up: Response: Medication administered at discharge. ea Outcome: 17:59 Discharge ordered by . karri 19:49 Discharged to home ambulatory, with family. ea 19:49 Condition: stable 19:49 Discharge instructions given to patient, Instructed on discharge instructions, follow up and referral plans. medication usage, Demonstrated understanding of instructions, follow-up care, medications, Prescriptions given X 4. 19:50 Patient left the ED. ea Signatures: Dispatcher [employer] EDID Vincent Sierra MD MD cha Williams, Irene, RN RN iw Martinez, Maria Jacque Grayson Elena, RN RN ea Acob, Cheryl, RN RN ca1
--- NOTE | 2020-07-02 18:00 | EDPHYS ---
Physician Documentation [facility] Name: Nallely Mendez Age: 80 yrs Sex: Female : 1940 Arrival Date: 07/02/2020 Time: 14:56 Bed 27 Private MD: Vinod Combs ED Physician Vincent Sierra HPI: 07/02 17:55 This 80 yrs old Female presents to ER via Wheelchair with complaints of Knee karri Pain. 17:55 The patient presents with decreased range of motion, pain, that is acute. The karri complaints affect the right knee. Context: The problem was sustained at home. Onset: The symptoms/episode began/occurred 3 day(s) ago. Modifying factors: The symptoms are alleviated by elevating leg, remaining still, the symptoms are aggravated by movement, weight bearing, bending knee. Associated signs and symptoms: The patient has no apparent associated signs or symptoms. Treatment prior to arrival includes: no previous treatment. Severity of symptoms: At their worst the symptoms were mild, in the emergency department the symptoms are unchanged. The patient has not experienced similar symptoms in the past. 19:35 The patient or guardian reports a bite, by an insect, decreased range of motion, pain. karri The complaints affect the DIP of right index finger. Context: The problem was sustained at home, outdoors. Historical: - Allergies: 15:33 Phenergan; ca1 - Home Meds: 15:33 gabapentin Oral [Active]; Metoprolol Tartrate Oral [Active]; Protonix Oral [Active]; ca1 vitamins [Active]; - PMHx: 15:33 acute respiratory failure; Asthma; ca1 - Immunization history:: Adult Immunizations up to date, Client reports receiving the 2nd dose of the Covid vaccine, Client reports receiving the 1st dose of the Covid vaccine, Pneumococcal vaccine is up to date, Flu vaccine is not up to date. - Social history:: Smoking status: Patient denies any tobacco usage or history of. - Family history:: not pertinent. ROS: 17:55 Constitutional: Negative for fever, chills, and weight loss, Eyes: Negative for injury, karri pain, redness, and discharge, ENT: Negative for injury, pain, and discharge, Neck: Negative for injury, pain, and swelling, Cardiovascular: Negative for chest pain, palpitations, and edema, Respiratory: Negative for shortness of breath, cough, wheezing, and pleuritic chest pain, Abdomen/GI: Negative for abdominal pain, nausea, vomiting, diarrhea, and constipation, Back: Negative for injury and pain, : Negative for injury, bleeding, discharge, and swelling, Skin: Negative for injury, rash, and discoloration, Neuro: Negative for headache, weakness, numbness, tingling, and seizure, Psych: Negative for depression, anxiety, suicide ideation, homicidal ideation, and hallucinations, Allergy/Immunology: Negative for hives, rash, and allergies, Endocrine: Negative for neck swelling, polydipsia, polyuria, polyphagia, and marked weight changes, Hematologic/Lymphatic: Negative for swollen nodes, abnormal bleeding, and unusual bruising. 17:55 MS/extremity: Positive for decreased range of motion, pain, of the right knee. Exam: 17:55 Constitutional: This is a well developed, well nourished patient who is awake, alert, karri and in no acute distress. Head/Face: Normocephalic, atraumatic. Eyes: Pupils equal round and reactive to light, extra-ocular motions intact. Lids and lashes normal. Conjunctiva and sclera are non-icteric and not injected. Cornea within normal limits. Periorbital areas with no swelling, redness, or edema. ENT: Nares patent. No nasal discharge, no septal abnormalities noted. Tympanic membranes are normal and external auditory canals are clear. Oropharynx with no redness, swelling, or masses, exudates, or evidence of obstruction, uvula midline. Mucous membranes moist. Neck: Trachea midline, no thyromegaly or masses palpated, and no cervical lymphadenopathy. Supple, full range of motion without nuchal rigidity, or vertebral point tenderness. No Meningismus. Chest/axilla: Normal chest wall appearance and motion. Nontender with no deformity. No lesions are appreciated. Cardiovascular: Regular rate and rhythm with a normal S1 and S2. No gallops, murmurs, or rubs. Normal PMI, no JVD. No pulse deficits. Respiratory: Lungs have equal breath sounds bilaterally, clear to auscultation and percussion. No rales, rhonchi or wheezes noted. No increased work of breathing, no retractions or nasal flaring. Abdomen/GI: Soft, non-tender, with normal bowel sounds. No distension or tympany. No guarding or rebound. No evidence of tenderness throughout. Back: No spinal tenderness. No costovertebral tenderness. Full range of motion. Female : Normal external genitalia. Skin: Warm, dry with normal turgor. Normal color with no rashes, no lesions, and no evidence of cellulitis. Neuro: Awake and alert, GCS 15, oriented to person, place, time, and situation. Cranial nerves II-XII grossly intact. Motor strength 5/5 in all extremities. Sensory grossly intact. Cerebellar exam normal. Normal gait. Psych: Awake, alert, with orientation to person, place and time. Behavior, mood, and affect are within normal limits. 17:55 Musculoskeletal/extremity: Extremities: grossly normal except: noted in the right knee: decreased ROM, pain, ROM: full active range of motion, full passive range of motion, Circulation is intact in all extremities. Sensation intact. Compartment Syndrome exam of affected extremity: no pain, Joints: pain at rest, painful range of motion, tenderness, Weight bearing: able to fully bear weight, DVT Exam: no swelling, negative Homans' sign noted on exam, no appreciated bluish discoloration, no erythema, no increased warmth, pain, tenderness. 19:36 Skin: Appearance: Color: normal in color, Temperature: normal temperature, Moisture: karri normal moisture, petechiae, not noted, ecchymosis, not noted, flushing, not noted, diaphoresis is not appreciated, injury, bite(s), superficial, of the palmar aspect of distal phalanx of right index finger. Vital Signs: 15:29 BP 148 / 66; Pulse 61; Resp 18 S; Temp 98.1(TE); Pulse Ox 95% on R/A; Weight 79.38 kg ca1 (R); Height 5 ft. 11 in. (180.34 cm) (R); Pain 9/10; 15:29 Body Mass Index 24.41 (79.38 kg, 180.34 cm) ca1 MDM: 17:00 Patient medically screened. karri 19:31 Differential diagnosis: closed fracture, contusion, tendonitis. Data reviewed: vital karri signs, nurses notes, radiologic studies, plain films. Data interpreted: nuclear monitoring technician: rate is 61 beats/min, rhythm is regular, Pulse oximetry: on room air is 95 %. Test interpretation: by ED physician or midlevel provider: plain radiologic studies. Counseling: I had a detailed discussion with the patient and/or guardian regarding: the historical points, exam findings, and any diagnostic results supporting the discharge/admit diagnosis, lab results, radiology results. 07/02 17:02 Order name: CBC with Diff; Complete Time: 19:29 [facility] 07/02 17:02 Order name: Comprehensive Metabolic Panel; Complete Time: 17:57 [facility] 07/02 17:02 Order name: Knee Right 3 View XRAY; Complete Time: 17:57 [facility] 07/02 18:26 Order name: CBC Smear Scan; Complete Time: 19:29 [facility] 07/02 17:58 Order name: Knee Immobilizer; Complete Time: 18:26 [facility] Administered Medications: 18:38 Not Given (Patient Refused): NS 0.9% 1000 ml IV at 125 ml/hr continuous iw 18:38 Drug: TORadol - (ketorolac) 15 mg Route: IVP; Site: left antecubital; iw 19:49 Follow up: Response: No adverse reaction ea 18:38 Not Given (Patient Refused): [place] (HYDROcodone-acetaminophen) 5 mg-325 mg 1 tabs PO iw once; RASS on ADMIN: Combtv4, Very Agttd3, Agttd2, Rstlss1, AlertClm0, Drwsy-1, Lt Sdtn-2, Mod Sdtn-3, Dp Sdtn-4, UnArsble-5 19:48 Drug: Bactroban Ointment 2 % 1 application Route: Topical; Site: affected area; ea 19:49 Drug: Bactrim (160 mg-800 mg (DS) 1 tablet Route: PO; ea 19:49 Follow up: Response: Medication administered at discharge. ea Disposition: 07/02/20 17:59 Discharged to Home. Impression: Pain in right knee, Insect bite (nonvenomous) of right index finger. - Condition is Stable. - Discharge Instructions: Joint Pain, Arthritis, Insect Bite, [id number], Insect Bite, How to Use a Knee Brace, Musculoskeletal Pain, Knee Pain. - Prescriptions for Ibuprofen 600 mg Oral Tablet - take 1 tablet by ORAL route every 8 hours As needed take with food; 21 tablet. Tylenol- Codeine #3 300-30 mg Oral Tablet - take 2 tablets by ORAL route every 4-6 hours As needed; 28 tablet. Bactroban 2 % Topical Ointment - Apply to affected area 1 application by TOPICAL route every 12 hours; 15 gram. Bactrim DS 800- 160 mg Oral Tablet - take 1 tablet by ORAL route every 12 hours for 7 days; 14 tablet. - Medication Reconciliation Form, Thank You Letter, Antibiotic Education, Prescription Opioid Use form. - Follow up: Vinod Combs MD; When: 2 - 3 days; Reason: Recheck today's complaints, Continuance of care, Re-evaluation by your physician. Follow up: Hernan Louis MD; When: 2 - 3 days; Reason: Recheck today's complaints, Continuance of care, Re-evaluation by your physician. - Problem is new. - Symptoms have improved. Signatures: Dispatcher [employer] EDVincent Franco MD MD cha Williams, Irene, RN RN iw Antunez, Elena, RN RN ea Acob, Cheryl, RN RN ca1 Corrections: (The following items were deleted from the chart) 18:01 17:59 07/02/2020 17:59 Discharged to Home. Impression: Pain in right knee. Condition is karri Stable. Forms are Medication Reconciliation Form, Thank You Letter, Antibiotic Education, Prescription Opioid Use. Follow up: Vinod Combs; When: 2 - 3 days; Reason: Recheck today's complaints, Continuance of care, Re-evaluation by your physician. Problem is new. Symptoms have improved. karri 19:32 18:01 07/02/2020 17:59 Discharged to Home. Impression: Pain in right knee. Condition is karri Stable. Forms are Medication Reconciliation Form, Thank You Letter, Antibiotic Education, Prescription Opioid Use. Follow up: Vinod Combs; When: 2 - 3 days; Reason: Recheck today's complaints, Continuance of care, Re-evaluation by your physician. Follow up: Hernan Louis; When: 2 - 3 days; Reason: Recheck today's complaints, Continuance of care, Re-evaluation by your physician. Problem is new. Symptoms have improved. karri 19:50 19:32 07/02/2020 17:59 Discharged to Home. Impression: Pain in right knee; Insect bite ea (nonvenomous) of right index finger. Condition is Stable. Discharge Instructions: Joint Pain, Arthritis, How to Use a Knee Brace, Musculoskeletal Pain, Knee Pain. Prescriptions for Ibuprofen 600 mg Oral Tablet - take 1 tablet by ORAL route every 8 hours As needed take with food; 21 tablet, Tylenol-Codeine #3 300-30 mg Oral Tablet - take 2 tablets by ORAL route every 4-6 hours As needed; 28 tablet. and Forms are Medication Reconciliation Form, Thank You Letter, Antibiotic Education, Prescription Opioid Use. Follow up: Vinod Combs; When: 2 - 3 days; Reason: Recheck today's complaints, Continuance of care, Re-evaluation by your physician. Follow up: Hernan Louis; When: 2 - 3 days; Reason: Recheck today's complaints, Continuance of care, Re-evaluation by your physician. Problem is new. Symptoms have improved. karri
[2020-07-02 18:26] LABS: Anisocytosis 1+; Blood Morphology Comment NOTED (NOT SEEN); Platelet Estimate ADEQ; Poikilocytosis 2+; White Blood Cell Scan OK (OK)
[2020-07-02] MEDS ORDERED: HYDROCODONE/APAP 5/325 MG TAB ONE (18:28)
[2020-07-02] MEDS ORDERED: KETOROLAC 30 MG/ML INJ ONE (18:28)
[2020-07-02 19:56] VITALS: BP 148/66; TEMP 98.1; O2SAT 95
[2020-07-02] MEDS ORDERED: SMZ./TMP. 800/160 MG TABLET ONE (19:57)
[2020-07-02] MEDS ORDERED: MUPIROCIN 2% OINT 22GM TUBE TOP ONE (19:58)
== END 2020-07-02 19:50 | disposition home or self-care (01) ==
LOC: ER 14:54
DX: S60.460A Insect bite (nonvenomous) of right index finger, initial encounter (principal); Z88.8 Allergy status to other drugs, medicaments and biological substances
CPT/HCPCS: 36415; 80053; 85025; 96374; 99284

== ENCOUNTER 2020-11-10 14:20 | Emergency (ER) | payer OTHER ==
--- OUTSIDE RECORDS SUMMARY | 2020-11-10 14:23 | XMS REPORT | Continuity of Care Document ---
:[address] [facility] t Address [address] [place] [address] Care Team Providers Name Role Phone Asked, Pcp Primary Care Physician Unavailable Carla HEATH, L Attending Clinician Problems Condition Condition Condition Status Onset Resolution Last Treating Co mments Source Name Details Category Date Date Treatment Clinician Date Heartburn Heartburn Disease Active [facility] 10-03 00:00: [facility] 00 l Family Family Disease Active [facility] history of history of 10-03 colon colon 00:00: Hospita cancer cancer 00 l Allergies, Adverse Reactions, Alerts Allergy Allergy Status Severity Reaction(s) Onset Inactive Treating Comm ents Source Name Type Date Date Clinician Vijay Dave Active Other (See Made her [facility] chet ty to Comments) 09-21 st adverse 00:00: crazy Hospita reaction 00 l s to drug Family History Family Member Diagnosis Comments Start Date Stop Date Source Natural father Colon cancer [facility] Natural son Crohn's disease [facility] Social History Social Habit Start Date Stop Date Quantity Comments Source Tobacco use and 2017-09-21 2017-09-21 Never used [facility] 00:[facility]00 [facility]:00 [facility] Alcohol intake 2017-09-21 2017-09-21 Current drinker [facility] 00:00:00 00:00:00 [facility] (finding) Alcohol Comment 2017-08-11 2017-08-11 rarely [facility] 00:00:00 [facility]:00 Hospital History of 1992-08-11 Current smoker [facility] tobacco use 00:00:00 Hospital Sex Ass[birth year] At [birth year] [facility] 00:00:00 [facility]:00 [facility] Smoking Status Start Date Stop Date Source Former smoker 2017-09-21 00:00:00 2017-09-21 00:00:00 [facility] Medications Ordered Filled Start Stop Current Ordering Indication Dosage Frequency Signature Comments Components Source Medication Medication Date Date Medication? Clinician (SIG) Name Name FLUoxetine Yes 20mg QD Take 20 mg [facility] (PROzac) 20 5-[address] MG capsule 18:42: daily. Hospi ta 59 l lisinopril Yes 10mg QD Take 10 mg [facility] (PRINIVIL,Z 5-[address] ESTRIL) 10 18:42: daily. Hospi ta mg tablet 59 l pregabalin 0 Yes 50mg [id number] Take 50 mg [facility] (LYRICA) 50 5-22 [id number] MG capsule 18:42: 3D (three) [facility]osp [facility] 59 times a l day. aspirin Yes 81mg QD Take 81 mg Meth lorenzo (ECOTRIN) 5-[address] 81 MG 18:42: daily. Hospita enteric 59 l coated tablet alendronate Yes 70mg Q1W Take 70 mg [facility] (FOSAMAX) 5-[address] 70 MG 18:42: every 7 Hospita tablet 59 days. Take l in the morning with a full glass of water on an empty stomach, do NOT take anything else by mouth or lie down for the next 30 min. albuterol 0 Yes 2{puff} Q6H Inhale 2 [facility] (PROAIR 5-[address] HFA) 90 18:42: every 6 Hospita mcg/actuati 59 (six) l on inhaler hours as needed for wheezing. IPRATROPIUM Yes into each [facility] BROMIDE 5-[address] NASL 18:42: Hospita 59 l albuterol Yes 2.5mg Q.[id number] Take 2.5 [facility] sulfate 5-[id number] (PROVENTIL) 18:42: 3D nebulizati Hospita 2.5 mg/0.5 59 on 3 l mL solution (three) for times a nebulizatio day. n omeprazole Yes [id number] 40mg Q.5D Take 1 [facility] (PriLOSEC) 5-[address] 40 MG 00:00: (40 mg Hospita capsule 00 total) by l mouth 2 (two) times a day. Procedures This patient has no known procedures. Plan of Care Planned Activity Planned Date Details Comments Source Future Scheduled Test COVID-19 VACCINE (1) [facility] [code = COVID-19 VACCINE (1)] Future Scheduled Test SHINGLES VACCINES (#1) [facility] [code = SHINGLES VACCINES (#1)] Future Scheduled Test 65+ PNEUMOCOCCAL [facility] VACCINE (1 of 1 - PPSV23) [code = 65+ PNEUMOCOCCAL VACCINE (1 of 1 - PPSV23)] Future Scheduled Test INFLUENZA VACCINE [code [facility] = INFLUENZA VACCINE] Encounters Start End Encounter Admission Attending Care Care Encounter Source Date/Time Date/Time Type Type Clinicians Facility Department ID 2020-07-09 2020-07-09 Office ANAHY Aguirre [id number] 14:50:20 16:09:03 Visit [facility] [id number] Surgical [id number] [facility] [id number] [address] Results This patient has no known results.
--- NOTE | 2020-11-10 17:37 | RAD REPORT ---
EXAM DESCRIPTION: CT - Head C Spine Mpr Wo Con - 11/10/2020 5:17 pm CLINICAL HISTORY: Head and neck injury status post fall. Head and neck pain COMPARISON: None. TECHNIQUE: Computed axial tomography of the head and cervical spine was obtained. Sagittal and coronal reconstruction was performed. All CT scans are performed using dose optimization technique as appropriate and may include automated exposure control or mA/KV adjustment according to patient size. FINDINGS: An intracranial bleed is not seen. The ventricles are normal in caliber. An extra-axial fl uid collection is not noted. 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 No surrounding edema. This like ly represents a meningioma Moderate ethmoid sinusitis A cervical fracture is not visualized. No dislocation is noted. Spondylosis involves the cervical spi ne IMPRESSION: No acute intracranial abnormality is seen. A cervical fracture is not visualized. If the patient continues to have symptoms to suggest intracra nial /spinal cord pathology then MRI would be recommended
[2020-11-10] MEDS ORDERED: BACI/NEOMYCIN/POLY OINT 15GM TOP ONE (17:40)
--- NOTE | 2020-11-10 17:42 | RAD REPORT ---
EXAM DESCRIPTION: CT - Maxillofacial Wo Con - 11/10/2020 5:17 pm CLINICAL HISTORY: Facial injury status post fall COMPARISON: None TECHNIQUE: Computed axial tomography of the face was obtained. Coronal and sagittal reconstruction w as performed. All CT scans are performed using dose optimization technique as appropriate and may include automated exposure control or mA/KV adjustment according to patient size. FINDINGS: A fracture is not seen. A TMJ dislocation is not noted. The globes are intact. Moderate chronic ethmoid sinusitis IMPRESSION: Negative for a facial fracture.
--- NOTE | 2020-11-10 17:44 | RAD REPORT ---
EXAM DESCRIPTION: RAD - Knee Right 3 View - 11/10/2020 5:34 pm CLINICAL HISTORY: Right knee pain status post injury FINDINGS: No fracture or dislocation is seen. Right knee arthroplasty has been performed.
--- NOTE | 2020-11-10 17:45 | RAD REPORT ---
EXAM DESCRIPTION: RAD - Knee Left 3 View - 11/10/2020 5:34 pm CLINICAL HISTORY: Left knee pain status post injury FINDINGS: No fracture or dislocation is seen. The bones are osteoporotic. 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 If patient continues to have symptoms to suggest an occult fracture, ligamentous or meniscal injury t hen MRI would be recommended
--- NOTE | 2020-11-10 18:19 | EDPHYS ---
Physician Documentation [facility] Name: Nallely Mendez Age: 80 yrs Sex: Female : 1940 Arrival Date: 11/10/2020 Time: 14:31 Bed 19 Private MD: Vinod Combs ED Physician Vincent Sierra HPI: 11/10 17:05 This 80 yrs old Female presents to ER via Ambulatory with complaints of Fall karri Injury, Facial Injury. 17:05 Details of fall: The patient fell from an upright position, while walking. Onset: The karri symptoms/episode began/occurred just prior to arrival. Associated injuries: The patient sustained injury to the head, neck injury, face. Severity of symptoms: At their worst the symptoms were mild, in the emergency department the symptoms are unchanged. The patient has not experienced similar symptoms in the past. Historical: - Allergies: 14:33 Phenergan; kg - Home Meds: 14:33 vitamins [Active]; Protonix Oral [Active]; Metoprolol Tartrate Oral [Active]; kg gabapentin Oral [Active]; 14:58 fluoxetine 20 mg Oral tab 1 tab once daily [Active]; omeprazole 40 mg Oral cpDR 1 cap rb3 once daily [Active]; aspirin 81 mg Oral chew 1 tab once daily [Active]; donepezil 5 mg oral tab 1 tab once daily [Active]; calcium [Active]; atendronate 70 mg once a week [Active]; - PMHx: 14:33 Pulmonary Embolism; osteoarthritis; Hypertension; GERD; Depression; CHF; pulmonary kg edema; acute respiratory failure; Meningioma Brain tumor; Anemia; - PSHx: 14:33 Appendectomy; Cholecystectomy; Ligation of fallopian tube; kg - Immunization history:: Adult Immunizations up to date, Client reports receiving the 2nd dose of the Covid vaccine, Date received: June 11, 2020 [employer] Client reports receiving the 1st dose of the Covid vaccine, May 21, 2020 [employer]. - Social history:: Smoking status: Patient denies any tobacco usage or history of. ROS: 17:06 Constitutional: Negative for fever, chills, and weight loss, Eyes: Negative for injury, karri pain, redness, and discharge, Cardiovascular: Negative for chest pain, palpitations, and edema, Respiratory: Negative for shortness of breath, cough, wheezing, and pleuritic chest pain, Abdomen/GI: Negative for abdominal pain, nausea, vomiting, diarrhea, and constipation, Back: Negative for injury and pain, : Negative for injury, bleeding, discharge, and swelling, Skin: Negative for injury, rash, and discoloration, Neuro: Negative for headache, weakness, numbness, tingling, and seizure, Psych: Negative for depression, anxiety, suicide ideation, homicidal ideation, and hallucinations, Allergy/Immunology: Negative for hives, rash, and allergies, Endocrine: Negative for neck swelling, polydipsia, polyuria, polyphagia, and marked weight changes, Hematologic/Lymphatic: Negative for swollen nodes, abnormal bleeding, and unusual bruising. 17:06 ENT: Positive for sinus pain. Exam: 17:06 Constitutional: This is a well developed, well nourished patient who is awake, alert, karri and in no acute distress. Eyes: Pupils equal round and reactive to light, extra-ocular motions intact. Lids and lashes normal. Conjunctiva and sclera are non-icteric and not injected. Cornea within normal limits. Periorbital areas with no swelling, redness, or edema. ENT: Nares patent. No nasal discharge, no septal abnormalities noted. Tympanic membranes are normal and external auditory canals are clear. Oropharynx with no redness, swelling, or masses, exudates, or evidence of obstruction, uvula midline. Mucous membranes moist. Neck: Trachea midline, no thyromegaly or masses palpated, and no cervical lymphadenopathy. Supple, full range of motion without nuchal rigidity, or vertebral point tenderness. No Meningismus. Chest/axilla: Normal chest wall appearance and motion. Nontender with no deformity. No lesions are appreciated. Cardiovascular: Regular rate and rhythm with a normal S1 and S2. No gallops, murmurs, or rubs. Normal PMI, no JVD. No pulse deficits. Respiratory: Lungs have equal breath sounds bilaterally, clear to auscultation and percussion. No rales, rhonchi or wheezes noted. No increased work of breathing, no retractions or nasal flaring. Abdomen/GI: Soft, non-tender, with normal bowel sounds. No distension or tympany. No guarding or rebound. No evidence of tenderness throughout. Back: No spinal tenderness. No costovertebral tenderness. Full range of motion. Female : Normal external genitalia. Skin: Warm, dry with normal turgor. Normal color with no rashes, no lesions, and no evidence of cellulitis. Neuro: Awake and alert, GCS 15, oriented to person, place, time, and situation. Cranial nerves II-XII grossly intact. Motor strength 5/5 in all extremities. Sensory grossly intact. Cerebellar exam normal. Normal gait. Psych: Awake, alert, with orientation to person, place and time. Behavior, mood, and affect are within normal limits. 17:06 Head/face: Noted is contusion, swelling, that is mild, of the right eye, nose and left eye. 17:06 Neck: External neck: is normal, no acute changes, C-spine: pain posterior neck. Vital Signs: 14:31 BP 120 / 78; Pulse 56; Resp 20; Temp 97.5(TE); Pulse Ox 95% on R/A; Weight 74.84 kg kg (R); Height 5 ft. 0 in. (152.40 cm); Pain 7/10; 15:30 BP 117 / 62; Pulse 49; Resp 17; Pulse Ox 96% ; rb3 15:30 BP 127 / 68; Pulse 51; Resp 18; Pulse Ox 97% ; rb3 17:00 BP 133 / 95; Pulse 89; Resp 15; Pulse Ox 98% ; rb3 18:00 BP 145 / 64; Pulse 52; Resp 17; Pulse Ox 98% ; rb3 18:43 BP 135 / 50; Pulse 51; Resp 17; Pulse Ox 97% ; rb3 14:31 Body Mass Index 32.22 (74.84 kg, 152.40 cm) kg Keyshawn Coma Score: 17:08 Eye Response: spontaneous(4). Verbal Response: oriented(5). Motor Response: obeys karri commands(6). Total: 15. MDM: 14:44 Patient medically screened. karri 17:08 Differential diagnosis: Contusion of Hematoma on Concussion without LOC. C-Spine karri Fracture. Differential diagnosis: abrasion, closed head injury, contusion, fracture, laceration, sprain, strain. Data reviewed: vital signs, nurses notes, radiologic studies, CT scan, plain films. Data interpreted: quality assurance monitor final: rate is 51 beats/min, rhythm is regular, Pulse oximetry: on room air is 97 %. Test interpretation: by ED physician or midlevel provider: plain radiologic studies. Counseling: I had a detailed discussion with the patient and/or guardian regarding: the historical points, exam findings, and any diagnostic results supporting the discharge/admit diagnosis, lab results, radiology results, the need for outpatient follow up, for definitive care, a family practitioner. 11/10 16:50 Order name: CT Head C Spine; Complete Time: 18:17 rb3 11/10 16:52 Order name: Knee Left 3 View XRAY; Complete Time: 18:17 rb3 11/10 16:52 Order name: Knee Right 3 View XRAY; Complete Time: 18:17 rb3 11/10 16:57 Order name: Maxillofacial Wo Con; Complete Time: 18:17 EDMS 11/10 17:05 Order name: Ice pack; Complete Time: 17:25 karri Administered Medications: 17:52 Drug: Neosporin ([id number]-xemgsgchll-dcfwlvhtj) Ointment 1 application Route: Topical; rb3 Site: affected area; Disposition Summary: 11/10/20 18:18 Discharge Ordered Location: Home karri Problem: new karri Symptoms: have improved karri Condition: Stable karri Diagnosis - Fall (on) (from) unspecified stairs and steps karri - Fall (on)(from) sidewalk curb karri - Contusion of unspecified part of head - face, nose karri - Fracture of nasal bones - clinically karri Followup: karri - With: - When: 2 - 3 days - Reason: Recheck today's complaints, Continuance of care, Re-evaluation by your physician Discharge Instructions: - Discharge Summary Sheet karri - Head Injury, Adult karri - Fall Prevention in the Home, Adult karri - Nasal Fracture karri - Fall Prevention in the Home, Adult, Jmbj-[id number] karri - Nasal Fracture, Fiyq-[id number] karri - Head Injury, Adult, Hxeo-mj-Hokv karri Forms: - Medication Reconciliation Form karri - Thank You Letter karri - Antibiotic Education karri - Prescription Opioid Use karri Prescriptions: - Tylenol 325 mg Oral Tablet - take 2 tablets by ORAL route every 6 hours as needed; 1 bottle; Refills: 0, karri Product Selection Permitted Signatures: Dispatcher [employer] Vincent Abebe MD MD cha Barber, Rebecca RN RN rb3 Meche Pena RN RN kg Corrections: (The following items were deleted from the chart) 14:38 14:33 PMHx: Asthma; kg kg 16:57 16:51 Maxillofacial W/Wo+CT.RAD.BRZ ordered. EDMS EDMS 17:07 16:51 C Spine Wo Con+CT.RAD.BRZ ordered. EDMS EDMS
--- NOTE | 2020-11-10 18:19 | ER ---
Nurse's Notes [facility] Name: Nallely Mendez Age: 80 yrs Sex: Female : 1940 Arrival Date: 11/10/2020 Time: 14:31 Bed 19 Private MD: Vinod Combs Diagnosis: Fall (on) (from) unspecified stairs and steps;Fall (on)(from) sidewalk curb;Contusion of unspecified part of head-face, nose;Fracture of nasal bones-clinically Presentation: 11/10 14:31 Chief complaint: Patient states: Face pain and swelling. Pt fell outside on the asphalt kg and hit her head. Pt was walking and her foot twisted and she fell. This happened about 13:00. Coronavirus screen: Client denies travel out of the [place] in the last 14 days. Ebola Screen: Patient negative for fever greater than or equal to 101.5 degrees Fahrenheit, and additional compatible Ebola Virus Disease symptoms Patient denies exposure to infectious person. Patient denies travel to an Ebola-affected area in the 21 days before illness onset. 14:31 Method Of Arrival: Ambulatory kg 14:31 Initial Sepsis Screen: Does the patient meet any 2 criteria? No. Patient's initial kg sepsis screen is negative. Does the patient have a suspected source of infection? No. Patient's initial sepsis screen is negative. Risk Assessment: Do you want to hurt yourself or someone else? Patient reports no desire to harm self or others. Onset of symptoms was November 10, 2020 at 13:00. 14:31 Acuity: GUNNER 3 kg Triage Assessment: 14:33 General: Appears in no apparent distress. Behavior is calm, cooperative, appropriate kg for age, quiet. Pain: Complains of pain in face, Jose Knee. Historical: - Allergies: 14:33 Phenergan; kg - Home Meds: 14:33 vitamins [Active]; Protonix Oral [Active]; Metoprolol Tartrate Oral [Active]; kg gabapentin Oral [Active]; 14:58 fluoxetine 20 mg Oral tab 1 tab once daily [Active]; omeprazole 40 mg Oral cpDR 1 cap rb3 once daily [Active]; aspirin 81 mg Oral chew 1 tab once daily [Active]; donepezil 5 mg oral tab 1 tab once daily [Active]; calcium [Active]; atendronate 70 mg once a week [Active]; - PMHx: 14:33 Pulmonary Embolism; osteoarthritis; Hypertension; GERD; Depression; CHF; pulmonary kg edema; acute respiratory failure; Meningioma Brain tumor; Anemia; - PSHx: 14:33 Appendectomy; Cholecystectomy; Ligation of fallopian tube; kg - Immunization history:: Adult Immunizations up to date, Client reports receiving the 2nd dose of the Covid vaccine, Date received: June 11, 2020 [employer] Client reports receiving the 1st dose of the Covid vaccine, May 21, 2020 [employer]. - Social history:: Smoking status: Patient denies any tobacco usage or history of. Screenin:45 Abuse screen: Denies threats or abuse. Nutritional screening: No deficits noted. rb3 Tuberculosis screening: No symptoms or risk factors identified. Fall Risk Fall in past 12 months (25 points). Secondary diagnosis (15 points) impaired mobility, Uses a walker at home. No IV (0 pts). Ambulatory Aid- Crutches/Cane/Walker (15 pts). Gait- Impaired (20 pts.). Mental Status- Oriented to own ability (0 pts). Total Mercer Fall Scale indicates High Risk Score (45 or more points). Fall prevention measures have been instituted. Side Rails Up X 2 Placed Close to Nursing Station Frequent Obs/Assessments Occuring As available patient and family educated on Fall Prevention Program and Strategies. Assessment: 14:45 General: Appears in no apparent distress. Behavior is calm, cooperative. Pain: rb3 Complains of pain in face and bilateral knees Pain currently is 7 out of 10 on a pain scale. Pain began Today at 1300. Neuro: Level of Consciousness is awake, alert, obeys commands, Oriented to person, place, time, situation, Denies blurred vision. Cardiovascular: Patient's skin is warm and dry. Respiratory: Airway is patent Respiratory effort is even, unlabored, Respiratory pattern is regular, symmetrical. GI: No signs and/or symptoms were reported involving the gastrointestinal system. : No signs and/or symptoms were reported regarding the genitourinary system. Musculoskeletal: Swelling Face. 15:45 Reassessment: Patient appears in no apparent distress at this time. No changes from rb3 previously documented assessment. 16:26 Reassessment: Patient appears in no apparent distress at this time. Patient and/or rb3 family updated on plan of care and expected duration. Pain level reassessed. Patient is alert, oriented x 3, equal unlabored respirations, skin warm/dry/pink. 17:52 Reassessment: Patient appears in no apparent distress at this time. No changes from rb3 previously documented assessment. 18:43 Reassessment: Patient appears in no apparent distress at this time. Patient and/or rb3 family updated on plan of care and expected duration. Pain level reassessed. Patient is alert, oriented x 3, equal unlabored respirations, skin warm/dry/pink. Vital Signs: 14:31 BP 120 / 78; Pulse 56; Resp 20; Temp 97.5(TE); Pulse Ox 95% on R/A; Weight 74.84 kg kg (R); Height 5 ft. 0 in. (152.40 cm); Pain 7/10; 15:30 BP 117 / 62; Pulse 49; Resp 17; Pulse Ox 96% ; rb3 15:30 BP 127 / 68; Pulse 51; Resp 18; Pulse Ox 97% ; rb3 17:00 BP 133 / 95; Pulse 89; Resp 15; Pulse Ox 98% ; rb3 18:00 BP 145 / 64; Pulse 52; Resp 17; Pulse Ox 98% ; rb3 18:43 BP 135 / 50; Pulse 51; Resp 17; Pulse Ox 97% ; rb3 14:31 Body Mass Index 32.22 (74.84 kg, 152.40 cm) kg Keyshawn Coma Score: 17:08 Eye Response: spontaneous(4). Verbal Response: oriented(5). Motor Response: obeys karri commands(6). Total: 15. ED Course: 14:31 Patient arrived in ED. am2 14:31 Vinod Combs MD is Private Physician. am2 14:33 Triage completed. kg 14:33 Arm band placed on right wrist. EKG completed in triage. Results shown to . kg 14:44 Gayatri Hinojosa, RN is Primary Nurse. rb3 14:44 Vincent Sierra MD is Attending Physician. karri 14:45 Patient has correct armband on for positive identification. Bed in low position. Call rb3 light in reach. Side rails up X 1. Pulse ox on. NIBP on. Warm blanket given. 17:17 Maxillofacial Wo Con In Process Unspecified. EDMS 17:18 CT Head C Spine In Process Unspecified. EDMS 17:34 Knee Left 3 View XRAY In Process Unspecified. EDMS 17:34 Knee Right 3 View XRAY In Process Unspecified. EDMS 18:18 Vinod Combs MD is Referral Physician. [facility] 18:44 No provider procedures requiring assistance completed. Patient did not have IV access rb3 during this emergency room visit. Administered Medications: 17:52 Drug: Neosporin (iqckwfxx-aubeqqeymg-tlthaubhd) Ointment 1 application Route: Topical; rb3 Site: affected area; Outcome: 18:18 Discharge ordered by . karri 18:44 Discharged to home via wheelchair. rb3 18:44 Condition: stable 18:44 Discharge instructions given to patient, Instructed on discharge instructions, follow up and referral plans. medication usage, Demonstrated understanding of instructions, follow-up care, medications, Prescriptions given X 1. 18:45 Patient left the ED. rb3 Signatures: Dispatcher [employer] EDMD Vincent Sierra MD MD cha Moreno, Amanda am2 Gayatri Hinojosa, RN RN rb3 Meche Pena, WILFRED RN kg Corrections: (The following items were deleted from the chart) 14:38 14:33 PMHx: Asthma; kg kg
[2020-11-10 18:50] VITALS: TEMP 97.5
[2020-11-10 18:56] VITALS: BP 135/50; O2SAT 97
== END 2020-11-10 18:45 | disposition home or self-care (01) ==
LOC: ER 14:20
DX: S02.2XXA Fracture of nasal bones, initial encounter for closed fracture (principal); Y93.01 Activity, walking, marching and hiking; W10.1XXA Fall (on)(from) sidewalk curb, initial encounter; I10 Essential (primary) hypertension; I50.9 Heart failure, unspecified; F32.9 Major depressive disorder, single episode, unspecified; Z79.82 Long term (current) use of aspirin; Z88.8 Allergy status to other drugs, medicaments and biological substances
CPT/HCPCS: 70450; 70486; 72125; 99284

== ENCOUNTER 2021-06-30 11:50 | Emergency (ER) | payer OTHER ==
--- OUTSIDE RECORDS SUMMARY | 2021-06-30 11:56 | XMS REPORT | Continuity of Care Document ---
:1940 Author Organization [facility] t Address [address] [place] [address] Dr. [address]. [address] [place] [address] Care Team Providers Name Role Phone Asked, Pcp Primary Care Physician Unavailable Reza RN, T Attending Clinician Unavailable Only, Db Test Attending Clinician Unavailable Fortino ALAMO Attending Clinician FORTINO Attending Clinician Unavailable Hong HEATH L Attending Clinician Selma PITTS Attending Clinician Unavailable BELLE Attending Clinician Unavailable Doctor Unassigned, Name Attending Clinician Unavailable Susan BAZZI Attending Clinician Norman HEATH S Attending Clinician Pob, Lab Main Attending Clinician Unavailable Ruben GARCIA Attending Clinician Unavailable Charanjit EDWARDS S Attending Clinician Jah TAO Attending Clinician Rah HEATH Attending Clinician Pc, Echo Room 1 - Attending Clinician Unavailable Gertrudis ALAMO B Attending Clinician Georgiana CABA Attending Clinician Unavailable Selma Pitts MD Admitting Clinician Selma PITTS Admitting Clinician Unavailable Georgiana CABA Admitting Clinician Unavailable Payers Payer Name Policy Type Policy Number Effective Date Expiration Date S ource Problems Condition Condition Condition Status Onset Resolution Last Treating Co mments Source Name Details Category Date Date Treatment Clinician Date Elevated Elevated Disease Active 2020-0 Unive rs LFTs LFTs 3-05 ity of 00:00: [place] [address] Medical Branch Elevated Elevated Disease Active 2020-0 Unive rs LFTs LFTs 3-05 ity of 00:00: [place] [address] Medical Branch Hypoxia Hypoxia Disease Active 2020- Univers 3-04 ity of 00:00: [place] [address] Medical Branch Volume Volume Disease Active 2019- Univers overload overload 3-04 ity of 00:00: [place] [address] Medical Branch Abnormal Abnormal Disease Active 2019- Unive rs liver liver 3-04 ity of enzymes enzymes 00:00: [address] Branch Anemia Anemia Disease Active 2019- Univers 3-04 ity of 00:00: [address] Branch Essential Essential Disease Active 2020- Uni vers hypertensi hypertensi 3-04 it y of on on 00:00: [place] [address] Medical [place] 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 Added automatic ally from request for surgery [id number] Heartburn Heartburn Disease Active Met hodi 7-14 st 00:00: [facility] l Family Family Disease Active Methodi history of history of 14 st colon colon 00:00: [facility]osp[facility] cancer cancer 00 l No known No known Disease Unive rs active active ity of problems problems [place] [facility] Allergies, Adverse Reactions, Alerts Allergy Allergy Status Severity Reaction(s) Onset Inactive Treating Comm ents Source Name Type Date Date Clinician Prometha Drug Active Hallucinatio Un francisco javier zine Hcl Intolera ns 2-04 ity of nce 00:00: [address] Branch PROMETHA DRUG Active Med Hallucinates Un francisco javier ZINE HCL INGREDI 2 ity of 00:00: [place] 00 [facility] Prometha Propensi Active Other (See Made her Methodi zine ty to Comments) 09-[address] adverse 00:00: crazy Hospita reaction 00 l s to drug Family History Family Member Diagnosis Comments Start Date Stop Date Source Natural father Colon cancer [facility] [place] Natural son Crohn's disease [facility] [place] Social History Social Habit Start Date Stop Date Quantity Comments Source Exposure to Yes [facility]-CoV-2 [facility] (event) [place] Alcohol intake 2020-07-09 2020-07-09 Current University of 00:00:00 00:00:00 non-drinker of [facility] alcohol (finding) [place] Tobacco use and 2020-07-09 2020-07-09 Never used Universit y of exposure 00:00:00 00:00:00 [place] [facility] Alcohol Comment 2017-08-11 2017-08-11 rarely [facility] 00:00:00 00:00:00 History of 1992-08-11 Cigarette Smoker [facility] [place] tobacco use 00:00:00 [birth year] Universit y of 00:00:00 00:00:00 [place] [facility] Smoking Status Start Date Stop Date Source Never smoker [facility] Former smoker 2017-09-21 00:00:00 2017-09-21 00:00:00 [facility] [place] Medications Ordered Filled Start Stop Current Ordering Indication Dosage Frequency Signature Comments Components Source Medication Medication Date Date Medication? Clinician (SIG) Name Name apixaban 5 2019-0 2020- No 1291 5mg Take 1 Univ ers mg tablet 3-13 -13 tablet by ity of 00:00: 04:59 mouth 2 [place] 00 :00 (two) Medical times Branch daily for 30 days. Indication s: a clot in the lung apixaban 5 2019-0 2020- No 1291 5mg Take 1 Univ ers mg tablet 3-13 -13 tablet by ity of 00:00: 04:59 mouth 2 [place] 00 :00 (two) Medical times Branch daily for 30 days. Indication s: a clot in the lung aspirin 81 2019-0 Yes 81mg Take 81 mg U nivers mg chewable 3-06 by mouth. ity of tablet 21:05: [place] [address] Medical Branch omeprazole 2020-0 Yes 40mg Take 40 mg U nivers 40 mg 3-06 by mouth ity of capsule 21:05: daily. [place] [address] Medical Branch albuterol 2020-0 Yes Inhale. Unive rs sulfate 90 3-06 ity of mcg/actuati 21:05: [place] on AePB 40 Medical Branch OMEPRAZOLE 2020-0 Yes Take by Uni vers MAGNESIUM 3-06 mouth. ity of ORAL 21:05: [place] [address] Medical Branch FLUoxetine 2020-0 Yes 20mg Take 20 mg U nivers 20 mg 3-06 by mouth ity of capsule 21:05: daily. [place] [address] Medical Branch alendronate 2020-0 Yes Take by Un francisco javier sodium 3-06 mouth. ity of (ALENDRONAT 21:05: [place] E ORAL) Medical Branch baclofen 10 2019-0 Yes 10mg Take 10 mg Univers mg tablet 3-06 by mouth 3 ity of 21:05: (three) [place] 40 times Medical daily. Branch ALBUTEROL 2019-0 Yes Take by Univ ers SULFATE 3-06 mouth. ity of ORAL 21:05: [place] [address] Medical Branch aspirin 81 2020-0 Yes 81mg Take 81 mg U nivers mg chewable 3-06 by mouth. ity of tablet 21:05: [place] [address] Medical Branch omeprazole 2020-0 Yes 40mg Take 40 mg U nivers 40 mg 3-06 by mouth ity of capsule 21:05: daily. [place] [address] Medical Branch albuterol 2020-0 Yes Inhale. Unive rs sulfate 90 3-06 ity of mcg/actuati 21:05: [place] on AePB 40 Medical Branch OMEPRAZOLE 2020-0 Yes Take by Uni vers MAGNESIUM 3-06 mouth. ity of ORAL 21:05: [place] [address] Medical Branch FLUoxetine 2020-0 Yes 20mg Take 20 mg U nivers 20 mg 3-06 by mouth ity of capsule 21:05: daily. [address] Branch alendronate 2020-0 Yes Take by Un francisco javier sodium 3-06 mouth. ity of (ALENDRONAT 21:05: [place] E ORAL) 40 Medical Branch baclofen 10 2020-0 Yes 10mg Take 10 mg Univers mg tablet 3-06 by mouth 3 ity of 21:05: (three) [place] 40 times Medical daily. Branch ALBUTEROL 2020-0 Yes Take by Univ ers SULFATE 3-06 mouth. ity of ORAL 21:05: [place] [address] Medical Branch aspirin 81 2020-0 Yes 81mg Take 81 mg U nivers mg chewable 3-06 by mouth. ity of tablet 21:05: [place] [address] Medical Branch omeprazole 2020-0 Yes 40mg Take 40 mg U nivers 40 mg 3-06 by mouth ity of capsule 21:05: daily. [place] [address] Medical Branch albuterol 2020-0 Yes Inhale. Unive rs sulfate 90 3-06 ity of mcg/actuati 21:05: [place] on AePB 40 Medical Branch OMEPRAZOLE 2020-0 Yes Take by Uni vers MAGNESIUM 3-06 mouth. ity of ORAL 21:05: [place] [address] Medical Branch FLUoxetine 2019-0 Yes 20mg Take 20 mg U nivers 20 mg 3-06 by mouth ity of capsule 21:05: daily. [place] [address] Medical Branch alendronate 2019-0 Yes Take by Un francisco javier sodium 3-06 mouth. ity of (ALENDRONAT 21:05: [place] E ORAL) 40 Medical Branch baclofen 10 2020-0 Yes 10mg Take 10 mg Univers mg tablet 3-06 by mouth 3 ity of 21:05: (three) [place] 40 times Medical daily. Branch ALBUTEROL 2020-0 Yes Take by Univ ers SULFATE 3-06 mouth. ity of ORAL 21:05: [address] Branch aspirin 81 2020-0 Yes 81mg Take 81 mg U nivers mg chewable 3-06 by mouth. ity of tablet 21:05: [place] [address] Medical Branch omeprazole 2020-0 Yes 40mg Take 40 mg U nivers 40 mg 3-06 by mouth ity of capsule 21:05: daily. [place] [address] Medical Branch albuterol 2020-0 Yes Inhale. Unive rs sulfate 90 3-06 ity of mcg/actuati 21:05: [place] on AePB 40 Medical Branch OMEPRAZOLE 2020-0 Yes Take by Uni vers MAGNESIUM 3-06 mouth. ity of ORAL 21:05: [place] [address] Medical Branch FLUoxetine 2020-0 Yes 20mg Take 20 mg U nivers 20 mg 3-06 by mouth ity of capsule 21:05: daily. [place] [address] Medical Branch alendronate 2020-0 Yes Take by Un francisco javier sodium 3-06 mouth. ity of (ALENDRONAT 21:05: [place] E ORAL) 40 Medical Branch baclofen 10 2020-0 Yes 10mg Take 10 mg Univers mg tablet 3-06 by mouth 3 ity of 21:05: (three) [place] 40 times Medical daily. Branch ALBUTEROL 2020-0 Yes Take by Univ ers SULFATE 3-06 mouth. ity of ORAL 21:05: [place] 40 Medical Branch aspirin 81 2020-0 Yes 81mg Take 81 mg U nivers mg chewable 3-06 by mouth. ity of tablet 21:05: [place] 40 Medical Branch omeprazole 2020-0 Yes 40mg Take 40 mg U nivers 40 mg 3-06 by mouth ity of capsule 21:05: daily. [place] 40 Medical Branch albuterol 2019-0 Yes Inhale. Unive rs sulfate 90 3-06 ity of mcg/actuati 21:05: [place] on Ae 40 Medical Branch OMEPRAZOLE 2019-0 Yes Take by Uni vers MAGNESIUM 3-06 mouth. ity of ORAL 21:05: [place] 40 Medical Branch FLUoxetine 2019-0 Yes 20mg Take 20 mg U nivers 20 mg 3-06 by mouth ity of capsule 21:05: daily. [place] 40 Medical Branch alendronate 2019-0 Yes Take by Un francisco javier sodium 3-06 mouth. ity of (ALENDRONAT 21:05: [place] E ORAL) 40 Medical Branch baclofen 10 2019-0 Yes 10mg Take 10 mg Univers mg tablet 3-06 by mouth 3 ity of 21:05: (three) [place] 40 times Medical daily. Branch ALBUTEROL 2019-0 Yes Take by Univ ers SULFATE 3-06 mouth. ity of ORAL 21:05: [place] 40 Medical Branch gabapentin 2020-0 2020- No 300mg Take 300 U nivers 300 mg - 03-06 mg by ity of capsule 17:59: 00:00 mouth [place] 42 :00 daily. Medical Branch lisinopril 2020-0 2020- No 10mg Take 10 mg Univers 10 mg -06 03-06 by mouth ity of tablet 17:59: 00:00 daily. [place] 42 :00 Medical Branch lisinopril 2020-0 2020- No 10mg Take 10 mg Univers 10 mg -06 03-06 by mouth ity of tablet 17:59: 00:00 daily. [place] 42 :00 Medical Branch ASPIRIN 2020-0 2020- No Take by Unive rs ORAL 3-06 03-06 mouth. ity of 17:59: 00:00 [place] 42 :00 Medical Branch gabapentin 2020-0 2020- No 400mg Take 400 U nivers 400 mg 3-06 03-06 mg by ity of capsule 17:59: 00:00 mouth 3 [place] 42 :00 (three) Medical times Branch daily. aspirin 81 2020-0 Yes 81mg Take 81 mg U nivers mg chewable 3-06 by mouth. ity of tablet 15:05: [place] [address] Medical Branch omeprazole 2020-0 Yes 40mg Take 40 mg U nivers 40 mg 3-06 by mouth ity of capsule 15:05: daily. [place] [address] Medical Branch albuterol 2020-0 Yes Inhale. Unive rs sulfate 90 3-06 ity of mcg/actuati 15:05: [place] on Ae [address] Medical Branch OMEPRAZOLE 2020-0 Yes Take by Uni vers MAGNESIUM 3-06 mouth. ity of ORAL 15:05: [place] [address] Medical Branch FLUoxetine 2020-0 Yes 20mg Take 20 mg U nivers 20 mg 3-06 by mouth ity of capsule 15:05: daily. [address] Branch alendronate 2020-0 Yes Take by Un francisco javier sodium 3-06 mouth. ity of (ALENDRONAT 15:05: [place] E ORAL) Medical Branch baclofen 10 2020-0 Yes 10mg Take 10 mg Univers mg tablet 3-06 by mouth 3 ity of 15:05: (three) [place] 40 times Medical daily. Branch ALBUTEROL 2020-0 Yes Take by Univ ers SULFATE 3-06 mouth. ity of ORAL 15:05: [address] Branch aspirin 81 2020-0 Yes 81mg Take 81 mg U nivers mg chewable 3-06 by mouth. ity of tablet 15:05: [address] Branch omeprazole 2020-0 Yes 40mg Take 40 mg U nivers 40 mg 3-06 by mouth ity of capsule 15:05: daily. [address] Branch albuterol 2020-0 Yes Inhale. Unive rs sulfate 90 3-06 ity of mcg/actuati 15:05: [place] on AePB 40 Medical Branch OMEPRAZOLE 2020-0 Yes Take by Uni vers MAGNESIUM 3-06 mouth. ity of ORAL 15:05: [address] Branch FLUoxetine 2020-0 Yes 20mg Take 20 mg U nivers 20 mg 3-06 by mouth ity of capsule 15:05: daily. [place] 40 Medical Branch alendronate 2019-0 Yes Take by Un francisco javier sodium 3-06 mouth. ity of (ALENDRONAT 15:05: [place] E ORAL) 40 Medical Branch baclofen 10 2019-0 Yes 10mg Take 10 mg Univers mg tablet 3-06 by mouth 3 ity of 15:05: (three) [place] 40 times Medical daily. Branch ALBUTEROL 2019-0 Yes Take by [facility] ers SULFATE 3-06 mouth. ity of ORAL 15:05: [place] 40 Medical Branch vancomycin 2019-0 Yes 500mg 500 mg, Uni vers (FIRVANQ) 3-06 Oral, QID, ity of 50 mg/mL 09:30: First dose [place] as oral 00 on Thu Medical solution 05/27/19 at Branch 500 mg 0330, Until Discontinu ed, Routine
Reason for Anti-Infec tive: Documented Infection< br>Documen trena Infection Site: Abdominal< br>Duratio n of Therapy: 14 days acetaminoph 2019-0 Yes [id number] 1{tbl} Take 1 Univers en-codeine 3-06 05 tablet by ity of (TYLENOL-CO 00:00: mouth [place] DEINE #3) 00 every 4 Medical 300-30 mg (four) Branch tablet hours as needed for Pain (scale 4-6) or Pain (scale 7-10). acetaminoph 2020-0 Yes [id number] 1{tbl} Take 1 Univers en-codeine 3-06 05 tablet by ity of (TYLENOL-CO 00:00: mouth [place] DEINE #3) 00 every 4 Medical 300-30 mg (four) Branch tablet hours as needed for Pain (scale 4-6) or Pain (scale 7-10). acetaminoph 2020-0 Yes [id number] 1{tbl} Take 1 Univers en-codeine 3-06 05 tablet by ity of (TYLENOL-CO 00:00: mouth [place] DEINE #3) 00 every 4 Medical 300-30 mg (four) Branch tablet hours as needed for Pain (scale 4-6) or Pain (scale 7-10). acetaminoph 2020-0 Yes [id number] 1{tbl} Take 1 Univers en-codeine 3-06 05 tablet by ity of (TYLENOL-CO 00:00: mouth [place] DEINE #3) 00 every 4 Medical 300-30 mg (four) Branch tablet hours as needed for Pain (scale 4-6) or Pain (scale 7-10). acetaminoph 2020-0 Yes [id number] 1{tbl} Take 1 Univers en-codeine 3-06 05 tablet by ity of (TYLENOL-CO 00:00: mouth [place] DEINE #3) 00 every 4 Medical 300-30 mg (four) Branch tablet hours as needed for Pain (scale 4-6) or Pain (scale 7-10). acetaminoph 2020-0 Yes [id number] 1{tbl} Take 1 Univers en-codeine 3-06 05 tablet by ity of (TYLENOL-CO 00:00: mouth [place] DEINE #3) 00 every 4 Medical 300-30 mg (four) Branch tablet hours as needed for Pain (scale 4-6) or Pain (scale 7-10). acetaminoph 2020-0 Yes [id number] 1{tbl} Take 1 Univers en-codeine 3-06 05 tablet by ity of (TYLENOL-CO 00:00: mouth [place] DEINE #3) 00 every 4 Medical 300-30 mg (four) Branch tablet hours as needed for Pain (scale 4-6) or Pain (scale 7-10). gabapentin 2020-0 2020- No [id number] 400mg Take 1 Univers 400 mg 3 04-06 05 capsule by ity of capsule 00:00: 04:59 mouth [place] 00 :00 every Medical evening Branch for 30 days. gabapentin 2020-0 2020- No [id number] 400mg Take 1 Univers 400 mg 3-06 04-06 05 capsule by ity of capsule 00:00: 04:59 mouth [place] 00 :00 every Medical evening Branch for 30 days. vancomycin 2020-0 2020- No [id number] 125mg Take 2.5 Univers 50 mg/mL 3 03-17 mL by ity of oral 00:00: 04:59 mouth 4 [place] solution 00 :00 (four) Medical times Branch daily for 10 days. apixaban 5 2019-0 2020- No 1291 10mg Take 2 Univ ers mg tablet 05-26 03-14 tablets by ity of 00:00: 04:59 mouth 2 [place] 00 :00 (two) Medical times Branch daily for 7 days. Indication s: a clot in the lung enoxaparin 2020-0 Yes 1mg/kg 80 mg [facility] ers (LOVENOX) 05-25 (rounded ity of injection 22:00: from 81 mg [place] 80 mg 00 = 1 mg/kg Medical ?81 kg), Branch Subcutaneo us, Q12HA3, First dose on [place] 05/26/19 at 1600, Until Discontinu ed, PAULINE iohexol 2019-0 2019- No 120mL 120 mL, Unive rs (OMNIPAQUE 05-25 Intravenou it y of 350 20:40: 20:40 s, ONCE, 1 [place] BULK-150 00 :00 dose, [place] Medica l mL) 05/26/19 at Branch injection 1500, 120 mL Routine furosemide 2019-0 2019- No 20mg 20 mg, [facility] ers (LASIX) 05-24- Slow IV ity of injection 15:30: 21:52 Push, [place] 20 mg 00 :24 QAM+PM, Medical First dose Branch on Thu05/25/19 at 0930, Until Discontinu ed, Routine aspirin 81 2019-0 Yes 81mg Take 81 mg U nivers mg chewable 3-03 by mouth. ity of tablet 16:17: [address] gabapentin 2019-0 Yes 300mg Take 300 Un francisco javier 300 mg 3-03 mg by ity of capsule 16:17: mouth [place] [address] daily. Medical Branch lisinopril 2019-0 Yes 10mg Take 10 mg U nivers 10 mg 3-03 by mouth ity of tablet 16:17: daily. [address] omeprazole 2019-0 Yes 40mg Take 40 mg U nivers 40 mg 3-03 by mouth ity of capsule 16:17: daily. [place] [address] Medical Branch albuterol 2020-0 [facility]. [facility] 3-03 ity of mcg/actuati 16:17: [place] on [address] Medical Branch lisinopril 2020-0 Yes 10mg Take 10 mg U nivers 10 mg 3-03 by mouth ity of tablet 16:17: daily. [address] Branch OMEPRAZOLE 2020-0 Yes Take by Uni vers MAGNESIUM 3-03 mouth. ity of ORAL 16:17: [address] FLUoxetine 2019-0 Yes 20mg Take 20 mg U nivers 20 mg 3-03 by mouth ity of capsule 16:17: daily. [place] [address] Medical Branch alendronate 2020-0 Yes Take by Un francisco javier sodium 3-03 mouth. ity of (ALENDRONAT 16:17: [place] E ORAL) Medical Branch ASPIRIN 2020-0 Yes Take by Univer s ORAL 3-03 mouth. ity of 16:17: [place] [address] Medical Branch baclofen 10 2020-0 Yes 10mg Take 10 mg Univers mg tablet 3-03 by mouth 3 ity of 16:17: (three) [place] [address] times Medical daily. Branch gabapentin 2020-0 Yes 400mg Take 400 Un francisco javier 400 mg 3-03 mg by ity of capsule 16:17: mouth 3 [place] (three) Medical times Branch daily. ALBUTEROL 2020-0 Yes Take by Univ ers SULFATE 3-03 mouth. ity of ORAL 16:17: [place] [address] Medical Branch morpHINE 30 2020-0 2020- No Unive rs mg/30 mL 3- 03-04 ity of (fixed 16:15: 15:19 [place] dose) [employer] 00 :37 Medical injection Branch HYDROcodone 2020-0 Yes 1{tbl} 1 tablet, Univers -acetaminop 3- Oral, ity of hen (NORCO) 15:58: Q6HPRN, [place] 10-325 mg 35 Starting Medica l tablet 1 Thu05/24/19 Bran h tablet at 0958, Until Discontinu ed, Routine, Pain (scale 4-6) sennosides 2020-0 Yes 8.6mg 8.6 mg, Uni vers (SENOKOT) 3-03 Oral, ity of tablet 8.6 15:00: DAILY, [place] mg 00 First dose Medical on [facility] 05/24/19 at 0900, Until Discontinu ed, Routine docusate 2020-0 Yes 100mg 100 mg, Unive rs (COLACE) 3-03 Oral, ity of capsule 100 15:00: DAILY, [place] mg 00 First dose Medical on [facility] 05/24/19 at 0900, Until Discontinu ed, Routine omeprazole 2020-0 Yes 40mg 40 mg, Unive rs (PRILOSEC) 3-03 Oral, ity of capsule 40 15:00: DAILY, [place] mg 00 First dose Medical on [facility] 05/24/19 at 0900, Until Discontinu ed FLUoxetine 2020-0 Yes 20mg 20 mg, Unive rs (PROZAC) 05-23 Oral, ity of capsule 20 15:00: DAILY, [place] mg 00 First dose Medical on [facility] 05/24/19 at 0900, Until Discontinu ed, Routine aspirin 2019- Yes 81mg 81 mg, Univers chewable 05-23 Oral, ity of tablet 81 15:00: DAILY, [place] mg 00 First dose Medical on [facility] 05/24/19 at 0900, Until Discontinu ed, Routine lisinopril 2019- No 10mg 10 mg, Univ ers (PRINIVIL,Z 05-23 Oral, ity of ESTRIL) 15:00: 21:52 DAILY, [place] tablet 10 00 :24 First dose Medi [place] mg on [facility] 05/24/19 at 0900, Until Discontinu ed, Routine enoxaparin 2019- No 30mg 30 mg, Univ ers (LOVENOX) 05-23 Subcutaneo ity of injection 12:00: 21:52 us, Q12H, [place] 30 mg 00 :25 First dose Medical on [facility] 05/24/19 at 0600, Until Discontinu ed, Routine rivaroxaban 2019- No [id number] 10mg Take 1 Uni vers (XARELTO) 05-23-06 tablet by ity of tablet 00:00: 00:00 mouth [place] 00 :00 daily for Medical 10 days. Branch Indication s: deep vein thrombosis prevention in knee replacemen t acetaminoph 2020- No [id number] 1{tbl} Take 1 Univers en-codeine 05-23-06 05 tablet by ity of (TYLENOL-CO 00:00: 00:00 mouth [place] DEINE #3) 00 :00 every 4 Medical 300-30 mg (four) Branch tablet hours as needed for Pain (scale 4-6) or Pain (scale 7-10). gabapentin 2019-0 Yes 400mg 400 mg, Uni vers (NEURONTIN) 05-22 Oral, QPM, it y of capsule 400 23:00: First dose [place] mg 00 on [facility] 05/23/19 at Branch 1700, Until Discontinu ed, Routine morpHINE 30 2019- 2020- No Unive rs mg/30 mL 3-05-23 ity of (fixed 22:45: 16:11 [place] dose) [employer] 00 :34 Medical injection Branch ceFAZolin 2019- 2020- No 1g 1 g, IV Univ ers (ANCEF) 1 g 05-22 Piggyback, i ty of in NaCl 22:00: 06:56 Q8H ABX, 2 [place] 0.9% (NS) 00 :00 doses, Medical 50 mL First dose Branch MINI-BAG on Thu05/23/19 at 1600, Last dose on Thu05/24/19 at 0000, 50 mL
Reas on for Anti-Infec tive: Surgical Prophylaxi s
Surgi [place] Prophylaxi s: Orthopaedi c
Durat ion of therapy: within 24 hours of surgery naloxone 2019- Yes .1mg 0.1 mg, Univer s (NARCAN) 05-22 Slow IV ity of injection 21:33: Push, [place] 0.1 mg 14 SEE-INSTRU Medical CTIONS, Branch Starting Thu05/23/19 at 1533, Until Discontinu ed, Routine lactated 0 2020- No 1000mL at 75 Unive rs ringers IV 05-22 03-04 mL/hr, ity of infusion 15:45: 00:54 1,000 mL, [place] 1,000 mL 00 :14 IV Medical Infusion, Branch CONTINUOUS , Starting Thu05/23/19 at 0945, Until Thu05/24/19 at 1854, Routine, PACU FENTanyl PF 2019- No 25ug 25 mcg, Un francisco javier (SUBLIMAZE 05-22 Slow IV ity o f (PF)) 15:36: 23:31 Push, [place] injection 21 :39 Q5MIN PRN, Medi [place] 25 mcg 4 doses, Branch Starting Thu05/23/19 at 0936, Until Thu05/23/19 at 1731, Routine, Pain (scale 4-6), PACU ondansetron 2019-0 Yes 4mg 4 mg, Slow Univers (ZOFRAN 02 IV Push, ity of (PF)) 15:26: Q6HPRN, [place] injection 4 35 Starting Medi [place] mg Thu05/23/19 Branch at 0926, Until Discontinu ed, Routine, Nausea and Vomiting (N/V) ondansetron 2019-0 2020- No Slow IV Un francisco javier (ZOFRAN 05-22 Push, ONCE ity o f (PF)) 15:00: 15:26 INTRA [place] injection 00 :49 PROCEDURE, [facility] Starting Branch 05/23/19 at 0900, Until Thu05/23/19 at 0926, Routine, Intra-op ePHEDrine 2020-0 2020- No ONCE INTRA U nivers 25 mg/5 mL 05-22 PROCEDURE, it y of (5 mg/mL) 13:53: 15:26 Starting [place] as syringe 00 :49 05/23/19 Medica l at 0753, Branch Until Thu05/23/19 at 0926, Routine, Intra-op ceFAZolin 2019-0 2020- No ONCE INTRA U nivers (ANCEF) 05-22 PROCEDURE, ity o f injection 13:51: 15:26 Starting [place] as 00 :49 05/23/19 Medical at 0751, Branch Until Thu05/23/19 at 0926, PAULINE, Intra-op dexamethaso 2020-0 2020- No Intravenou Univers ne 05-22 s, ONCE ity of (DECADRON 13:50: 15:26 INTRA [place] PHOSPHATE) 00 :49 PROCEDURE, Med ical injection Starting Branch 05/23/19 at 0750, Until Thu05/23/19 at 0926, Routine, Intra-op FENTanyl PF 2020-0 2020- No Intravenou Univers (SUBLIMAZE 05-22-02 s, ONCE ity o f (PF)) 13:45: 15:26 INTRA [place] injection 00 :49 PROCEDURE, [facility] Starting Branch 05/23/19 at 0745, Until Thu05/23/19 at 0926, Routine, Intra-op propofol IV 2020-0 2020- No Intravenou Univers infusion 05-22-02 s, ONCE ity of 13:45: 15:26 INTRA [place] 00 :49 PROCEDURE, Medical Starting Branch 05/23/19 at 0745, Until Thu05/23/19 at 0926, Routine, Intra-op lidocaine 2020-0 2020- No ONCE INTRA U nivers 1% 05-22 PROCEDURE, ity of (XYLOCAINE) 13:45: 15:26 Starting [place] 100 mg/10 00 :49 05/23/19 Medi [place] mL (1 %) at 0745, Branch injection Until 05/23/19 at 0926, Routine, Intra-op midazolam 2020- No IV Push, Uni vers (VERSED) 05-22 ONCE INTRA ity of injection 13:37: 15:26 PROCEDURE, [place] 00 :49 Starting Medical 05/23/19 Branch at 0737, Until 05/23/19 at 0926, Routine, Intra-op sodium 2020-0 Yes PRN, Univers chloride 05-22 Starting ity of 0.9 % 13:36: 05/23/19 [place] irrigation 00 at 0736, Medic al solution Until Branch Discontinu ed, Intra-op lactated 2020- No IV Univers ringers IV 05-22 Infusion, ity of infusion 13:36: 15:26 CONTINUOUS [place] 00 :49 PRN, Medical Starting Branch 05/23/19 at 0736, Until 05/23/19 at 0926, Routine, Intra-op tranexamic 2019- No 10mg/kg 810 mg (10 Univers acid 05-22 mg/kg ?81 ity of (CYKLOKAPRO 13:30: 15:16 kg), IV [place] N) 810 mg 00 :00 Piggyback, Medi [place] in NaCl ONCE, 1 Branch 0.9% (NS) dose, Mon 250 mL 05/23/19 at piggyback 0730, 250 mL, Intra-op gabapentin 2019- No 300mg 300 mg, Un francisco javier (NEURONTIN) 05-22 Oral, ity of capsule 300 12:30: 12:37 [place]CE, 1 [place] 00 :00 dose, Mon Medical 05/23/19 at Branch 0630, Routine, DSU Pre-op celecoxib 2019- No 400mg 400 mg, Uni vers (CELEBREX) 05-22 Oral, ity of capsule 400 12:30: 12:37 [place]CE, 1 [place] 00 :[place] dose, Mon Medical 05/23/19 at Branch 0630, Routine, DSU Pre-op oxyCODONE-a 2019- No 2{tbl} 2 tablet, Univers cetaminophe 05-22 Oral, ity of n 12:30: 12:37 ONCE, 1 [place] (PERCOCET) 00 :00 dose, Mon Medi [place] 5-325 mg 05/23/19 at Branch per tablet 0630, 2 tablet Routine, DSU Pre-op lactated 2019-0 2020- No 1000mL at 20 Unive rs [place] IV 05-2202 mL/hr, ity of infusion 12:00: 12:18 1,000 mL, [place] as 1,000 mL 00 :00 IV Medical Infusion, Branch ONCE, 1 dose, 05/23/19 at 0600, Routine, DSU Pre-op ceFAZolin 2019- 2020- No 2g Univers in dextrose 05-22 ity of (iso-os) 06:00: 17:59 [place] (ANCEF) 2 00 :00 Medical gram/100 mL Branch Piggyback 2 g celecoxib 2019- 2020- No 400mg Univer s (CELEBREX) 05-22 ity of capsule 400 06:00: 17:59 [place] mg 00 :00 Medical Branch gabapentin 2019-0 2020- No 300mg Unive rs (NEURONTIN) 05-22 ity of capsule 300 06:00: 17:59 [place] mg 00 :00 Medical Branch oxyCODONE-a 2019-0 2020- No 2{tbl} Uni vers cetaminophe 05-22 ity of n 06:00: 17:59 [place] (PERCOCET) 00 :00 Medical 5-325 mg Branch per tablet 2 tablet tranexamic 2019-0 2020- No 1000mg Univ ers acid 05-22 ity of (CYKLOKAPRO 06:00: 17:59 [place] N) 1,000 mg 00 :00 Medical in NaCl Branch 0.9% (NS) 250 mL piggyback ceFAZolin 0 2020- No 2g Univers in dextrose 05-22 ity of (iso-os) 06:00: 17:59 [place] (ANCEF) 2 00 :00 Medical gram/100 mL Branch Piggyback 2 g celecoxib 2019-0 2020- No 400mg Univer s (CELEBREX) 05-22 ity of capsule 400 06:00: 17:59 [place] mg 00 :00 Medical Branch gabapentin 2019-0 2020- No 300mg Unive rs (NEURONTIN) 05-22 ity of capsule 300 06:00: 17:59 [place] mg 00 :00 Medical Branch oxyCODONE-a 2020-0 2020- No 2{tbl} Uni vers cetaminophe 05-22 ity of n 06:00: 17:59 [place] (PERCOCET) 00 :00 Medical 5-325 mg Branch per tablet 2 tablet tranexamic 2020-0 2020- No 1000mg Univ ers acid 05-22 ity of (CYKLOKAPRO 06:00: 17:59 [place] N) 1,000 mg 00 :00 Medical in NaCl Branch 0.9% (NS) 250 mL piggyback ceFAZolin 2019-0 2020- No 2g Univers in dextrose 05-22 ity of (iso-os) 06:00: 17:59 [place] (ANCEF) 2 00 :00 Medical gram/100 mL Branch Piggyback 2 g celecoxib 2019-0 2020- No 400mg Univer s (CELEBREX) 05-22 ity of capsule 400 06:00: 17:59 [place] mg 00 :00 Medical Branch gabapentin 2020-0 2020- No 300mg Unive rs (NEURONTIN) 05-22 ity of capsule 300 06:00: 17:59 [place] mg 00 :00 Medical Branch oxyCODONE-a 0 2020- No 2{tbl} Uni vers cetaminophe 05-22 ity of n 06:00: 17:59 [place] (PERCOCET) 00 :00 Medical 5-325 mg Branch per tablet 2 tablet tranexamic 0 2020- No 1000mg Univ ers acid 05-22 ity of (CYKLOKAPRO 06:00: 17:59 [place] N) 1,000 mg 00 :00 Medical in NaCl Branch 0.9% (NS) 250 mL piggyback ceFAZolin 0 2020- No 2g Univers in dextrose 05-22 ity of (iso-os) 06:00: 17:59 [place] (ANCEF) 2 00 :00 Medical gram/100 mL Branch Piggyback 2 g celecoxib 2019-0 2020- No 400mg Univer s (CELEBREX) 05-22 ity of capsule 400 06:00: 17:59 [place] mg 00 :00 Medical Branch gabapentin 2020- No 300mg Unive rs (NEURONTIN) 05-22 ity of capsule 300 06:00: 17:59 [place] mg 00 :00 Medical Branch oxyCODONE-a 2020- No 2{tbl} Uni vers cetaminophe 05-22 ity of n 06:00: 17:59 [place] (PERCOCET) 00 :00 Medical 5-325 mg Branch per tablet 2 tablet tranexamic 2019- No 1000mg Univ ers acid 05-22 ity of (CYKLOKAPRO 06:00: 17:59 [place] N) 1,000 mg 00 :00 Medical in NaCl Branch 0.9% (NS) 250 mL piggyback ceFAZolin 2019- No 2g Univers in dextrose 05-22 ity of (iso-os) 06:00: 17:59 [place] (ANCEF) 2 00 :00 Medical gram/100 mL Branch Piggyback 2 g celecoxib 2019- No 400mg Univer s (CELEBREX) 05-22 ity of capsule 400 06:00: 17:59 [place] mg 00 :00 Medical Branch gabapentin 2020- No 300mg Unive rs (NEURONTIN) 05-22 ity of capsule 300 06:00: 17:59 [place] mg 00 :00 Medical Branch oxyCODONE-a 2020- No 2{tbl} Uni vers cetaminophe 05-22 ity of n 06:00: 17:59 [place] (PERCOCET) 00 :00 Medical 5-325 mg Branch per tablet 2 tablet tranexamic 2020- No 1000mg Univ ers acid 05-22 ity of (CYKLOKAPRO 06:00: 17:59 [place] N) 1,000 mg 00 :00 Medical in NaCl Branch 0.9% (NS) 250 mL piggyback aspirin 81 2019- Yes 81mg Take 81 mg U nivers mg chewable 2-27 by mouth. ity of tablet 17:56: [place] 39 Medical Branch gabapentin Yes 300mg Take 300 Un francisco javier 300 mg 2-27 mg by ity of capsule 17:56: mouth [place] 39 daily. Medical Branch lisinopril Yes 10mg Take 10 mg U nivers 10 mg 2-27 by mouth ity of tablet 17:56: daily. [address] omeprazole 2020-0 Yes 40mg Take 40 mg U nivers 40 mg 2-27 by mouth ity of capsule 17:56: daily. [address] Branch albuterol 2020-0 Yes [facility] 2-27 ity of mcg/actuati 17:56: [facility] Branch lisinopril 2020-0 Yes 10mg Take 10 mg U nivers 10 mg 2-27 by mouth ity of tablet 17:56: daily. [address] Branch FLUoxetine 2020-0 Yes 20mg Take 20 mg U nivers 20 mg 2-27 by mouth ity of capsule 17:56: daily. [address] Branch baclofen 10 2019-0 Yes 10mg Take 10 mg Univers mg tablet 2-27 by mouth 3 ity of 17:56: (three) [place] [id number] times Medical daily. Branch gabapentin 2019-0 Yes 400mg Take 400 Un francisco javier 400 mg 2-27 mg by ity of capsule 17:56: mouth 3 [place] [address] (three) Medical times Branch daily. ALBUTEROL 2019-0 Yes Take by Univ ers SULFATE 2-27 mouth. ity of ORAL 17:56: [address] HYDROcodone 2020-0 2020- No 1{tbl} 1 tablet, Univers -acetaminop 2-02 04-24 Oral, ity of hen (NORCO 00:15: 01:24 ONCE, 1 [place] 5) 5-325 mg 00 :00 dose, Sat Med ical tablet 1 04/23/19 at Branch tablet 1815, [place] lisinopril 2018-0 Yes 10mg Take 10 mg U nivers 10 mg 6-10 by mouth ity of tablet 21:42: daily. [address] OMEPRAZOLE 2018-0 Yes Take by Uni vers MAGNESIUM 6-10 mouth. ity of ORAL 21:42: [address] FLUoxetine 2018-0 Yes 20mg Take 20 mg U nivers 20 mg 6-10 by mouth ity of capsule 21:42: daily. [address] alendronate 2019-0 Yes Take by Un francisco javier sodium 6-10 mouth. ity of (ALENDRONAT 21:42: [facility] ORAL) [address] [place] [address] Branch ASPIRIN 2018-0 Yes Take by Univer s ORAL 6-10 mouth. ity of 21:42: [address] baclofen 10 2018- Yes 10mg Take 10 mg Univers mg tablet 6-10 by mouth 3 ity of 21:42: (three) [place] [id number] times Medical daily. Branch gabapentin 2019 Yes 400mg Take 400 Un francisco javier 400 mg 6-10 mg by ity of capsule 21:42: mouth 3 [place] [address] (three) Medical times [place] daily. ALBUTEROL 2018-0 Yes Take by Univ ers SULFATE 6-10 mouth. ity of ORAL 21:42: [address] lisinopril Yes 10mg Take 10 mg U nivers 10 mg 6-10 by mouth ity of tablet 21:42: daily. [address] OMEPRAZOLE 0 Yes Take by Uni vers MAGNESIUM 6-10 mouth. ity of ORAL 21:42: [address] FLUoxetine Yes 20mg Take 20 mg U nivers 20 mg 6-10 by mouth ity of capsule 21:42: daily. [address] alendronate Yes Take by Un francisco javier sodium 6-10 mouth. ity of (ALENDRONAT 21:42: [facility] ORAL) [address] [place] [address] ASPIRIN 0 Yes Take by Univer s ORAL 6-10 mouth. ity of 21:42: [address] baclofen 10 Yes 10mg Take 10 mg Univers mg tablet 6-10 by mouth 3 ity of 21:42: (three) [place] [address] times Medical daily. Branch gabapentin Yes 400mg Take 400 Un francisco javier 400 mg 6-10 mg by ity of capsule 21:42: mouth 3 [place] [address] (three) Medical times [place] daily. ALBUTEROL 2019-0 Yes Take by Univ ers SULFATE 6-10 mouth. ity of ORAL 21:42: [address] lisinopril 2018-0 Yes 10mg Take 10 mg U nivers 10 mg 6-10 by mouth ity of tablet 21:42: daily. [address] OMEPRAZOLE 2018-0 Yes Take by Uni vers MAGNESIUM 6-10 mouth. ity of ORAL 21:42: [address] FLUoxetine 2018-0 Yes 20mg Take 20 mg U nivers 20 mg 6-10 by mouth ity of capsule 21:42: daily. [address] alendronate 2019-0 Yes Take by Un francisco javier sodium 6-10 mouth. ity of (ALENDRONAT 21:42: [place] E ORAL) Medical Branch ASPIRIN 2018- Yes Take by Univer s ORAL 6-10 mouth. ity of 21:42: [address] Branch baclofen 10 Yes 10mg Take 10 mg Univers mg tablet 6-10 by mouth 3 ity of 21:42: (three) [place] [address] times Medical daily. Branch gabapentin Yes 400mg Take 400 Un francisco javier 400 mg 6-10 mg by ity of capsule 21:42: mouth 3 [place] [address] (three) Medical times Branch daily. ALBUTEROL 2018- Yes Take by Univ ers SULFATE 6-10 mouth. ity of ORAL 21:42: [address] lisinopril Yes 10mg Take 10 mg U nivers 10 mg 6-10 by mouth ity of tablet 21:42: daily. [address] OMEPRAZOLE Yes Take by Uni vers MAGNESIUM 6-10 mouth. ity of ORAL 21:42: [address] FLUoxetine Yes 20mg Take 20 mg U nivers 20 mg 6-10 by mouth ity of capsule 21:42: daily. [address] Branch alendronate Yes Take by Un francisco javier sodium 6-10 mouth. ity of (ALENDRONAT 21:42: [place] E ORAL) Medical Branch ASPIRIN Yes Take by Univer s ORAL 6-10 mouth. ity of 21:42: [address] baclofen 10 Yes 10mg Take 10 mg Univers mg tablet 6-10 by mouth 3 ity of 21:42: (three) [place] [id number] times Medical daily. Branch gabapentin Yes 400mg Take 400 Un francisco javier 400 mg 6-10 mg by ity of capsule 21:42: mouth 3 [place] [address] (three) Medical times [place] daily. ALBUTEROL 2018-0 Yes Take by Univ ers SULFATE 6-10 mouth. ity of ORAL 21:42: [address] lisinopril 0 Yes 10mg Take 10 mg U nivers 10 mg 6-10 by mouth ity of tablet 21:42: daily. [address] OMEPRAZOLE 0 Yes Take by Uni vers MAGNESIUM 6-10 mouth. ity of ORAL 21:42: [address] FLUoxetine Yes 20mg Take 20 mg U nivers 20 mg 6-10 by mouth ity of capsule 21:42: daily. [address] alendronate 0 Yes Take by Un francisco javier sodium 6-10 mouth. ity of (ALENDRONAT 21:42: [place] E ORAL) [address] [place] [address] ASPIRIN 0 Yes Take by Univer s ORAL 6-10 mouth. ity of 21:42: [address] Branch baclofen 10 Yes 10mg Take 10 mg Univers mg tablet 6-10 by mouth 3 ity of 21:42: (three) [place] [id number] times Medical daily. Branch gabapentin Yes 400mg Take 400 Un francisco javier 400 mg 6-10 mg by ity of capsule 21:42: mouth 3 [place] [address] (three) Medical times [place] daily. ALBUTEROL 0 Yes Take by Univ ers SULFATE 6-10 mouth. ity of ORAL 21:42: [address] lisinopril Yes 10mg Take 10 mg U nivers 10 mg 6-10 by mouth ity of tablet 21:42: daily. [address] OMEPRAZOLE 0 Yes Take by Uni vers MAGNESIUM 6-10 mouth. ity of ORAL 21:42: [address] FLUoxetine Yes 20mg Take 20 mg U nivers 20 mg 6-10 by mouth ity of capsule 21:42: daily. [address] alendronate Yes Take by Un francisco javier sodium 6-10 mouth. ity of (ALENDRONAT 21:42: [place] E ORAL) [address] [place] [address] ASPIRIN Yes Take by Univer s ORAL 6-10 mouth. ity of 21:42: [address] baclofen 10 Yes 10mg Take 10 mg Univers mg tablet 6-10 by mouth 3 ity of 21:42: (three) [place] [id number] times Medical daily. Branch gabapentin Yes 400mg Take 400 Un francisco javier 400 mg 6-10 mg by ity of capsule 21:42: mouth 3 [place] [address] (three) Medical times [place] daily. ALBUTEROL 2018-0 Yes Take by Univ ers SULFATE 6-10 mouth. ity of ORAL 21:42: [address] lisinopril 0 Yes 10mg Take 10 mg U nivers 10 mg 6-10 by mouth ity of tablet 21:42: daily. [address] lisinopril 2018-0 Yes 10mg Take 10 mg U nivers 10 mg 6-10 by mouth ity of tablet 21:42: daily. [address] OMEPRAZOLE 0 Yes Take by Uni vers MAGNESIUM 6-10 mouth. ity of ORAL 21:42: [address] FLUoxetine Yes 20mg Take 20 mg U nivers 20 mg 6-10 by mouth ity of capsule 21:42: daily. [address] alendronate 0 Yes Take by Un francisco javier sodium 6-10 mouth. ity of (ALENDRONAT 21:42: [place] E ORAL) [address] [place] [address] Branch ASPIRIN Yes Take by Univer s ORAL 6-10 mouth. ity of 21:42: [address] baclofen 10 Yes 10mg Take 10 mg Univers mg tablet 6-10 by mouth 3 ity of 21:42: (three) [place] [id number] times Medical daily. Branch gabapentin Yes 400mg Take 400 Un francisco javier 400 mg 6-10 mg by ity of capsule 21:42: mouth 3 [place] [address] (three) Medical times Branch daily. ALBUTEROL 2018-0 Yes Take by Univ ers SULFATE 6-10 mouth. ity of ORAL 21:42: [address] OMEPRAZOLE 0 Yes Take by Uni vers MAGNESIUM 6-10 mouth. ity of ORAL 21:42: [address] FLUoxetine Yes 20mg Take 20 mg U nivers 20 mg 6-10 by mouth ity of capsule 21:42: daily. [address] lisinopril 2018- Yes 10mg Take 10 mg U nivers 10 mg 6-10 by mouth ity of tablet 21:42: daily. [address] OMEPRAZOLE 2018-0 Yes Take by Uni vers MAGNESIUM 6-10 mouth. ity of ORAL 21:42: [address] FLUoxetine 2018-0 Yes 20mg Take 20 mg U nivers 20 mg 6-10 by mouth ity of capsule 21:42: daily. [address] alendronate 2018-0 Yes Take by Un francisco javier sodium 6-10 mouth. ity of (ALENDRONAT 21:42: [place] E ORAL) Medical Branch ASPIRIN 2018-0 Yes Take by Univer s ORAL 6-10 mouth. ity of 21:42: [address] baclofen 10 Yes 10mg Take 10 mg Univers mg tablet 6-10 by mouth 3 ity of 21:42: (three) [place] [address] times Medical daily. Branch gabapentin Yes 400mg Take 400 Un francisco javier 400 mg 6-10 mg by ity of capsule 21:42: mouth 3 [place] [address] (three) Medical times [place] daily. alendronate Yes Take by Un francisco javier sodium 6-10 mouth. ity of (ALENDRONAT 21:42: [place] E ORAL) [address] [place] [address] Branch ALBUTEROL 0 Yes Take by Univ ers SULFATE 6-10 mouth. ity of ORAL 21:42: [address] ASPIRIN Yes Take by Univer s ORAL 6-10 mouth. ity of 21:42: [address] lisinopril Yes 10mg Take 10 mg U nivers 10 mg 6-10 by mouth ity of tablet 21:42: daily. [address] OMEPRAZOLE Yes Take by Uni vers MAGNESIUM 6-10 mouth. ity of ORAL 21:42: [address] baclofen 10 Yes 10mg Take 10 mg Univers mg tablet 6-10 by mouth 3 ity of 21:42: (three) [place] [address] times Medical daily. Branch FLUoxetine Yes 20mg Take 20 mg U nivers 20 mg 6-10 by mouth ity of capsule 21:42: daily. [address] alendronate Yes Take by Un francisco javier sodium 6-10 mouth. ity of (ALENDRONAT 21:42: [place] E ORAL) [address] [place] [address] ASPIRIN Yes Take by Univer s ORAL 6-10 mouth. ity of 21:42: [address] baclofen 10 Yes 10mg Take 10 mg Univers mg tablet 6-10 by mouth 3 ity of 21:42: (three) [place] [address] times Medical daily. Branch gabapentin Yes 400mg Take 400 Un francisco javier 400 mg 6-10 mg by ity of capsule 21:42: mouth 3 [place] [address] (three) Medical times Branch daily. ALBUTEROL 2018-0 Yes Take by Univ ers SULFATE 6-10 mouth. ity of ORAL 21:42: [address] gabapentin Yes 400mg Take 400 Un francisco javier 400 mg 6-10 mg by ity of capsule 21:42: mouth 3 [place] [address] (three) Medical times Branch daily. ALBUTEROL 2019-0 Yes Take by Univ ers SULFATE 6-10 mouth. ity of ORAL 21:42: [address] OMEPRAZOLE 2019-0 Yes Take by Uni vers MAGNESIUM 6-10 mouth. ity of ORAL 21:42: [address] alendronate 2018-0 Yes Take by Un francisco javier sodium 6-10 mouth. ity of (ALENDRONAT 21:42: [place] E ORAL) Medical Branch ASPIRIN 2019-0 Yes Take by Univer s ORAL 6-10 mouth. ity of 21:42: [address] lisinopril 2019-0 Yes 10mg Take 10 mg U nivers 10 mg 6-10 by mouth ity of tablet 21:42: daily. [address] OMEPRAZOLE 2018-0 Yes Take by Uni vers MAGNESIUM 6-10 mouth. ity of ORAL 21:42: [address] FLUoxetine 2018-0 Yes 20mg Take 20 mg U nivers 20 mg 6-10 by mouth ity of capsule 21:42: daily. [address] alendronate 2018-0 Yes Take by Un [place]isco javier sodium 6-10 mouth. ity of (ALENDRONAT 21:42: [place] E ORAL) [address] [place] [address] ASPIRIN 2018-0 Yes Take by Univer s ORAL 6-10 mouth. ity of 21:42: [address] baclofen 10 2018-0 Yes 10mg Take 10 mg Univers mg tablet 6-10 by mouth 3 ity of 21:42: (three) [place] [address] times [facility] daily. Branch gabapentin 2019-0 Yes 400mg Take 400 Un francisco javier 400 mg 6-10 mg by ity of capsule 21:42: mouth 3 [place] [address] (three) Medical times Branch daily. ALBUTEROL 2019-0 Yes Take by Univ ers SULFATE 6-10 mouth. ity of ORAL 21:42: [address] lisinopril 2019-0 Yes 10mg Take 10 mg U nivers 10 mg 6-10 by mouth ity of tablet 21:42: daily. [address] OMEPRAZOLE 2019-0 Yes Take by Uni vers MAGNESIUM 6-10 mouth. ity of ORAL 21:42: [address] FLUoxetine 2019-0 Yes 20mg Take 20 mg U nivers 20 mg 6-10 by mouth ity of capsule 21:42: daily. [place] 29 Medical Branch alendronate 0 Yes Take by Un francisco javier sodium 6-10 mouth. ity of (ALENDRONAT 21:42: [place] E ORAL) Medical Branch ASPIRIN 20190 Yes Take by Univer s ORAL 6-10 mouth. ity of 21:42: [place] [address] Medical Branch baclofen 10 0 Yes 10mg Take 10 mg Univers mg tablet 6-10 by mouth 3 ity of 21:42: (three) [place] 29 times Medical daily. Branch gabapentin 2019 Yes 400mg Take 400 Un francisco javier 400 mg 6-10 mg by ity of capsule 21:42: mouth 3 [place] 29 (three) Medical times Branch daily. ALBUTEROL 0 Yes Take by Univ ers SULFATE 6-10 mouth. ity of ORAL 21:42: [address] Branch omeprazole 0 Yes 40mg Take 40 mg U nivers 40 mg 3-26 by mouth ity of capsule 21:50: daily. [place] [address] Medical Branch albuterol 0 Yes Inhale. Unive rs sulfate 90 3-26 ity of mcg/actuati 21:50: [facility] Medical Branch aspirin 81 0 Yes 81mg Take 81 mg U nivers mg chewable 3-26 by mouth. ity of tablet 21:50: [place] [address] Medical Branch gabapentin 0 Yes 300mg Take 300 Un francisco javier 300 mg 3-26 mg by ity of capsule 21:50: mouth [place] [address] daily. Medical Branch lisinopril 0 Yes 10mg Take 10 mg U nivers 10 mg 3-26 by mouth ity of tablet 21:50: daily. [place] [address] Medical Branch omeprazole 0 Yes 40mg Take 40 mg U nivers 40 mg 3-26 by mouth ity of capsule 21:50: daily. [place] [address] Medical Branch albuterol 2019-0 Yes Inhale. Unive rs sulfate 90 3-26 ity of mcg/actuati 21:50: [facility] Medical Branch aspirin 81 2019-0 Yes 81mg Take 81 mg U nivers mg chewable 3-26 by mouth. ity of tablet 21:50: [place] [address] Medical Branch gabapentin 2018-0 Yes 300mg Take 300 Un francisco javier 300 mg 3-26 mg by ity of capsule 21:50: mouth [place] [address] daily. Medical Branch lisinopril 20190 Yes 10mg Take 10 mg U nivers 10 mg 3-26 by mouth ity of tablet 21:50: daily. [place] [address] Medical Branch omeprazole 20190 Yes 40mg Take 40 mg U nivers 40 mg 3-26 by mouth ity of capsule 21:50: daily. [place] [address] Medical Branch albuterol 0 Yes Inhale. Unive rs sulfate 90 3-26 ity of mcg/actuati 21:50: [facility] Medical Branch aspirin 81 0 Yes 81mg Take 81 mg U nivers mg chewable 3-26 by mouth. ity of tablet 21:50: [place] [address] Medical Branch gabapentin Yes 300mg Take 300 Un francisco javier 300 mg 3-26 mg by ity of capsule 21:50: mouth [place] [address] daily. Medical Branch lisinopril Yes 10mg Take 10 mg U nivers 10 mg 3-26 by mouth ity of tablet 21:50: daily. [place] [address] Medical Branch omeprazole Yes 40mg Take 40 mg U nivers 40 mg 3-26 by mouth ity of capsule 21:50: daily. [place] [address] Medical Branch albuterol 0 Yes Inhale. Unive rs sulfate 90 3-26 ity of mcg/actuati 21:50: [place] [id number] Medical Branch aspirin 81 Yes 81mg Take 81 mg U nivers mg chewable 3-26 by mouth. ity of tablet 21:50: [place] [address] Medical Branch aspirin 81 Yes 81mg Take 81 mg U nivers mg chewable 3-26 by mouth. ity of tablet 21:50: [place] [address] Medical Branch gabapentin 2018- Yes 300mg Take 300 Un francisco javier 300 mg 3-26 mg by ity of capsule 21:50: mouth [place] [address] daily. Medical Branch lisinopril 0 Yes 10mg Take 10 mg U nivers 10 mg 3-26 by mouth ity of tablet 21:50: daily. [place] [address] Medical Branch omeprazole 0 Yes 40mg Take 40 mg U nivers 40 mg 3-26 by mouth ity of capsule 21:50: daily. [place] [address] Medical Branch albuterol 0 Yes Inhale. Unive rs sulfate 90 3-26 ity of mcg/actuati 21:50: [facility] Medical Branch gabapentin 0 Yes 300mg Take 300 Un [place]isco javier 300 mg 3-26 mg by ity of capsule 21:50: mouth [place] [address] daily. Medical Branch lisinopril 0 Yes 10mg Take 10 mg U nivers 10 mg 3-26 by mouth ity of tablet 21:50: daily. [place] [address] Medical Branch aspirin 81 0 Yes 81mg Take 81 mg U nivers mg chewable 3-26 by mouth. ity of tablet 21:50: [place] [address] Medical Branch gabapentin Yes 300mg Take 300 Un francisco javier 300 mg 3-26 mg by ity of capsule 21:50: mouth [place] [address] daily. Medical Branch lisinopril Yes 10mg Take 10 mg U nivers 10 mg 3-26 by mouth ity of tablet 21:50: daily. [place] [address] Medical Branch omeprazole Yes 40mg Take 40 mg U nivers 40 mg 3-26 by mouth ity of capsule 21:50: daily. [place] [address] Medical Branch albuterol 0 Yes Inhale. Unive rs sulfate 90 3-26 ity of mcg/actuati 21:50: [facility] Medical Branch omeprazole 0 Yes 40mg Take 40 mg U nivers 40 mg 3-26 by mouth ity of capsule 21:50: daily. [place] [address] Medical Branch albuterol 0 Yes Inhale. Unive rs sulfate 90 3-26 ity of mcg/actuati 21:50: [place] [id number] Medical Branch aspirin 81 0 Yes 81mg Take 81 mg U nivers mg chewable 3-26 by mouth. ity of tablet 21:50: [place] [address] Medical Branch gabapentin Yes 300mg Take 300 Un [place]isco javier 300 mg 3-26 mg by ity of capsule 21:50: mouth [place] [address] daily. Medical Branch lisinopril Yes 10mg Take 10 mg U nivers 10 mg 3-26 by mouth ity of tablet 21:50: daily. [place] [address] Medical Branch omeprazole 0 Yes 40mg Take 40 mg U nivers 40 mg 3-26 by mouth ity of capsule 21:50: daily. [place] [address] Medical Branch albuterol 0 Yes Inhale. Unive rs sulfate 90 3-26 ity of mcg/actuati 21:50: [facility] Medical Branch aspirin 81 0 Yes 81mg Take 81 mg U nivers mg chewable 3-26 by mouth. ity of tablet 21:50: [place] [address] Medical Branch gabapentin Yes 300mg Take 300 Un [place]isco javier 300 mg 3-26 mg by ity of capsule 21:50: mouth [place] [address] daily. Medical Branch lisinopril Yes 10mg Take 10 mg U nivers 10 mg 3-26 by mouth ity of tablet 21:50: daily. [place] [address] Medical Branch omeprazole Yes 40mg Take 40 mg U nivers 40 mg 3-26 by mouth ity of capsule 21:50: daily. [place] [address] Medical Branch albuterol 0 Yes Inhale. Unive rs sulfate 90 3-26 ity of mcg/actuati 21:50: [facility] Medical Branch aspirin 81 Yes 81mg Take 81 mg U nivers mg chewable 3-26 by mouth. ity of tablet 21:50: [place] [address] Medical Branch gabapentin Yes 300mg Take 300 Un [place]isco javier 300 mg 3-26 mg by ity of capsule 21:50: mouth [place] [address] daily. Medical Branch lisinopril Yes 10mg Take 10 mg U nivers 10 mg 3-26 by mouth ity of tablet 21:50: daily. [place] [address] Medical Branch omeprazole Yes 40mg Take 40 mg U nivers 40 mg 3-26 by mouth ity of capsule 21:50: daily. [place] [address] Medical Branch albuterol 0 Yes Inhale. Unive rs sulfate 90 3-26 ity of mcg/actuati 21:50: [facility] Medical Branch aspirin 81 0 Yes 81mg Take 81 mg U nivers mg chewable 3-26 by mouth. ity of tablet 21:50: [place] [address] Medical Branch gabapentin Yes 300mg Take 300 Un [facility]isco javier 300 mg 3-26 mg by ity of capsule 21:50: mouth [place] [address] daily. Medical Branch lisinopril Yes 10mg Take 10 mg U nivers 10 mg 3-26 by mouth ity of tablet 21:50: daily. [place] [address] Medical Branch omeprazole 0 Yes 40mg Take 40 mg U nivers 40 mg 3-26 by mouth ity of capsule 21:50: daily. [place] [address] Medical Branch albuterol 0 Yes Inhale. Unive rs sulfate 90 3-26 ity of mcg/actuati 21:50: [facility] Medical Branch aspirin 81 2019-0 Yes 81mg Take 81 mg U nivers mg chewable 3-26 by mouth. ity of tablet 21:50: [address] Branch gabapentin 2019-0 Yes 300mg Take 300 Un francisco javier 300 mg 3-26 mg by ity of capsule 21:50: mouth [place] [id number] daily. Medical Branch lisinopril 2019 Yes 10mg Take 10 mg U nivers 10 mg 3-26 by mouth ity of tablet 21:50: daily. [address] Branch omeprazole 2019-0 Yes 40mg Take 40 mg U nivers 40 mg 3-26 by mouth ity of capsule 21:50: daily. [address] Branch albuterol 2018-0 Yes Inhale. Unive rs sulfate 90 3-26 ity of mcg/actuati 21:50: [place] [id number] Medical Branch aspirin 81 Yes 81mg Take 81 mg U nivers mg chewable 3-26 by mouth. ity of tablet 21:50: [address] Branch gabapentin 2019 Yes 300mg Take 300 Un francisco javier 300 mg 3-26 mg by ity of capsule 21:50: mouth [place] [address] daily. Medical Branch lisinopril 2019 Yes 10mg Take 10 mg U nivers 10 mg 3-26 by mouth ity of tablet 21:50: daily. [address] aspirin 2017-0 Yes 81mg QD Take 81 mg Meth [...] down for the next 30 min. albuterol 2017-0 Yes 2{puff} Q6H Inhale 2 M ethodi (PROAIR 5-[address] HFA) 90 18:42: every 6 Hospita mcg/actuati 59 (six) l on inhaler hours as needed for wheezing. IPRATROPIUM 2017-0 Yes into each M ethodi BROMIDE 5-[address] NASL 18:42: Hospita 59 l albuterol 2018-0 Yes 2.5mg [id number] Take 2.5 Methodi sulfate 5-[id number] (PROVENTIL) 18:42: 3D nebulizati Hospita 2.5 mg/0.5 59 on 3 l mL solution (three) for times a nebulizatio day. n FLUoxetine 2018-0 Yes 20mg QD Take 20 mg M ethodi (PROzac) 20 5-[address] MG capsule 18:42: daily. Hospi ta 59 l lisinopril 2018-0 Yes 10mg QD Take 10 mg M ethodi (PRINIVIL,Z 5-[address] ESTRIL) 10 18:42: daily. Hospi ta mg tablet 59 l pregabalin 0 Yes 50mg [id number] Take 50 mg Methodi (LYRICA) 50 5- [id number] by mouth 3 st MG capsule 18:42: 3D (three) Hosp patrick 59 times a l day. omeprazole 2017-0 Yes [id number] 40mg Q.5D Take 1 M ethodi (PriLOSEC) 5-[address] 40 MG 00:00: (40 mg Hospita capsule 00 total) by l mouth 2 (two) times a day. Immunizations Ordered Filled Immunization Date Status Comments [facility] e Immunization Name Name Influenza High Dose 2019-01-21 Completed Unive rsity of 00:00:00 [facility] Influenza High Dose 2019-01-21 Completed Unive rsity of 00:00:00 [facility] Influenza High Dose 2019-01-21 Completed Unive rsity of 00:00:00 [facility] Influenza High Dose 2019-01-21 Completed Unive rsity of 00:00:00 [facility] Influenza High Dose 2019-01-21 Completed Unive rsity of 00:00:00 [facility] Influenza High Dose 2019-01-21 Completed Unive rsity of 00:00:00 [facility] Influenza High Dose 2019-01-21 Completed Unive rsity of 00:00:00 [facility] Influenza High Dose 2019-01-21 Completed Unive rsity of 00:00:00 [facility] Influenza High Dose 2019-01-21 Completed Unive rsity of 00:00:00 [facility] Influenza High Dose 2019-01-21 Completed Unive rsity of 00:00:00 [facility] Influenza High Dose 2019-01-21 Completed Unive rsity of 00:00:00 [facility] Influenza High Dose 2019-01-21 Completed Unive rsity of 00:00:00 [facility] Influenza High Dose 2019-01-21 Completed Unive rsity of 00:00:00 [facility] Influenza High Dose 2019-01-21 Completed Unive rsity of 00:00:00 [facility] Influenza High Dose 2019-01-21 Completed Unive rsity of 00:00:00 [facility] Influenza High Dose 2019-01-21 Completed Unive rsity of 00:00:00 [facility] Influenza High Dose 2019-01-21 Completed Unive rsity of 00:00:00 [facility] Influenza High Dose 2019-01-21 Completed Unive rsity of 00:00:00 [facility] Influenza High Dose 2019-01-21 Completed Unive rsity of 00:00:00 [facility] Pneumococcal 13 2018-11-28 Completed Universit y of Conjugate, PCV13 00:00:00 [place] [facility] (Prevnar 13) Branch Pneumococcal 13 2018-11-28 Completed Universit y of Conjugate, PCV13 00:00:00 [facility] dical (Prevnar 13) Branch Pneumococcal 13 2018-11-28 Completed Universit y of Conjugate, PCV13 00:00:00 [place] [facility] (Prevnar 13) Branch Pneumococcal 13 2018-11-28 Completed Universit y of Conjugate, PCV13 00:00:00 [facility] dical (Prevnar 13) Branch Pneumococcal 13 2018-11-28 Completed Universit y of Conjugate, PCV13 00:00:00 [place] [facility] (Prevnar 13) Branch Pneumococcal 13 2018-11-28 Completed Universit y of Conjugate, PCV13 00:00:00 [place] [facility] (Prevnar 13) Branch Pneumococcal 13 2018-11-28 Completed Universit y of Conjugate, PCV13 00:00:00 [place] [facility] (Prevnar 13) Branch Pneumococcal 13 2018-11-28 Completed Universit y of Conjugate, PCV13 00:00:00 [place] [facility] (Prevnar 13) Branch Pneumococcal 13 2018-11-28 Completed Universit y of Conjugate, PCV13 00:00:00 [facility] dical (Prevnar 13) Branch Pneumococcal 13 2018-11-28 Completed Universit y of Conjugate, PCV13 00:00:00 [place] [facility] (Prevnar 13) Branch Pneumococcal 13 2018-11-28 Completed Universit y of Conjugate, PCV13 00:00:00 [place] [facility] (Prevnar 13) Branch Pneumococcal 13 2018-11-28 Completed Universit y of Conjugate, PCV13 00:00:00 [place] [facility] (Prevnar 13) Branch Pneumococcal 13 2018-11-28 Completed Universit y of Conjugate, PCV13 00:00:00 [place] [facility] (Prevnar 13) Branch Pneumococcal 13 2018-11-28 Completed Universit y of Conjugate, PCV13 00:00:00 [place] [facility] (Prevnar 13) Branch Pneumococcal 13 2018-11-28 Completed Universit y of Conjugate, PCV13 00:00:00 [place] [facility] (Prevnar 13) Branch Pneumococcal 13 2018-11-28 Completed Universit y of Conjugate, PCV13 00:00:00 [place] [facility] (Prevnar 13) Branch Pneumococcal 13 2018-11-28 Completed Universit y of Conjugate, PCV13 00:00:00 [place] [facility] (Prevnar 13) Branch Pneumococcal 13 2018-11-28 Completed Universit y of Conjugate, PCV13 00:00:00 [place] [facility] (Prevnar 13) Branch Pneumococcal 13 2018-11-28 Completed Universit y of Conjugate, PCV13 00:00:00 [place] [facility] (Prevnar 13) Branch Influenza High Dose 2018-01-11 Completed Unive rsity of 00:00:00 [facility] Influenza High Dose 2018-01-11 Completed Unive rsity of 00:00:00 [facility] Influenza High Dose 2018-01-11 Completed Unive rsity of 00:00:00 [facility] Influenza High Dose 2018-01-11 Completed Unive rsity of 00:00:00 [facility] Influenza High Dose 2018-01-11 Completed Unive rsity of 00:00:00 [facility] Influenza High Dose 2018-01-11 Completed Unive rsity of 00:00:00 [facility] Influenza High Dose 2018-01-11 Completed Unive rsity of 00:00:00 [facility] Influenza High Dose 2018-01-11 Completed Unive rsity of 00:00:00 [facility] Influenza High Dose 2018-01-11 Completed Unive rsity of 00:00:00 [place] [facility] Influenza High Dose 2018-01-11 Completed Unive rsity of 00:00:00 [place] [facility] Influenza High Dose 2018-01-11 Completed Unive rsity of 00:00:00 [place] [facility] Influenza High Dose 2018-01-11 Completed Unive rsity of 00:00:00 [place] [facility] Influenza High Dose 2018-01-11 Completed Unive rsity of 00:00:00 [place] [facility] Influenza High Dose 2018-01-11 Completed Unive rsity of 00:00:00 [place] [facility] Influenza High Dose 2018-01-11 Completed Unive rsity of 00:00:00 [place] [facility] Influenza High Dose 2018-01-11 Completed Unive rsity of 00:00:00 [place] [facility] Influenza High Dose 2018-01-11 Completed Unive rsity of 00:00:00 [facility] Influenza High Dose 2018-01-11 Completed Unive rsity of 00:00:00 [facility] Influenza High Dose 2018-01-11 Completed Unive rsity of 00:00:00 [facility] Vital Signs Vital Name Observation Time Observation Value Comments Source Systolic blood 2020-07-09 20:13:00 126 mm[Hg] Univer sity of pressure [facility] Branch Diastolic blood 2020-07-09 20:13:00 69 mm[Hg] Unive rsity of pressure [facility] Heart rate 2020-07-09 20:13:00 55 /min Universi ty of [facility] Body height 2020-07-09 20:13:00 149.9 cm Universi ty of [facility] Body weight 2020-07-09 20:13:00 78.019 kg Universi ty of [place] [facility] BMI 2020-07-09 20:13:00 34.74 kg/m2 Universi ty of [facility] Systolic blood 2020-07-09 20:13:00 126 mm[Hg] Univer sity of pressure [facility] Diastolic blood 2020-07-09 20:13:00 69 mm[Hg] Unive rsity of pressure [facility] Heart rate 2020-07-09 20:13:00 55 /min Universi ty of [facility] Body height 2020-07-09 20:13:00 149.9 cm Universi ty of [place] [facility] Body weight 2020-07-09 20:13:00 78.019 kg Universi ty of [place] [facility] BMI 2020-07-09 20:13:00 34.74 kg/m2 Universi ty of [place] [facility] Systolic blood 2019-05-27 17:00:00 102 mm[Hg] Univer sity of pressure [place] [facility] Diastolic blood 2019-05-27 17:00:00 55 mm[Hg] Unive rsity of pressure [place] [facility] Heart rate 2019-05-27 17:00:00 87 /min Universi ty of [place] [facility] Body temperature 2019-05-27 17:00:00 36.67 Leona Univ ersity of [place] [facility] Respiratory rate 2019-05-27 17:00:00 18 /min Univ ersity of [facility] Oxygen saturation in 2019-05-27 17:00:00 93 /min University Arterial blood by [facility] Pulse oximetry [place] Body height 2019-05-18 19:55:00 152.4 cm Universi ty of [place] [facility] [place] Body weight 2019-05-18 19:55:00 81 kg Universi ty of [place] [facility] BMI 2019-05-18 19:55:00 34.88 kg/m2 Universi ty of [place] [facility] Respiratory rate 2019-05-23 15:20:00 16 /min Univ ersity of [facility] Body height 2019-05-17 20:17:00 152.4 cm Universi ty of [place] [facility] Body weight 2019-05-17 20:17:00 81.194 kg Universi ty of [place] [facility] BMI 2019-05-17 20:17:00 34.96 kg/m2 Universi ty of [place] [facility] Systolic blood 2019-05-09 17:19:00 142 mm[Hg] Univer sity of pressure [facility] Diastolic blood 2019-05-09 17:19:00 83 mm[Hg] Unive rsity of pressure [facility] Heart rate 2019-05-09 17:19:00 67 /min Universi ty of [facility] Respiratory rate 2019-05-09 17:19:00 19 /min Univ ersity of [place] [facility] Body height 2019-05-09 17:19:00 152.4 cm Universi ty of [place] [facility] Body weight 2019-05-09 17:19:00 81.421 kg Universi ty of [place] [facility] BMI 2019-05-09 17:19:00 35.06 kg/m2 Universi ty of [place] [facility] Oxygen saturation in 2019-05-09 17:19:00 97 /min University of Arterial blood by [facility] [place] Pulse oximetry Branch Systolic blood 2019-05-10 19:30:00 131 mm[Hg] Univer sity of pressure [place] [facility] Diastolic blood 2019-05-10 19:30:00 84 mm[Hg] Unive rsity of pressure [place] [facility] Heart rate 2019-05-10 19:30:00 73 /min Universi ty of [place] [facility] Body height 2019-05-10 19:30:00 152.4 cm Universi ty of [place] [facility] Body weight 2019-05-10 19:30:00 81.194 kg Universi ty of [place] [facility] BMI 2019-05-10 19:30:00 34.96 kg/m2 Universi ty of [facility] Systolic blood 2019-04-24 01:30:37 143 mm[Hg] Univer sity of pressure [place] [facility] Diastolic blood 2019-04-24 01:30:37 80 mm[Hg] Unive rsity of pressure [facility] Heart rate 2019-04-24 01:30:37 72 /min Universi ty of [facility] Respiratory rate 2019-04-24 01:30:37 18 /min Univ ersity of [facility] Oxygen saturation in 2019-04-24 01:30:37 98 /min University of Arterial blood by [facility] Pulse oximetry Branch Body temperature 2019-04-23 22:45:00 36.78 Leona Univ ersity of [place] [facility] Body weight 2019-04-23 22:45:00 77.111 kg Universi ty of [place] [facility] BMI 2019-04-23 22:45:00 33.20 kg/m2 Universi ty of [place] [facility] Systolic blood 2019-04-22 14:21:00 115 mm[Hg] Univer sity of pressure [place] [facility] Diastolic blood 2019-04-22 14:21:00 77 mm[Hg] Unive rsity of pressure [place] [facility] Heart rate 2019-04-22 14:21:00 92 /min Universi ty of [place] [facility] Body height 2019-04-22 14:21:00 152.4 cm Universi ty of [place] [facility] Body weight 2019-04-22 14:21:00 78.019 kg Universi ty of [place] [facility] BMI 2019-04-22 14:21:00 33.59 kg/m2 [facility] Procedures Procedure Date / Time Performing Clinician Source Performed EXTERNAL PROVIDER 2019-06-15 05:01:00 Doctor Unassigned, No [facility] RECORDS Name Medical Branch COMP. METABOLIC PANEL 2019-05-27 11:05:00 Sruthi Elizabeth [facility] ([id number]) Medical Branch CBC WITH DIFFERENTIAL 2019-05-27 11:05:00 Clara radha [facility] OCCULT (GUAIAC) BLOOD 2019-05-27 00:42:00 Clara radha [facility] CLOSTRIDIUM DIFFICILE 2019-05-27 00:42:00 Clara [facility] TOXIN [facility] ECHO ROUTINE W/DOPPLER 2019-05-26 21:55:55 Travis Pham [facility] COLOR [facility] CT CHEST PULMONARY 2019-05-26 20:47:28 Sruthi Elizabeth [facility] ANGIOGRAM Medical Branch BILATERAL VENOUS DUPLEX 2019-05-26 17:34:01 Sruthi Elizabeth [facility] LOWER EXTREMITY BY Medical Bran h VASCULAR LAB US ABDOMEN LIMITED 2019-05-26 16:27:08 Clara radha [facility] TROPONIN I 2019-05-26 10:35:00 Travis Pham [facility] COMP. METABOLIC PANEL 2019-05-26 10:35:00 Sruthi Elizabeth [facility] ([id number]) Medical Branch CBC WITH DIFFERENTIAL 2019-05-26 10:35:00 Clara radha [facility] N-TERMINAL PRO-BNP 2019-05-26 10:35:00 Sruthi Elizabeth [facility] HEPATITIS B SURFACE 2019-05-25 16:01:00 Sruthi Elizabeth [facility] ANTIBODY [facility] HEPATITIS B SURFACE 2019-05-25 16:01:00 Clara [facility] ANTIGEN [facility] HCV ANTIBODY 2019-05-25 16:01:00 Clara radha [place] [facility] HEPATITIS B CORE 2019-05-25 16:01:00 Clara [facility] ANTIBODY IGM Medical Branch HAV ANTIBODY (IGG AND 2019-05-25 16:01:00 Clara [facility] IGM) Medical [place] XR CHEST 1 VW 2019-05-25 11:09:11 Clara [facility] PHOSPHORUS 2019-05-25 10:20:00 Alejandro Pitts [facility] MAGNESIUM 2019-05-25 10:20:00 Clara [facility] THYROID STIMULATING 2019-05-25 10:20:00 Clara radha [facility] HORMONE [facility] COMP. METABOLIC PANEL 2019-05-25 10:20:00 Clara [facility] ([id number]) [facility] CBC WITH DIFFERENTIAL 2019-05-25 10:20:00 Clara [facility] GLYCOSYLATED HEMOGLOBIN 2019-05-25 10:20:00 Clara [facility] (A1C) [facility] N-TERMINAL PRO-BNP 2019-05-25 10:20:00 Clara radha [facility] BASIC METABOLIC PANEL 2019-05-24 16:56:00 [facility] ([facility], K, CL, CO2, [facility] GLUCOSE, BUN, CREATININE, CA) PHOSPHORUS 2019-05-24 10:59:00 Alejandro Pitts [facility] MAGNESIUM 2019-05-24 10:59:00 Alejandro Pitts [facility] CBC WITH DIFFERENTIAL 2019-05-24 10:59:00 Kortney Damon Un [facility] BASIC METABOLIC PANEL 2019-05-24 02:36:00 Alejandro Pitts [facility] (NA, K, CL, CO2, [facility] GLUCOSE, BUN, CREATININE, CA) CBC WITH DIFFERENTIAL 2019-05-24 02:36:00 Alejandro Pitts [facility] XR KNEE <3 VW RIGHT 2019-05-23 16:09:31 Alejandro Pitts [facility] NERVE BLOCK 2019-05-23 15:34:42 Ilya Austin [facility] INTUBATION 2019-05-23 14:00:44 Robson Davis o f [facility] TOTAL KNEE ARTHROPLASTY 2019-05-23 13:21:00 Ale[facility]andro [facility]IR[facility] 2019-05-23 12:39:00 Alejandro [facility] HB ABO GROUPING 2019-05-23 12:25:00 Alejandro Pitts [facility] HOSPITAL ADM - MISC 2019-05-23 06:01:00 [facility] FOR 2019-05-19 21:06:14 Doctor [facility], [facility] ASSIGNMENT OF BENEFITS 2019-05-19 20:59:38 Doctor Unassigned, No [facility] DISCLOSURE AND CONSENT, 2019-05-17 06:01:00 Doctor Unassigned, N o [facility] MEDICAL AND SURGICAL [facility] PROCEDURES XR FOOT <3 VW RIGHT 2019-04-23 23:50:37 Devin [facility] XR FEMUR 2 VW RIGHT 2019-04-23 23:44:42 Devin [facility] XR TIBIA FIBULA 2 VW 2019-04-23 23:44:42 Devin Caba [facility] XR PELVIS <3 VW 2019-04-23 23:25:44 Devin Caba [facility] NOTICE OF PRIVACY 2019-04-23 22:40:04 Doctor Unassigned, No [facility] PR[facility] CONSENT/REFUSAL FOR 2019-04-23 22:36:11 Doctor Unassigned, No [facility] TREATMENT [facility] Plan of Care Planned Activity Planned Date Details Comments Source Future Scheduled Test COVID-19 VACCINE (1) [facility] [code = COVID-19 VACCINE (1)] Future Scheduled Test SHINGLES VACCINES (#1) [facility] [code = SHINGLES VACCINES (#1)] Future Scheduled Test 65+ PNEUMOCOCCAL Me [facility] VACCINE (1 of 1 - PPSV23) [code = 65+ PNEUMOCOCCAL VACCINE (1 of 1 - PPSV23)] Future Scheduled Test INFLUENZA VACCINE [code [facility] = INFLUENZA VACCINE] Encounters Start End Encounter Admission Attending Care Care Encounter Source Date/Time Date/Time Type Type Clinicians Facility Department ID 2021-04-17 Outpatient [facility] [id number] 13:41:30 [id number] Vida alonzo Outpati ent Clinics 2021-04-17 Outpatient [facility] [id number] 13:23:29 [id number] Vida alonzo Outpati ent Clinics 2021-03-22 2021-03-22 Letter LOE Cobb 1.2.840.114 [id number] Univers 00:00:00 00:00:00 (Out) Natalie Hernandez JUSTIN [id number] it y of HOSPITAL [id number] [place] as [id number] [address] 2021-03-21 2021-03-21 Laboratory Only, Ang Db Test [facility] 1.2.8 40.114 [id number] Univers 10:00:00 10:15:00 Only Fortino Odessa [facility] [id number] ity [facility] [id number] Carlito as NICK?BLEA [phone] Wa alen SANCHEZ [address] MEDICAL [facility] 2021-03-21 2021-03-21 Outpatient R [facility] [id number] Univers 10:00:00 10:00:00 [id number] ity [facility] 2021-03-21 2021-03-21 [facility] [facility] [id number] Univers 10:00:00 10:00:00 ODESSA ity [facility] 2020-07-09 2020-07-09 [facility] 1.2.840.114 [id number] Univers 15:23:46 23:59:00 Encounter Alejandro Alonzo [employer] [id number] ity of Surgical [id number] [place] as Specialti [id number] Wa alen morel [address] [facility] 2020-07-09 2020-07-09 Office [facility] [id number] Univers 14:50:20 16:09:03 Visit Alejandro Aguilar [id number] it y of Surgical [id number] [place] as Specialti [id number] Wa dical es [address] [facility] 2020-07-09 2020-07-09 Office Pitts[facility]ly [facility] [id number] 14:50:20 16:09:03 Visit Alejandro Selma [facility] [id number] Surgical 4.2.7.2.686 Specialti [id number] es [address] [employer] 2020-07-09 2020-07-09 [address] [id number] Univers 16:00:00 16:00:00 [facility] [id number] 2020-07-09 2020-07-09 [facility] [id number] Univers 16:00:00 16:00:00 ALEJANDRO [facility] 2019-10-04 2019-10-04 Out[address] [facility] [id number] Univers 11:00:00 11:00:00 ALYCIA [id number] [facility] 2019-10-04 2019-10-04 Out[address] [facility] [id number] Univers 11:00:00 11:00:00 ALYCIA [facility] 2019-08-17 2019-08-17 Outpatient R ANA [facility] [id number] Univers 13:00:00 13:00:00 ALYCIA [id number] [facility] 2019-08-17 2019-08-17 Out[address] [facility] [id number] Univers 13:00:00 13:00:00 [facility] 2019-06-15 2019-06-15 Orders Doctor LEO 1.2.840.114 [id number] Univers 00:00:00 00:00:00 Only Unassigned, JUSTIN [id number] ity of [place] [facility] [id number] Carl[place] as [id number] [address] 2019-05-23 2019-05-27 [facility] 1.2.840.114 [id number] Univers 05:51:00 15:01:00 Encounter Alejandroswathi Brown [id number] [place] [id number] [facility] [place] [address] 2019-05-23 2019-05-27 Inpatient R PITTS, [facility] SOR [id number] Univers 05:51:00 15:01:00 ALEJANDRO viramontes [facility] 2019-05-23 2019-05-23 Anesthesia Robson Davis [facility] 1.2.840.11 [id number] Univers 07:36:00 09:26:00 Ilya Austin Ruben cMkeonEnergy 350.1.13. 10 ity [id number] [place] [id number] [facility] [address] [place] 2019-05-19 2019-05-19 Outpatient [facility] [id number] Univers 15:45:00 15:45:00 [id number] [facility] 2019-05-19 2019-05-19 [address] [facility] [id number] Univers 15:45:00 15:45:00 ALEJANDRO amber [facility] 2019-05-19 2019-05-19 V Groove Cutter Heather, Adc Lab Main [facility] 1.2.8 40.114 [id number] Univers 14:54:47 15:09:47 Visit Alejandro Pitts [id number] it[id number] [place] Profess[place] [phone] Wa dical nal 353 [facility] 2019-05-17 2019-05-17 Out[address] D[address] [facility] [id number] Univers 14:30:00 14:30:00 CONSTANTINE amber [facility] 2019-05-17 2019-05-[address] [facility] 1.2.840.114 [id number] Univers 14:10:00 14:25:00 Visit Constantine Miranda [facility] [id number] it y of Surgical [id number] [place] as Specialti [id number] Wa dical es [address] [facility] 2019-05-12 2019-05-12 Prep For Hong [facility] 1.2.840.114 [id number] Univers 00:00:00 00:00:00 Surgery [facility] [id number] it y of Surgical [id number] [place] as Specialti [phone] Wa dical es [address] [facility] 2019-05-12 2019-05-12 [facility]phone [facility] [id number] Univers 00:00:00 00:00:00 Jennifer Stephanie [id number] i [place] [phone] [place] dical nal 085 [facility] 2019-05-09 2019-05-11 Office [facility] 1.2.840.114 [id number] Univers 10:49:32 00:07:21 Visit Merrill Brown [id number] it[id number] [place] [id number] Wa dical nal 059 [facility] 2019-05-10 2019-05-10 Laboratory Pc, Adc Echo Room 1 - [facility] 1 .2.840.114 [id number] Univers 12:48:23 13:48:23 Only Rah Connorludymatthew Stephanie 350.1.13.10 ity [place] 4.2.7.2.686 [place] Professio [phone] Wa dicnc nal 059 [facility] 2019-04-23 2019-04-23 Emergency [facility] 1.2.840.114 [id number] Univers 16:47:26 19:57:00 Devin Georgiana Brown 350.1.13.10 [place] [phone] [facility] [address] 2019-04-23 2019-04-23 Emergency X GERTRUDIS, [facility] ERT [id number] Univers 16:47:26 19:57:00 DEVIN ity of [facility] 2019-04-23 2019-04-23 Orders Doctor BAILEY 1.2.840.114 [id number] Univers 00:00:00 00:00:00 Only Unassigned, JUSTIN 350.1.13.10 ity of [place] [facility] 4.2.7.2.686 Carlito as [phone] [facility] [address] 2019-04-22 2019-04-22 Office Alejandro Pitts [facility] 1.2.840. 114 [id number] [facility] 08:03:18 08:43:[address] [facility] 350.1.13.10 ity of Surgical 4.2.7.2.686 [place] as Specialti [phone] Wa dical es [address] [employer] Results Test Description Test Time Test Comments Results Result Comments Source OCCULT (GUAIAC) BLOOD 2019-05-27 17:43:00 Test Item Value Reference Range Interpretation Comme nts Occult (guaiac) Blood (test code = 2335-8) Positive Negative A Lab Interpretation (test code = 75360-9) Abnormal [facility]. METABOLIC PANEL ([id number])2019-05-27 14:21:00 Test Item Value Reference Range Interpretation Comments NA (test code = 139 mmol/L 135-145 4518346067) K (test code = 4.1 mmol/L 3.5-5 4684739342) CL (test code = 99 mmol/L 98-108 2234078485) CO2 TOTAL (test code = 35 mmol/L 23-31 H 8521335563) AGAP (test code = 2-16 4319654712) BUN (test code = 25 mg/dL 7-23 H 4670338354) GLUCOSE (test code = 140 mg/dL 70-110 H 7544065368) CREATININE (test code = 1.13 mg/dL 0.5-1.04 H 3166788430) TOTAL BILI (test code = 0.5 mg/dL 0.1-1.0 9730675387) CALCIUM (test code = 8.6 mg/dL 8.6-10.6 7116123112) T PROTEIN (test code = 5.8 g/dL 6.3-8.2 L 2036398603) ALBUMIN (test code = 3.2 g/dL 3.5-5 L 6542401364) ALK PHOS (test code = 206 U/L 34-122 H 0071471095) ALTv (test code = 109 U/L 5-35 H 1742-6) AST(SGOT) (test code = 51 U/L 13-40 H 0197663099) eGFR Calculation mL/min/1.73m2 (Non-) (test code = 5300299489) eGFR Calculation mL/min/1.73m2 () (test code = 2650822589) EVANGELINA (test code = EVANGELINA) Association of Glomerular Filtration Rate (GFR) and Staging of Kidney Disease* + --+ --+ ------+| GFR (mL/min/1.73 m2) ?| With Kidney Damage ?| ?Without Kidney Damage+ --------+ --------+ +| ?>90 ?| ?Stage one ?| ? Normal ?+ ---+ ---+ -------+| ?60-89 ?| ?Stage two ?| ? Decreased GFR ? + --+ --+ ------+| ?30-59 ?| ?Stage three ?| ? Stage three ? + --+ --+ ------+| ?15-29 ?| ?Stage four ? | ? Stage four ?+ ---+ ---+ -------+| ?<15 (or dialysis) ? ?| ?Stage five ? | ? Stage five ?+ ---+ ---+ -------+ *Each stage assumes the associated GFR level has been in effect for at least three months. ?Stages 1 to 5, with or without kidney disease, indicate chronic kidney disease. Notes: Determination of stages one and two (with eGFR >59mL/min/1.73 m2) requires estimation of kidney damage for at least three months as defined by structural or functional abnormalities of the kidney, manifested by either:Pathological abnormalities or Markers of kidney damage (including abnormalities in the composition of the blood or urine or abnormalities in imaging tests). Lab Interpretation Abnormal (test code = 90489-5) [facility] WITH [id number] 12:17:00 Test Item Value Reference Range Interpretation Comments WBC (test code = See_Comment H [Automated 5631-2) message] The sy stem which generated this result transmitted reference range : 4.30 - 11.10 10*3/?L. The reference range was not used to interpret this result as normal/abnormal . RBC (test code = See_Comment [Automated 039-8) message] The sy stem which generated this result transmitted reference range : 3.93 - 5.25 10*6/?L. The reference range was not used to interpret this result as normal/abnormal . HGB (test code = 9.1 g/dL 11.6-15 L 718-7) HCT (test code = 32.1 % 35.7-45.2 L 4544-3) MCV (test code = 81.3 fL 80.6-95.5 787-2) MCH (test code = 23.0 pg 25.9-32.8 L 785-6) MCHC (test code = 28.3 g/dL 31.6-35.1 L 786-4) RDW-SD (test code = 49.3 fL 39-49.9 61902-0) RDW-CV (test code = 16.6 % 12-15.5 H 788-0) PLT (test code = See_Comment H [Automated 777-3) message] The sy stem which generated this result transmitted reference range : 166 - 358 10*3/ ?L. The reference r hadley was not used to interpret this result as normal/abnormal . MPV (test code = 11.3 fL 9.5-12.9 38133-0) NRBC/100 WBC (test See_Comment [Automat ed code = 8497010642) message] The system which generated this result transmitted reference range : 0.0 - 10.0 /100 WBCs. The refer ence range was not u sed to interpret th is result as normal/abnormal . NRBC x10^3 (test code <0.01 See_Comment [Auto mated = 2104616373) message] The s ystem which generated this result transmitted reference range : 10*3/?L. The reference range was not used to interpret this result as normal/abnormal . GRAN MAT (NEUT) % 76.9 % (test code = 770-8) IMM GRAN % (test code 0.50 % = 0501112636) LYMPH % (test code = 11.9 % 736-9) MONO % (test code = 8.9 % 5905-5) EOS % (test code = 1.3 % 713-8) BASO % (test code = 0.5 % 706-2) GRAN MAT x10^3(ANC) 9.35 10*3/uL 1.88-7.09 H (test code = 2877642836) IMM GRAN x10^3 (test 0.06 10*3/uL 0-0.06 code = 0078460644) LYMPH x10^3 (test code 1.44 10*3/uL 1.32-3.29 = 731-0) MONO x10^3 (test code 1.08 10*3/uL 0.33-0.92 H = 742-7) EOS x10^3 (test code = 0.16 10*3/uL 0.03-0.39 711-2) BASO x10^3 (test code 0.06 10*3/uL 0.01-0.07 = 704-7) Lab Interpretation Abnormal (test code = 54724-6) [facility] [id number] 09:24:00 Test Item Value Reference Range Interpretation Comments Clostridioides (Clostridium) Positive Negative A difficile (test code = 62279-9) Lab Interpretation (test code = Abnormal 97180-9) [facility] [id number] 21:31:00 Test Item Value Reference Range Interpretation Comments TROPONIN I (test 0.004 ng/mL See_Comment [Automated code = 3565777205) message] The system which generated this result transmitted reference range : <=0.034. The reference range was not used to interpret this result as normal/abnormal . EVANGELINA (test code = Equal or Less than EVANGELINA) 0.034 ng/ml---Normal ?Note: Cardiac troponin begins to rise 3-4 hours after the onset of ischemia. Repeat in 4-6 hours if the sample was drawn within 3-4 hours of the onset of the symptom and found normal. Between 0.035 and 0.120 ng/mL--- Borderline. Questionable myocardial injury or necrosis ? ?Note: Serial measurement may be necessary to confirm or exclude the diagnosis of myocardial injury or necrosis; Clinical correlation (symptoms, EKGs, imaging studies, and others) required; Repeat in 4-6 hours if clinically indicated. ? Equal or Higher than 0.121 ng/mL---Abnormal. Myocardial Injury or Necrosis Likely ? Biotin has been reported to cause a negative bias, interpret results relative to patient's use of biotin. ? Lab Interpretation Normal (test code = 15386-1) [facility] [id number] 20:57:04HISTORY: High pretest probability for P.E. recent orthopedic surgery. TECHNIQUE: Contrast-enhanced 64-mutidetector CT scan of the chest wascompleted with intravenous injection of ?Omnipaque-350 non ionic contrastmedium. Subsequently numerous sagittal, coronal and MIP reformations weregenerated. FINDINGS: Low-density lesions are seen in the lower portion of the thyroidgland, largest is 10 mm size in the right side. Trachea and centralbronchial airways appear normal. No pneumothorax or pleural effusion orpericardial effusion. Cardiomegaly, large hiatal hernia, congestion and/orfibrosis in the lower lungs noted. Main pulmonary artery is 28 mm indiameter. Minimal LAD coronary atherosclerosis noted. Note made ofaccessory right upper lobe azygous fissure. Subcentimeter lymph nodes areseen in the right and left karen, in the AP window region, anterior to thetrachea and subcarinal space. Left upper lobe pulmonary artery branches showed intraluminal partiallyoccluding thrombi. No additional pulmonary thromboemboli visualized. Visualized upper abdominal organs showed evidence of cholecystectomy,atrophy in the lateral upper left kidney and 6 mm calcification in the leftkidney adjacent to the atrophied cortex. Pectus recovery time deformity of the sternum noted. Thoracicdextroscoliosis and degenerative spondylosis is noted. No aggressive bonelesions are seen. CONCLUSIONS: Acute pulmonary thromboemboli in the left upper lobe pulmonaryartery branches. [facility], Radiant Results Inft User - 05/26/2019 2:58 P M CSTHISTORY: High pretest probability for P.E. recent orthopedic surgery.TECHNIQUE: Contrast-enhanced 64-mutidetector CT scan of the chest wascompleted with intravenous injection of Omnipaque-350 nonionic contrastmedium. Subsequently numerous sagittal, coronal and MIP reformations weregenerated.FINDINGS: Low-density lesions are seen in the lower portion of the thyroidgland, largest is 10 mm size in the right side. Trachea and centralbronchial airways appear normal. No pneumothorax or pleural effusion orpericardial effusion. Cardiomegaly, large hiatal hernia, congestion and/orfibrosis in the lower lungs noted. Main pulmonary artery is 28 mm indiameter. Minimal LAD coronary atherosclerosis noted.Note made ofaccessory right upper lobe azygous fissure. Subcentimeter lymph nodes areseen in the right and left karen, in the AP window region, anterior to thetrachea and subcarinal space.Left upper lobe pulmonary artery branches showed intraluminal partiallyoccluding thrombi. No additional pulmonary thromboemboli visualized.Visualized upper abdominal organs showed evidence of cholecystectomy,atrophy in the lateral upper left kidney and 6 mm calcification in the leftkidney adjacent to the atrophied cortex.Pectus recovery time deformity of the sternum noted. Thoracicdextroscoliosis and degenerative sp ondylosis is noted. No aggressive bonelesions are seen.CONCLUSIONS: Acute pulmonary thromboemboli inthe left upper lobe pulmonaryartery branches. [facility] ABDOMEN [id number] 16:33:44HISTORY: ?Abnormal LFTs. COMPARISON: None TECHNIQUE: Liver was evaluated in multiple planes without and with colorimaging. FINDINGS: Liver is approximately 14 cm and showed moderate increase inheterogeneous echotexture. Hepatic/portal venous systems appear patent withhepatopedal portal venous flow confirmed. No fluid is seen in the rightupper abdomen. No dilatation of the intrahepatic biliary ducts. Commonhepatic duct is 6.1 mm. Gallbladder is probably absent. Moderateatherosclerosis of the abdominal aorta noted. CONCLUSIONS: Normal sized liver with moderately coarse increasedechotexture of the parenchyma, consistent with chronic primary liverdisease, including hepatic steatosis. [facility], Radiant Results Inft User - 05/26/2019 10:34 AM CSTHISTORY: Abnormal LFTs.COMPARISON: NoneTECHNIQUE: Liver was evaluated in multiple planes without and with colorimaging.FINDINGS: Liver is approximately 14 cm andshowed moderate increase inheterogeneous echotexture. Hepatic/portal venous systems appear patent wit hhepatopedal portal venous flow confirmed. No fluid is seen in the rightupper abdomen. No dilatationof the intrahepatic biliary ducts. Commonhepatic duct is 6.1 mm. Gallbladder is probably absent. Moderateatherosclerosis of the abdominal aorta noted.CONCLUSIONS: Normal sized liver with moderately coarse increasedechotexture of the parenchyma, consistent with chronic primary liverdisease, including hepatic steatosis.[facility]- [facility]MINAL [id number] 11:46:00 Test Item Value Reference Range Interpretation Comments NT-proBNP (test code 532 pg/mL See_Comment H [Autom ated = 5304219789) message] The system which generated this result transmitted reference range : <=450. The reference range was not used to interpret this result as normal/abnormal . EVANGELINA (test code = EVANGELINA) Biotin has been reported to cause a negative bias, interpret results relative to patient's use of biotin. Lab Interpretation Abnormal (test code = 37151-0) [facility] ([id number][facility]2019-05-26 11:39:00 Test Item Value Reference Range Interpretation Comments NA (test code = 138 mmol/L 135-145 2074946847) K (test code = 4.0 mmol/L 3.5-5 5799575064) CL (test code = 99 mmol/L 98-108 0452937619) CO2 TOTAL (test code = 38 mmol/L 23-31 H 1590130739) AGAP (test code = 2-16 L 6353796238) BUN (test code = 13 mg/dL 7-23 8750224944) GLUCOSE (test code = 97 mg/dL 70-110 3241220557) CREATININE (test code = 0.71 mg/dL 0.5-1.04 0539534532) TOTAL BILI (test code = 0.8 mg/dL 0.1-1.4 9824152876) CALCIUM (test code = 8.6 mg/dL 8.6-10.6 1264683729) T PROTEIN (test code = 6.1 g/dL 6.3-8.2 L 2966705265) ALBUMIN (test code = 3.2 g/dL 3.5-5 L 1972472421) ALK PHOS (test code = 239 U/L 34-122 H 5146300414) ALTv (test code = 174 U/L 5-35 H 1742-6) AST(SGOT) (test code = 167 U/L 13-40 H 8968644494) eGFR Calculation mL/min/1.73m2 (Non-) (test code = 4371777555) eGFR Calculation mL/min/1.73m2 () (test code = 8447625330) EVANGELINA (test code = EVANGELINA) Association of Glomerular Filtration Rate (GFR) and Staging of Kidney Disease* + --+ --+ ------+| GFR (mL/min/1.73 m2) ?| With Kidney Damage ?| ?Without Kidney Damage+ --------+ --------+ +| ?>90 ?| ?Stage one ?| ? Normal ?+ ---+ ---+ -------+| ?60-89 ?| ?Stage two ?| ? Decreased GFR ? + --+ --+ ------+| ?30-59 ?| ?Stage three ?| ? Stage three ? + --+ --+ ------+| ?15-29 ?| ?Stage four ? | ? Stage four ?+ ---+ ---+ -------+| ?<15 (or dialysis) ? ?| ?Stage five ? | ? Stage five ?+ ---+ ---+ -------+ *Each stage assumes the associated GFR level has been in effect for at least three months. ?Stages 1 to 5, with or without kidney disease, indicate chronic kidney disease. Notes: Determination of stages one and two (with eGFR >59mL/min/1.73 m2) requires estimation of kidney damage for at least three months as defined by structural or functional abnormalities of the kidney, manifested by either:Pathological abnormalities or Markers of kidney damage (including abnormalities in the composition of the blood or urine or abnormalities in imaging tests). Lab Interpretation Abnormal (test code = 21104-3) [facility] WITH [id number] 10:55:00 Test Item Value Reference Range Interpretation Comments WBC (test code = See_Comment [Automated 5045-2) message] The sy stem which generated this result transmitted reference range : 4.30 - 11.10 10*3/?L. The reference range was not used to interpret this result as normal/abnormal . RBC (test code = See_Comment L [Automated 398-8) message] The sy stem which generated this result transmitted reference range : 3.93 - 5.25 10*6/?L. The reference range was not used to interpret this result as normal/abnormal . HGB (test code = 9.0 g/dL 11.6-15 L 718-7) HCT (test code = 30.1 % 35.7-45.2 L 4544-3) MCV (test code = 79.6 fL 80.6-95.5 L 787-2) MCH (test code = 23.8 pg 25.9-32.8 L 785-6) MCHC (test code = 29.9 g/dL 31.6-35.1 L 786-4) RDW-SD (test code = 47.2 fL 39-49.9 43436-9) RDW-CV (test code = 16.4 % 12-15.5 H 788-0) PLT (test code = See_Comment H [Automated 777-3) message] The sy stem which generated this result transmitted reference range : 166 - 358 10*3/ ?L. The reference r hadley was not used to interpret this result as normal/abnormal . MPV (test code = 10.9 fL 9.5-12.9 71335-4) NRBC/100 WBC (test See_Comment [Automat ed code = 3437294673) message] The system which generated this result transmitted reference range : 0.0 - 10.0 /100 WBCs. The refer ence range was not u sed to interpret th is result as normal/abnormal . NRBC x10^3 (test code <0.01 See_Comment [Auto mated = 6887644633) message] The s ystem which generated this result transmitted reference range : 10*3/?L. The reference range was not used to interpret this result as normal/abnormal . GRAN MAT (NEUT) % 67.4 % (test code = 770-8) IMM GRAN % (test code 0.50 % = 6731193100) LYMPH % (test code = 17.6 % 736-9) MONO % (test code = 10.5 % 5905-5) EOS % (test code = 3.4 % 713-8) BASO % (test code = 0.6 % 706-2) GRAN MAT x10^3(ANC) 6.25 10*3/uL 1.88-7.09 (test code = 3437216023) IMM GRAN x10^3 (test 0.05 10*3/uL 0-0.06 code = 0693571165) LYMPH x10^3 (test code 1.64 10*3/uL 1.32-3.29 = 731-0) MONO x10^3 (test code 0.98 10*3/uL 0.33-0.92 H = 742-7) EOS x10^3 (test code = 0.32 10*3/uL 0.03-0.39 711-2) BASO x10^3 (test code 0.06 10*3/uL 0.01-0.07 = 704-7) Lab Interpretation Abnormal (test code = 48600-0) [facility] (IGG AND IGM)2019-05-25 23:12:00 Test Item Value Reference Range Interpretation Comments HAV Total (test code = 2757257980) Negative HAVT Semi-Quantitative (test code = 9345890003) [facility] CenterHCV [id number] 23:12:00 Test Item Value Reference Range Interpretation Comments HCV Ab (test code = 09290-1) Negative HCV Semi-Quantitative (test code = 23209-2) [facility] [id number] 23:12:00 Test Item Value Reference Range Interpretation Comments HBsAB (test code = Negative 2790501874) HBsAb mIU/mL Semi-Quantitative (test code = 0183654892) EVANGELINA (test code = Interpretation: EVANGELINA) ?Hepatitis B Surface Antibody ? Negative - Patient is considered to be not immune to infection with HBV. ? ? Positive - Anti-HBs detected at greater than or equal to 12 mIU/mL. ?Patient is considered to be immune to infection with HBV. ? [facility]AT[facility] CORE ANTIBODY [id number] 23:01:00 Test Item Value Reference Range Interpretation Comments HBCM Negative Semi-Quantitative (test code = 77530-3) EVANGELINA (test code = Biotin has been reported EVANGELINA) to cause a negative bias, interpret results relative to patient's use of biotin. [facility] B SURFACE [id number] 22:56:00 Test Item Value Reference Range Interpretation Comments HBsAg Semi-Quantitative (test code = Negative Negative 5195-3) [facility] CenterTHY[facility]ID STIMULATING [id number] 16:56:00 Test Item Value Reference Range Interpretation Comments TSH (test code = See_Comment Biotin has been 0475175941) reported to cau se a negative bias, interpret resul ts relative to pat blanca's use of biotin. [Automated mess age] The system whic h generated this result transmitted ref erence range: 0.45 - 4 .70 mIU/L. The refe rence range was not u sed to interpret this result as normal/abnor mal. Lab Interpretation (test Normal code = 95740-3) [facility] WITH [id number] 16:33:00 Test Item Value Reference Range Interpretation Comments WBC (test code = See_Comment [Automated 6690-2) message] The sy stem which generated this result transmitted reference range : 4.30 - 11.10 10*3/?L. The reference range was not used to interpret this result as normal/abnormal . RBC (test code = See_Comment L [Automated 789-8) message] The sy stem which generated this result transmitted reference range : 3.93 - 5.25 10*6/?L. The reference range was not used to interpret this result as normal/abnormal . HGB (test code = 9.2 g/dL 11.6-15 L 718-7) HCT (test code = 33.0 % 35.7-45.2 L 4544-3) MCV (test code = 84.2 fL 80.6-95.5 787-2) MCH (test code = 23.5 pg 25.9-32.8 L 785-6) MCHC (test code = 27.9 g/dL 31.6-35.1 L 786-4) RDW-SD (test code = 50.5 fL 39-49.9 H 98016-5) RDW-CV (test code = 16.4 % 12-15.5 H 788-0) PLT (test code = See_Comment [Automated 777-3) message] The sy stem which generated this result transmitted reference range : 166 - 358 10*3/ ?L. The reference r hadley was not used to interpret this result as normal/abnormal . MPV (test code = 11.1 fL 9.5-12.9 39880-3) NRBC/100 WBC (test See_Comment [Automat ed code = 2041295347) message] The system which generated this result transmitted reference range : 0.0 - 10.0 /100 WBCs. The refer ence range was not u sed to interpret th is result as normal/abnormal . NRBC x10^3 (test code <0.01 See_Comment [Auto mated = 6975762257) message] The s ystem which generated this result transmitted reference range : 10*3/?L. The reference range was not used to interpret this result as normal/abnormal . GRAN MAT (NEUT) % 64.8 % (test code = 770-8) IMM GRAN % (test code 0.50 % = 1684695275) LYMPH % (test code = 20.2 % 736-9) MONO % (test code = 10.8 % 5905-5) EOS % (test code = 3.0 % 713-8) BASO % (test code = 0.7 % 706-2) GRAN MAT x10^3(ANC) 4.81 10*3/uL 1.88-7.09 (test code = 1674174847) IMM GRAN x10^3 (test 0.04 10*3/uL 0-0.06 code = 8968175387) LYMPH x10^3 (test code 1.50 10*3/uL 1.32-3.29 = 731-0) MONO x10^3 (test code 0.80 10*3/uL 0.33-0.92 = 742-7) EOS x10^3 (test code = 0.22 10*3/uL 0.03-0.39 711-2) BASO x10^3 (test code 0.05 10*3/uL 0.01-0.07 = 704-7) ELLIPTO/OVAL (test 2+ See_Comment A [Automat ed code = 86379-2) message] The system which generated this result transmitted reference range : (none). The reference range was not used to interpret this result as normal/abnormal . GIANT PLATELETS (test Present See_Comment A [Auto mated code = 5908-9) message] The system which generated this result transmitted reference range : (none). The reference range was not used to interpret this result as normal/abnormal . Lab Interpretation Abnormal (test code = 36611-3) [facility] CenterGLYCOSYLATED HEMOGLOBIN (A1C)2019-05-25 16:32:00 Test Item Value Reference Interpretation Comments Range HGB A1C (test code = See_Comment [Autom ated 4548-4) message] The system which generated this result transmitted reference range : 4.0 - 6.0 % NGSP. The reference range was not used to interpret this result as normal/abnormal . EVANGELINA (test code = %A1C (NGSP) EVANGELINA) Interpretation (ADA)4.8-5.6 ? ? Normal or (Non-Diabetic Range)5.7-6.4 ? ? Increased Risk (Pre-Diabetic)>6.5 ?Diabetes Indicated Lab Interpretation Normal (test code = 01821-3) [facility] CenterXR [facility] 1 [id number] 13:55:48 FINDINGS/IMPRESSION: Mild pulmonary vascular congestion. Retrocardiac atelectasis is noted. Anazygous fissure is seen on the right. The costophrenic angles are clear.The heart is mildly enlarged. No pneumothorax is found. Preliminary Report Dictated by Resident: Richardson Stout MD., have reviewed this study and agree with theabove report.XR CHEST 1 VW HISTORY: hypoxia COMPARISON: None [facility], Radiant Results Inft User - 05/25/2019 7:56 AM CSTXR CHEST 1 VWHISTORY: hypoxia COMPARISON: NoneIMPRESSIONFINDINGS/IMPRESSION: Mild pulmonary vascular congestion. Retrocardiac atelectasis is noted. Anazygous fissure is seen on the right. The costophrenic angles are clear.The heart is mildly enlarged.No pneumothorax is found.Preliminary Report Dictated by Resident: Richardson Stratton MD., have reviewed this study and agree with theabove report.[facility] CenterN-TERMINAL [id number] 11:49:00 Test Item Value Reference Range Interpretation Comments NT-proBNP (test code 611 pg/mL See_Comment H [Autom ated = 9470324939) message] The system which generated this result transmitted reference range : <=450. The reference range was not used to interpret this result as normal/abnormal . EVANGELINA (test code = EVANGELINA) Biotin has been reported to cause a negative bias, interpret results relative to patient's use of biotin. Lab Interpretation Abnormal (test code = 59622-7) [facility] CenterPhosphorus [id number] 11:45:00 Test Item Value Reference Range Interpretation Comments PHOSPHORUS (test code = 5741926269) 2.7 mg/dL 2.5-5 Lab Interpretation (test code = Normal 55804-0) [facility] CenterCOMP. METABOLIC PANEL (97870)2019-05-25 11:45:00 Test Item Value Reference Range Interpretation Comments NA (test code = 140 mmol/L 135-145 4644082881) K (test code = 4.7 mmol/L 3.5-5 7395436254) CL (test code = 102 mmol/L 98-108 1291481151) CO2 TOTAL (test code = 34 mmol/L 23-31 H 4768449729) AGAP (test code = 2-16 9096653007) BUN (test code = 16 mg/dL 7-23 8974662900) GLUCOSE (test code = 101 mg/dL 70-110 4732040160) CREATININE (test code = 0.80 mg/dL 0.5-1.04 5019629467) TOTAL BILI (test code = 0.7 mg/dL 0.1-1.6 6553746714) CALCIUM (test code = 8.6 mg/dL 8.6-10.6 9847319312) T PROTEIN (test code = 6.0 g/dL 6.3-8.2 L 0367987930) ALBUMIN (test code = 3.6 g/dL 3.5-5 7115173347) ALK PHOS (test code = 226 U/L 34-122 H 8914851039) ALTv (test code = 227 U/L 5-35 H 1742-6) AST(SGOT) (test code = 616 U/L 13-40 H 5577053408) eGFR Calculation mL/min/1.73m2 (Non-) (test code = 0671790255) eGFR Calculation mL/min/1.73m2 () (test code = 5261888762) EVANGELINA (test code = EVANGELINA) Association of Glomerular Filtration Rate (GFR) and Staging of Kidney Disease* + --+ --+ ------+| GFR (mL/min/1.73 m2) ?| With Kidney Damage ?| ?Without Kidney Damage+ --------+ --------+ +| ?>90 ?| ?Stage one ?| ? Normal ?+ ---+ ---+ -------+| ?60-89 ?| ?Stage two ?| ? Decreased GFR ? + --+ --+ ------+| ?30-59 ?| ?Stage three ?| ? Stage three ? + --+ --+ ------+| ?15-29 ?| ?Stage four ? | ? Stage four ?+ ---+ ---+ -------+| ?<15 (or dialysis) ? ?| ?Stage five ? | ? Stage five ?+ ---+ ---+ -------+ *Each stage assumes the associated GFR level has been in effect for at least three months. ?Stages 1 to 5, with or without kidney disease, indicate chronic kidney disease. Notes: Determination of stages one and two (with eGFR >59mL/min/1.73 m2) requires estimation of kidney damage for at least three months as defined by structural or functional abnormalities of the kidney, manifested by either:Pathological abnormalities or Markers of kidney damage (including abnormalities in the composition of the blood or urine or abnormalities in imaging tests). Lab Interpretation Abnormal (test code = 55664-7) [facility] 11[facility]45:00 Test Item Value Reference Range Interpretation Comments MAGNESIUM (test code = 3032806011) 1.9 mg/dL 1.7-2.4 Lab Interpretation (test code = Normal 90165-7) [facility] (NA, K, CL, CO2, GLUCOSE, BUN, CREATININE, CA)2019-05-24 17:58:00 Test Item Value Reference Range Interpretation Comments NA (test code = 141 mmol/L 135-145 8284938119) K (test code = 4.4 mmol/L 3.5-5 8670618027) CL (test code = 105 mmol/L 98-108 9358686164) CO2 TOTAL (test code = 32 mmol/L 23-31 H 4533629782) AGAP (test code = 2-16 6997374207) BUN (test code = 18 mg/dL 7-23 5001305110) GLUCOSE (test code = 67 mg/dL 70-110 L 9361900740) CREATININE (test code = 0.90 mg/dL 0.5-1.04 1316443516) CALCIUM (test code = 8.5 mg/dL 8.6-10.6 L 9445117614) eGFR Calculation mL/min/1.73m2 (Non-) (test code = 3387114119) eGFR Calculation mL/min/1.73m2 () (test code = 9549426966) EVANGELINA (test code = EVANGELINA) Association of Glomerular Filtration Rate (GFR) and Staging of Kidney Disease* + --+ --+ ------+| GFR (mL/min/1.73 m2) ?| With Kidney Damage ?| ?Without Kidney Damage+ --------+ --------+ +| ?>90 ?| ?Stage one ?| ? Normal ?+ ---+ ---+ -------+| ?60-89 ?| ?Stage two ?| ? Decreased GFR ? + --+ --+ ------+| ?30-59 ?| ?Stage three ?| ? Stage three ? + --+ --+ ------+| ?15-29 ?| ?Stage four ? | ? Stage four ?+ ---+ ---+ -------+| ?<15 (or dialysis) ? ?| ?Stage five ? | ? Stage five ?+ ---+ ---+ -------+ *Each stage assumes the associated GFR level has been in effect for at least three months. ?Stages 1 to 5, with or without kidney disease, indicate chronic kidney disease. Notes: Determination of stages one and two (with eGFR >59mL/min/1.73 m2) requires estimation of kidney damage for at least three months as defined by structural or functional abnormalities of the kidney, manifested by either:Pathological abnormalities or Markers of kidney damage (including abnormalities in the composition of the blood or urine or abnormalities in imaging tests). Lab Interpretation Abnormal (test code = 22926-0) [id number] 12:06:00 Test Item Value Reference Range Interpretation Comments MAGNESIUM (test code = 7666401985) 1.9 mg/dL 1.7-2.4 Lab Interpretation (test code = Normal 02723-9) [facility]osph[facility] [id number] 12:06:00 Test Item Value Reference Range Interpretation Comments PHOSPHORUS (test code = 3005173416) 3.1 mg/dL 2.5-5 Lab Interpretation (test code = Normal 42753-7) [facility] WITH [id number] 11:29:00 Test Item Value Reference Range Interpretation Comments WBC (test code = See_Comment [Automated 6690-2) message] The sy stem which generated this result transmitted reference range : 4.30 - 11.10 10*3/?L. The reference range was not used to interpret this result as normal/abnormal . RBC (test code = See_Comment L [Automated 789-8) message] The sy stem which generated this result transmitted reference range : 3.93 - 5.25 10*6/?L. The reference range was not used to interpret this result as normal/abnormal . HGB (test code = 8.7 g/dL 11.6-15 L 718-7) HCT (test code = 30.7 % 35.7-45.2 L 4544-3) MCV (test code = 82.5 fL 80.6-95.5 787-2) MCH (test code = 23.4 pg 25.9-32.8 L 785-6) MCHC (test code = 28.3 g/dL 31.6-35.1 L 786-4) RDW-SD (test code = 48.9 fL 39-49.9 70687-0) RDW-CV (test code = 16.4 % 12-15.5 H 788-0) PLT (test code = See_Comment [Automated 777-3) message] The sy stem which generated this result transmitted reference range : 166 - 358 10*3/ ?L. The reference r hadley was not used to interpret this result as normal/abnormal . MPV (test code = 10.8 fL 9.5-12.9 24086-6) NRBC/100 WBC (test See_Comment [Automat ed code = 4661403352) message] The system which generated this result transmitted reference range : 0.0 - 10.0 /100 WBCs. The refer ence range was not u sed to interpret th is result as normal/abnormal . NRBC x10^3 (test code <0.01 See_Comment [Auto mated = 9473907889) message] The s ystem which generated this result transmitted reference range : 10*3/?L. The reference range was not used to interpret this result as normal/abnormal . GRAN MAT (NEUT) % 75.9 % (test code = 770-8) IMM GRAN % (test code 0.20 % = 1517272895) LYMPH % (test code = 13.6 % 736-9) MONO % (test code = 9.5 % 5905-5) EOS % (test code = 0.5 % 713-8) BASO % (test code = 0.3 % 706-2) GRAN MAT x10^3(ANC) 7.98 10*3/uL 1.88-7.09 H (test code = 2374825770) IMM GRAN x10^3 (test <0.03 0-0.06 code = 3480850000) LYMPH x10^3 (test code 1.43 10*3/uL 1.32-3.29 = 731-0) MONO x10^3 (test code 1.00 10*3/uL 0.33-0.92 H = 742-7) EOS x10^3 (test code = 0.05 10*3/uL 0.03-0.39 711-2) BASO x10^3 (test code 0.03 10*3/uL 0.01-0.07 = 704-7) Lab Interpretation Abnormal (test code = 36411-9) [facility] WITH [id number] 03:42:00 Test Item Value Reference Range Interpretation Comments WBC (test code = See_Comment [Automated 0690-2) message] The sy stem which generated this result transmitted reference range : 4.30 - 11.10 10*3/?L. The reference range was not used to interpret this result as normal/abnormal . RBC (test code = See_Comment L [Automated 119-8) message] The sy stem which generated this result transmitted reference range : 3.93 - 5.25 10*6/?L. The reference range was not used to interpret this result as normal/abnormal . HGB (test code = 9.0 g/dL 11.6-15 L 718-7) HCT (test code = 32.0 % 35.7-45.2 L 4544-3) MCV (test code = 81.8 fL 80.6-95.5 787-2) MCH (test code = 23.0 pg 25.9-32.8 L 785-6) MCHC (test code = 28.1 g/dL 31.6-35.1 L 786-4) RDW-SD (test code = 49.1 fL 39-49.9 22641-3) RDW-CV (test code = 16.4 % 12-15.5 H 788-0) PLT (test code = See_Comment [Automated 777-3) message] The sy stem which generated this result transmitted reference range : 166 - 358 10*3/ ?L. The reference r hadley was not used to interpret this result as normal/abnormal . MPV (test code = 11.2 fL 9.5-12.9 29907-8) NRBC/100 WBC (test See_Comment [Automat ed code = 6713687479) message] The system which generated this result transmitted reference range : 0.0 - 10.0 /100 WBCs. The refer ence range was not u sed to interpret th is result as normal/abnormal . NRBC x10^3 (test code <0.01 See_Comment [Auto mated = 6922887131) message] The s ystem which generated this result transmitted reference range : 10*3/?L. The reference range was not used to interpret this result as normal/abnormal . GRAN MAT (NEUT) % 85.8 % (test code = 770-8) IMM GRAN % (test code 0.30 % = 8376434301) LYMPH % (test code = 7.9 % 736-9) MONO % (test code = 5.7 % 5905-5) EOS % (test code = 0.1 % 713-8) BASO % (test code = 0.2 % 706-2) GRAN MAT x10^3(ANC) 8.66 10*3/uL 1.88-7.09 H (test code = 4280479155) IMM GRAN x10^3 (test 0.03 10*3/uL 0-0.06 code = 2990909552) LYMPH x10^3 (test code 0.80 10*3/uL 1.32-3.29 L = 731-0) MONO x10^3 (test code 0.58 10*3/uL 0.33-0.92 = 742-7) EOS x10^3 (test code = <0.03 0.03-0.39 L 711-2) BASO x10^3 (test code <0.03 0.01-0.07 = 704-7) Lab Interpretation Abnormal (test code = 80156-6) [facility] Metabolic Panel (NA, K, CL, CO2, GLUCOSE, BUN, CREATININE, CA)2019-05-24 03:31:00 Test Item Value Reference Range Interpretation Comments NA (test code = 139 mmol/L 135-145 7974222966) K (test code = 5.1 mmol/L 3.5-5 H 8848531739) CL (test code = 106 mmol/L 98-108 8366851190) CO2 TOTAL (test code = 29 mmol/L 23-31 4812044084) AGAP (test code = 2-16 1437156938) BUN (test code = 21 mg/dL 7-23 5344469907) GLUCOSE (test code = 192 mg/dL 70-110 H 5003421134) CREATININE (test code = 1.12 mg/dL 0.5-1.04 H 6841399273) CALCIUM (test code = 8.6 mg/dL 8.6-10.6 7814707359) eGFR Calculation mL/min/1.73m2 (Non-) (test code = 6418527946) eGFR Calculation mL/min/1.73m2 () (test code = 4727941843) EVANGELINA (test code = EVANGELINA) Association of Glomerular Filtration Rate (GFR) and Staging of Kidney Disease* + --+ --+ ------+| GFR (mL/min/1.73 m2) ?| With Kidney Damage ?| ?Without Kidney Damage+ --------+ --------+ +| ?>90 ?| ?Stage one ?| ? Normal ?+ ---+ ---+ -------+| ?60-89 ?| ?Stage two ?| ? Decreased GFR ? + --+ --+ ------+| ?30-59 ?| ?Stage three ?| ? Stage three ? + --+ --+ ------+| ?15-29 ?| ?Stage four ? | ? Stage four ?+ ---+ ---+ -------+| ?<15 (or dialysis) ? ?| ?Stage five ? | ? Stage five ?+ ---+ ---+ -------+ *Each stage assumes the associated GFR level has been in effect for at least three months. ?Stages 1 to 5, with or without kidney disease, indicate chronic kidney disease. Notes: Determination of stages one and two (with eGFR >59mL/min/1.73 m2) requires estimation of kidney damage for at least three months as defined by structural or functional abnormalities of the kidney, manifested by either:Pathological abnormalities or Markers of kidney damage (including abnormalities in the composition of the blood or urine or abnormalities in imaging tests). Lab Interpretation Abnormal (test code = 76147-1) [facility]W [id number] 22:23:31 Postsurgical changes of total knee arthroplasty without complications. Preliminary Report Dictated by Resident: Pastor Ramsay MD., have reviewed this study and agree with the abovereport.Exam:XR KNEE <3 VW RIGHT HISTORY: surgery COMPARISON: Radiograph 01/07/2019 FINDINGS: Radiographs of the right knee demonstrate postsurgical changes of totalknee arthroplasty with hardware without complications. Postsurgical drains,soft tissue swelling, gas and superficial skin rigoberto are noted. No acuteosseous fracture is detected. [facility], Radiant Results Inft User - 05/23/2019 4:24 PM CSTExam:XR KNEE <3 VW RIGHTHISTORY: surgery COMPARISON: Radiograph 01/07/2019FINDINGS:Radiographs of the right knee demonstrate postsurgical changes of totalknee arthroplasty with hardware without complications. Postsurgical drains,soft tissue swelling, gas and superficial skin rigoberto are noted. No acuteosseous fracture is detected.IMPRESSIONPostsurgical changes of total knee arthroplasty without complications.Preliminary Report Dictated by Resident: Pastor Ambriz MD., have reviewed this study and agree with the abovereport.[facility] 2019-05-23 15:34:42Ilya Austin MD ? ? 05/23/2019 ?9:40 AM Nerve Block Procedure: Femoral Nerve Block and Other Peripheral Nerve Laterality: RightSurgical Anesthesia: no Start Time: 05/23/2019 7:00 AMEnd Time: 05/23/2019 7:20 AMPost Op Pain Management requested by surgeon per surgical: OtherAnesthesiologist: Ilya Austin MDPerformed by: anesthesiologistPreanesthetic timeout completed prior to procedure: patient identified,IV checked, risks and benefits discussed, surgical consent, monitors and equipment checked, pre-op evaluation, timeout performedInformed consent obtained patient wishes to proceed: yesPatient position: supine, right leg abducted.Sterile Prep/Drape: YesMonitoring: continuous pulse oxInjection Technique: single-shotNeedle Gauge: 22 GNeedle Length: 4.0Number of Attempts: 1Technique: Ultrasound guided, Negative aspiration and Intermittent aspiration during injectionSensory Effect: AdequateEvents: Patient tolerated procedure well, Negative Aspiration and No paresthesia on incremental injectionAdditional Notes:SP&D to right thigh, anterior and posterior surfaces. ?Lido to adductor and IPACK injection skin sites. ?Saphenous nerve identified in canal, injected with 10 ml 0.25% bupiv. ?IPACK injection site identified under U/S guidance. ?15 ml 0.25% bupiv injected above periosteal surface from lateral across to medial condyles. [facility] Center[facility]ubation2020-03-[facility] 14:00:44Robson Davis CRNA ? ? 05/23/2019 ?8:01 AMIntubationUrgency: elective Airway not difficult General Information and Staff Patient location during procedure: ORResident/ACCOUNT RESOLUTION SPECIALIST: Robson Davis CRNAPerformed: resident/ACCOUNT RESOLUTION SPECIALIST Indications and Patient ConditionIndications for airway management: anesthesiaSpontaneous Ventilation: absentSedation level: deepPreoxygenated: yesPatient position: sniffingMILS maintainedthroughoutMask difficulty assessment: 1 - vent by mask Final Airway DetailsFinal airway type: supraglottic airway Successful airway: classicSize 4 Number of attempts at approach: 1 Additional CommentsAirway dry intact. Dentures left in placeUnTexas Health [facility] AllianceType and Screen - ONCE [id number] 13:14:08 Test Item Value Reference Range Interpretation Comments ABO & RH (test AB Negative Performed at [facility] code = 20) [facility] [address] [address]Toll Free: [phone] A No. [id number] IAT (test code = Negative Performed a t [facility] 1185) Laboratory [facility] [address] [address]Toll Free: [phone] A No. [id number] [facility] CenterABORH [id number] 12:59:33 Test Item Value Reference Range Interpretation Comments ABO & RH (test AB Negative Performed at [facility] code = 20) [facility] [address] Free: [phone] A No. [id number] [facility] CenterXR FEMUR 2 VW [id number] 00:36:17 No acute bony abnormality. Soft tissue swelling about the knee and leg. Osteoarthrosis. Preliminary Report Dictated by Resident: Kahlil Zhao I, Eulalio Bryant MD., have reviewed this study andagree with the abovereport.EXAM: XR TIBIA FIBULA 2 VW RIGHT EXAM: XR FEMUR 2 VW RIGHT EXAM: XR FOOT <3 VIEW RIGHT HISTORY: fall COMPARISON: None FINDINGS: Radiographs of the right femur, tibia fibula and foot demonstrate no acutefracture or dislocation. Hardware fixation of the second toe PIP joint isnoted without complication. Subchondral sclerosis, osteophytosis at the hipjoint is seen. Knee tricompartmental subchondral sclerosis, marginalosteophytes and joint space narrowing is also noted. A small size kneejoint effusion is present. Degenerative tibial spine hypertrophy ispresent. An os peroneum is seen. Prominent plantar calcaneal enthesophyteis noted. Diffuse osteopenia is seen. Dystrophic calcification along thesoft tissues of the anterior tibia is noted. Vascular calcifications arepresent. Osteopenia is present. Soft tissue swelling is seen about themedial aspect of the knee and throughout the leg. [facility], Radiant Results Inft User - 04/23/2019 6:37 PM CSTEXAM: XR TIBIA FIBULA 2 VW RIGHTEXAM: XR FEMUR 2 VW RIGHTEXAM: XR FOOT <3 VIEW RIGHTHISTORY: fall COMPARISON: NoneFINDINGS:Radiographs of the right femur, tibia fibula and foot demonstrate no acutefracture or dislocation. Hardware fixation of the second toe PIP joint isnoted without complication. Subchondral sclerosis, osteophytosis at the hipjoint is seen. Knee tricompartmental subchondral sclerosis, marginalosteophytes and joint space narrowing is also noted. A small size kneejoint effusion is present. Degenerative tibial spine hypertrophy ispresent. An os peroneum is seen. Prominent plantar calcaneal enthesophyteis noted.Diffuse osteopenia is seen. Dystrophic calcification along thesoft tissues of the anterior tibia is noted. Vascular calcifications arepresent. Osteopenia is present. Soft tissue swelling is seen about themedial aspect of the knee and throughout the leg.IMPRESSIONNo acute bony abnormality.Soft tissue swelling about the knee and leg.Osteoarthrosis.Preliminary Report Dictated by Resident: Eulalio Marinelli MD., have reviewed this study and agree with the abovereport.[facility] CenterXR TIBIA FIBULA 2 VW RIGHT 2019-04-24 00:36:17 No acute bony abnormality. Soft tissue swelling about the knee and leg. Osteoarthrosis. Preliminary Report Dictated by Resident: Eulalio Middleton MD., have reviewed this study andagree with the abovereport.EXAM: XR TIBIA FIBULA 2 VW RIGHT EXAM: XR FEMUR 2 VW RIGHT EXAM: XR FOOT <3 VIEW RIGHT HISTORY: fall COMPARISON: None FINDINGS: Radiographs of the right femur, tibia fibula and foot demonstrate no acutefracture or dislocation. Hardware fixation of the second toe PIP joint isnoted without complication. Subchondral sclerosis, osteophytosis at the hipjoint is seen. Knee tricompartmental subchondral sclerosis, marginalosteophytes and joint space narrowing is also noted. A small size kneejoint effusion is present. Degenerative tibial spine hypertrophy ispresent. An os peroneum is seen. Prominent plantar calcaneal enthesophyteis noted. Diffuse osteopenia is seen. Dystrophic calcification along thesoft tissues of the anterior tibia is noted. Vascular calcifications arepresent. Osteopenia is present. Soft tissue swelling is seen about themedial aspect of the knee and throughout the leg. [facility], Radiant Results Inft User - 04/23/2019 6:37 PM CSTEXAM: XR TIBIA FIBULA 2 VW RIGHTEXAM: XR FEMUR 2 VW RIGHTEXAM: XR FOOT <3 VIEW RIGHTHISTORY: fall COMPARISON: NoneFINDINGS:Radiographs of the right femur, tibia fibula and foot demonstrate no acutefracture or dislocation. Hardware fixation of the second toe PIP joint isnoted without complication. Subchondral sclerosis, osteophytosis at the hipjoint is seen. Knee tricompartmental subchondral sclerosis, marginalosteophytes and joint space narrowing is also noted. A small size kneejoint effusion is present. Degenerative tibial spine hypertrophy ispresent. An os peroneum is seen. Prominent plantar calcaneal enthesophyteis noted.Diffuse osteopenia is seen. Dystrophic calcification along thesoft tissues of the anterior tibia is noted. Vascular calcifications arepresent. Osteopenia is present. Soft tissue swelling is seen about themedial aspect of the knee and throughout the leg.IMPRESSIONNo acute bony abnormality.Soft tissue swelling about the knee and leg.Osteoarthrosis.Preliminary Report Dictated by Resident: Eulalio Marinelli MD., have reviewed this study and agree with the abovereport.[facility] CenterXR FOOT <3 VW RIGHT 2019-04-24 00:36:17 No acute bony abnormality. Soft tissue swelling about the knee and leg. Osteoarthrosis. Preliminary Report Dictated by Resident: Eulalio Middleton MD., have reviewed this study andagree with the abovereport.EXAM: XR TIBIA FIBULA 2 VW RIGHT EXAM: XR FEMUR 2 VW RIGHT EXAM: XR FOOT <3 VIEW RIGHT HISTORY: fall COMPARISON: None FINDINGS: Radiographs of the right femur, tibia fibula and foot demonstrate no acutefracture or dislocation. Hardware fixation of the second toe PIP joint isnoted without complication. Subchondral sclerosis, osteophytosis at the hipjoint is seen. Knee tricompartmental subchondral sclerosis, marginalosteophytes and joint space narrowing is also noted. A small size kneejoint effusion is present. Degenerative tibial spine hypertrophy ispresent. An os peroneum is seen. Prominent plantar calcaneal enthesophyteis noted. Diffuse osteopenia is seen. Dystrophic calcification along thesoft tissues of the anterior tibia is noted. Vascular calcifications arepresent. Osteopenia is present. Soft tissue swelling is seen about themedial aspect of the knee and throughout the leg. [facility], Radiant Results Inft User - 04/23/2019 6:37 PM CSTEXAM: XR TIBIA FIBULA 2 VW RIGHTEXAM: XR FEMUR 2 VW RIGHTEXAM: XR FOOT <3 VIEW RIGHTHISTORY: fall COMPARISON: NoneFINDINGS:Radiographs of the right femur, tibia fibula and foot demonstrate no acutefracture or dislocation. Hardware fixation of the second toe PIP joint isnoted without complication. Subchondral sclerosis, osteophytosis at the hipjoint is seen. Knee tricompartmental subchondral sclerosis, marginalosteophytes and joint space narrowing is also noted. A small size kneejoint effusion is present. Degenerative tibial spine hypertrophy ispresent. An os peroneum is seen. Prominent plantar calcaneal enthesophyteis noted.Diffuse osteopenia is seen. Dystrophic calcification along thesoft tissues of the anterior tibia is noted. Vascular calcifications arepresent. Osteopenia is present. Soft tissue swelling is seen about themedial aspect of the knee and throughout the leg.IMPRESSIONNo acute bony abnormality.Soft tissue swelling about the knee and leg.Osteoarthrosis.Preliminary Report Dictated by Resident: Eulalio Marinelli MD., have reviewed this study and agree with the abovereport.[facility]XR PELVIS <3 [id number] 00:31:06 No acute bony abnormality. Preliminary Report Dictated by Resident: Eulalio Benjamin MD., have reviewed this study and agree with the abovereport. EXAM: XR PELVIS <3 VW HISTORY: fall COMPARISON: None available. FINDINGS: Images of the pelvis demonstrate no fracture or disloc ation. Moderate lowerlumbar spondylosis is noted. Osteopenia is present. The soft tissues are unremarkable. An dense, oval structure projecting overthe right iliac crest is likely intraluminal. [facility], Radiant Results Inft User - 04/23/2019 6:32 PM CSTEXAM: XR PELVIS <3 VWHISTORY: fall COMPARISON: None available.FINDINGS:Images of the pelvis demonstrate no fracture or dislocation. Moderate lowerlumbar spondylosis is noted. Osteopenia is present.The soft tissues are unremarkable. An dense, oval structure projecting overthe right iliac crest is likely intraluminal.IMPRESSIONNo acute bony abnormality .Preliminary Report Dictated by Resident: Jodie Hassan, Eulalio Bryant MD., have reviewed this study and agree with the abovereport.[facility]
--- NOTE | 2021-06-30 12:54 | RAD REPORT ---
EXAM DESCRIPTION: RAD - Knee Left 3 View - 06/30/2021 12:47 pm CLINICAL HISTORY: PAIN COMPARISON: <Comparisons> FINDINGS: No acute fracture. No malalignment. Similar deformity at the lateral tibial plateau. Both medial and lateral compartment spurring is noted. Mild patellofemoral compartment spurring. IMPRESSION: No acute osseous abnormality involving the left knee.
--- NOTE | 2021-06-30 12:54 | RAD REPORT ---
EXAM DESCRIPTION: RAD - Wrist Left 3 View - 06/30/2021 12:47 pm CLINICAL HISTORY: PAIN COMPARISON: Knee Left 3 View dated 11/10/2020No comparisons FINDINGS: No acute fracture. No malalignment. Degenerative changes are present at the first [facility] join t. IMPRESSION: No acute osseous abnormality involving the left wrist.
--- NOTE | 2021-06-30 13:34 | RAD REPORT ---
EXAM DESCRIPTION: CT - Head Brain Wo Cont - 06/30/2021 1:28 pm CLINICAL HISTORY: FALL INJURY, PAIN COMPARISON: Maxillofacial Wo Con dated 11/10/2020; Head Brain Wo Cont dated 01/04/2020 TECHNIQUE: All CT scans are performed using dose optimization technique as appropriate and may inclu de automated exposure control or mA/KV adjustment according to patient size. FINDINGS: No intracranial hemorrhage, hydrocephalus or extra-axial fluid collection.No areas of brai n edema or evidence of midline shift. Chronic small vessel ischemic changes. Mild ethmoid air cell thickening. The calvarium is intact. IMPRESSION: No acute intracranial abnormality.
--- NOTE | 2021-06-30 13:38 | RAD REPORT ---
EXAM DESCRIPTION: CT - C Spine Wo Con - 06/30/2021 1:28 pm CLINICAL HISTORY: FALL INJURY, PAIN COMPARISON: Head C Spine Mpr Wo Con dated 11/10/[address] Scan was obtained of the cervical spine without contrast. Reformats were provided in th e sagittal and coronal plane. FINDINGS: No acute fracture of the cervical spine. No traumatic malalignment. No prevertebral edema. Multilevel cervical spondylosis with varying degrees of neural foraminal narrowing. No suspicious th yroid nodules or lymphadenopathy. The lung apices are clear. IMPRESSION: No acute fracture or traumatic malalignment of the cervical spine.
--- NOTE | 2021-06-30 13:42 | RAD REPORT ---
EXAM DESCRIPTION: CT - Thorax W/ Con - 06/30/2021 1:28 pm CLINICAL HISTORY: FALL INJURY, PAIN COMPARISON: Chest For Pe Angio dated 06/04/2019; Thorax Wo Con dated 03/01/2019; CTANGIO CHEST FOR PE dated 02/05/2009; CTANGIO CHEST FOR PE dated 05/19/2008; Head Brain Wo Cont dated 06/30/2021; Abdomen Pelvis W Contrast dated 06/30/2021 FINDINGS: Chest Wall: No suspicious thyroid nodules or pathologic lymphadenopathy. Lungs: No acute abnormality. Azygos fissure, a normal variant. Pleura: No significant effusions or pneumothorax. Mediastinum/karen: No pathologic lymphadenopathy. Moderate hiatal hernia. Pulmonary arteries/Aorta: No filling defect identified. No aortic aneurysm. Heart: No significant pericardial effusion. Mild cardiomegaly. Upper abdomen: See CT abdomen pelvis Bones: No acute abnormality. All CT scans are performed using dose optimization technique as appropriate and may include automated exposure control or mA/KV adjustment according to patient size. IMPRESSION: No evidence of significant trauma to the chest.
--- NOTE | 2021-06-30 13:45 | RAD REPORT ---
EXAM DESCRIPTION: CTAbdomen Pelvis W Contrast - 06/30/2021 1:28 pm CLINICAL HISTORY: FALL INJURY, PAIN COMPARISON: Abdomen Pelvis W Contrast dated 06/18/2020 TECHNIQUE: CT of the abdomen and pelvis was performed. All CT scans are performed using dose optimization technique as appropriate and may include automated exposure control or mA/KV adjustment according to patient size. FINDINGS: Lower chest: Moderate hiatal hernia. Surgical clips in the gastroesophageal junction. Liver: No acute abnormality or suspicious lesions. Biliary: Cholecystectomy Stomach: No significant focal abnormality. Duodenum: No significant focal abnormality. Pancreas: No significant abnormality. Spleen: No significant abnormality. Adrenal: No suspicious lesions. Kidney/ureter: No hydronephrosis. No renal calculi. Left renal scarring. Retroperitoneum: No retroperitoneal adenopathy. Vascular: No aneurysm. Bowel: Diverticulosis without diverticulitis. No appendix identified.. Peritoneum: No ascites or free air. Fat containing ventral hernia. Bladder: Grossly unremarkable. Reproductive: No adnexal masses. Bones: No acute fracture. Multilevel degenerative changes are present in the spine. Other: n/a IMPRESSION: No evidence of significant trauma to the abdomen or pelvis. Incidental findings as noted above.
[2021-06-30] MEDS ORDERED: MORPHINE 4 MG/ML SYR ONE ×2 (14:12→17:11)
[2021-06-30] MEDS ORDERED: ONDANSETRON 4 MG/2 ML VIAL ONE (14:13)
[2021-06-30 15:01] LABS: Absolute Lymphocytes (CBC) 1.6 K/uL (0.7-4.9); Hematocrit 37.1 % (36.0-45.0); Lymphocytes % 22.5 % (15.3-44.8); MPV 8.1 fL (7.6-11.3); RBC Red Blood Cell Count 4.29 M/uL (3.86-4.86)
[2021-06-30 15:08] LABS: BUN Blood Urea Nitrogen 10 mg/dL (7-18); Bicarbonate 29 mmol/L (21-32); Glucose Level 87 mg/dL (74-106); Potassium 4.2 mmol/L (3.5-5.1); Sodium Level 141 mmol/L (136-145)
--- NOTE | 2021-06-30 17:24 | EDPHYS ---
Physician Documentation [facility] Name: Nallely Mendez Age: 81 yrs Sex: Female : 1940 Arrival Date: 06/30/2021 Time: 12:01 Bed External Waiting Private MD: ED Physician HPI: 06/30 12:27 This 81 yrs old Female presents to ER via Unassigned with complaints of Fall injury. pm1 12:27 Trauma demographics: Location of Injury: The injury occurred at home. Mechanism of pm1 injury: Fall: the patient fell from a standing position Patient with mechanical fall, tripped while walking in her kitchen towards the refrigerator. Patient presenting with pain to her left knee, left wrist, left and right anterior rib cage, back, left-sided forehead. Patient reports fall injury 1 week ago that resulted in pain to her left anterior rib cage and left shoulder. Patient did not seek medical attention for that fall at that time, however she reports her left shoulder pain is present with active range of motion, not with passive range of motion. Onset: The symptoms/episode began/occurred just prior to arrival. The patient has experienced similar episodes in the past, a few times. The patient has not recently seen a physician, the patient's primary care provider is Dr. Combs. Patient sees Dr. Olguin. 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 Historical: - Allergies: 19:25 Phenergan; ss - PMHx: 19:25 CHF; Depression; Hypertension; GERD; Anemia; acute respiratory failure; osteoarthritis; ss Meningioma Brain tumor; pulmonary edema; Pulmonary Embolism; - PSHx: 19:25 Appendectomy; Ligation of fallopian tube; Cholecystectomy; ss ROS: 12:27 Constitutional: Negative for fever, chills, and weight loss, Eyes: Negative for injury, pm1 pain, redness, and discharge, ENT: Negative for injury, pain, and discharge, Neck: Negative for injury, pain, and swelling, Cardiovascular: Negative for chest pain, palpitations, and edema, Respiratory: Negative for shortness of breath, cough, wheezing, and pleuritic chest pain. 12:27 Skin: Negative for injury, rash, and discoloration. 12:27 Abdomen/GI: Positive for abdominal pain, of the right upper quadrant and left upper quadrant, Negative for nausea, vomiting, and diarrhea. 12:27 Back: Positive for Pain to thoracic back area. 12:27 MS/extremity: Positive for pain, of the left wrist and left knee, Negative for decreased range of motion, deformity. 12:27 Neuro: Positive for headache, of the forehead, Negative for dizziness, numbness, tingling, weakness. 12:27 All other systems are negative. Exam: 12:27 Constitutional: This is a well developed, well nourished patient who is awake, alert, pm1 and in no acute distress. Head/Face: Normocephalic, atraumatic. 12:27 MS/ Extremity: Pulses equal, no cyanosis. Neurovascular intact. Full, normal range of motion. 12:27 Eyes: Exam is negative for acute changes, Periorbital structures: appear normal, Pupils: no acute changes, Extraocular movements: no acute changes, Conjunctiva: no acute changes, no injection. 12:27 ENT: Exam is negative for acute changes, Nose: no acute changes, Mouth: no acute changes, Lips: normal, moist, Oral mucosa: normal, pink and intact, moist. 12:27 Neck: Exam negative for acute changes, C-spine: vertebral tenderness, is not appreciated. 12:27 Chest/axilla: Inspection: normal, Palpation: tenderness, of the anterior bilateral lower ribs, that totally reproduces the patient's complaints. 12:27 Cardiovascular: Exam negative for acute changes, Rate: normal, Rhythm: regular, Pulses: no pulse deficits are appreciated, Heart sounds: normal, normal S1and S2. 12:27 Respiratory: Exam negative for acute changes, respiratory distress, shortness of breath, Breath sounds: are clear throughout. 12:27 Abdomen/GI: Inspection: obese Palpation: soft, in all quadrants, mild abdominal tenderness, in the right upper quadrant and left upper quadrant. 12:27 Back: vertebral tenderness, is not appreciated, muscle spasm, is appreciated in the left mid back and right mid back. 12:27 Musculoskeletal/extremity: Extremities: grossly normal except: noted in the dorsal aspect of left wrist: swelling, tenderness, There is no evidence of decreased ROM, deformity, noted in the left knee: swelling, tenderness. 12:27 Skin: Appearance: normal except for affected area, injury, abrasion(s), small abrasion noted, of the left [place], contusion(s), that are superficial, of the left [place]. Vital Signs: 12:01 BP 158 / 66; Pulse 55; Resp 16; Temp 97.7(O); Pulse Ox 98% on R/A; Weight 83.91 kg (R); mb7 Height 4 ft. 11 in. (149.86 cm) (R); 14:00 BP 134 / 72; Pulse 56; Resp 18; Pulse Ox 100% ; Pain 8/10; ss 16:00 BP 165 / 86; Pulse 59; Resp 18; Pulse Ox 97% ; Pain 6/10; ss 17:00 BP 139 / 57; Pulse 61; Resp 18; Pulse Ox 98% ; Pain 6/10; ss 12:01 Body Mass Index 37.37 (83.91 kg, 149.86 cm) 7 MDM: 12:09 Patient medically screened. pm1 17:24 Data reviewed: vital signs. Data interpreted: Pulse oximetry: on room air is 98 %. pm1 Interpretation: normal. Counseling: I had a detailed discussion with the patient and/or guardian regarding: the historical points, exam findings, and any diagnostic results supporting the discharge/admit diagnosis, lab results, radiology results, the need for outpatient follow up, to return to the emergency department if symptoms worsen or persist or if there are any questions or concerns that arise at home. 06/30 12:20 Order name: Basic Metabolic Panel; Complete Time: 15:16 pm1 06/30 12:20 Order name: CBC with Diff; Complete Time: 15:16 pm1 06/30 12:20 Order name: Wrist Left (3 View) XRAY; Complete Time: 13:02 pm1 06/30 12:21 Order name: Knee Left 3 View XRAY; Complete Time: 13:02 pm1 06/30 12:30 Order name: Head Brain Wo Cont; Complete Time: 13:35 EDMS 06/30 12:30 Order name: C Spine Wo Con; Complete Time: 13:46 EDMS 06/30 12:30 Order name: Thorax W/ Con; Complete Time: 13:46 EDMS 06/30 12:30 Order name: Abdomen ; Complete Time: 13:46 EDMS 06/30 17:08 Order name: Tib Fib Left; Complete Time: 18:04 EDMS 06/30 12:20 Order name: Labs collected and sent pm1 Administered Medications: 14:10 Drug: morphine 4 mg Route: IVP; Site: right antecubital; ww 16:17 Follow up: Response: No adverse reaction ss 14:13 Drug: Zofran (Ondansetron) 4 mg Route: IVP; Infused Over: 2 mins; Site: right ww antecubital; 16:17 Follow up: Response: No adverse reaction ss 17:11 Drug: morphine 4 mg Route: IVP; Site: right antecubital; Disposition Summary: 06/30/21 17:24 Discharge Ordered Location: Home pm1 Problem: new pm1 Symptoms: have improved pm1 Condition: Stable pm1 Diagnosis - Fall on same level, unspecified pm1 - Unspecified injury of head, initial encounter pm1 - Contusion of left lower leg pm1 - Pain in left wrist pm1 - Contusion of left front wall of thorax pm1 - Contusion of right front wall of thorax pm1 - Abrasion, left lower leg pm1 Followup: pm1 - With: Emergency Department - When: As needed - Reason: Worsening of condition Followup: pm1 - With: Private Physician - When: 2 - 3 days - Reason: Recheck today's complaints, Continuance of care, Re-evaluation by your physician Discharge Instructions: - Discharge Summary Sheet pm1 - Abrasion pm1 - Contusion pm1 - Rib Contusion pm1 - Fall Prevention in the Home, Adult pm1 - Head Injury, Adult pm1 - Wrist Pain, Adult pm1 - Wrist Splint, Adult pm1 Forms: - Medication Reconciliation Form pm1 - Thank You Letter pm1 - Antibiotic Education pm1 - Prescription Opioid Use pm1 Prescriptions: - Tramadol 50 mg Oral Tablet - take 1 tablet by ORAL route every 8 hours as needed; 12 tablet; Refills: 0, pm1 Product Selection Permitted Addendum: 07/04/2021 18:39 Co-signature as Attending Physician, Vincent Sierra MD I agree with the assessment and c ruelas plan of care. Signatures: Dispatcher [employer] EDVincent Franco MD MD cha Smirch, Shelby, RN RN ss Jonathon Smiley, COMMODITY SPECIALIST COMMODITY SPECIALIST pm1 Evelyn Sheehan RN RN ww Corrections: (The following items were deleted from the chart) 06/30 12:30 12:21 Head C Spine CAP W Con+CT.RAD.BRZ ordered. EDID EDMS 17:48 17:35 Tib Fib Left+RAD.RAD.BRZ ordered. EDMS EDMS
--- NOTE | 2021-06-30 17:24 | ER ---
Nurse's Notes [facility] Name: Nallely Mendez Age: 81 yrs Sex: Female : 1940 Arrival Date: 06/30/2021 Time: 12:01 Bed External Waiting Private MD: Diagnosis: Fall on same level, unspecified;Unspecified injury of head, initial encounter;Contusion of left lower leg;Pain in left wrist;Contusion of left front wall of thorax;Contusion of right front wall of thorax;Abrasion, left lower leg Presentation: 06/30 12:01 Chief complaint: Patient states: Fall from standing in kitchen. Ebola Screen: Patient ss denies exposure to infectious person. Patient denies travel to an Ebola-affected area in the 21 days before illness onset. Initial Sepsis Screen: Does the patient meet any 2 criteria? No. Patient's initial sepsis screen is negative. Does the patient have a suspected source of infection? No. Patient's initial sepsis screen is negative. Risk Assessment: Do you want to hurt yourself or someone else? Patient reports no desire to harm self or others. Onset of symptoms was June 30, 2021. 12:01 Method Of Arrival: EMS ss 12:01 Acuity: GUNNER 3 ss 14:00 Coronavirus screen: Vaccine status: Patient reports receiving the 2nd dose of the covid ss vaccine. Historical: - Allergies: 19:25 Phenergan; ss - PMHx: 19:25 CHF; Depression; Hypertension; GERD; Anemia; acute respiratory failure; osteoarthritis; ss Meningioma Brain tumor; pulmonary edema; Pulmonary Embolism; - PSHx: 19:25 Appendectomy; Ligation of fallopian tube; Cholecystectomy; ss Screenin:00 Abuse screen: Denies threats or abuse. ss 14:00 Nutritional screening: No deficits noted. Tuberculosis screening: No symptoms or risk ss factors identified. Fall Risk Fall in past 12 months (25 points). Gait- Weak (10 pts.). Assessment: 13:29 Reassessment: Pt back from imaging at this time. ss 13:30 General: Appears in no apparent distress. uncomfortable, Behavior is calm, cooperative. ss 13:30 Pain: Complains of pain in left leg Pain currently is 8 out of 10 on a pain scale. ss Quality of pain is described as aching, sharp, Pain began suddenly, Is continuous, Aggravated by increased activity, repositioning. 14:30 Reassessment: Patient and/or family updated on plan of care and expected duration. Pain ss level reassessed. Patient is alert, oriented x 3, equal unlabored respirations, skin warm/dry/pink. pt resting with blankets and call light. waiting for results of x rays at this time. 15:30 Reassessment: Patient and/or family updated on plan of care and expected duration. Pain ss level reassessed. pt stated that pain meds help neck and lower back pain. x rays neg as well as the ct. pt cont with pain to l lower leg. hair dryer aware and is going to order imaging. 15:30 Pain: Complains of pain in left [place] Pain currently is 4 out of 10 on a pain scale. Vital Signs: 12:01 BP 158 / 66; Pulse 55; Resp 16; Temp 97.7(O); Pulse Ox 98% on R/A; Weight 83.91 kg (R); mb7 Height 4 ft. 11 in. (149.86 cm) (R); 14:00 BP 134 / 72; Pulse 56; Resp 18; Pulse Ox 100% ; Pain 8/10; ss 16:00 BP 165 / 86; Pulse 59; Resp 18; Pulse Ox 97% ; Pain 6/10; ss 17:00 BP 139 / 57; Pulse 61; Resp 18; Pulse Ox 98% ; Pain 6/10; ss 12:01 Body Mass Index 37.37 (83.91 kg, 149.86 cm) mb7 ED Course: 12:01 Patient arrived in ED. mb7 12:02 Patient has correct armband on for positive identification. Bed in low position. Call mb7 light in reach. Side rails up X 1. Door closed. Noise minimized. Warm blanket given. 12:05 Jonathon Smiley, LAMBERTO is PHCP. pm1 12:05 Vincent Sierra MD is Attending Physician. pm1 12:49 Wrist Left (3 View) XRAY In Process Unspecified. EDMS 12:49 Knee Left 3 View XRAY In Process Unspecified. EDMS 13:00 Arm band placed on right wrist. ss 13:30 Head Brain Wo Cont In Process Unspecified. EDMS 13:30 C Spine Wo Con In Process Unspecified. EDMS 13:30 Thorax W/ Con In Process Unspecified. EDMS 13:30 Abdomen In Process Unspecified. EDMS 14:36 Christina Fleming, RN is Primary Nurse. ss 17:49 Tib Fib Left In Process Unspecified. EDMS 18:00 No provider procedures requiring assistance completed. ss 19:25 Triage completed. 07/01 17:15 Attending Physician role handed off by Vincent Sierra MD 17:15 Primary Nurse role handed off by Christina Fleming, WILFRED ss Administered Medications: 06/30 14:10 Drug: morphine 4 mg Route: IVP; Site: right antecubital; 16:17 Follow up: Response: No adverse reaction ss 14:13 Drug: Zofran (Ondansetron) 4 mg Route: IVP; Infused Over: 2 mins; Site: right ww antecubital; 16:17 Follow up: Response: No adverse reaction 17:11 Drug: morphine 4 mg Route: IVP; Site: right antecubital; Outcome: 17:24 Discharge ordered by . pm1 18:00 Discharged to home 18:00 Condition: stable ss 18:00 Discharge instructions given to patient, family, Instructed on discharge instructions, follow up and referral plans. Demonstrated understanding of instructions, follow-up care, medications, Prescriptions given X 1. 18:19 Patient left the ED. Signatures: Dispatcher [employer] EDDC Christina Fleming, WILFRED HARDIN Jonathon Smiley, WEDDING MAKEUP ARTIST WEDDING MAKEUP ARTIST pm1 Kayla Hodgson mb7 Evelyn Sheehan RN RN ww Corrections: (The following items were deleted from the chart) 07/01 17:17 17:16 Patient left the ED. ss ss
--- NOTE | 2021-06-30 17:59 | RAD REPORT ---
EXAM DESCRIPTION: RAD - Tib Fib Left - 06/30/2021 5:47 pm CLINICAL HISTORY: pain COMPARISON: Tib Fib Left dated 12/24/2020 FINDINGS: No acute fracture. No malalignment. Deformity at the lateral tibial plateau is chronic. IMPRESSION: No acute osseous abnormality involving the tibia or fibula..
[2021-06-30 18:54] VITALS: TEMP 97.7
[2021-06-30 18:59] VITALS: BP 139/57; O2SAT 98
== END 2021-07-01 17:16 | disposition home or self-care (01) ==
LOC: ER 11:50
DX: S09.90XA Unspecified injury of head, initial encounter (principal); S80.812A Abrasion, left lower leg, initial encounter; S80.12XA Contusion of left lower leg, initial encounter; S20.212A Contusion of left front wall of thorax, initial encounter; S20.211A Contusion of right front wall of thorax, initial encounter; M25.532 Pain in left wrist; W01.0XXA Fall on same level from slipping, tripping and stumbling without subsequent striking against object, initial encounter; Y92.009 Unspecified place in unspecified non-institutional (private) residence as the place of occurrence of the external cause; I10 Essential (primary) hypertension; I50.9 Heart failure, unspecified; D32.0 Benign neoplasm of cerebral meninges; Z88.8 Allergy status to other drugs, medicaments and biological substances
CPT/HCPCS: 85025; 80048; 36415; 82565; 70450; 72125; 71260; 74177; 73110; 73562; 73590; 96375; 96374; 99284; J2405

== ENCOUNTER 2024-12-14 01:13 | Emergency (ER) | payer OTHER ==
[2024-12-14 02:53] LABS: Absolute Lymphocytes (CBC) 1.0 K/uL (0.7-4.9); Hematocrit 43.5 % (36.0-45.0); Hemoglobin 13.7 g/dL (12.0-15.0); MCH 26.7 pg (27.0-35.0); MCHC 31.6 g/dL (32.0-36.0); MCV 84.4 fL (80-100); MPV 8.5 fL (7.6-11.3); Nucleated RBC Absolute Count 0.0 (0-0); Nucleated Red Blood Cells % 0.0 % (0-0); PT Prothrombin Time 12.5 SECONDS (10-13.0); Protime INR 1.11; RBC Red Blood Cell Count 5.15 M/uL (3.86-4.86); White Blood Count 14.80 thou/uL (4.3-10.9)
[2024-12-14] MEDS ORDERED: KETOROLAC 30 MG/ML INJ ONE (03:00)
[2024-12-14 03:09] LABS: ALT/SGPT 26.0 U/L (13-56); AST/SGOT 27.0 U/L (15-37); Albumin 3.0 g/dL (3.4-5.0); Albumin/Globulin Ratio 0.9 (1.1-1.8); Alkaline Phosphatase 101.0 U/L (45-117); Anion Gap 9.0 mEq/L (5.0-15.0); BUN Blood Urea Nitrogen 17.0 mg/dL (7-18); Bilirubin Indirect, Calculated 0.5 mg/dL (0.2-0.8); Globulin 3.3 g/dL (2.3-3.5); Glucose Level 107.0 mg/dL (74-106); Magnesium 2.0 mg/dL (1.6-2.4); NT PRO-BNP 1756.0 pg/mL (<450); Potassium 4.0 mEq/L (3.5-5.1); Troponin High Sensitivity 10.7 pg/mL (<58.9)
--- NOTE | 2024-12-14 03:35 | ER ---
Nurse's Notes [facility] Name: Nallely Mendez Age: 84 yrs Sex: Female : 1940 Arrival Date: 12/14/2024 Time: 01:34 Bed 8 Private MD: Diagnosis: Costochondritis, intercostal muscle strain Presentation: 12/14 01:41 Chief complaint: Patient states: pt to ED via EMS c/o central chest and right rib pain. mf3 Pt states "I sneezed on Thursday and heard a pop. Its been hurting ever since" Pt a/o x4. Pt states she was diagnosed with bronchitis 3 weeks ago. Coronavirus screen: Client denies travel out of the [place] in the last 14 days. At this time, the client does not indicate any symptoms associated with coronavirus-19. Ebola Screen: No symptoms or risks identified at this time. Ebola Screen: No symptoms or risks identified at this time. Initial Sepsis Screen: Does the patient meet any 2 criteria? No. Patient's initial sepsis screen is negative. Does the patient have a suspected source of infection? No. Patient's initial sepsis screen is negative. Risk Assessment: Do you want to hurt yourself or someone else? Patient reports no desire to harm self or others. Onset of symptoms was December 11, 2024. 01:41 Method Of Arrival: [facility] 01:41 Acuity: GUNNER 3 3 Triage Assessment: 01:47 General: Appears in no apparent distress. comfortable, Behavior is calm, cooperative, mf3 appropriate for age. Pain: Complains of pain in mid-sternal area Pain currently is 4 out of 10 on a pain scale. Neuro: Level of Consciousness is awake, alert, obeys commands, Oriented to person, place, time. Cardiovascular: Heart tones S1 S2 Capillary refill < 3 seconds. Respiratory: Airway is patent Trachea midline Respiratory effort is even, unlabored. GI: No signs and/or symptoms were reported involving the gastrointestinal system. : No signs and/or symptoms were reported regarding the genitourinary system. Derm: Skin is intact, Skin is dry, Skin is pink, warm \\T\\ dry. Historical: - Allergies: 01:47 Phenergan; mf3 - PMHx: 01:47 acute respiratory failure; Anemia; CHF; Depression; Hypertension; GERD; osteoarthritis; mf3 Meningioma Brain tumor; pulmonary edema; Pulmonary Embolism; Atrial fibrillation; - PSHx: 01:47 Appendectomy; Cholecystectomy; Ligation of fallopian tube; mf3 - Immunization history:: Adult Immunizations up to date. - Infectious Disease History:: Denies. - Social history:: Smoking status: Patient denies any tobacco usage or history of. Screenin:50 [facility] ED Fall Risk Assessment (Adult) History of falling in the last 3 months, mf3 including since admission No falls in past 3 months (0 pts) Confusion or Disorientation No (0 pts) Intoxicated or Sedated No (0 pts) Impaired Gait No (0 pts) Mobility Assist Device Used No (0 pt) Altered Elimination No (0 pt) Score/Fall Risk Level 0 - 2 = Low Risk Oriented to surroundings, Hourly rounding (assess needs \\T\\ fall precautionary measures) done. Abuse screen: Denies threats or abuse. Denies injuries from another. Nutritional screening: No deficits noted. Tuberculosis screening: No symptoms or risk factors identified. Never had TB. Assessment: 01:50 Pain: Pain does not radiate. Pain began 2-3 days ago. Neuro: Level of Consciousness is mf3 awake, alert, obeys commands, Oriented to person, place, time, situation. Cardiovascular: Capillary refill < 3 seconds. Respiratory: Airway is patent Trachea midline Respiratory effort is even, unlabored. GI: No signs and/or symptoms were reported involving the gastrointestinal system. : No signs and/or symptoms were reported regarding the genitourinary system. EENT:. Derm: Skin is intact. Musculoskeletal:. 04:06 Reassessment: Discharge pending. Son coming to pickle maker patient. cp4 Vital Signs: 01:41 BP 109 / 62; Pulse 90; Resp 24; Temp 98.7; Pulse Ox 95% on 2 lpm NC; Weight 74.39 kg; mf3 Height 5 ft. 7 in. ; Pain 4/10; 03:03 BP 106 / 58; Pulse 64; Resp 22; Pulse Ox 96% ; mf3 04:30 BP 103 / 67; Pulse 74; Resp 17; Pulse Ox 99% on R/A; mf3 01:41 Body Mass Index 25.69 (74.39 kg, 170.18 cm) 3 01:41 Pain Scale: Adult mf3 Keyshawn Coma Score: 01:50 Eye Response: spontaneous(4). Motor Response: obeys commands(6). Verbal Response: mf3 oriented(5). Total: 15. ED Course: 01:35 Patient arrived in ED. rv1 01:37 Gonzalo Juan MD is Attending Physician. sp3 01:40 Leeann Drummond, RN is Primary Nurse. mf3 01:47 Triage completed. mf3 01:47 Arm band placed on right wrist. mf3 01:50 Patient has correct armband on for positive identification. Bed in low position. Call mf3 light in reach. Side rails up X2. Provided Education on: PT EDUCATED ON PLAN OF CARE. Client placed on continuous cardiac and pulse oximetry monitoring. NIBP monitoring applied. quality assurance monitor final on. Pulse ox on. 02:30 XRAY Chest (1 view) In Process Unspecified. EDMS 02:45 Basic Metabolic Panel Sent. oe 02:45 CBC with Diff Sent. oe 02:45 LFT's Sent. oe 02:45 Magnesium Sent. oe 02:45 NT PRO-BNP Sent. oe 02:45 PT-INR Sent. oe 02:45 Troponin HS Sent. oe 04:47 No provider procedures requiring assistance completed. IV discontinued, intact, mf3 bleeding controlled, No redness/swelling at site. Pressure dressing applied. Patient maintains SpO2 saturation greater than 95% on room air. Patient maintains SpO2 saturation greater than 95% on room air. Administered Medications: 03:07 Drug: Ketorolac IVP 15 mg IVP once Route: IVP; Site: left antecubital; tb4 03:36 Follow up: Response: No adverse reaction; Pain is decreased cp4 04:47 Follow up: Response: No adverse reaction mf3 Medication: 01:50 VIS not applicable for this client. mf3 Outcome: 03:35 Discharge ordered by . sp3 04:47 Discharged to home ambulatory, with family, mf3 04:47 Condition: stable 04:47 Discharge instructions given to Instructed on discharge instructions, follow up and referral plans. Demonstrated understanding of instructions, follow-up care, medications, Prescriptions given X 1, 04:48 Patient left the ED. mf3 Signatures: Dispatcher [employer] EDMS Kyrie Alexander oe Gonzalo Juan MD MD sp3 Gayatri Pena rv1 Radha Levine cp4 Ania Osorio, RN RN tb4 Leeann Drummond, RN RN mf3
--- NOTE | 2024-12-14 03:35 | EDPHYS ---
Physician Documentation [facility] Name: Nallely Mendez Age: 84 yrs Sex: Female : 1940 Arrival Date: 12/14/2024 Time: 01:34 Bed 8 Private MD: ED Physician Gnozalo Juan HPI: 12/14 02:09 This 84 yrs old Female presents to ER via EMS with complaints of Chest Pain - rib pain. sp3 02:09 84-year-old female with history of respiratory failure, CHF, hypertension, GERD, atrial sp3 fibrillation now presents to the ED with chief complaint point tenderness of the right sternum at the rib insertion site after feeling a "pop yesterday while coughing. Patient is currently being treated for outpatient bronchitis with antibiotics and cough medicine. She states that the pain is reproducible when you push on it and it is worse when she coughs. It is not there at rest. She denies any substernal dull chest pain, pain into her left upper extremity or jaw or other anginal equivalents. She also denies any shortness of breath, headache, fever, abdominal pain, back pain, nausea, vomit, diarrhea, syncope, near syncope, or any other signs or symptoms on ROS at this time.. Historical: - Allergies: 01:47 Phenergan; mf3 - PMHx: 01:47 acute respiratory failure; Anemia; CHF; Depression; Hypertension; GERD; osteoarthritis; mf3 Meningioma Brain tumor; pulmonary edema; Pulmonary Embolism; Atrial fibrillation; - PSHx: 01:47 Appendectomy; Cholecystectomy; Ligation of fallopian tube; mf3 - Immunization history:: Adult Immunizations up to date. - Infectious Disease History:: Denies. - Social history:: Smoking status: Patient denies any tobacco usage or history of. ROS: 02:12 Constitutional: Negative for fever, chills, and weight loss, Eyes: Negative for injury, sp3 pain, redness, and discharge, ENT: Negative for injury, pain, and discharge, Neck: Negative for injury, pain, and swelling, Cardiovascular: Negative for chest pain, palpitations, and edema, Abdomen/GI: Negative for abdominal pain, nausea, vomiting, diarrhea, and constipation, Neuro: Negative for headache, weakness, numbness, tingling, and seizure, Psych: Negative for depression, anxiety, suicide ideation, homicidal ideation, and hallucinations, Allergy/Immunology: Negative for hives, rash, and allergies, Endocrine: Negative for neck swelling, polydipsia, polyuria, polyphagia, and marked weight changes, Hematologic/Lymphatic: Negative for swollen nodes, abnormal bleeding, and unusual bruising, 02:12 All other systems are negative, Exam: 02:12 Chest/axilla: Reproducible pain on the right mediastinum area on the lower portion at sp3 the rib insertion sites.. 02:22 Constitutional: This is a well developed, well nourished patient who is awake, alert, sp3 and in no acute distress. Head/Face: Normocephalic, atraumatic. Eyes: Pupils equal round and reactive to light, extra-ocular motions intact. Lids and lashes normal. Conjunctiva and sclera are non-icteric and not injected. Cornea within normal limits. Periorbital areas with no swelling, redness, or edema. Neck: Trachea midline, no thyromegaly or masses palpated, and no cervical lymphadenopathy. Supple, full range of motion without nuchal rigidity, or vertebral point tenderness. No Meningismus. Chest/axilla: Normal chest wall appearance and motion. Nontender with no deformity. No lesions are appreciated. Respiratory: Lungs have equal breath sounds bilaterally, clear to auscultation and percussion. No rales, rhonchi or wheezes noted. No increased work of breathing, no retractions or nasal flaring. Abdomen/GI: Soft, non-tender, with normal bowel sounds. No distension or tympany. No guarding or rebound. No evidence of tenderness throughout. Back: No spinal tenderness. No costovertebral tenderness. Full range of motion. Skin: Warm, dry with normal turgor. Normal color with no rashes, no lesions, and no evidence of cellulitis. Neuro: Awake and alert, GCS 15, oriented to person, place, time, and situation. Cranial nerves II-XII grossly intact. Motor strength 5/5 in all extremities. Sensory grossly intact. Cerebellar exam normal. Normal gait. Psych: Awake, alert, with orientation to person, place and time. Behavior, mood, and affect are within normal limits. 02:23 Cardiovascular: Atrial fibrillation noted., sp3 03:33 ECG was reviewed by the Attending Physician. EKG demonstrates atrial fibrillation with sp3 ventricular capture at 93 bpm, absent TX normal intervals QTc 467 slightly leftward axis and nonspecific diffuse ST/T changes without evidence of acute ischemia. Vital Signs: 01:41 BP 109 / 62; Pulse 90; Resp 24; Temp 98.7; Pulse Ox 95% on 2 lpm NC; Weight 74.39 kg; mf3 Height 5 ft. 7 in. ; Pain 4/10; 03:03 BP 106 / 58; Pulse 64; Resp 22; Pulse Ox 96% ; mf3 04:30 BP 103 / 67; Pulse 74; Resp 17; Pulse Ox 99% on R/A; mf3 01:41 Body Mass Index 25.69 (74.39 kg, 170.18 cm) 3 01:41 Pain Scale: Adult mf3 Keyshawn Coma Score: 01:50 Eye Response: spontaneous(4). Motor Response: obeys commands(6). Verbal Response: mf3 oriented(5). Total: 15. MDM: 01:51 Medical Screening Exam initiated sp3 02:13 Data reviewed: vital signs, nurses notes, old medical records, lab test result(s), EKG, sp3 radiologic studies. ED course: 84-year-old female with right sided costochondritis/sternal pain after cough yesterday. Differential diagnosis includes costochondritis, muscle strain, and to a lesser degree pneumothorax, pneumonia, or other pathology including ACS. Low likelihood of these later differentials. Clinically have ruled out PE, sepsis, shock or any other critical process. Workup will include EKG, chest x-ray and general labs and treatment with ketorolac in addition to the Tylenol she has already received.. 03:34 ED course: Workup negative including chest x-ray. Patient improved. We will safely sp3 discharge home.. 12/14 01:51 Order name: Basic Metabolic Panel; Complete Time: 03: sp3 12/14 01:51 Order name: CBC with Diff; Complete Time: 03: sp3 12/14 01:51 Order name: LFT's; Complete Time: 03: sp3 12/14 01:51 Order name: Magnesium; Complete Time: 03: sp3 12/14 01:51 Order name: NT PRO-BNP; Complete Time: 03: sp3 12/14 01:51 Order name: PT-INR; Complete Time: 03:32 sp3 12/14 01:51 Order name: Troponin HS; Complete Time: 03:32 sp3 12/14 01:51 Order name: XRAY Chest (1 view) sp3 12/14 01:51 Order name: EKG; Complete Time: 01:52 sp3 12/14 01:51 Order name: Cardiac monitoring; Complete Time: 02:44 3 12/14 01:51 Order name: EKG - Nurse/Tech; Complete Time: 02:45 sp3 12/14 01:51 Order name: IV Saline Lock; Complete Time: 02:51 sp3 12/14 01:51 Order name: Labs collected and sent; Complete Time: 02:45 sp3 12/14 01:51 Order name: O2 Per Protocol; Complete Time: 02:51 sp3 12/14 01:51 Order name: O2 Sat Monitoring; Complete Time: 02:51 sp3 Administered Medications: 03:07 Drug: Ketorolac IVP 15 mg IVP once Route: IVP; Site: left antecubital; tb4 03:36 Follow up: Response: No adverse reaction; Pain is decreased cp4 04:47 Follow up: Response: No adverse reaction 3 Disposition Summary: 12/14/24 03:35 Discharge Ordered Notes: Location: Home sp3 Condition: Stable sp3 Diagnosis - Costochondritis, intercostal muscle strain sp3 Followup: sp3 - With: Private Physician - When: Upon discharge from the Emergency Department - Reason: Continuance of care Discharge Instructions: - Discharge Summary Sheet sp3 - Chest Wall Pain sp3 Forms: - Medication Reconciliation Form sp3 - Antibiotic Education sp3 - Prescription Opioid Use sp3 - Patient Portal Instructions sp3 - Leadership Thank You Letter sp3 Prescriptions: - Diclofenac Sodium 75 mg Oral Tablet Sustained Release - take 1 tablet ORAL route 2 times per day; 30 tablet; Refills: 0, Product sp3 Selection Permitted Signatures: Dispatcher [employer] EDMS Gonzalo Juan MD MD sp3 Ania Osorio RN RN tb4 Leeann Drummond RN RN 3 Radha Levine cp4 Corrections: (The following items were deleted from the chart) 02:23 02:12 Constitutional: This is a well developed, well nourished patient who is awake, sp3 alert, and in no acute distress. Head/Face: Normocephalic, atraumatic. Eyes: Pupils equal round and reactive to light, extra-ocular motions intact. Lids and lashes normal. Conjunctiva and sclera are non-icteric and not injected. Cornea within normal limits. Periorbital areas with no swelling, redness, or edema. Neck: Trachea midline, no thyromegaly or masses palpated, and no cervical lymphadenopathy. Supple, full range of motion without nuchal rigidity, or vertebral point tenderness. No Meningismus. Cardiovascular: Regular rate and rhythm with a normal S1 and S2. No gallops, murmurs, or rubs. Normal PMI, no JVD. No pulse deficits. Respiratory: Lungs have equal breath sounds bilaterally, clear to auscultation and percussion. No rales, rhonchi or wheezes noted. No increased work of breathing, no retractions or nasal flaring. Abdomen/GI: Soft, non-tender, with normal bowel sounds. No distension or tympany. No guarding or rebound. No evidence of tenderness throughout. Back: No spinal tenderness. No costovertebral tenderness. Full range of motion. Skin: Warm, dry with normal turgor. Normal color with no rashes, no lesions, and no evidence of cellulitis. MS/ Extremity: Pulses equal, no cyanosis. Neurovascular intact. Full, normal range of motion. Neuro: Awake and alert, GCS 15, oriented to person, place, time, and situation. Cranial nerves II-XII grossly intact. Motor strength 5/5 in all extremities. Sensory grossly intact. Cerebellar exam normal. Normal gait. Psych: Awake, alert, with orientation to person, place and time. Behavior, mood, and affect are within normal limits. sp3
[2024-12-14 04:53] VITALS: TEMP 98.7
[2024-12-14 04:56] VITALS: BP 103/67; O2SAT 99
--- NOTE | 2024-12-14 06:04 | RAD REPORT ---
EXAM: XR Chest, 1 View ([id number], [id number]) CLINICAL HISTORY: 84 years Female CHEST PAIN TECHNIQUE: Frontal view of the chest. COMPARISON: None FINDINGS: Lungs: Low lung volumes.Left basilar opacity. Pleural space: Left pleural effusion. No pneumothorax. Heart: Normal heart size. Mediastinum: Normal mediastinal contour. Bones/joints: No acute abnormality. Vasculature: Aortic atherosclerosis. IMPRESSION: 1. Left pleural effusion and adjacent atelectasis. Electronically signed by: Long Welsh MD 12/14/2024 03:35 AM CDT RP Due to temporary technical issues with the PACS/[employer] reporting system, reports are being alexx d by the in-house radiologist without review as a courtesy to ensure prompt reporting the interpreting radiologist is fully responsible for the content of the report. Transcribed Date/Time: 12/14/2024 6:03 AM
== END 2024-12-14 04:48 | disposition home or self-care (01) ==
LOC: ER 01:34
DX: M94.0 Chondrocostal junction syndrome [Tietze] (principal); S29.011A Strain of muscle and tendon of front wall of thorax, initial encounter
CPT/HCPCS: 36415; 71045; 80048; 80076; 83735; 83880; 84484; 85025; 85610; 93005; 96374; 99285; J1885